=== PATIENT | male | born 2000 | race Caucasian/White ===

== ENCOUNTER 2020-11-04 10:00 | Emergency (ER) | payer OTHER ==
[2020-11-04 10:35] LABS: Urine Blood Negative (Negative); Urine Glucose Negative (Negative); Urine Protein 1+ (Negative); Urine Specific Gravity >=1.030 (1.005-1.030)
[2020-11-04 10:41] LABS: Absolute Lymphocytes (CBC) 0.4 K/uL (0.7-4.9); Basophils % 0.3 % (0-1.3); Lymphocytes % 3.8 % (15.3-44.8); MPV 8.2 fL (7.6-11.3); RBC Red Blood Cell Count 4.84 M/uL (4.33-5.43)
[2020-11-04] MEDS ORDERED: LORazepam 2 MG/ML VIAL ONE ×3 (10:51→20:16)
[2020-11-04 10:52] LABS: Protime INR 1.21
[2020-11-04 10:57] LABS: Barbiturates NEGATIVE (NEGATIVE); Benzodiazepines NEGATIVE (NEGATIVE); Cocaine NEGATIVE (NEGATIVE); METHAMPHETAM NEGATIVE (NEGATIVE); Methadone NEGATIVE (NEGATIVE); Opiates NEGATIVE (NEGATIVE); Phencyclidine NEGATIVE (NEGATIVE); THC Cannibis NEGATIVE (NEGATIVE)
[2020-11-04 11:03] LABS: ALT/SGPT 18 U/L (12-78); AST/SGOT 21 U/L (15-37); Alkaline Phosphatase 122 U/L (45-117); BUN Blood Urea Nitrogen 10 mg/dL (7-18); Bicarbonate 25 mmol/L (21-32); Bilirubin Direct 0.1 mg/dL (0-0.2); Bilirubin Total 0.4 mg/dL (0.2-1.0); Glucose Level 157 mg/dL (74-106); Potassium 3.6 mmol/L (3.5-5.1); Protein, Total 7.3 g/dL (6.4-8.2); Sodium Level 139 mmol/L (136-145)
[2020-11-04 11:09] LABS: Urine Amorphous Sediment 1+ /HPF (NONE SEEN); Urine Bacteria NONE SEEN /HPF (NONE SEEN); Urine Mucus HEAVY /HPF (NONE SEEN); Urine RBC NONE SEEN /HPF (NONE SEEN)
[2020-11-04 12:27] LABS: White Blood Cell Scan OK (OK)
[2020-11-04 12:28] LABS: Blood Morphology Comment NOT SEEN (NOT SEEN); Platelet Estimate ADEQ
[2020-11-04] MEDS ORDERED: WATER FOR INJ,STERILE 10 ML ONE ×2 (15:17→23:04)
[2020-11-04] MEDS ORDERED: ZIPRASIDONE MESYLA 20 MG/VIAL IM ONE ×2 (15:17→23:03)
--- NOTE | 2020-11-04 20:57 | ER ---
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 Pt is autistic and non verbal. Coronavirus screen: Client denies travel out of the [place] in the last 14 days. Ebola Screen: Patient negative for fever greater than or equal to 101.5 degrees Fahrenheit, and additional compatible Ebola Virus Disease symptoms. Initial Sepsis Screen: Does the patient meet any 2 criteria? No. Patient's initial sepsis screen is negative. Does the patient have a suspected source of infection? No. Patient's initial sepsis screen is negative. Risk Assessment: Do you want to hurt yourself or someone else? Patient reports desire/thoughts of hurting themselves or someone else. Provider notified. Onset of symptoms was November 04, 2020. 10:06 Method Of Arrival: EMS: [place] [facility] vg1 10:06 Acuity: JESSICA 3 vg1 Historical: - Allergies: 10:55 No Known Allergies; vg1 - Home Meds: 10:55 acetaminophen 325 mg Oral tab [Active]; clindamycin HCl 300 mg Oral cap [Active]; vg1 Colace oral oral [Active]; divalproex oral oral [Active]; Keppra 1,000 mg Oral tab [Active]; Klonopin Oral [Active]; lorazepam 1 mg Oral tab [Active]; Ondansetron Oral [Active]; Silvadene Topical [Active]; Trazodone Oral [Active]; ziprasidone oral oral [Active]; - PMHx: 23:00 Seizures; Autism; sf - PSHx: 23:00 Unable to obtain; sf - Immunization history:: Adult Immunizations up to date. - Social history:: Smoking status: Patient denies any tobacco usage or history of. - History obtained from: EMS. Screenin:49 Abuse screen: Pt non verbal no s/s of abuse. Nutritional screening: No deficits noted. vg1 Tuberculosis screening: No symptoms or risk factors identified. Fall Risk No fall in past 12 months (0 pts). No secondary diagnosis (0 pts). IV access (20 points). Ambulatory Aid- None/Bed Rest/Nurse Assist (0 pts). Gait- Normal/Bed Rest/Wheelchair (0 pts) Mental Status- Oriented to own ability (0 pts). Total Lo Fall Scale indicates No Risk (0-24 pts). 11/09 08:24 Abuse screen: Denies threats or abuse. Nutritional screening: No deficits noted. ll1 Tuberculosis screening: No symptoms or risk factors identified. Fall Risk Fall in past 12 months (25 points). Secondary diagnosis (15 points) impaired mobility, IV access (20 points). Ambulatory Aid- Crutches/Cane/Walker (15 pts). Gait- Impaired (20 pts.). Mental Status- Overestimates/Forgets Limitations (15 pts.). Total Lo Fall Scale indicates High Risk Score (45 or more points). Fall prevention measures have been instituted. Side Rails Up X 2 1:1 Attendant Assigned Frequent Obs/Assessments Occuring As available patient and family educated on Fall Prevention Program and Strategies. Assessment: 11/04 10:46 General: Appears in no apparent distress. Behavior is calm, cooperative. Pain: Unable vg1 to use pain scale. Patient appears quiet, non verbal. Neuro: Level of Consciousness is awake, alert, obeys commands, Oriented to Pt is non verbal. Cardiovascular: Patient's skin is warm and dry. Respiratory: Airway is patent Respiratory effort is even, unlabored. GI: No signs and/or symptoms were reported involving the gastrointestinal system. Abdomen is flat, Abd is soft and non tender X 4 quads. : Urine is brenda in color. EENT: No deficits noted. Derm: Skin is intact, is healthy with good turgor, Bruising that is on CLINT legs. Musculoskeletal: Capillary refill < 3 seconds, in bilateral fingers. toes. Swelling right hand. 11:59 Reassessment: Pt climbed out of bed unable to redirect, pt became combative, code vg1 greyed called. 16:22 Reassessment: At 1600 Dolly Carter was contacted at [phone]. Ms Carter is vg1 working on pts case and was wanting an update of pt. Stated wants to get pt into a [facility] home but needs a waiver from [facility]. 19:55 Reassessment: Received VO from Dr Acharya to administer Ativan 2 mg IM x1 and to vg1 reorder four point restraints. 23:20 Reassessment: Patient resting quietly. 11/05 00:00 Reassessment: Patient appears in no apparent distress at this time. No changes from sf previously documented assessment. 01:00 Reassessment: Patient appears in no apparent distress at this time. No changes from sf previously documented assessment. 02:00 Reassessment: Patient appears in no apparent distress at this time. No changes from sf previously documented assessment. Fed crackers. 02:30 Reassessment: Patient has removed safety aftab from right hand and taken diaper off, sf urinated on self, stretcher and floor, patient cleaned, floor wiped up, linen and diaper changed. 03:30 Reassessment: Patient appears in no apparent distress at this time. No changes from sf previously documented assessment. Patient removed safety aftab and tore holes in diaper, diaper and safety aftab replaced, attempt to reorient patient. 04:38 Reassessment: Patient appears in no apparent distress at this time. No changes from sf previously documented assessment. patient given food and drink by MARIELENA Radford. 05:32 Reassessment: While changing patients diaper after BM and urine incontinence, patient sf began having seizure activity, tonic clonic movements noted to affect whole body, Dr. Acharya notified, VORB for 1 mg Ativan IVP x1, Dr. Acharya immediately to bedside for eval, total seizure time less than one munute. 06:03 Reassessment: Patient appears in no apparent distress at this time. Patient appears sf drowsy, postictal. 07:30 General: Appears in no apparent distress. Behavior is inappropriate for age, restless. jd3 Pain: Unable to use pain scale. FLACC scale score is 0 out of 10. Neuro: Level of Consciousness is awake, alert, Oriented to pt in non verbal/autistic. Cardiovascular: Patient's skin is warm and dry. Respiratory: Airway is patent Respiratory effort is even, unlabored, Respiratory pattern is regular, symmetrical. GI: No signs and/or symptoms were reported involving the gastrointestinal system. : No signs and/or symptoms were reported regarding the genitourinary system. EENT: No signs and/or symptoms were reported regarding the EENT system. Derm: Skin is intact, Skin is dry, Skin is normal, Skin temperature is warm. Musculoskeletal: Circulation, motion, and sensation intact. Range of motion: intact in all extremities. 08:30 Reassessment: Patient appears in no apparent distress at this time. No changes from jd3 previously documented assessment. Patient and/or family updated on plan of care and expected duration. Pain level reassessed. 09:30 Reassessment: Patient appears in no apparent distress at this time. No changes from jd3 previously documented assessment. Patient and/or family updated on plan of care and expected duration. Pain level reassessed. pt biting at IV lines. sitter at bedside assisting pt and protecting lines. 10:30 Reassessment: Patient appears in no apparent distress at this time. Patient and/or jd3 family updated on plan of care and expected duration. Pain level reassessed. pt resting in bed. no distress or restlessness noted at this time, even and unlabored respirations. 11:30 Reassessment: Patient appears in no apparent distress at this time. No changes from jd3 previously documented assessment. Patient and/or family updated on plan of care and expected duration. Pain level reassessed. discussed plan of care with charge nurse and ER MD. 12:30 Reassessment: Patient appears in no apparent distress at this time. No changes from jd3 previously documented assessment. Patient and/or family updated on plan of care and expected duration. Pain level reassessed. 13:30 Reassessment: Patient appears in no apparent distress at this time. No changes from jd3 previously documented assessment. Patient and/or family updated on plan of care and expected duration. Pain level reassessed. 14:30 Reassessment: Patient appears in no apparent distress at this time. No changes from jd3 previously documented assessment. Patient and/or family updated on plan of care and expected duration. Pain level reassessed. 14:57 Reassessment: spoke with the [facility] returned case inspector to discuss contact number of next jd3 of kin. info from [facility] given to returned case inspector. 15:30 Reassessment: Patient appears in no apparent distress at this time. No changes from jd3 previously documented assessment. Patient and/or family updated on plan of care and expected duration. Pain level reassessed. pt resting in bed with sitter at bedside. 16:09 Reassessment: pt with tonic clonic seizure lasting about 30 seconds. Ativan 2 mg given jd3 per verbal order from Dr. Ernst. 16:10 General: Appears comfortable, Behavior is at baseline after seizure and Ativan.. Pain: jd3 Unable to use pain scale. FLACC scale score is 0 out of 10. Neuro: Level of Consciousness is awake, alert, Oriented to pt non verbal autistic. at baseline. Cardiovascular: Heart tones S1 S2 present Patient's skin is warm and dry. Respiratory: Airway is patent Respiratory effort is even, unlabored, Respiratory pattern is regular, symmetrical. GI: No signs and/or symptoms were reported involving the gastrointestinal system. no vomiting or signs of nausea noted. : No signs and/or symptoms were reported regarding the genitourinary system. EENT: No signs and/or symptoms were reported regarding the EENT system. Derm: Skin is intact, Skin is dry, Skin is normal, Skin temperature is warm. Musculoskeletal: No signs and/or symptoms reported regarding the musculoskeletal system. 17:00 Reassessment: Patient appears in no apparent distress at this time. Patient and/or jd3 family updated on plan of care and expected duration. Pain level reassessed. pt resting in bed with eyes open, even and unlabored respirations. sitter at bedside. no signs of pain or distress at this time. 18:00 Reassessment: Patient appears in no apparent distress at this time. No changes from jd3 previously documented assessment. Patient and/or family updated on plan of care and expected duration. Pain level reassessed. 19:00 Reassessment: Patient appears in no apparent distress at this time. No changes from jd3 previously documented assessment. Patient and/or family updated on plan of care and expected duration. Pain level reassessed. report given to Key ROUSSEAU. 19:00 General: Appears in no apparent distress. Behavior is inappropriate for age, restless, ea Pt attempting to pull on lines and attempting to bite at staff. Neuro: Level of Consciousness is awake, alert, Oriented to none. Respiratory: Airway is patent Respiratory effort is even, unlabored, Respiratory pattern is regular, symmetrical. Derm: Skin is pink, warm \\T\\ dry. Bruising that is on abdomen, left hand and left arm. 21:23 Reassessment: Patient and/or family updated on plan of care and expected duration. Pain ea level reassessed. Patient is alert, oriented x 3, equal unlabored respirations, skin warm/dry/pink. Pt resting with eyes closed, respirations even and unlabored, chest expansions even and symmetrical. 23:15 Reassessment: Patient and/or family updated on plan of care and expected duration. Pain ea level reassessed. Pt resting with eyes closed, respirations even and unlabored. Pt wakes up intermittently and tries to pull lines. Sitter at bedside. Pt does not follow commands. 11/06 02:05 Reassessment: Patient and/or family updated on plan of care and expected duration. Pain ea level reassessed. Attempting to pull lines, biting at staff. 03:41 Reassessment: Patient and/or family updated on plan of care and expected duration. Pain ea level reassessed. pt resting in bed, attempting to pull lines. Sitter at bedside. Pt unable to communicate, does not follow commands. 04:44 Reassessment: Patient and/or family updated on plan of care and expected duration. Pain ea level reassessed. Pt laying in bed with eyes open, attempting to remove lines. Sitter at bedside. 05:16 Reassessment: Patient and/or family updated on plan of care and expected duration. Pain ea level reassessed. Pt resting with eyes closed, respirations even and unlabored, chest expansions even and symmetrical. No s/s of pain or discomfort noted at this time. 06:31 Reassessment: Patient and/or family updated on plan of care and expected duration. Pain ea level reassessed. Pt resting with eyes closed respirations even and unlabored, chest expansions even and unlabored. 07:10 Reassessment: pt resting comfortably in bed. room cleaned. linens clean. pt clean. tr6 fluids double checked at correct rate. VSS. will continue to monitor. 13:39 Reassessment: This RN received a call from Maisha from Adult protective services. tr6 Maisha was attempting to gather more information on pts case so that they can figure out a plan. Per Maisha, Dolly Barrera, is to be the pts case supervisor and she will make contact with the ED regarding when she will come visit the pt and assess the case. MD Ernst informed. 15:00 Reassessment: Patient appears in no apparent distress at this time. Patient is alert, tr6 oriented x 3, equal unlabored respirations, skin warm/dry/pink. 17:32 Reassessment: Patient appears in no apparent distress at this time. Patient is alert, tr6 oriented x 3, equal unlabored respirations, skin warm/dry/pink. pt being fed dinner with assistance by PCT. 19:13 Reassessment: Patient appears in no apparent distress at this time. No changes from tr6 previously documented assessment. Patient and/or family updated on plan of care and expected duration. Pain level reassessed. Patient is alert, oriented x 3, equal unlabored respirations, skin warm/dry/pink. pt resting comfortably in bed. incontinence care completed. and restraints remain in place. report given to belle ROUSSEAU. 21:15 Reassessment: Patient and/or family updated on plan of care and expected duration. Pain ea level reassessed. Pt alert, unable to verbalized needs. Pt continues to attempt to remove lines, grabs and bites at staff. 22:03 Reassessment: Pt resting with eyes closed respiration. Sitter remains at bedside. ea 11/07 00:46 Reassessment: Patient and/or family updated on plan of care and expected duration. Pain ea level reassessed. Pt attempting to pull IV lines. Nancy care performed, tolerated well. 02:09 Reassessment: Patient and/or family updated on plan of care and expected duration. Pain ea level reassessed. Pt resting with eyes closed, respirations even and unlabored, chest expansions even and symmetrical. 03:43 Reassessment: Patient and/or family updated on plan of care and expected duration. Pain ea level reassessed. Pt resting with eyes closed respirations even and unlabored. Chest expansions even and symmetrical. 03:59 Reassessment: Attempted to ambulate pt, pt does not follow commands, attempting to bite ea and grab at staff. Pt placed back into bed, linens rearranged, brief changed. Pt placed in restraints. 05:51 Reassessment: Patient and/or family updated on plan of care and expected duration. Pain ea level reassessed. Pt resting with eyes closed, respirations even and unlabored, brief changed, pt tolerated well. 07:05 Reassessment: Pt restless in bed, watching staff in hallway, NAD. remains restrained. hb Sitter at bedside. 07:34 Reassessment: Pt pulled off diaper and began eating it while writhing in bed and hb smearing feces with other hand. Pt pinched nurse x 2 while attempting to clean him and change linens, unable to redirect or safely clean. Dr. Acharya notified, Ativan administered as ordered. Pt cleaned and linens changed, remains restrained for patient and staff safety. 10:19 Reassessment: Patient appears in no apparent distress at this time. EDtech fed patient vg1 a donut, patient tolerated well. Currently watching tv, laying in bed quietly. 12:00 Reassessment: Patient appears in no apparent distress at this time. Pt lying in bed vg1 quietly, appears to be watching tv. 12:36 Reassessment: APS- Dolly Carter [phone]. vg1 12:51 Reassessment: Attempted to initiate transfer at [facility] who states they will not currently accept patients from this area. Spoke with rep at [facility] who states the wait time to get into their hospital is about a month. Called Tino Mackenzie with IDD services, Ryan who states he is unable to help with this patient's situation. Called Patient's APS case supervisor, Dolly Boyce ([phone]) who states that she found a place in [place] that would accept patient but needs an HCS waiver before they can arrange that. Spoke with John prefabricated houses trimmer who contacted our in house Protein Specialist, Patricia who states that patient may not qualify for a waiver as he has insurance. ONELIA Fieldscorrectional case records supervisor has been given APS case supervisorDolly's number to see what else may be done. 13:29 Reassessment: Spoke with Keren with case management who states [facility] should be on ss there way to evaluate the patient to have waiver signed. 15:34 Reassessment: Spoke with ONELIA Veliz again with case management who asks if [facility] has been by yet. Still Awaiting for them to arrive for evaluation and have waiver signed. Called RU Alberto returned case inspector who did not answer. Left VM awaiting for return call. [facility]. Left . 16:13 Reassessment: Ryan with [facility] called stating that they do not have the ss patient on their list to come evaluate and states that they would need a guardian present at bedside to perform proper evaluation as patient is non verbal and unable to follow commands. Attempted to call Dolly with APS who has not returned call as of yet. Gave Ryan with [facility] Dolly's number in attempt to gain family member(s) phone numbers. Attempted to call Keren with Case management, no answer. Left . John, quarry supervisor open pit notified and states she will attempt to get ahold of case management. 16:46 Reassessment: Spoke with APS returned case inspector, Dolly who states that patient's Mother ss gave her Mita's number from [facility] that is supposed to assess him. No answer. Left . 18:01 Reassessment: Pt ate 100% of dinner, and drank fluids; fed by loader technician, patient vg1 tolerated meal and fluids well. 19:05 Reassessment: Pt seized, lasted about 30 seconds. Pt is currently trying to get out of vg1 bed. ONELIA Simmons received VO from Dr Acharya to administer Ativan 1 mg IVP x1. 20:44 Reassessment: Pt ate pudding, tolerated well. Pt drank 8 oz of fluid, tolerated well. vg1 21:00 Reassessment: Received VO from DR Mcadams to administer Ativan 1mg IVP x1. vg1 22:00 General: Appears in no apparent distress. comfortable, Behavior is calm, cooperative. sf Pain: Unable to use pain scale. Patient appears quiet. Neuro: Level of Consciousness is awake, alert, Oriented to none. Cardiovascular: No deficits noted. Respiratory: No deficits noted. GI: incontinent of stool. : incontinent of urine. Derm: No deficits noted. Musculoskeletal: No deficits noted. 23:00 Reassessment: Patient appears in no apparent distress at this time. No changes from sf previously documented assessment. 23:55 Reassessment: Patient appears in no apparent distress at this time. Patient and/or sf family updated on plan of care and expected duration. Pain level reassessed. 11/08 01:00 Reassessment: Patient appears in no apparent distress at this time. No changes from sf previously documented assessment. 02:00 Reassessment: Patient appears in no apparent distress at this time. No changes from sf previously documented assessment. 03:00 Reassessment: Patient appears in no apparent distress at this time. No changes from sf previously documented assessment. 04:03 Reassessment: Patient appears in no apparent distress at this time. No changes from sf previously documented assessment. Patient and/or family updated on plan of care and expected duration. Pain level reassessed. Sleeping. 05:37 Reassessment: Patient appears in no apparent distress at this time. No changes from sf previously documented assessment. Sleeping. 06:07 Reassessment: Patient appears in no apparent distress at this time. No changes from sf previously documented assessment. Sleeping. 07:30 General: Appears in no apparent distress. comfortable, Behavior is calm, cooperative, kg inappropriate for age. Pain: Unable to use pain scale. Patient appears quiet, FLACC scale score is 0 out of 10. Neuro: Level of Consciousness is awake, alert, Oriented to none Pt is non verbal . Cardiovascular: No deficits noted. Heart tones S1 S2 present Patient's skin is warm and dry. Respiratory: No deficits noted. Airway is patent Respiratory effort is even, unlabored, Respiratory pattern is regular, symmetrical. GI: Abdomen is flat, Bowel sounds present X 4 quads. Abd is soft and non tender X 4 quads. GI: Pt is incontinent. : Urine is pt is incontinent. EENT: No deficits noted. Derm: Skin is intact, is healthy with good turgor, is fragile, Skin is dry, Skin is pink, warm \\T\\ dry. normal, Wound noted gluteal cleft and right gluteus sid Wound is Beefy blanchable redness to right hip. Dark red and purple to coccyx. Musculoskeletal: No deficits noted. 19:15 General: Appears in no apparent distress. comfortable, Behavior is calm, inappropriate sf for age. Pain: Unable to use pain scale. Does not appear to understand pain scale. Neuro: Level of Consciousness is awake, alert, Oriented to none. Cardiovascular: No deficits noted. Patient's skin is warm and dry. Respiratory: No deficits noted. Airway is patent Respiratory effort is even, unlabored, Respiratory pattern is regular, symmetrical. GI: No signs and/or symptoms were reported involving the gastrointestinal system. Abdomen is flat, non-distended, incontinent of stool. : No signs and/or symptoms were reported regarding the genitourinary system. incontinent of urine. EENT: No deficits noted. No signs and/or symptoms were reported regarding the EENT system. Derm: Wound noted right hip Wound is 5x5 cm abrasion/sheer injury, applied skin protectant and rolled to left side. Musculoskeletal: Circulation, motion, and sensation intact. Capillary refill < 3 seconds, Range of motion: intact in all extremities. 20:10 Reassessment: Patient appears in no apparent distress at this time. No changes from sf previously documented assessment. Patient and/or family updated on plan of care and expected duration. Pain level reassessed. 21:15 Reassessment: Patient appears in no apparent distress at this time. No changes from sf previously documented assessment. Patient and/or family updated on plan of care and expected duration. Pain level reassessed. 22:00 Reassessment: Patient appears in no apparent distress at this time. No changes from sf previously documented assessment. Patient and/or family updated on plan of care and expected duration. Pain level reassessed. 23:00 Reassessment: Patient appears in no apparent distress at this time. No changes from sf previously documented assessment. Patient and/or family updated on plan of care and expected duration. Pain level reassessed. 11/09 00:00 Reassessment: Patient appears anxious, restless, shaking in bed but is alert. Covered sf with warm blankets. Unknown what the patient is trying to communicate. VORB for 1 mg ativan IVP once by Dr. Mcadams for anxiety. 01:00 Reassessment: Patient appears in no apparent distress at this time. Patient relaxed in sf bed Patient states symptoms have improved. 02:00 Reassessment: Patient appears in no apparent distress at this time. No changes from sf previously documented assessment. 02:58 Reassessment: Patient appears in no apparent distress at this time. No changes from sf previously documented assessment. 03:57 Reassessment: Patient appears in no apparent distress at this time. No changes from sf previously documented assessment. Sleeping. 05:00 Reassessment: Patient appears in no apparent distress at this time. No changes from sf previously documented assessment. Sleeping. 06:00 Reassessment: Patient appears in no apparent distress at this time. No changes from sf previously documented assessment. Sleeping. 07:00 Reassessment: Patient appears in no apparent distress at this time. No changes from sf previously documented assessment. Sleeping. 08:00 Reassessment: No changes from previously documented assessment. Patient and/or family ll1 updated on plan of care and expected duration. Pain level reassessed. 10:00 Reassessment: No changes from previously documented assessment. Patient and/or family ll1 updated on plan of care and expected duration. Pain level reassessed. 12:00 Reassessment: No changes from previously documented assessment. Patient and/or family kg updated on plan of care and expected duration. Pain level reassessed. 14:29 Reassessment: Patient had a small tonic clonic seizure that lasted approximately [address] Natarajan notified and orders received. See EMAR. . 19:30 General: Appears in no apparent distress. comfortable, Behavior is inappropriate for sf age, restless. Pain: Unable to use pain scale. Does not appear to understand pain scale. Neuro: Level of Consciousness is awake, alert, Oriented to none. Cardiovascular: No deficits noted. Patient's skin is warm and dry. Respiratory: No deficits noted. Airway is patent Respiratory effort is even, unlabored, Respiratory pattern is regular, symmetrical. GI: Abdomen is non-distended, Last BM was November 09, 2020. incontinent of stool. : incontinent of urine. EENT: No deficits noted. No signs and/or symptoms were reported regarding the EENT system. Derm: Wound noted right hip Wound is 10 x 10 cm area of redness, excoriated, non blanchable. Musculoskeletal: No signs and/or symptoms reported regarding the musculoskeletal system. Circulation, motion, and sensation intact. Capillary refill < 3 seconds, in bilateral fingers. toes. Range of motion: intact in all extremities. 20:00 Reassessment: Patient appears in no apparent distress at this time. No changes from sf previously documented assessment. 21:00 Reassessment: Patient appears in no apparent distress at this time. No changes from sf previously documented assessment. 22:15 Reassessment: Patient appears in no apparent distress at this time. No changes from sf previously documented assessment. Attempt to give patient keppra and depakote PO, patient spitting pills out, crushed pills and mixed in apple juice, refusing to drink juice with medication in it. 23:00 Reassessment: Patient appears in no apparent distress at this time. No changes from sf previously documented assessment. Resting quietly. 23:51 Reassessment: Patient appears in no apparent distress at this time. No changes from sf previously documented assessment. 11/10 01:00 Reassessment: Patient appears in no apparent distress at this time. No changes from sf previously documented assessment. Patient pulled right and left wrist restraints off of wrists and had reached over to the counter, pulled nancy-care cleaning wipes and chucks pads over to him and was attempting to chew them. Patient placed back in bed properly and bilateral wrist restraints replaced. 01:40 Reassessment: Patient is agitated, refusing water, refusing food, elimination needs sf met, unable to communicate needs, repositioned for comfort, no relief of agitation, Dr. Mcadams notified, see orders. 03:00 Reassessment: Patient appears in no apparent distress at this time. No changes from sf previously documented assessment. relaxed. 04:00 Reassessment: Patient appears in no apparent distress at this time. No changes from sf previously documented assessment. Resting quietly. 05:00 Reassessment: Patient appears in no apparent distress at this time. No changes from sf previously documented assessment. Patient appears to be fidgety, calmed with verbal reassurance. 06:00 Reassessment: Patient appears in no apparent distress at this time. No changes from sf previously documented assessment. Sleeping. 06:58 Reassessment: Patient appears in no apparent distress at this time. No changes from sf previously documented assessment. Sleeping. 07:00 Reassessment: RECD REPORT FROM [facility]. 20YO WM P/W AMS AND COMBATIVE. PT bp AUTISTIC/MR AND HAS NO CAREGIVER. PT NON-VERBAL, NOT REDIRECTABLE AND A DANGER TO STAFF AND SELF. RESTRAINTS REMAIN IN PLACE. 09:15 Reassessment: PT INCONTINENT TO URINE AFTER REMOVING DIAPER. PT CLEANED, BATHED AND bp CHANGED. NEW PIV PLACED. PT REMAINS NOT-REDIRECTABLE AND NON-VERBAL. PT AGITATED AND UNCOOPERATIVE. RESTRAINTS REMAIN IN PLACE. 10:00 Reassessment: PT REMAINS UNCOOPERATIVE AND NON-REDIRECTABLE. PT NON-VERBAL, NOT bp FOLLOWING COMMANDS. PT UNABLE TO ARTICULATE RESTRAINT RELEASE CRITERIA. 12:00 Reassessment: Patient appears in no apparent distress at this time. No changes from bp previously documented assessment. PT REMAINS IN RESTRAINTS, UNABLE TO ARTICULATE OR COMPREHEND RESTRAINT RELEASE CRITERIA. PT FED LUNCH. 14:00 Reassessment: Patient appears in no apparent distress at this time. No changes from bp previously documented assessment. PT AGIGTATED, MEDICATED ORDERED. RESTRAINTS REMAIN IN PLACE. 16:00 Reassessment: No changes from previously documented assessment. PT CLEANED OF STOOL, bp ATTEMPTING TO EAT FECES. PT AGITATED AFTER BEING PREVENTED FROM EATING FECES. RESTRAINTS IN PLACE, PT REMAINS NONVERBAL AND UNCOOPERATIVE Patient states symptoms have not improved. 18:00 Reassessment: No changes from previously documented assessment. PT FED DINNER TRAY bp Patient states symptoms have not improved. 19:10 General: Appears in no apparent distress. comfortable, Behavior is inappropriate for rr5 age, restless. 19:10 Neuro: Level of Consciousness is awake, alert, Oriented to none. Cardiovascular: rr5 Capillary refill < 3 seconds Patient's skin is warm and dry. Respiratory: Airway is patent Respiratory effort is even, unlabored, Respiratory pattern is regular, symmetrical. Derm: Skin temperature is warm. 20:40 Reassessment: Patient appears in no apparent distress at this time. diaper changed rr5 positive urine. 22:20 Reassessment: Patient appears in no apparent distress at this time. uncooperative rr5 biting his gown, removing his diaper. 23:10 Reassessment: restless, getting out on bed, ED provider aware with order made and rr5 carried out. 11/11 00:50 Reassessment: Patient appears in no apparent distress at this time. getting out on bed rr5 pulling out IV line,side rails secured, ED provider aware with order made and carried out. 03:20 Reassessment: Patient appears in no apparent distress at this time. went to sleep after rr5 the morning care. 06:00 Reassessment: Patient appears in no apparent distress at this time. on semi [place] rr5 position vital sign taken and recorded. 07:14 Reassessment: Pt laying in bed with eyes closed, respirations even and unlabored, no jl7 signs of distress noted at this time. 08:01 Reassessment: Dr. Veliz at bedside assessing pt, reports he's going to call the jl7 pt's brother and attempt to locate leisa. 10:20 Reassessment: Pt awake, non-verbal, brief changed, able to feed himself his breakfast jl7 of chinese toast, eggs and dobbins. 10:40 Reassessment: All items removed from pt room, mattress placed on floor and pt provided jl7 with sensory items. Pt continually tried to run out of room. Able to redirect pt to play with sensory items, which worked for just 5 minutes and pt began trying to break out of room, dropped to the floor and attempted to shove head through nurse's legs, appears agitated and refusing to stop. Bed returned to room and mattress placed back on bed, VO for 1 mg Ativan IVP, administered as ordered. 13:45 Reassessment: Pt laying in bed, appears to be very agitated, rocking and kicking his jl7 legs, ERD notified, VO for 1 mg Ativan IVP, administered as ordered. 14:00 Reassessment: Pt appears to be relaxed, laying in bed, no signs of distress noted at jl7 this time. 15:30 Reassessment: Pt tossing in bed, appears restless. LINDA Hankins and ONELIA Varghese jl7 assisted pt into wheelchair and wheeled him outside. Pt calm and smiling, music playing and pt swaying, appears happy. 17:10 Reassessment: LINDA Hankins wheeled pt around hospital for approximately 1 hour, jl7 attempted to get pt back into his room but pt became visibly upset, shaking his head "No", trying to get out of wheelchair and away from staff. ERD notified of increased agitation, VO for 2 mg Ativan IVP, medicated as ordered. Able get pt back into the room and attempted to assist him onto bed, pt began scratching at staff and screeching while shaking his head no. Staff able to safely get pt back into bed and restraints reapplied. 19:30 General: Appears in no apparent distress. comfortable, Behavior is calm, cooperative. rr5 19:30 Neuro: Level of Consciousness is awake, alert. Cardiovascular: Capillary refill < 3 rr5 seconds Patient's skin is warm and dry. Respiratory: Airway is patent Respiratory effort is even, unlabored, Respiratory pattern is regular, symmetrical. 20:20 Reassessment: Patient appears in no apparent distress at this time. roaming around the rr5 hallway via wheelchair assisted by sitter. 22:00 Reassessment: pulled out his IV line, started to become agitated, ED provider aware rr5 with order made and carried out. 23:00 Reassessment: Patient appears in no apparent distress at this time. asleep on bed due rr5 medication given. VS taken and recorded. 11/12 02:31 Reassessment: Patient appears in no apparent distress at this time. vital signs taken rr5 and recorded on side lying position, sitter at bedside. 05:00 Reassessment: Patient appears in no apparent distress at this time. woke up snack s rr5 given with good appetite. 05:55 Reassessment: diaper wet with stool noted and changed. transferred to wheelchair, roam rr5 around the hallway. patient is calm and cooperative. 06:05 Reassessment: transferred back to bed, awake alert, cooperative. rr5 07:07 Reassessment: Patient and/or family updated on plan of care and expected duration. Pain tr6 level reassessed. Patient is alert, oriented x 3, equal unlabored respirations, skin warm/dry/pink. received report of pt resting comfortably in bed, awake, watching tv. respirations even and unlabored, seems to be in no distress. Will continue to monitor. 07:45 Reassessment: pt assisted to bathroom by RN, pt cleaned, linens changed, room cleaned, tr6 pt gown changed, pt given water and returned to chair with activity books. 07:59 Reassessment: pt given snacks. pt eating independently at table. tr6 08:18 Reassessment: pt eating breakfast at bedside. tr6 09:52 Reassessment: Dolly from Adult protective services here to inform chargemaster analyst and tr6 primary RN that paperwork is still pending from pts mother. case management to f/u with APS. 10:06 Reassessment: per sitter pt seized for about 15 seconds. no injury noted to pt. VSS. tr6 informed. no meds given due to completion of seizure. will continue to monitor. 10:06 Neuro: Seizure activity per PCT pt seized for about 15 seconds. RN did not witness tr6 seizure. no meds given. MD aware. 11:10 Neuro: Seizure activity noted at this time. Seizure lasted approximately 1 minutes. tr6 safety precautions in place. no injury during seizure activity. no meds given. aware. 12:00 Reassessment: Patient appears in no apparent distress at this time. No changes from tr6 previously documented assessment. Patient and/or family updated on plan of care and expected duration. Pain level reassessed. 13:15 Reassessment: pt had a seizure witnessed by sitter while pt was eating. pt given IVP tr6 1mg ativan by ONELIA Flores who attended to pt. seizure lasted about 45 seconds. per sitter pt gradually, slowly guided to floor. per sitter pt did bumped his head on the floor. no noted trauma to pts face. MD Campos aware. 14:36 Reassessment: pt resting comfortably in bed watching television. pt seems not to be in tr6 any distress. sitter at bedside. will continue to monitor. 19:30 General: Appears in no apparent distress. comfortable, Behavior is calm, cooperative. sf Pain: Unable to use pain scale. Does not appear to understand pain scale. Patient appears quiet. Neuro: Level of Consciousness is awake, alert, Oriented to none. Cardiovascular: No deficits noted. Patient's skin is warm and dry. Respiratory: No deficits noted. Airway is patent Respiratory effort is even, unlabored, Respiratory pattern is regular, symmetrical. GI: No signs and/or symptoms were reported involving the gastrointestinal system. Abdomen is flat, non-distended, Last BM was November 12, 2020. incontinent of stool. : No signs and/or symptoms were reported regarding the genitourinary system. incontinent of urine. EENT: No deficits noted. No signs and/or symptoms were reported regarding the EENT system. Derm: Wound noted right hip. Musculoskeletal: No deficits noted. No signs and/or symptoms reported regarding the musculoskeletal system. Circulation, motion, and sensation intact. Capillary refill < 3 seconds, Range of motion: intact in all extremities. 20:30 Reassessment: Patient having seizure activity in wheelchair upon arriving back to room sf 19. Patient's whole body became tense followed by rhythmic jerking of arms and upper body, no injury noted, s/s lasted about 45 seconds, was assisted back into bed x2, Dr Natarajan notified, see orders. 22:30 Reassessment: Patient appears in no apparent distress at this time. Patient states sf symptoms have improved. 23:30 Reassessment: Patient appears in no apparent distress at this time. No changes from sf previously documented assessment. Resting quietly. 11/13 00:26 Reassessment: Patient appears in no apparent distress at this time. No changes from sf previously documented assessment. 01:00 Reassessment: Patient appears in no apparent distress at this time. No changes from sf previously documented assessment. 02:00 Reassessment: Patient appears in no apparent distress at this time. No changes from sf previously documented assessment. Sleeping. 03:00 Reassessment: Patient appears in no apparent distress at this time. No changes from sf previously documented assessment. Resting comfortably in bed. Looking at a magazine. 04:00 Reassessment: Patient appears in no apparent distress at this time. No changes from sf previously documented assessment. Taken for a ride around department in wheelchair by MARIELENA Mi. 05:00 Reassessment: Patient appears in no apparent distress at this time. No changes from sf previously documented assessment. 06:00 Reassessment: Patient appears in no apparent distress at this time. No changes from sf previously documented assessment. Sleeping. 07:00 Reassessment: Patient appears in no apparent distress at this time. No changes from sf previously documented assessment. Sleeping. 09:00 Reassessment: Patient appears in no apparent distress at this time. pt currently em resting comfortable with eyes closed. 11:00 Reassessment: Reassessment: pt currently resting comfortable with eyes closed, em respirations even and unlabored. 12:12 Reassessment: pt soiled brief and chucks, cleaned pt and applied new brief, changed em linen and got VS, VSS at this time. 15:50 Reassessment: pt wheeled around in wheelchair, no apparent distress noted, pt calm and em cooperative. 16:40 Reassessment: pt became combative and spit in staffs face, pt was given 2 mg Ativan IVP em x 1 with no relief, Dr. Park notified, received verbal order for 4 point restraints and Geodon 10 mg IM BID PRN, applied restraints with slip knots, CMS intact, pt starting to calm down. 16:55 Reassessment: 10 mg Geodon IM given in right vastus lateralis. em 17:25 Reassessment: restraints D/C'd, sitter at bedside, pt resting quietly and calmly in bed em with eyes closed, respirations even and unlabored, skin pink warm and dry, CMS intact. 18:00 Reassessment: No changes from previously documented assessment. em 18:30 Reassessment: Patient appears in no apparent distress at this time. No changes from em previously documented assessment. 19:00 Reassessment: Patient appears in no apparent distress at this time. No changes from em previously documented assessment. 19:00 General: Appears in no apparent distress. comfortable, Behavior is Sleeping. Neuro: sf Level of Consciousness is Sleeping. Cardiovascular: No deficits noted. Respiratory: No deficits noted. GI: Incontinent of stool. : Incontinent of urine. EENT: No deficits noted. Derm: Wound noted right hip Wound is 6x6 area of redness, blanchable. Musculoskeletal: No deficits noted. 20:00 Reassessment: Patient appears in no apparent distress at this time. No changes from sf previously documented assessment. Sleeping. 20:30 Reassessment: Patient appears in no apparent distress at this time. Patient awake and sf calm. 20:50 Reassessment: Patient climbing out of bed, eating non-edible things in room, placed sf back in bed and items removed from room. 22:00 Reassessment: Patient appears in no apparent distress at this time. resting quietly at sf this time. 23:00 Reassessment: Patient appears in no apparent distress at this time. No changes from sf previously documented assessment. 11/14 00:00 Reassessment: Patient appears in no apparent distress at this time. No changes from sf previously documented assessment. 01:00 Reassessment: Patient appears in no apparent distress at this time. No changes from sf previously documented assessment. 02:00 Reassessment: Patient appears in no apparent distress at this time. No changes from sf previously documented assessment. 03:00 Reassessment: Patient appears in no apparent distress at this time. No changes from sf previously documented assessment. Patient took medications by hiding them in food. 04:00 Reassessment: Patient appears in no apparent distress at this time. Sleeping. sf 05:00 Reassessment: Patient appears in no apparent distress at this time. Patient awake and sf playing with toys in room. 06:00 Reassessment: Patient appears in no apparent distress at this time. No changes from sf previously documented assessment. 07:00 Reassessment: Patient appears in no apparent distress at this time. No changes from sf previously documented assessment. Playing with toys and interacting well with staff. 07:05 General: Appears in no apparent distress. comfortable, Behavior is cooperative, quiet. ll1 Pain: Denies pain. Neuro: No deficits noted. Cardiovascular: No deficits noted. Respiratory: No deficits noted. GI: incontinent; Brief on. : incontinent, brief on. Derm: healing abrasions R hip. 09:00 Reassessment: No changes from previously documented assessment. Patient and/or family ll1 updated on plan of care and expected duration. Pain level reassessed. 11:00 Reassessment: No changes from previously documented assessment. Patient and/or family ll1 updated on plan of care and expected duration. Pain level reassessed. 13:00 Reassessment: No changes from previously documented assessment. Patient and/or family ll1 updated on plan of care and expected duration. Pain level reassessed. 15:15 Reassessment: witnessed seizure, lasted approximately [address] Acharya ll1 informed. Ativan IM ordered and given. 17:00 Reassessment: No changes from previously documented assessment. Patient and/or family ll1 updated on plan of care and expected duration. Pain level reassessed. Patient states symptoms have improved. 19:00 Reassessment: Patient appears in no apparent distress at this time. No changes from 8 previously documented assessment. Patient and/or family updated on plan of care and expected duration. Pain level reassessed. Patient is alert, oriented x 3, equal unlabored respirations, skin warm/dry/pink. Patient sleeping comfortably. 21:00 Reassessment: Patient appears in no apparent distress at this time. No changes from 8 previously documented assessment. Patient and/or family updated on plan of care and expected duration. Pain level reassessed. Patient is alert, oriented x 3, equal unlabored respirations, skin warm/dry/pink. Patient sleeping comfortably. 23:00 Reassessment: Patient appears in no apparent distress at this time. No changes from 8 previously documented assessment. Patient and/or family updated on plan of care and expected duration. Pain level reassessed. Patient is alert, oriented x 3, equal unlabored respirations, skin warm/dry/pink. Patient is sleeping comfortably. 11/15 01:24 Reassessment: Patient appears in no apparent distress at this time. No changes from 8 previously documented assessment. Patient and/or family updated on plan of care and expected duration. Pain level reassessed. Patient is alert, oriented x 3, equal unlabored respirations, skin warm/dry/pink. Patient awake at this time. Night time medications administered. Patient fed and toileted. 03:00 Reassessment: Patient appears in no apparent distress at this time. No changes from jm8 previously documented assessment. Patient and/or family updated on plan of care and expected duration. Pain level reassessed. Patient is alert, oriented x 3, equal unlabored respirations, skin warm/dry/pink. 05:00 Reassessment: Patient appears in no apparent distress at this time. No changes from jm8 previously documented assessment. Patient and/or family updated on plan of care and expected duration. Pain level reassessed. Patient is alert, oriented x 3, equal unlabored respirations, skin warm/dry/pink. 06:55 Reassessment: Patient appears in no apparent distress at this time. No changes from jm8 previously documented assessment. Patient and/or family updated on plan of care and expected duration. Pain level reassessed. Patient is alert, oriented x 3, equal unlabored respirations, skin warm/dry/pink. 07:09 General: Appears in no apparent distress. comfortable, Behavior is calm, inappropriate rb3 for age. Pain: Denies pain. Neuro: Level of Consciousness is awake, obeys commands, confused, Oriented to none. Cardiovascular: Patient's skin is warm and dry. Respiratory: Airway is patent Respiratory effort is even, unlabored, Respiratory pattern is regular, symmetrical. 08:00 Reassessment: Patient appears in no apparent distress at this time. Patient and/or rb3 family updated on plan of care and expected duration. Pain level reassessed. 09:00 Reassessment: Patient appears in no apparent distress at this time. Pt. is watching TV. rb3 10:00 Reassessment: Patient appears in no apparent distress at this time. Patient and/or rb3 family updated on plan of care and expected duration. Pain level reassessed. General: Pt. is calm and watching cartoons. 11:00 Reassessment: Patient appears in no apparent distress at this time. No changes from rb3 previously documented assessment. 12:00 Reassessment: Pt. is up walking around his room, he keeps trying to get out of the room.rb3 12:15 Reassessment: Pt. is getting more agitated and is trying to push his way out of his rb3 room and is scratching, kicking at the staff. 13:00 Reassessment: Patient appears in no apparent distress at this time. Pt. has calmed down rb3 and doesn't seem agitated. 14:00 Reassessment: Patient appears in no apparent distress at this time. Pt. is watching rb3 cartoons. 15:00 Reassessment: Patient appears in no apparent distress at this time. Pt. is watching rb3 cartoons. LINDA Mejia at the pt bedside. 16:00 Reassessment: Patient appears in no apparent distress at this time. Pt. is laughing and rb3 interacting with staff. 16:52 Reassessment: Patient appears in no apparent distress at this time. Pt. is calmly rb3 waking around his room. 17:50 Reassessment: Pt. is walking around his room and keeps taking his gown off. rb3 18:28 Reassessment: Patient appears in no apparent distress at this time. Patient and/or rb3 family updated on plan of care and expected duration. Pain level reassessed. 19:53 Reassessment: during shift change, patient started to be aggressive and restless, rv throwing things at staff, trying to get away from the room. 11/16 07:08 General: Appears in no apparent distress. Cardiovascular: Patient's skin is warm and rb3 dry. Respiratory: Airway is patent Respiratory effort is even, unlabored, Respiratory pattern is regular, symmetrical. 08:00 Reassessment: Patient appears in no apparent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 Pulse Ox 100% ; sf 05:45 BP 126 / 95; Pulse 109; Resp 16; Pulse Ox 100% ; sf 06:00 BP 128 / 93; Pulse 100; Pulse Ox 100% ; sf 06:30 BP 125 / 80; Pulse 84; Resp 16; Pulse Ox 100% ; sf 07:48 BP 126 / 89; Pulse 82; Resp 16; Temp 97.6(A); Pulse Ox 100% on R/A; mh5 12:24 BP 123 / 85; Pulse 99; Resp 18; Temp 98.0(A); Pulse Ox 100% on R/A; mh5 16:10 BP 128 / 84; Pulse 118; Resp 18 S; Pulse Ox 100% on R/A; jd3 17:35 BP 138 / 97; Pulse 119; Resp 16 S; Pulse Ox 99% on R/A; jd3 20:15 BP 124 / 83; Pulse 105; Resp 18; Pulse Ox 99% ; ea 23:00 BP 128 / 78; Pulse 104; Resp 16; Pulse Ox 98% ; ea 11/06 02:04 BP 125 / 82; Pulse 100; Resp 18; Pulse Ox 99% ; ea 03:30 BP 117 / 71; Pulse 105; Resp 19; Pulse Ox 99% on R/A; ea 05:16 BP 132 / 80; Pulse 103; Resp 16; Pulse Ox 98% on R/A; ea 05:16 Temp 98.1; ea 06:32 BP 119 / 74; Pulse 72; Resp 18; Pulse Ox 97% on R/A; ea 08:34 BP 110 / 70; Pulse 68; Resp 16; Temp 97.5(A); Pulse Ox 98% on R/A; mh5 12:06 BP 125 / 75; Pulse 110; Resp 16; Temp 97.8(A); Pulse Ox 96% on R/A; mh5 15:24 BP 133 / 81; Pulse 111; Resp 16; Pulse Ox 98% 2 lpm ; tr6 17:33 BP 149 / 82; Pulse 111; Resp 18; Temp 98.4(A); Pulse Ox 100% 2 lpm ; mh5 19:44 BP 149 / 82; Pulse 108; Resp 18; Pulse Ox 100% ; ea 22:13 BP 126 / 93; Pulse 103; Resp 16; Pulse Ox 99% on R/A; ea 11/07 01:00 BP 136 / 94; Pulse 100; Resp 16; Pulse Ox 99% ; ea 05:51 BP 123 / 80; Pulse 99; Resp 16; Temp 98.4; Pulse Ox 99% on R/A; ea 07:41 BP 130 / 80; Pulse 99; Resp 16; Temp 97.4(A); Pulse Ox 98% on R/A; mh5 11:52 BP 135 / 86; Pulse 110; Resp 16; Temp 97.7(A); Pulse Ox 95% on R/A; mh5 16:49 BP 124 / 82; Pulse 89; Resp 16; Temp 98.0(A); Pulse Ox 100% on R/A; mh5 18:05 BP 127 / 81; Pulse 97; Resp 16; Temp 97.4(A); Pulse Ox 98% on R/A; mh5 21:00 BP 124 / 84; Pulse 105; Resp 18; Pulse Ox 96% on R/A; 1 11/08 01:00 BP 123 / 87; Pulse 90; Resp 16; Pulse Ox 97% ; sf 04:00 BP 117 / 80; Pulse 52; Resp 14; Pulse Ox 97% ; sf 06:00 BP 110 / 66; Pulse 60; Resp 16; Pulse Ox 98% ; sf 08:07 BP 125 / 93; Pulse 63; Resp 15; Pulse Ox 97% ; kg 10:00 BP 118 / 91; Pulse 101; Resp 16; Temp 96.7(O); Pulse Ox 100% ; kg 12:00 BP 129 / 94; Pulse 98; Resp 18; Pulse Ox 99% on R/A; kg 14:00 BP 127 / 99; Pulse 92; Resp 15; Pulse Ox 98% on R/A; kg 16:00 BP 135 / 90; Pulse 91; Resp 17; Pulse Ox 98% on R/A; kg 18:00 BP 116 / 87; Pulse 96; Resp 16; Pulse Ox 96% on R/A; kg 20:00 BP 115 / 81; Pulse 62; Resp 16; Pulse Ox 98% ; sf 04 00:16 BP 122 / 83; Pulse 88; Resp 16; Pulse Ox 95% ; sf 02:00 BP 123 / 84; Pulse 86; Resp 16; Pulse Ox 93% ; sf 04:00 BP 107 / 69; Pulse 76; Resp 16; Pulse Ox 96% ; sf 06:00 BP 104 / 76; Pulse 58; Resp 14; Pulse Ox 97% ; sf 08:00 BP 109 / 70; Pulse 80; Resp 15; Temp 97.3; Pulse Ox 95% on R/A; Pain 0/10; ll1 10:00 BP 115 / 83; Pulse 88; Resp 15; Temp 97.4(TE); Pulse Ox 95% on R/A; Pain 0/10; ll1 12:00 BP 116 / 76; Pulse 81; Resp 17; Pulse Ox 97% ; kg 14:35 BP 122 / 72; Pulse 102; Resp 17; Pulse Ox 95% on R/A; kg 16:15 BP 129 / 77; Pulse 79; Resp 14; Pulse Ox 99% on R/A; kg 18:43 BP 111 / 69; Pulse 64; Resp 15; Temp 97.6(TE); Pulse Ox 100% on R/A; kg 20:00 BP 123 / 79; Pulse 105; Resp 16; Pulse Ox 97% ; sf 22:00 BP 123 / 64; Pulse 80; Resp 16; Pulse Ox 97% ; sf 11/10 00:00 BP 128 / 77; Pulse 97; Resp 16; Pulse Ox 97% ; sf 04:00 BP 121 / 70; Pulse 84; Resp 16; Pulse Ox 96% ; sf 06:00 BP 103 / 71; Pulse 76; Resp 16; Pulse Ox 97% ; sf 08:00 BP 91 / 66; Pulse 59; Resp 17; Pulse Ox 95% ; bp 10:00 BP 116 / 72; Pulse 101; Resp 17; Pulse Ox 100% ; bp 12:00 BP 120 / 70; Pulse 93; Resp 16; Pulse Ox 99% ; bp 14:00 BP 126 / 74; Pulse 88; Resp 16; Pulse Ox 99% ; bp 16:00 BP 115 / 72; Pulse 97; Resp 17; Pulse Ox 100% ; bp 18:00 BP 120 / 93; Pulse 110; Resp 16; Pulse Ox 97% ; bp 19:30 BP 125 / 78; Pulse 105; Resp 17; Temp 98; Pulse Ox 100% ; rr5 22:00 BP 116 / 89; Pulse 85; Resp 17; Pulse Ox 98% ; rr5 11/11 00:00 BP 133 / 70; Pulse 95; Resp 19; Temp 97.8; Pulse Ox 99% ; rr5 01:00 BP 116 / 84; Pulse 75; Resp 15; Pulse Ox 96% ; rr5 03:00 BP 126 / 89; Pulse 89; Resp 19; Pulse Ox 98% ; rr5 05:00 BP 113 / 78; Pulse 80; Resp 17; Temp 97.7; Pulse Ox 100% ; rr5 09:26 BP 110 / 84; Pulse 66; Resp 14; Pulse Ox 97% on R/A; mt 23:28 BP 123 / 85; Pulse 95; Resp 17; Temp 98.5; Pulse Ox 99% ; rr5 11/12 02:30 BP 106 / 70; Pulse 87; Resp 16; Pulse Ox 98% ; rr5 11/13 12:14 BP 122 / 77; Pulse 91; Resp 16; Pulse Ox 100% on R/A; em 11/14 03:03 BP 128 / 86; Pulse 84; Resp 14; Temp 98.2; Pulse Ox 100% ; ds4 10:48 BP 142 / 79; Pulse 98; Resp 15; Temp 97.8; Pulse Ox 100% on R/A; Pain 0/10; ll1 15:16 BP 120 / 91; Pulse 111; Resp 16; Pulse Ox 98% on R/A; ll1 16:17 BP 114 / 78; Pulse 105; Resp 15; Pulse Ox 100% on R/A; ll1 21:12 BP 122 / 82; Pulse 78; Resp 16; Pulse Ox 99% on R/A; jm8 11/15 01:23 BP 118 / 74; Pulse 84; Resp 16; Pulse Ox 99% on R/A; jm8 08:33 BP 108 / 74; Pulse 78; Resp 16; Temp 97.8(TE); Pulse Ox 100% ; 5 19:55 BP 117 / 73; Pulse 106; Resp 15; Pulse Ox 96% on R/A; rv 11/16 13:43 BP 110 / 73; Pulse 88; Resp 16; Temp 99.1(TE); Pulse Ox 100% ; rb3 11/17 06:41 BP 105 / 63; Pulse 97; Resp 20; Temp 99.4(TE); Pulse Ox 100% on R/A; oe 10:21 BP 109 / 74; Pulse 70; Resp 16; Pulse Ox 100% on R/A; vg1 14:52 BP 99 / 70; Pulse 105; Resp 14; Pulse Ox 98% on R/A; vg1 11/18 00:35 BP 126 / 72; Pulse 88; Resp 18; Temp 98.3; Pulse Ox 100% ; ds4 10:37 BP 106 / 65; Pulse 107; Resp 19 S; Temp 99.1(A); Pulse Ox 97% on R/A; Weight 56.7 kg jl7 (M); 11/19 02:37 BP 103 / 71; Pulse 91; Resp 18; Temp 98.7; Pulse Ox 100% ; ds4 11:01 BP 111 / 74; Pulse 89; Resp 18; Temp 98.9(A); Pulse Ox 98% on R/A; mh5 14:22 Temp 98.7(R); tr6 11/20 02:23 BP 112 / 78; Pulse 84; Resp 16; Pulse Ox 99% on R/A; jm8 11:45 BP 121 / 72; Pulse 80; Resp 16; Temp 97.9(A); Pulse Ox 98% on R/A; 5 11/21 11:37 BP 100 / 55; Pulse 80; Resp 15; Temp 97.6(TE); Pulse Ox 95% on R/A; ll1 15:47 BP 141 / 86; Pulse 103; Resp 16; Pulse Ox 95% on R/A; ll1 11/22 06:19 BP 117 / 74; Pulse 88; Resp 18; Temp 98.5; Pulse Ox 100% ; ds4 11/23 02:00 Pulse 86; Resp 16; Pulse Ox 100% on R/A; jb4 04:28 BP 109 / 64; Pulse 83; Resp 16; Temp 98.1; Pulse Ox 100% ; ds4 15:21 BP 98 / 53; Pulse 70; Resp 16; Temp 98.5(TE); Pulse Ox 95% on R/A; 5 11/24 06:30 Pulse 63; Resp 18 S; Pulse Ox 100% ; [facility] 11/25 05:13 BP 102 / 64; Pulse 60; Resp 16; Pulse Ox 100% on R/A; jm8 13:53 BP 119 / 82; Pulse 66; Resp 14; Pulse Ox 100% on R/A; in 11/26 01:12 BP 114 / 78; Pulse 72; Resp 16; Pulse Ox 100% on R/A; 8 11/27 01:41 BP 112 / 78; Pulse 80; Resp 16; Pulse Ox 99% on R/A; 8 11/05 17:35 provider notified of the heart rate. jd3 ED Course: 11/04 10:02 Patient arrived in ED. rn 10:02 William Ernst MD is Attending Physician. rn 10:05 Angella Pace, RN is Primary Nurse. vg1 10:08 Triage completed. vg1 10:34 Initial lab(s) drawn, by me, sent to lab. Inserted saline lock: 20 gauge in right vg1 antecubital area, using aseptic technique. Blood collected. 10:34 Urine collected: straight cath specimen, brenda colored. Straight cath inserted, using vg1 sterile technique, 16 Fr. Specimen obtained. 10:51 Patient has correct armband on for positive identification. Placed in gown. Bed in low vg1 position. Call light in reach. Side rails up X2. Seizure precautions initiated. Warm blanket given. 10:52 EKG done, by ED staff, reviewed by William Ernst MD. em1 12:37 faxed chart to [facility]. spoke with Brenda at [phone], bd stated that she would try but couldn't say for sure that they can accept the pt. 14:35 faxed updated face sheet to [facility]. bd 16:36 spoke with [employer], "insurance is still being verified,unsure when or if pt will be bd accepted". 17:27 pt denied at [facility], per [employer]. bd 18:05 attempted to contact [facility] screener TJ at [phone]. no answer. bd 18:06 contacted [facility] dispatch, requested that deputy Martin to call the ER. bd 19:10 Attending Physician role handed off by William Ernst MD [facility] 19:10 Garret Acharya MD is Attending Physician. [facility] 19:26 Primary Nurse role handed off by Angella Pace, RN 2 19:52 Angella Pace, RN is Primary Nurse. vg1 11/05 00:05 Inserted saline lock: 20 gauge in left upper arm, using aseptic technique. sf 00:20 Repositioned patient. Cleaned of incontinence. Linen changed. sf 02:06 Diet: Patient given snack. Patient given juice. Tolerated well Required assistance. jb5 02:09 Warm blanket given. Pillow given. Verbal reassurance given. jb5 02:30 Repositioned patient. Cleaned of incontinence. Linen changed. sf 05:53 Depakote Sent. sf 07:00 Arm band placed on. jd3 07:00 Report received from Troy ROUSSEAU. jd3 07:20 Report given to ONELIA Girard. sf 08:14 Head of bed elevated. Elevated Turned checked hid diaper and bed .started to agitated. mh5 09:10 Diet: Patient given a regular meal tray. mh5 09:17 Elevated ELEVATED HEAD. Sitter at bedside. Assisted with feeding. mh5 13:38 XRAY Hand RIGHT 3 View In Process Unspecified. EDMS 13:38 XRAY Hand LEFT 2 View In Process Unspecified. EDMS 16:31 initiated transfer to [facility]. bd 17:46 Pt denied by AOC at [facility], per . bd 17:51 Indu Putnam MD is Hospitalizing Provider. rn 19:00 No provider procedures requiring assistance completed. Patient admitted, IV remains in [facility]. 19:00 Report given to Key ROUSSEAU. [facility] 11/06 07:14 No apparent distress. Resting quietly. Appears to be sleeping. received report from RN tr6 Belle. pt resting comfortably in bed. respirations even and unlabored. VSS. sitter at bedside. pending dispo/ bed assignment. will continue to monitor. 07:49 Primary Nurse role handed off by Angella Pace, ONELIA tw2 07:49 Jose Mayes, ONELIA is Primary Nurse. tw2 08:30 Diet: Patient given a regular meal tray. 5 08:32 Dipesh tape dorsal aspect of middle phalanx of left middle finger, dorsal aspect of mh5 proximal phalanx of left middle finger, dorsal aspect of middle phalanx of left ring finger, dorsal aspect of proximal phalanx of left ring finger, palmar aspect of middle phalanx of left ring finger, palmar aspect of proximal phalanx of left ring finger, palmar aspect of middle phalanx of left middle finger and palmar aspect of proximal phalanx of left middle finger. 12:10 CHANGED BEDDING AND PATIENT INCONTINENCE Head of bed elevated. Cleaned of incontinence. 5 15:40 Notified ED physician of other pt O2 on RA in low 90s. MD Ernst informed and VO to tr6 place pt on NC 2L. o2 sat increased to 98%. 17:55 Diet tray given. PO fluids given. Verbal reassurance given. Diet: Patient given a mh5 regular meal tray. Linen changed. 11/07 07:37 intact, bleeding controlled, No redness/swelling at site. Pressure dressing applied, IV ss dc'd from L AC. Is not flushing or pulling blood. Patient maintains SpO2 saturation greater than 95% on room air. 07:43 Head of bed elevated. Cleaned of incontinence. Linen changed. 5 10:23 Primary Nurse role handed off by Jose Mayes RN vg1 10:23 Angella Pace, RN is Primary Nurse. vg1 11:07 Lights dimmed. Head of bed lowered. Cleaned of incontinence. Linen changed. mh5 11:37 Urine Microscopic Only Sent. mh5 11:38 Basic Metabolic Panel Sent. mh5 11:38 CBC with Diff Sent. mh5 12:05 called the [facility] at [phone] spoke to their intake department/ I eb was redirected to call [facility] who handles our [facility] patients. 12:15 called the [facility] at [phone] and spoke with Shantanu/ per [facility] they eb are at capacity and are not accepting any patients at this time/ they have a wait list a month long/ we are more then welcomed to fax over the clincals and he can be added to the list. 12:50 Diet tray given. PO fluids given. Verbal reassurance given. jp3 13:48 Lights dimmed. PO fluids given. Head of bed Elevated. Repositioned patient. Cleaned of mh5 incontinence. Linen changed. 18:02 Diet tray given. PO fluids given. Verbal reassurance given. Head of bed lowered. Lights mh5 dimmed. Cleaned of incontinence. Linen changed. 18:49 Head of bed lowered. mh5 19:35 Cleaned of incontinence. jp3 21:15 Diet: Patient given snack. Patient given juice. Patient given water. Tolerated well jp3 Required assistance. 22:10 Report given to ONELIA Simmons. vg1 23:55 Noise minimized. Lights dimmed. Warm blanket given. Verbal reassurance given. sf Repositioned patient. Cleaned of incontinence. 11/08 00:40 Primary Nurse role handed off by Angella Pace, RN tt3 06:46 Noise minimized. Lights dimmed. Warm blanket given. Verbal reassurance given. Head of bed elevated. Turned to left side. Diet: refused. Cleaned of incontinence. Linen changed. waffle mattress applied to bed. 07:31 Kyra Oconnor is Primary Nurse. kg 08:00 Diet: Patient given a regular meal tray. jp3 10:00 Oral care given. Cleaned of incontinence. Linen changed. jp3 11:10 intact, bleeding controlled, No redness/swelling at site. Pressure dressing applied, Pt kg IV infiltrated. 11:25 Inserted saline lock: 20 gauge in right forearm, using aseptic technique. kg 13:11 Valproic Acid (depakote) Sent. kg 13:11 CBC with Diff Sent. kg 14:00 Diet: Patient given a regular meal tray. jp3 15:00 Cleaned of incontinence. Linen changed. jp3 19:15 Noise minimized. Lights dimmed. Warm blanket given. Pillow given. Verbal reassurance sf given. Head of bed elevated. Turned to left side. Repositioned patient. Cleaned of incontinence. Linen changed. 19:25 Report given to Troy ROUSSEAU. kg 20:15 Primary Nurse role handed off by Kyra Oconnor tt3 23:54 Diet: Patient given snack. Tolerated well. jp3 04 02:57 Noise minimized. Lights dimmed. Warm blanket given. Pillow given. Verbal reassurance sf given. Turned to back. Repositioned patient. Cleaned of incontinence. Linen changed. incontinent of urine and stool, patient attempting to eat BM. 07:19 Report given to ONELIA Singer. sf 07:37 Enmanuel Hernández RN is Primary Nurse. ll1 08:00 Warm blanket given. Turned to right side. Repositioned patient. Cleaned of mt incontinence. Linen changed. 08:28 One-on-one care X 15 minutes. ll1 11:00 Noise minimized. Lights dimmed. Warm blanket given. PO fluids given. Verbal reassurance mt given. Turned to left side. Oral care given. Bath given. Cleaned of incontinence. Linen changed. 12:40 Primary Nurse role handed off by Enmanuel Hernández RN kg 12:40 Kyra Oconnor is Primary Nurse. kg 12:48 Attending Physician role handed off by Garret Acharya MD pkl 12:48 Ezequiel Natarajan MD is Attending Physician. pkl 19:57 Report given to Report given to Red ROUSSEAU. kg 19:58 Troy Felton RN is Primary Nurse. Primary Nurse role handed off by nathan Oconnor 22:15 Assisted with feeding. Repositioned patient. Cleaned of incontinence. Linen changed. 23:50 Diet: Patient given juice. Patient given water. Required assistance. Repositioned patient. Cleaned of incontinence. 11/10 01:30 Diet: Patient given water. Tolerated well Required assistance. given sandwich x2. sf 07:11 Report given to ONELIA Kelley. sf 07:19 Savita Asher RN is Primary Nurse. bp 13:00 GIVEN TOYS TO PLAY WITH. Diet tray ordered. Repositioned patient. Bath given. Cleaned mh5 of incontinence. Linen changed. 16:32 Diet: Patient given a regular meal tray. 5 19:19 Primary Nurse role handed off by Savita Asher RN mw2 20:40 Esteban Shepard RN is Primary Nurse. rr5 11/11 02:53 Repositioned patient. Oral care given. Bath given. Cleaned of incontinence. Linen rr5 changed. calazime lotion applied to sacral and right hip area. 07:14 Primary Nurse role handed off by Esteban Shepard RN jl7 07:14 Abimael Velazquez RN is Primary Nurse. [facility] 10:56 Cleaned of incontinence. in 11:56 Cleaned of incontinence. Linen changed. in 17:10 transfer approval from receiving facility. [facility] 17:20 placed patient in wheelchair using gait belt. Patient was then pushed around outside of in the facility. Patient was very cooperative and happy to be outside. Patient smiled frequently and high fived multiple times. Returned to room and patient became agitated and resisted getting in bed. With ONELIA Varghese help, we were able to get patient back in bed. Patient was provided snack and was cooperative after eating. 18:03 Assisted with feeding. patient appears to be happy. in 19:14 Primary Nurse role handed off by Abimael Velazquez RN mw2 20:57 Esteban Shepard RN is Primary Nurse. rr5 22:00 IV discontinued, intact, bleeding controlled, No redness/swelling at site. Pressure rr5 dressing applied, pulled by patient. 22:55 Inserted saline lock: 20 gauge in left forearm, using aseptic technique. rr5 11/12 07:01 Primary Nurse role handed off by Esteban Shepard RN 07:31 Attending Physician role handed off by Ezequiel Natarajan MD [facility] 07:31 Iggy Campos MD is Attending Physician. kdr 12:45 Diet tray given. Verbal reassurance given. jp3 13:05 Placed in gown. Seizure precautions initiated. Cleaned of incontinence. Linen changed. jp3 Notified primary nurse of Notified Charge Nurse of pt having a seizure. 13:05 Noise minimized. room cleaned of food crumbs. Sitter at bedside. jp3 17:30 Diet tray given. jp3 17:45 Cleaned of incontinence. Linen changed. Notified ED physician of Notified primary nurse jp3 of Notified Charge Nurse of pt having another seizure lasting about 45 sec. 19:00 Diet: Patient given a regular meal tray. Patient given juice. Tolerated well. jp3 20:00 Pt placed in wheel chair and rolled around the facility. Pt appeared happy and was jp3 smiling. 20:30 Notified ED physician of Notified primary nurse of Pt having another seizure shortly jp3 after returning from wheel chair ride around facility. Seizure only lasted about 45 sec. 20:37 Troy Felton, ONELIA is Primary Nurse. sf 20:45 Cleaned of incontinence. jp3 20:55 Repeat lab(s) drawn. by nh, sent to lab. jp3 20:55 Valproic Acid (depakote) Sent, KEPPRA (LEVETIRACETAM) Sent. jp3 04 04:00 Warm blanket given. Verbal reassurance given. Cleaned of incontinence. Linen changed. sf 05:00 Diet: Patient given snack. Patient given water. Required assistance. Bee sandwich. sf 07:13 Report given to ONELIA Pickett. sf 09:14 Piyush Lorenzo, ONELIA is Primary Nurse. em 10:00 Diet: Patient given a regular meal tray. mh5 12:30 Diet: Patient given a regular meal tray. mh5 20:30 Primary Nurse role handed off by Piyush Lorenzo RN [facility] 20:45 Troy Felton, ONELIA is Primary Nurse. sf 20:45 Diet: Patient given a regular meal tray. sf 11/14 06:30 Cleaned of incontinence. sf 07:00 Inserted IV discontinued, intact, bleeding controlled, No redness/swelling at site. ll1 Pressure dressing applied. 07:21 Report given to ONELIA Singer. 11/15 07:14 Arabella Rodriguez, RN is Primary Nurse. rb3 08:41 Diet: Patient given a regular meal tray. Tolerated well. mh5 12:30 Diet: Patient given a regular meal tray. Tolerated well. mh5 13:39 Diet: Patient given snack. Tolerated well. 5 11/16 08:30 Carlene from [facility] called to let us know that they still do not have any [facility] and he is still on their wait list. 19:16 Primary Nurse role handed off by Arabella Rodriguez RN mw2 21:16 Alka Bolden, ONELIA is Primary Nurse. lp1 11/17 07:09 Primary Nurse role handed off by Alka Bolden RN 08:40 Piyush Lorenzo, ONELIA is Primary Nurse. em 10:12 Inserted saline lock: 22 gauge in right forearm, using aseptic technique. ,using vg1 aseptic technique. Completed by ONELIA Flores. 14:21 Primary Nurse role handed off by Piyush Lorenzo RN vg1 14:21 Angella Pace RN is Primary Nurse. vg1 14:49 IV discontinued, intact, bleeding controlled, No redness/swelling at site. Pressure vg1 dressing applied. 11/18 03:42 Primary Nurse role handed off by Angella Pace RN mw2 10:14 Abimael Velazquez RN is Primary Nurse. jl7 11:27 was contacted by Stephanie Ward,was told that report had been completed and given to [facility], they will be looking for placement. 11/19 11:34 Diet: NOT HUNGRY ! REFUSED TO EAT. mh5 13:30 Diet tray given. Head of bed. Cleaned of incontinence. Linen changed. mh5 13:32 Warm blanket given. pt changed/ incontinence care. sheets changed. tr6 16:45 Stool Culture Sent. tr6 18:34 Stool Culture Sent. 5 11/20 07:59 Stool Culture Sent. tr6 11:04 IV discontinued, pt removed IV. tr6 11:05 Inserted saline lock: 20 gauge in right forearm, using aseptic technique. tr6 17:33 Garret Acharya MD is Attending Physician. [facility] 11/21 07:21 Enmanuel Hernández, RN is Primary Nurse. ll1 17:45 Diet tray given. PO fluids given. jp3 19:15 Primary Nurse role handed off by Enmanuel Hernández RN eb 21:30 Placed in gown. Warm blanket given. Diet: Patient given a regular meal tray. Patient jp3 given juice. Tolerated well. Cleaned of incontinence. 11/22 07:19 Savita Asher, RN is Primary Nurse. bp 14:40 Cleaned of incontinence. Linen changed. jp3 14:50 Warm blanket given. PO fluids given. Diet: Patient given snack. Patient given water. jp3 Tolerated well. 15:00 placed patient into wheel chair and went on a stroll around the ER and Facility. Pt jp3 appeared to enjoy the trip, especially seeing the [employer] work.. 15:30 PO fluids given. jp3 16:00 Cleaned of incontinence. jp3 19:44 Primary Nurse role handed off by Savita Asher RN mw2 11/23 07:18 Piyush Lorenzo RN is Primary Nurse. em 19:26 Primary Nurse role handed off by Piyush Lorenzo RN mw2 20:59 Joselito Hall is Primary Nurse. ad5 11/24 06:19 by nh, sent to lab. ad5 07:19 Primary Nurse role handed off by Joselito Hall bd 15:07 Attending Physician role handed off by Garret Acharya MD rn 15:07 William Ernst MD is Attending Physician. rn 11/25 16:21 Kyra Oconnor is Primary Nurse. kg 11/26 07:07 Primary Nurse role handed off by Kyra Oconnor bd 07:19 Jose Mayes, ONELIA is Primary Nurse. tr6 11/27 09:56 Kike Engel PA is PHCP. jr8 Restraints: 11/04 12:00 Violent/Self Destructive Restraint: Order: obtained. Initiated November 04, 2020 at 12:00 vg1 Staff present during the Initiation of Restraint: ONELIA Butts RN Shelby, RN Dr Neito Erik ER tech, myself. Observed actions/behavior: destructive, violent, severely aggressive, harming self/others, confusion/disorientation, difficulty remembering or follow instructions, impaired decision making, repeated attempts to get up from bed/chair without assistance. unable to follow instructions, Less restrictive alternatives attempted: decreased environmental stimuli, 1:1 patient care, placed near Nurse station, reoriented to location, medicated for pain/anxiety, performed diversional activities, covered lines/tubes, eliminated unnecessary lines/tubes, verbal de-escalation performed, Alternative interventions: Ineffective. Clinical justification for use: Violent/self destructing behavior impacts therapeutic environment. Poses a serious danger to physical safety of self \\T\\ others. Face to Face Evaluatn: Immediate Situation: Pt climbed out of bed, redirect unsuccessful, unable to follow instructions. Dr Ernst called to bedside, order obtained to place restraints Response of Patient to Restraint: Pt continuing to get out of bed, trying to bite one of the staff members, grabbing at staff. Medical \\T\\ Behavioral condition: Pt is autistic and non verbal Continue Restraint. MD Notified of Evaluation result: William Ernst MD. 12:15 Violent/Self Destructive Restraint: Observed actions/behavior: Pt lying in bed quietly vg1 but intermittently trying to get up, forensic audit expert at bedside. Less restrictive alternatives attempted: decreased environmental stimuli, 1:1 patient care, placed near Nurse station, reoriented to location, performed diversional activities, trained sitter in room, covered lines/tubes, eliminated unnecessary lines/tubes, Alternative interventions: Ineffective. Clinical justification for use: Violent/self destructing behavior impacts therapeutic environment. Poses a serious danger to physical safety of self \\T\\ others. Monitoring: Mental status: confused. Cognition: poor safety awareness, poor attention/concentration, Circulation: Within defined parameters (based on Cardiovascular assessment). Skin integrity: Within defined parameters (based on Integumentary assessment) Range of Motion: Performed. Elimination/Hygiene: diapers changed. Restraint status: Side rails up x 4 Continued. Soft wrist restraint (Right) Continued. Soft wrist restraint (Left) Continued. Soft ankle restraint (Right) Continued. Soft ankle restraint (Left) Continued. Readiness for Discontinue: Criteria not met. Patient still violent/self destructive and Alternative interventions still ineffective. Restraint continued. 12:30 Violent/Self Destructive Restraint: Observed actions/behavior: Pt lying in bed quietly vg1 but intermittently trying to get up from bed, loader technician at bedside. Less restrictive alternatives attempted: decreased environmental stimuli, 1:1 patient care, placed near Nurse station, performed diversional activities, trained sitter in room, covered lines/tubes, eliminated unnecessary lines/tubes, verbal de-escalation performed, Alternative interventions: Ineffective. Clinical justification for use: Violent/self destructing behavior impacts therapeutic environment. Poses a serious danger to physical safety of self \\T\\ others. Monitoring: Mental status: confused. Cognition: poor safety awareness, poor attention/concentration, Circulation: Within defined parameters (based on Cardiovascular assessment). Skin integrity: Within defined parameters (based on Integumentary assessment) Restraint status: Side rails up x 4 Soft wrist restraint (Right) Continued. Soft wrist restraint (Left) Continued. Soft ankle restraint (Right) Continued. Soft ankle restraint (Left) Continued. Readiness for Discontinue: Criteria not met. Patient still violent/self destructive and Alternative interventions still ineffective. Restraint continued. 12:45 Violent/Self Destructive Restraint: Observed actions/behavior: Pt lying in bed quietly, vg1 Resting with eyes closed; loader technician at bedside. Less restrictive alternatives attempted: decreased environmental stimuli, 1:1 patient care, placed near Nurse station, reoriented to location, trained sitter in room, covered lines/tubes, eliminated unnecessary lines/tubes, Alternative interventions: Ineffective. Clinical justification for use: Violent/self destructing behavior impacts therapeutic environment. Poses a serious danger to physical safety of self \\T\\ others. Monitoring: Mental status: patient asleep, Cognition: Unable to assess. Circulation: Within defined parameters (based on Cardiovascular assessment). Skin integrity: Within defined parameters (based on Integumentary assessment) Restraint status: Side rails up x 4 Continued. Soft wrist restraint (Right) Continued. Soft wrist restraint (Left) Continued. Soft ankle restraint (Right) Continued. Soft ankle restraint (Left) Continued. Readiness for Discontinue: Criteria not met. Patient still violent/self destructive and Alternative interventions still ineffective. Restraint continued. 13:00 Violent/Self Destructive Restraint: Observed actions/behavior: Pt lying in bed quietly, vg1 resting with eyes closed. loader technician at bedside.. Less restrictive alternatives attempted: decreased environmental stimuli, 1:1 patient care, placed near Nurse station, reoriented to location, trained sitter in room, covered lines/tubes, eliminated unnecessary lines/tubes, Alternative interventions: Ineffective. Clinical justification for use: Violent/self destructing behavior impacts therapeutic environment. Poses a serious danger to physical safety of self \\T\\ others. Monitoring: Mental status: patient asleep, Cognition: Unable to assess. Circulation: Within defined parameters (based on Cardiovascular assessment). Skin integrity: Within defined parameters (based on Integumentary assessment) Range of Motion: patient asleep. Restraint status: Side rails up x 4 Continued. Soft wrist restraint (Right) Continued. Soft wrist restraint (Left) Continued. Soft ankle restraint (Right) Continued. Soft ankle restraint (Left) Continued. Readiness for Discontinue: Criteria not met. Patient still violent/self destructive and Alternative interventions still ineffective. Restraint continued. Face to Face Evaluatn: Immediate Situation: pt is currently resting with eyes closed. Response of Patient to Restraint: no response to restraint, pt is currently resting with eyes closed Medical \\T\\ Behavioral condition: Pt is autistic and non verbal Continue Restraint. MD Notified of Evaluation result: William Ernst MD. 13:15 Violent/Self Destructive Restraint: Observed actions/behavior: harming self/others, hb confusion/disorientation, difficulty remembering or follow instructions, impaired decision making, repeated attempts to get up from bed/chair without assistance. unable to follow instructions, Less restrictive alternatives attempted: performed diversional activities, trained sitter in room, Alternative interventions: Ineffective. Clinical justification for use: Violent/self destructing behavior impacts therapeutic environment. Poses a serious danger to physical safety of self \\T\\ others. Monitoring: Mental status: agitated/restless, confused. Cognition: poor safety awareness, poor attention/concentration, unable to follow commands, Circulation: Within defined parameters (based on Cardiovascular assessment). Skin integrity: Within defined parameters (based on Integumentary assessment) Restraint status: Side rails up x 4 Soft wrist restraint (Right) Soft wrist restraint (Left) Soft ankle restraint (Right) Soft ankle restraint (Left) Continued. Readiness for Discontinue: Criteria not met. Patient still violent/self destructive and Alternative interventions still ineffective. Restraint continued. 13:30 Violent/Self Destructive Restraint: Observed actions/behavior: hb confusion/disorientation, difficulty remembering or follow instructions, impaired decision making, repeated attempts to get up from bed/chair without assistance. Less restrictive alternatives attempted: performed diversional activities, trained sitter in room, Alternative interventions: Ineffective. Clinical justification for use: Violent/self destructing behavior impacts therapeutic environment. Poses a serious danger to physical safety of self \\T\\ others. Monitoring: Cognition: poor safety awareness, poor attention/concentration, unable to follow commands, Circulation: Within defined parameters (based on Cardiovascular assessment). Skin integrity: Within defined parameters (based on Integumentary assessment) Restraint status: Side rails up x 4 Soft wrist restraint (Right) Soft wrist restraint (Left) Soft ankle restraint (Right) Soft ankle restraint (Left) Continued. Readiness for Discontinue: Criteria not met. Patient still violent/self destructive and Alternative interventions still ineffective. Restraint continued. 13:45 Violent/Self Destructive Restraint: Observed actions/behavior: hb confusion/disorientation, difficulty remembering or follow instructions, impaired decision making, decreased Level of Consciousness (LOC), unable to follow instructions, Less restrictive alternatives attempted: placed near Nurse station, reoriented to location, performed diversional activities, trained sitter in room, Alternative interventions: Ineffective. Clinical justification for use: Violent/self destructing behavior impacts therapeutic environment. Poses a serious danger to physical safety of self \\T\\ others. Monitoring: Mental status: agitated/restless, confused. Cognition: poor safety awareness, poor attention/concentration, unable to follow commands, Circulation: Within defined parameters (based on Cardiovascular assessment). Skin integrity: Within defined parameters (based on Integumentary assessment) Restraint status: Side rails up x 4 Soft wrist restraint (Right) Soft wrist restraint (Left) Soft ankle restraint (Right) Soft ankle restraint (Left) Continued. Readiness for Discontinue: Criteria not met. Patient still violent/self destructive and Alternative interventions still ineffective. Restraint continued. 14:00 Violent/Self Destructive Restraint: Observed actions/behavior: destructive, severely vg1 aggressive, harming self/others, confusion/disorientation, difficulty remembering or follow instructions, impaired decision making, repeated attempts to get up from bed/chair without assistance. unable to follow instructions, Less restrictive alternatives attempted: decreased environmental stimuli, 1:1 patient care, placed near Nurse station, reoriented to location, performed diversional activities, trained sitter in room, covered lines/tubes, eliminated unnecessary lines/tubes, verbal de-escalation performed, Alternative interventions: Ineffective. Clinical justification for use: Violent/self destructing behavior impacts therapeutic environment. Poses a serious danger to physical safety of self \\T\\ others. Monitoring: Mental status: agitated/restless, confused. Cognition: poor safety awareness, poor attention/concentration, Circulation: Within defined parameters (based on Cardiovascular assessment). Skin integrity: Within defined parameters (based on Integumentary assessment) Range of Motion: Performed. Elimination/Hygiene: diapers changed. Restraint status: Side rails up x 4 Continued. Soft wrist restraint (Right) Continued. Soft wrist restraint (Left) Continued. Soft ankle restraint (Right) Continued. Soft ankle restraint (Left) Continued. Readiness for Discontinue: Criteria not met. Patient still violent/self destructive and Alternative interventions still ineffective. Restraint continued. Face to Face Evaluatn: Immediate Situation: Pt trying to get out of bed, loader technician and nurse at bedside Response of Patient to Restraint: Pt is trying to remove restraint Medical \\T\\ Behavioral condition: Autistic and non verbal Continue Restraint. MD Notified of Evaluation result: William Ernst MD. 14:15 Violent/Self Destructive Restraint: Observed actions/behavior: harming self/others, hb confusion/disorientation, difficulty remembering or follow instructions, impaired decision making, repeated attempts to get up from bed/chair without assistance. decreased Level of Consciousness (LOC), unable to follow instructions, Less restrictive alternatives attempted: reoriented to location, repositioned, trained sitter in room, Alternative interventions: Ineffective. Clinical justification for use: Violent/self destructing behavior impacts therapeutic environment. Poses a serious danger to physical safety of self \\T\\ others. Monitoring: Cognition: poor attention/concentration, unable to follow commands, Circulation: Within defined parameters (based on Cardiovascular assessment). Skin integrity: Within defined parameters (based on Integumentary assessment) Restraint status: Side rails up x 4 Soft wrist restraint (Right) Soft wrist restraint (Left) Soft ankle restraint (Right) Soft ankle restraint (Left) Continued. Readiness for Discontinue: Criteria not met. Patient still violent/self destructive and Alternative interventions still ineffective. Restraint continued. 14:30 Violent/Self Destructive Restraint: Observed actions/behavior: hb confusion/disorientation, difficulty remembering or follow instructions, impaired decision making, repeated attempts to get up from bed/chair without assistance. decreased Level of Consciousness (LOC), unable to follow instructions, Less restrictive alternatives attempted: decreased environmental stimuli, reoriented to location, repositioned, performed diversional activities, trained sitter in room, Alternative interventions: Ineffective. Clinical justification for use: Violent/self destructing behavior impacts therapeutic environment. Poses a serious danger to physical safety of self \\T\\ others. Monitoring: Mental status: agitated/restless, confused. Cognition: poor safety awareness, poor attention/concentration, unable to follow commands, Circulation: Within defined parameters (based on Cardiovascular assessment). Skin integrity: Within defined parameters (based on Integumentary assessment) Restraint status: Side rails up x 4 Soft wrist restraint (Right) Soft wrist restraint (Left) Soft ankle restraint (Right) Soft ankle restraint (Left) Continued. Readiness for Discontinue: Criteria not met. Patient still violent/self destructive and Alternative interventions still ineffective. Restraint continued. 14:45 Violent/Self Destructive Restraint: Observed actions/behavior: destructive, violent, vg1 severely aggressive, harming self/others, confusion/disorientation, difficulty remembering or follow instructions, impaired decision making, repeated attempts to get up from bed/chair without assistance. unable to follow instructions, Pt is attempting to bit loader technician at bedside, pt is trying to remove restraints and get out of bed.. Less restrictive alternatives attempted: decreased environmental stimuli, 1:1 patient care, placed near Nurse station, reoriented to location, performed diversional activities, trained sitter in room, covered lines/tubes, eliminated unnecessary lines/tubes, verbal de-escalation performed, Alternative interventions: Ineffective. Clinical justification for use: Violent/self destructing behavior impacts therapeutic environment. Poses a serious danger to physical safety of self \\T\\ others. Monitoring: Mental status: agitated/restless, confused. Cognition: poor safety awareness, poor attention/concentration, unable to follow commands, Circulation: Within defined parameters (based on Cardiovascular assessment). Skin integrity: Within defined parameters (based on Integumentary assessment) Restraint status: Side rails up x 4 Continued. Soft wrist restraint (Right) Continued. Soft wrist restraint (Left) Continued. Soft ankle restraint (Right) Continued. Soft ankle restraint (Left) Continued. Readiness for Discontinue: Criteria not met. Patient still violent/self destructive and Alternative interventions still ineffective. Restraint continued. 15:00 Violent/Self Destructive Restraint: Observed actions/behavior: destructive, violent, vg1 severely aggressive, harming self/others, confusion/disorientation, difficulty remembering or follow instructions, impaired decision making, repeated attempts to get up from bed/chair without assistance. unable to follow instructions, Pt is attempting to bite loader technician and get out of bed. Less restrictive alternatives attempted: decreased environmental stimuli, 1:1 patient care, placed near Nurse station, reoriented to location, medicated for pain/anxiety, trained sitter in room, covered lines/tubes, eliminated unnecessary lines/tubes, Alternative interventions: Ineffective. Clinical justification for use: Violent/self destructing behavior impacts therapeutic environment. Poses a serious danger to physical safety of self \\T\\ others. Monitoring: Mental status: agitated/restless, Cognition: poor safety awareness, poor attention/concentration, unable to follow commands, Circulation: Within defined parameters (based on Cardiovascular assessment). Skin integrity: Within defined parameters (based on Integumentary assessment) Range of Motion: Performed. Restraint status: Side rails up x 4 Continued. Soft wrist restraint (Right) Continued. Soft wrist restraint (Left) Continued. Soft ankle restraint (Right) Continued. Soft ankle restraint (Left) Continued. Readiness for Discontinue: Criteria not met. Patient still violent/self destructive and Alternative interventions still ineffective. Restraint continued. 15:15 Violent/Self Destructive Restraint: Observed actions/behavior: harming self/others, hb confusion/disorientation, difficulty remembering or follow instructions, impaired decision making, repeated attempts to get up from bed/chair without assistance. decreased Level of Consciousness (LOC), unable to follow instructions, Less restrictive alternatives attempted: 1:1 patient care, repositioned, performed diversional activities, trained sitter in room, Alternative interventions: Ineffective. Clinical justification for use: Violent/self destructing behavior impacts therapeutic environment. Poses a serious danger to physical safety of self \\T\\ others. Monitoring: Cognition: poor safety awareness, poor attention/concentration, unable to follow commands, Circulation: Within defined parameters (based on Cardiovascular assessment). Skin integrity: Within defined parameters (based on Integumentary assessment) Restraint status: Side rails up x 4 Soft wrist restraint (Right) Soft wrist restraint (Left) Soft ankle restraint (Right) Soft ankle restraint (Left) Continued. Readiness for Discontinue: Criteria not met. Patient still violent/self destructive and Alternative interventions still ineffective. Restraint continued. 15:30 Violent/Self Destructive Restraint: Observed actions/behavior: hb confusion/disorientation, difficulty remembering or follow instructions, impaired decision making, repeated attempts to get up from bed/chair without assistance. Less restrictive alternatives attempted: 1:1 patient care, repositioned, Alternative interventions: Ineffective. Clinical justification for use: Violent/self destructing behavior impacts therapeutic environment. Poses a serious danger to physical safety of self \\T\\ others. Monitoring: Mental status: agitated/restless, confused. patient asleep, Cognition: poor safety awareness, poor attention/concentration, unable to follow commands, Circulation: Within defined parameters (based on Cardiovascular assessment). Skin integrity: Within defined parameters (based on Integumentary assessment) Range of Motion: Performed. Hydration/Food: PO fluids provided:tolerated. Elimination/Hygiene: diapers changed. Restraint status: Side rails up x 4 Soft wrist restraint (Right) Soft wrist restraint (Left) Soft ankle restraint (Right) Soft ankle restraint (Left) Continued. Readiness for Discontinue: Criteria not met. Patient still violent/self destructive and Alternative interventions still ineffective. Restraint continued. 15:45 Violent/Self Destructive Restraint: Observed actions/behavior: hb confusion/disorientation, difficulty remembering or follow instructions, impaired decision making, repeated attempts to get up from bed/chair without assistance. decreased Level of Consciousness (LOC), Less restrictive alternatives attempted: 1:1 patient care, repositioned, performed diversional activities, trained sitter in room, Alternative interventions: Ineffective. Clinical justification for use: Violent/self destructing behavior impacts therapeutic environment. Poses a serious danger to physical safety of self \\T\\ others. Monitoring: Mental status: confused. patient asleep, Cognition: poor attention/concentration, unable to follow commands, Circulation: Within defined parameters (based on Cardiovascular assessment). Skin integrity: Within defined parameters (based on Integumentary assessment) Restraint status: Side rails up x 4 Soft wrist restraint (Right) Soft wrist restraint (Left) Soft ankle restraint (Right) Soft ankle restraint (Left) Continued. Readiness for Discontinue: Criteria not met. Patient still violent/self destructive and Alternative interventions still ineffective. Restraint continued. 16:00 Violent/Self Destructive Restraint: Observed actions/behavior: vg1 confusion/disorientation, difficulty remembering or follow instructions, impaired decision making, repeated attempts to get up from bed/chair without assistance. Less restrictive alternatives attempted: decreased environmental stimuli, 1:1 patient care, placed near Nurse station, reoriented to location, performed diversional activities, trained sitter in room, covered lines/tubes, Alternative interventions: Ineffective. Clinical justification for use: Violent/self destructing behavior impacts therapeutic environment. Poses a serious danger to physical safety of self \\T\\ others. Monitoring: Mental status: agitated/restless, confused. Cognition: poor safety awareness, poor attention/concentration, unable to follow commands, Circulation: Within defined parameters (based on Cardiovascular assessment). Skin integrity: Within defined parameters (based on Integumentary assessment) Range of Motion: Performed. Hydration/Food: PO fluids provided:tolerated. Elimination/Hygiene: diapers changed. Restraint status: Side rails up x 4 Continued. Soft wrist restraint (Right) Continued. Soft wrist restraint (Left) Continued. Soft ankle restraint (Right) Continued. Soft ankle restraint (Left) Continued. Readiness for Discontinue: Criteria not met. Patient still violent/self destructive and Alternative interventions still ineffective. Restraint continued. Face to Face Evaluatn: Immediate Situation: Pt attempting to get out of bed, removed breif, pt is naked and threw blanket Response of Patient to Restraint: Attempting to remove restraints Medical \\T\\ Behavioral condition: Autistic, non verbal , and combative Continue Restraint. MD Notified of Evaluation result: William Ernst MD. 16:15 Violent/Self Destructive Restraint: Observed actions/behavior: lying in bed still, vg1 watching television. Less restrictive alternatives attempted: 1:1 patient care, placed near Nurse station, reoriented to location, performed diversional activities, trained sitter in room, Alternative interventions: Ineffective. Clinical justification for use: Violent/self destructing behavior impacts therapeutic environment. Poses a serious danger to physical safety of self \\T\\ others. Monitoring: Mental status: subdued, Cognition: poor attention/concentration, unable to follow commands, Circulation: Within defined parameters (based on Cardiovascular assessment). Skin integrity: Within defined parameters (based on Integumentary assessment) Restraint status: Side rails up x 4 Continued. Soft wrist restraint (Right) Continued. Soft wrist restraint (Left) Continued. Soft ankle restraint (Right) Continued. Soft ankle restraint (Left) Continued. Readiness for Discontinue: Criteria not met. Patient still violent/self destructive and Alternative interventions still ineffective. Restraint continued. 16:30 Violent/Self Destructive Restraint: Observed actions/behavior: pt resting in bed vg1 watching tv. Less restrictive alternatives attempted: 1:1 patient care, placed near Nurse station, reoriented to location, trained sitter in room, covered lines/tubes, Alternative interventions: Ineffective. Clinical justification for use: Violent/self destructing behavior impacts therapeutic environment. Poses a serious danger to physical safety of self \\T\\ others. Monitoring: Mental status: subdued, Cognition: poor safety awareness, poor attention/concentration, unable to follow commands, Circulation: Within defined parameters (based on Cardiovascular assessment). Skin integrity: Within defined parameters (based on Integumentary assessment) Restraint status: Side rails up x 4 Continued. Soft wrist restraint (Right) Continued. Soft wrist restraint (Left) Continued. Soft ankle restraint (Right) Continued. Soft ankle restraint (Left) Continued. Readiness for Discontinue: Criteria not met. Patient still violent/self destructive and Alternative interventions still ineffective. Restraint continued. 16:45 Violent/Self Destructive Restraint: Observed actions/behavior: harming self/others, hb confusion/disorientation, difficulty remembering or follow instructions, impaired decision making, repeated attempts to get up from bed/chair without assistance. unable to follow instructions, Less restrictive alternatives attempted: reoriented to location, performed diversional activities, trained sitter in room, Alternative interventions: Ineffective. Clinical justification for use: Violent/self destructing behavior impacts therapeutic environment. Poses a serious danger to physical safety of self \\T\\ others. Monitoring: Mental status: agitated/restless, confused. Circulation: Within defined parameters (based on Cardiovascular assessment). Skin integrity: Within defined parameters (based on Integumentary assessment) Restraint status: Side rails up x 4 Continued. Soft wrist restraint (Right) Continued. Soft wrist restraint (Left) Continued. Soft ankle restraint (Right) Continued. Soft ankle restraint (Left) Continued. Readiness for Discontinue: Criteria not met. Patient still violent/self destructive and Alternative interventions still ineffective. Restraint continued. 17:00 Violent/Self Destructive Restraint: Observed actions/behavior: hb confusion/disorientation, difficulty remembering or follow instructions, impaired decision making, repeated attempts to get up from bed/chair without assistance. unable to follow instructions, Less restrictive alternatives attempted: performed diversional activities, trained sitter in room, Alternative interventions: Ineffective. Clinical justification for use: Violent/self destructing behavior impacts therapeutic environment. Poses a serious danger to physical safety of self \\T\\ others. Monitoring: Cognition: poor safety awareness, poor attention/concentration, unable to follow commands, Circulation: Within defined parameters (based on Cardiovascular assessment). Skin integrity: Within defined parameters (based on Integumentary assessment) Range of Motion: Performed. Hydration/Food: PO fluids provided:tolerated. Elimination/Hygiene: diapers changed. 17:15 Violent/Self Destructive Restraint: Observed actions/behavior: hb confusion/disorientation, difficulty remembering or follow instructions, impaired decision making, repeated attempts to get up from bed/chair without assistance. Monitoring: Cognition: poor safety awareness, poor attention/concentration, unable to follow commands, Circulation: Within defined parameters (based on Cardiovascular assessment). Skin integrity: Within defined parameters (based on Integumentary assessment) Restraint status: Side rails up x 4 Soft wrist restraint (Right) Soft wrist restraint (Left) Soft ankle restraint (Right) Soft ankle restraint (Left) Continued. Readiness for Discontinue: Criteria not met. Patient still violent/self destructive and Alternative interventions still ineffective. Restraint continued. 17:30 Violent/Self Destructive Restraint: Observed actions/behavior: harming self/others, hb confusion/disorientation, difficulty remembering or follow instructions, impaired decision making, repeated attempts to get up from bed/chair without assistance. decreased Level of Consciousness (LOC), unable to follow instructions, Less restrictive alternatives attempted: 1:1 patient care, reoriented to location, repositioned, performed diversional activities, trained sitter in room, Alternative interventions: Ineffective. Clinical justification for use: Violent/self destructing behavior impacts therapeutic environment. Poses a serious danger to physical safety of self \\T\\ others. Monitoring: Restraint status: Side rails up x 4 Soft wrist restraint (Right) Soft wrist restraint (Left) Soft ankle restraint (Right) Soft ankle restraint (Left) Continued. Readiness for Discontinue: Criteria not met. Patient still violent/self destructive and Alternative interventions still ineffective. Restraint continued. 17:45 Violent/Self Destructive Restraint: Observed actions/behavior: severely aggressive, hb harming self/others, confusion/disorientation, difficulty remembering or follow instructions, impaired decision making, repeated attempts to get up from bed/chair without assistance. decreased Level of Consciousness (LOC), unable to follow instructions, Less restrictive alternatives attempted: decreased environmental stimuli, 1:1 patient care, medicated for pain/anxiety, repositioned, performed diversional activities, trained sitter in room, Alternative interventions: Ineffective. Clinical justification for use: Violent/self destructing behavior impacts therapeutic environment. Poses a serious danger to physical safety of self \\T\\ others. Monitoring: Mental status: confused. Cognition: poor safety awareness, poor attention/concentration, unable to follow commands, Circulation: Within defined parameters (based on Cardiovascular assessment). Skin integrity: Within defined parameters (based on Integumentary assessment) Restraint status: Side rails up x 4 Soft wrist restraint (Right) Soft wrist restraint (Left) Soft ankle restraint (Right) Soft ankle restraint (Left) Continued. Readiness for Discontinue: Criteria not met. Patient still violent/self destructive and Alternative interventions still ineffective. Restraint continued. 18:00 Violent/Self Destructive Restraint: Observed actions/behavior: harming self/others, hb confusion/disorientation, difficulty remembering or follow instructions, impaired decision making, repeated attempts to get up from bed/chair without assistance. decreased Level of Consciousness (LOC), unable to follow instructions, Less restrictive alternatives attempted: decreased environmental stimuli, 1:1 patient care, repositioned, performed diversional activities, trained sitter in room, Alternative interventions: Ineffective. Clinical justification for use: Violent/self destructing behavior impacts therapeutic environment. Poses a serious danger to physical safety of self \\T\\ others. Monitoring: Mental status: agitated/restless, confused. subdued, Cognition: poor safety awareness, poor attention/concentration, unable to follow commands, Circulation: Within defined parameters (based on Cardiovascular assessment). Skin integrity: Within defined parameters (based on Integumentary assessment) Range of Motion: Performed. Hydration/Food: Meal/Snack provided:tolerated. PO fluids provided:tolerated. Elimination/Hygiene: diapers changed. Restraint status: Side rails up x 4 Soft wrist restraint (Right) Soft wrist restraint (Left) Soft ankle restraint (Right) Soft ankle restraint (Left) Continued. Mitt secured (Right) Mitt secured (Left) Started Readiness for Discontinue: Criteria not met. Patient still violent/self destructive and Alternative interventions still ineffective. Restraint continued. 18:15 Violent/Self Destructive Restraint: Observed actions/behavior: harming self/others, hb confusion/disorientation, difficulty remembering or follow instructions, impaired decision making, repeated attempts to get up from bed/chair without assistance. decreased Level of Consciousness (LOC), unable to follow instructions, Less restrictive alternatives attempted: 1:1 patient care, reoriented to location, repositioned, performed diversional activities, trained sitter in room, Alternative interventions: Ineffective. Clinical justification for use: Violent/self destructing behavior impacts therapeutic environment. Poses a serious danger to physical safety of self \\T\\ others. Monitoring: Mental status: agitated/restless, confused. Cognition: Unable to assess. poor safety awareness, poor attention/concentration, Circulation: Within defined parameters (based on Cardiovascular assessment). Skin integrity: Within defined parameters (based on Integumentary assessment) Restraint status: Side rails up x 4 Soft wrist restraint (Right) Soft wrist restraint (Left) Soft ankle restraint (Right) Soft ankle restraint (Left) Continued. Mitt secured (Right) Mitt secured (Left) Readiness for Discontinue: Criteria not met. Patient still violent/self destructive and Alternative interventions still ineffective. Restraint continued. 18:30 Violent/Self Destructive Restraint: Observed actions/behavior: harming self/others, hb confusion/disorientation, difficulty remembering or follow instructions, impaired decision making, repeated attempts to get up from bed/chair without assistance. decreased Level of Consciousness (LOC), Less restrictive alternatives attempted: 1:1 patient care, placed near Nurse station, medicated for pain/anxiety, repositioned, performed diversional activities, trained sitter in room, Alternative interventions: Ineffective. Clinical justification for use: Violent/self destructing behavior impacts therapeutic environment. Poses a serious danger to physical safety of self \\T\\ others. Range of Motion: Performed. Hydration/Food: Meal/Snack provided:tolerated. PO fluids provided:tolerated. Elimination/Hygiene: diapers changed. Restraint status: Side rails up x 4 Soft wrist restraint (Right) Soft wrist restraint (Left) Soft ankle restraint (Right) Soft ankle restraint (Left) Mitt secured (Right) Mitt secured (Left) Started Readiness for Discontinue: Criteria not met. Patient still violent/self destructive and Alternative interventions still ineffective. Restraint continued. 18:45 Violent/Self Destructive Restraint: Observed actions/behavior: severely aggressive, hb confusion/disorientation, difficulty remembering or follow instructions, impaired decision making, repeated attempts to get up from bed/chair without assistance. Less restrictive alternatives attempted: reoriented to location, medicated for pain/anxiety, repositioned, performed diversional activities, trained sitter in room, Alternative interventions: Ineffective. Clinical justification for use: Violent/self destructing behavior impacts therapeutic environment. Poses a serious danger to physical safety of self \\T\\ others. Monitoring: Mental status: confused. patient asleep, subdued, Cognition: poor safety awareness, poor attention/concentration, unable to follow commands, Circulation: Within defined parameters (based on Cardiovascular assessment). Skin integrity: Within defined parameters (based on Integumentary assessment) Restraint status: Side rails up x 4 Soft wrist restraint (Right) Soft wrist restraint (Left) Soft ankle restraint (Right) Continued. Soft ankle restraint (Left) Mitt secured (Right) Mitt secured (Left) Readiness for Discontinue: Criteria not met. Patient still violent/self destructive and Alternative interventions still ineffective. Restraint continued. 19:00 Violent/Self Destructive Restraint: Observed actions/behavior: destructive, severely vg1 aggressive, confusion/disorientation, difficulty remembering or follow instructions, impaired decision making, repeated attempts to get up from bed/chair without assistance. Monitoring: Mental status: agitated/restless, confused. Range of Motion: Performed. Restraint status: Side rails up x 4 Soft wrist restraint (Right) Soft wrist restraint (Left) Soft ankle restraint (Right) Soft ankle restraint (Left) Mitt secured (Right) Mitt secured (Left) Readiness for Discontinue: Criteria not met. Patient still violent/self destructive and Alternative interventions still ineffective. Restraint continued. 19:15 Violent/Self Destructive Restraint: Observed actions/behavior: destructive, severely vg1 aggressive, harming self/others, confusion/disorientation, difficulty remembering or follow instructions, impaired decision making, repeated attempts to get up from bed/chair without assistance. Less restrictive alternatives attempted: decreased environmental stimuli, 1:1 patient care, placed near Nurse station, reoriented to location, repositioned, trained sitter in room, Alternative interventions: Ineffective. Clinical justification for use: Violent/self destructing behavior impacts therapeutic environment. Poses a serious danger to physical safety of self \\T\\ others. Monitoring: Mental status: agitated/restless, Cognition: poor safety awareness, poor attention/concentration, unable to follow commands, Circulation: Within defined parameters (based on Cardiovascular assessment). Skin integrity: Within defined parameters (based on Integumentary assessment) Restraint status: Side rails up x 4 Soft wrist restraint (Right) Soft wrist restraint (Left) Soft ankle restraint (Right) Soft ankle restraint (Left) Mitt secured (Right) Mitt secured (Left). 19:30 Violent/Self Destructive Restraint: Observed actions/behavior: destructive, severely vg1 aggressive, harming self/others, confusion/disorientation, difficulty remembering or follow instructions, impaired decision making, repeated attempts to get up from bed/chair without assistance. unable to follow instructions, Less restrictive alternatives attempted: decreased environmental stimuli, 1:1 patient care, placed near Nurse station, reoriented to location, performed diversional activities, trained sitter in room, Alternative interventions: Ineffective. Clinical justification for use: Violent/self destructing behavior impacts therapeutic environment. Poses a serious danger to physical safety of self \\T\\ others. Monitoring: Mental status: agitated/restless, Cognition: poor safety awareness, poor attention/concentration, unable to follow commands, Circulation: Within defined parameters (based on Cardiovascular assessment). Skin integrity: Within defined parameters (based on Integumentary assessment) Restraint status: Side rails up x 4 Soft wrist restraint (Right) Soft wrist restraint (Left) Soft ankle restraint (Right) Soft ankle restraint (Left) Mitt secured (Right) Mitt secured (Left) Readiness for Discontinue: Criteria not met. Patient still violent/self destructive and Alternative interventions still ineffective. Restraint continued. 19:45 Violent/Self Destructive Restraint: Observed actions/behavior: destructive, vg1 confusion/disorientation, difficulty remembering or follow instructions, impaired decision making, repeated attempts to get up from bed/chair without assistance. unable to follow instructions, Less restrictive alternatives attempted: decreased environmental stimuli, 1:1 patient care, placed near Nurse station, trained sitter in room, Alternative interventions: Ineffective. Clinical justification for use: Violent/self destructing behavior impacts therapeutic environment. Poses a serious danger to physical safety of self \\T\\ others. Monitoring: Mental status: agitated/restless, Cognition: poor safety awareness, poor attention/concentration, unable to follow commands, Circulation: Within defined parameters (based on Cardiovascular assessment). Skin integrity: Within defined parameters (based on Integumentary assessment) Restraint status: Side rails up x 4 Soft wrist restraint (Right) Soft wrist restraint (Left) Soft ankle restraint (Right) Soft ankle restraint (Left) Mitt secured (Right) Mitt secured (Left) Readiness for Discontinue: Criteria not met. Patient still violent/self destructive and Alternative interventions still ineffective. Restraint continued. 20:00 Violent/Self Destructive Restraint: Order: obtained. Observed actions/behavior: vg1 severely aggressive, confusion/disorientation, difficulty remembering or follow instructions, impaired decision making, repeated attempts to get up from bed/chair without assistance. unable to follow instructions, Less restrictive alternatives attempted: decreased environmental stimuli, 1:1 patient care, placed near Nurse station, medicated for pain/anxiety, repositioned, performed diversional activities, trained sitter in room, Alternative interventions: Ineffective. Clinical justification for use: Violent/self destructing behavior impacts therapeutic environment. Poses a serious danger to physical safety of self \\T\\ others. Monitoring: Mental status: agitated/restless, Cognition: Unable to assess. poor attention/concentration, unable to follow commands, Circulation: Within defined parameters (based on Cardiovascular assessment). Skin integrity: Within defined parameters (based on Integumentary assessment) Range of Motion: Performed. Hydration/Food: Meal/Snack provided:tolerated. PO fluids provided:tolerated. Elimination/Hygiene: diapers changed. Restraint status: Side rails up x 4 Soft wrist restraint (Right) Soft wrist restraint (Left) Soft ankle restraint (Right) Soft ankle restraint (Left) Mitt secured (Right) Mitt secured (Left) Readiness for Discontinue: Criteria not met. Patient still violent/self destructive and Alternative interventions still ineffective. Restraint continued. Face to Face Evaluatn: Immediate Situation: Pt attempting to get out of bed, trying to remove restraints Response of Patient to Restraint: Pt trying to remove restraints Medical \\T\\ Behavioral condition: Pt is autistic, non verbal and combative Continue Restraint. MD Notified of Evaluation result: Garret Acharya MD. 20:15 Violent/Self Destructive Restraint: Observed actions/behavior: Pt sitting quietly in vg1 bed, loader technician at bedside. Less restrictive alternatives attempted: decreased environmental stimuli, 1:1 patient care, placed near Nurse station, reoriented to location, trained sitter in room, Alternative interventions: Ineffective. Clinical justification for use: Violent/self destructing behavior impacts therapeutic environment. Poses a serious danger to physical safety of self \\T\\ others. Monitoring: Mental status: subdued, Cognition: poor attention/concentration, unable to follow commands, Circulation: Within defined parameters (based on Cardiovascular assessment). Skin integrity: Within defined parameters (based on Integumentary assessment) Restraint status: Side rails up x 4 Soft wrist restraint (Right) Soft wrist restraint (Left) Soft ankle restraint (Right) Soft ankle restraint (Left) Mitt secured (Right) Mitt secured (Left) Readiness for Discontinue: Criteria not met. Patient still violent/self destructive and Alternative interventions still ineffective. Restraint continued. 20:30 Violent/Self Destructive Restraint: Observed actions/behavior: Pt sitting quietly in vg1 bed; loader technician at bedside. Less restrictive alternatives attempted: decreased environmental stimuli, 1:1 patient care, placed near Nurse station, trained sitter in room, Alternative interventions: Ineffective. Clinical justification for use: Violent/self destructing behavior impacts therapeutic environment. Poses a serious danger to physical safety of self \\T\\ others. Monitoring: Mental status: subdued, Cognition: poor safety awareness, poor attention/concentration, unable to follow commands, Circulation: Within defined parameters (based on Cardiovascular assessment). Skin integrity: Within defined parameters (based on Integumentary assessment) Restraint status: Side rails up x 4 Soft wrist restraint (Right) Soft wrist restraint (Left) Soft ankle restraint (Right) Soft ankle restraint (Left) Mitt secured (Right) Mitt secured (Left) Readiness for Discontinue: Criteria not met. Patient still violent/self destructive and Alternative interventions still ineffective. Restraint continued. 20:45 Violent/Self Destructive Restraint: Observed actions/behavior: Pt sitting quietly in vg1 bed; loader technician at bedside. Less restrictive alternatives attempted: decreased environmental stimuli, 1:1 patient care, placed near Nurse station, trained sitter in room, Alternative interventions: Ineffective. Clinical justification for use: Violent/self destructing behavior impacts therapeutic environment. Poses a serious danger to physical safety of self \\T\\ others. Monitoring: Mental status: subdued, Cognition: poor safety awareness, poor attention/concentration, unable to follow commands, Circulation: Within defined parameters (based on Cardiovascular assessment). Skin integrity: Within defined parameters (based on Integumentary assessment) Restraint status: Side rails up x 4 Soft wrist restraint (Right) Soft wrist restraint (Left) Soft ankle restraint (Right) Soft ankle restraint (Left) Mitt secured (Right) Mitt secured (Left) Readiness for Discontinue: Criteria not met. Patient still violent/self destructive and Alternative interventions still ineffective. Restraint continued. 21:00 Violent/Self Destructive Restraint: Observed actions/behavior: Pt in bed resting with vg1 eyes closed; loader technician at bedside. Less restrictive alternatives attempted: decreased environmental stimuli, 1:1 patient care, placed near Nurse station, trained sitter in room, Alternative interventions: Ineffective. Clinical justification for use: Violent/self destructing behavior impacts therapeutic environment. Poses a serious danger to physical safety of self \\T\\ others. Monitoring: Mental status: patient asleep, Cognition: Unable to assess. Circulation: Within defined parameters (based on Cardiovascular assessment). Skin integrity: Within defined parameters (based on Integumentary assessment) Range of Motion: patient asleep. Restraint status: Side rails up x 4 Soft wrist restraint (Right) Soft wrist restraint (Left) Soft ankle restraint (Right) Soft ankle restraint (Left) Mitt secured (Right) Mitt secured (Left) Readiness for Discontinue: Criteria not met. Patient still violent/self destructive and Alternative interventions still ineffective. Restraint continued. 21:15 Violent/Self Destructive Restraint: Observed actions/behavior: Pt in bed resting with vg1 eyes closed, loader technician at bedside. Less restrictive alternatives attempted: decreased environmental stimuli, 1:1 patient care, placed near Nurse station, trained sitter in room, Alternative interventions: Ineffective. Clinical justification for use: Violent/self destructing behavior impacts therapeutic environment. Poses a serious danger to physical safety of self \\T\\ others. Monitoring: Mental status: patient asleep, Cognition: Unable to assess. Circulation: Within defined parameters (based on Cardiovascular assessment). Skin integrity: Within defined parameters (based on Integumentary assessment) Restraint status: Side rails up x 4 Soft wrist restraint (Right) Soft wrist restraint (Left) Soft ankle restraint (Right) Soft ankle restraint (Left) Mitt secured (Right) Mitt secured (Left) Readiness for Discontinue: Criteria not met. Patient still violent/self destructive and Alternative interventions still ineffective. Restraint continued. 21:30 Violent/Self Destructive Restraint: Observed actions/behavior: pt resting in bed with vg1 eyes closed, loader technician at bedside. Less restrictive alternatives attempted: decreased environmental stimuli, 1:1 patient care, placed near Nurse station, trained sitter in room, Alternative interventions: Ineffective. Clinical justification for use: Violent/self destructing behavior impacts therapeutic environment. Poses a serious danger to physical safety of self \\T\\ others. Monitoring: Mental status: patient asleep, Cognition: Unable to assess. Circulation: Within defined parameters (based on Cardiovascular assessment). Skin integrity: Within defined parameters (based on Integumentary assessment) Restraint status: Side rails up x 4 Soft wrist restraint (Right) Soft wrist restraint (Left) Soft ankle restraint (Right) Soft ankle restraint (Left) Mitt secured (Right) Mitt secured (Left) Readiness for Discontinue: Criteria not met. Patient still violent/self destructive and Alternative interventions still ineffective. Restraint continued. 21:45 Violent/Self Destructive Restraint: Observed actions/behavior: Pt in bed resting with vg1 eyes closed, loader technician at bedside. Less restrictive alternatives attempted: decreased environmental stimuli, 1:1 patient care, placed near Nurse station, trained sitter in room, Alternative interventions: Ineffective. Clinical justification for use: Violent/self destructing behavior impacts therapeutic environment. Poses a serious danger to physical safety of self \\T\\ others. Monitoring: Mental status: patient asleep, Cognition: Unable to assess. Circulation: Within defined parameters (based on Cardiovascular assessment). Skin integrity: Within defined parameters (based on Integumentary assessment) Restraint status: Side rails up x 4 Soft wrist restraint (Right) Soft wrist restraint (Left) Soft ankle restraint (Right) Soft ankle restraint (Left) Mitt secured (Right) Mitt secured (Left) Readiness for Discontinue: Criteria not met. Patient still violent/self destructive and Alternative interventions still ineffective. Restraint continued. 22:00 Violent/Self Destructive Restraint: Observed actions/behavior: Pt sitting quietly in vg1 bed, loader technician at bedside feeding pt and giving oral fluids, pt tolerating well. Less restrictive alternatives attempted: decreased environmental stimuli, 1:1 patient care, placed near Nurse station, trained sitter in room, Alternative interventions: Ineffective. Clinical justification for use: Violent/self destructing behavior impacts therapeutic environment. Poses a serious danger to physical safety of self \\T\\ others. Monitoring: Mental status: subdued, Cognition: poor safety awareness, poor attention/concentration, Circulation: Within defined parameters (based on Cardiovascular assessment). Skin integrity: Within defined parameters (based on Integumentary assessment) Range of Motion: Performed. Hydration/Food: Meal/Snack provided:tolerated. PO fluids provided:tolerated. Restraint status: Side rails up x 4 Soft wrist restraint (Right) Soft wrist restraint (Left) Soft ankle restraint (Right) Soft ankle restraint (Left) Mitt secured (Right) Mitt secured (Left) Readiness for Discontinue: Criteria not met. Patient still violent/self destructive and Alternative interventions still ineffective. Restraint continued. 22:15 Violent/Self Destructive Restraint: Observed actions/behavior: destructive, violent, sf harming self/others, confusion/disorientation, difficulty remembering or follow instructions, impaired decision making, repeated attempts to get up from bed/chair without assistance. decreased Level of Consciousness (LOC), unable to follow instructions, Less restrictive alternatives attempted: decreased environmental stimuli, 1:1 patient care, placed near Nurse station, reoriented to location, performed diversional activities, Alternative interventions: Ineffective. Clinical justification for use: Violent/self destructing behavior impacts therapeutic environment. Poses a serious danger to physical safety of self \\T\\ others. Monitoring: Mental status: agitated/restless, confused. subdued, Cognition: Unable to assess. poor safety awareness, poor attention/concentration, unable to follow commands, Circulation: Within defined parameters (based on Cardiovascular assessment). Skin integrity: Within defined parameters (based on Integumentary assessment) Restraint status: Side rails up x 4 Continued. Soft wrist restraint (Right) Continued. Soft wrist restraint (Left) Continued. Soft ankle restraint (Right) Continued. Soft ankle restraint (Left) Continued. Mitt secured (Right) Continued. Mitt secured (Left) Continued Readiness for Discontinue: Criteria not met. Patient still violent/self destructive and Alternative interventions still ineffective. Restraint continued. 22:30 Violent/Self Destructive Restraint: Observed actions/behavior: destructive, harming sf self/others, confusion/disorientation, difficulty remembering or follow instructions, impaired decision making, repeated attempts to get up from bed/chair without assistance. decreased Level of Consciousness (LOC), unable to follow instructions, Less restrictive alternatives attempted: decreased environmental stimuli, 1:1 patient care, placed near Nurse station, reoriented to location, repositioned, performed diversional activities, trained sitter in room, Alternative interventions: Ineffective. Clinical justification for use: Violent/self destructing behavior impacts therapeutic environment. Poses a serious danger to physical safety of self \\T\\ others. Monitoring: Mental status: agitated/restless, confused. subdued, Cognition: Unable to assess. poor safety awareness, poor attention/concentration, unable to follow commands, Circulation: Within defined parameters (based on Cardiovascular assessment). Skin integrity: Within defined parameters (based on Integumentary assessment) Restraint status: Side rails up x 4 Soft wrist restraint (Right) Continued. Soft wrist restraint (Left) Continued. Soft ankle restraint (Right) Continued. Soft ankle restraint (Left) Continued. Mitt secured (Right) Continued. Mitt secured (Left) Continued Readiness for Discontinue: Criteria not met. Patient still violent/self destructive and Alternative interventions still ineffective. Restraint continued. 22:45 Violent/Self Destructive Restraint: Observed actions/behavior: destructive, harming sf self/others, confusion/disorientation, difficulty remembering or follow instructions, impaired decision making, repeated attempts to get up from bed/chair without assistance. decreased Level of Consciousness (LOC), unable to follow instructions, Less restrictive alternatives attempted: decreased environmental stimuli, 1:1 patient care, placed near Nurse station, reoriented to location, repositioned, performed diversional activities, trained sitter in room, Alternative interventions: Ineffective. Clinical justification for use: Violent/self destructing behavior impacts therapeutic environment. Poses a serious danger to physical safety of self \\T\\ others. Monitoring: Mental status: agitated/restless, confused. subdued, Cognition: Unable to assess. poor safety awareness, poor attention/concentration, unable to follow commands, Circulation: Within defined parameters (based on Cardiovascular assessment). Skin integrity: Within defined parameters (based on Integumentary assessment) Restraint status: Side rails up x 4 Continued. Soft wrist restraint (Right) Continued. Soft wrist restraint (Left) Continued. Soft ankle restraint (Right) Continued. Soft ankle restraint (Left) Continued. Mitt secured (Right) Continued. Mitt secured (Left) Continued Readiness for Discontinue: Criteria not met. Patient still violent/self destructive and Alternative interventions still ineffective. Restraint continued. 23:00 Violent/Self Destructive Restraint: Observed actions/behavior: destructive, violent, sf severely aggressive, harming self/others, confusion/disorientation, difficulty remembering or follow instructions, impaired decision making, repeated attempts to get up from bed/chair without assistance. decreased Level of Consciousness (LOC), unable to follow instructions, Less restrictive alternatives attempted: decreased environmental stimuli, 1:1 patient care, placed near Nurse station, reoriented to location, medicated for pain/anxiety, repositioned, performed diversional activities, trained sitter in room, Alternative interventions: Ineffective. Clinical justification for use: Violent/self destructing behavior impacts therapeutic environment. Poses a serious danger to physical safety of self \\T\\ others. Monitoring: Mental status: agitated/restless, confused. subdued, Cognition: Unable to assess. poor safety awareness, poor attention/concentration, unable to follow commands, Circulation: Within defined parameters (based on Cardiovascular assessment). Skin integrity: Within defined parameters (based on Integumentary assessment) Range of Motion: Performed. Hydration/Food: Meal/Snack provided:tolerated. PO fluids provided:tolerated. Elimination/Hygiene: diapers changed. Restraint status: Side rails up x 4 Continued. Soft wrist restraint (Right) Continued. Soft wrist restraint (Left) Continued. Soft ankle restraint (Right) Continued. Soft ankle restraint (Left) Continued. Mitt secured (Right) Continued. Mitt secured (Left) Continued Readiness for Discontinue: Criteria not met. Patient still violent/self destructive and Alternative interventions still ineffective. Restraint continued. 23:15 Violent/Self Destructive Restraint: Observed actions/behavior: destructive, violent, sf severely aggressive, harming self/others, confusion/disorientation, difficulty remembering or follow instructions, impaired decision making, repeated attempts to get up from bed/chair without assistance. decreased Level of Consciousness (LOC), unable to follow instructions, Less restrictive alternatives attempted: decreased environmental stimuli, 1:1 patient care, placed near Nurse station, reoriented to location, medicated for pain/anxiety, repositioned, performed diversional activities, trained sitter in room, Alternative interventions: Ineffective. Clinical justification for use: Violent/self destructing behavior impacts therapeutic environment. Poses a serious danger to physical safety of self \\T\\ others. Monitoring: Mental status: agitated/restless, confused. Cognition: Unable to assess. poor safety awareness, poor attention/concentration, unable to follow commands, Circulation: Within defined parameters (based on Cardiovascular assessment). Skin integrity: Within defined parameters (based on Integumentary assessment) Restraint status: Side rails up x 4 Continued. Soft wrist restraint (Right) Continued. Soft wrist restraint (Left) Continued. Soft ankle restraint (Right) Continued. Soft ankle restraint (Left) Continued. Mitt secured (Right) Continued. Mitt secured (Left) Continued Readiness for Discontinue: Criteria not met. Patient still violent/self destructive and Alternative interventions still ineffective. Restraint continued. 23:30 Violent/Self Destructive Restraint: Observed actions/behavior: destructive, violent, sf severely aggressive, harming self/others, confusion/disorientation, difficulty remembering or follow instructions, impaired decision making, repeated attempts to get up from bed/chair without assistance. decreased Level of Consciousness (LOC), unable to follow instructions, Less restrictive alternatives attempted: decreased environmental stimuli, 1:1 patient care, placed near Nurse station, reoriented to location, medicated for pain/anxiety, repositioned, performed diversional activities, trained sitter in room, Alternative interventions: Ineffective. Clinical justification for use: Violent/self destructing behavior impacts therapeutic environment. Poses a serious danger to physical safety of self \\T\\ others. Monitoring: Mental status: agitated/restless, confused. Cognition: Unable to assess. poor safety awareness, poor attention/concentration, unable to follow commands, Circulation: Within defined parameters (based on Cardiovascular assessment). Skin integrity: Within defined parameters (based on Integumentary assessment) Restraint status: Side rails up x 4 Continued. Soft wrist restraint (Right) Continued. Soft wrist restraint (Left) Continued. Soft ankle restraint (Right) Continued. Soft ankle restraint (Left) Continued. Mitt secured (Right) Continued. Mitt secured (Left) Continued Readiness for Discontinue: Criteria not met. Patient still violent/self destructive and Alternative interventions still ineffective. Restraint continued. 23:45 Violent/Self Destructive Restraint: Observed actions/behavior: destructive, violent, sf severely aggressive, harming self/others, confusion/disorientation, difficulty remembering or follow instructions, impaired decision making, repeated attempts to get up from bed/chair without assistance. decreased Level of Consciousness (LOC), unable to follow instructions, Less restrictive alternatives attempted: decreased environmental stimuli, 1:1 patient care, placed near Nurse station, reoriented to location, medicated for pain/anxiety, repositioned, performed diversional activities, trained sitter in room, Alternative interventions: Ineffective. Clinical justification for use: Violent/self destructing behavior impacts therapeutic environment. Poses a serious danger to physical safety of self \\T\\ others. Monitoring: Mental status: agitated/restless, confused. subdued, Cognition: Unable to assess. poor safety awareness, poor attention/concentration, unable to follow commands, Circulation: Within defined parameters (based on Cardiovascular assessment). Skin integrity: Within defined parameters (based on Integumentary assessment) Restraint status: Side rails up x 4 Continued. Soft wrist restraint (Right) Continued. Soft wrist restraint (Left) Continued. Soft ankle restraint (Right) Continued. Soft ankle restraint (Left) Continued. Mitt secured (Right) Continued. Mitt secured (Left) Continued Readiness for Discontinue: Criteria not met. Patient still violent/self destructive and Alternative interventions still ineffective. Restraint continued. 11/05 00:00 Violent/Self Destructive Restraint: Observed actions/behavior: destructive, violent, sf severely aggressive, harming self/others, confusion/disorientation, difficulty remembering or follow instructions, impaired decision making, repeated attempts to get up from bed/chair without assistance. decreased Level of Consciousness (LOC), unable to follow instructions, Less restrictive alternatives attempted: decreased environmental stimuli, 1:1 patient care, placed near Nurse station, reoriented to location, medicated for pain/anxiety, repositioned, performed diversional activities, trained sitter in room, Alternative interventions: Ineffective. Clinical justification for use: Violent/self destructing behavior impacts therapeutic environment. Poses a serious danger to physical safety of self \\T\\ others. Monitoring: Mental status: agitated/restless, confused. subdued, Cognition: Unable to assess. poor safety awareness, poor attention/concentration, unable to follow commands, Circulation: Within defined parameters (based on Cardiovascular assessment). Skin integrity: Within defined parameters (based on Integumentary assessment) Range of Motion: Performed. Hydration/Food: Meal/Snack provided:tolerated. PO fluids provided:tolerated. Elimination/Hygiene: diapers changed. Restraint status: Side rails up x 4 Continued. Soft wrist restraint (Right) Continued. Soft wrist restraint (Left) Continued. Soft ankle restraint (Right) Continued. Soft ankle restraint (Left) Continued. Mitt secured (Right) Continued. Mitt secured (Left) Continued Readiness for Discontinue: Criteria not met. Patient still violent/self destructive and Alternative interventions still ineffective. Restraint continued. 00:15 Violent/Self Destructive Restraint: Observed actions/behavior: destructive, violent, sf severely aggressive, harming self/others, confusion/disorientation, difficulty remembering or follow instructions, impaired decision making, repeated attempts to get up from bed/chair without assistance. decreased Level of Consciousness (LOC), unable to follow instructions, Less restrictive alternatives attempted: decreased environmental stimuli, 1:1 patient care, placed near Nurse station, reoriented to location, medicated for pain/anxiety, repositioned, performed diversional activities, trained sitter in room, Alternative interventions: Ineffective. Clinical justification for use: Violent/self destructing behavior impacts therapeutic environment. Poses a serious danger to physical safety of self \\T\\ others. Monitoring: Mental status: agitated/restless, confused. subdued, Cognition: Unable to assess. poor safety awareness, poor attention/concentration, unable to follow commands, Circulation: Within defined parameters (based on Cardiovascular assessment). Skin integrity: Within defined parameters (based on Integumentary assessment) Restraint status: Side rails up x 4 Continued. Soft wrist restraint (Right) Continued. Soft wrist restraint (Left) Continued. Soft ankle restraint (Right) Continued. Soft ankle restraint (Left) Continued. Mitt secured (Right) Continued. Mitt secured (Left) Continued Readiness for Discontinue: Criteria not met. Patient still violent/self destructive and Alternative interventions still ineffective. Restraint continued. 00:30 Violent/Self Destructive Restraint: Observed actions/behavior: destructive, violent, sf severely aggressive, harming self/others, confusion/disorientation, difficulty remembering or follow instructions, impaired decision making, repeated attempts to get up from bed/chair without assistance. decreased Level of Consciousness (LOC), unable to follow instructions, Less restrictive alternatives attempted: decreased environmental stimuli, 1:1 patient care, placed near Nurse station, reoriented to location, medicated for pain/anxiety, repositioned, performed diversional activities, trained sitter in room, Alternative interventions: Ineffective. Clinical justification for use: Violent/self destructing behavior impacts therapeutic environment. Poses a serious danger to physical safety of self \\T\\ others. Monitoring: Mental status: agitated/restless, confused. subdued, Cognition: Unable to assess. poor safety awareness, poor attention/concentration, unable to follow commands, Circulation: Within defined parameters (based on Cardiovascular assessment). Skin integrity: Within defined parameters (based on Integumentary assessment) Restraint status: Soft wrist restraint (Right) Continued. Soft wrist restraint (Left) Continued. Soft ankle restraint (Right) Continued. Soft ankle restraint (Left) Continued. Mitt secured (Right) Continued. Mitt secured (Left) Continued Readiness for Discontinue: Criteria not met. Patient still violent/self destructive and Alternative interventions still ineffective. Restraint continued. 00:45 Violent/Self Destructive Restraint: Observed actions/behavior: destructive, violent, sf severely aggressive, harming self/others, confusion/disorientation, difficulty remembering or follow instructions, impaired decision making, repeated attempts to get up from bed/chair without assistance. decreased Level of Consciousness (LOC), unable to follow instructions, Less restrictive alternatives attempted: decreased environmental stimuli, 1:1 patient care, placed near Nurse station, reoriented to location, medicated for pain/anxiety, repositioned, performed diversional activities, trained sitter in room, Alternative interventions: Ineffective. Clinical justification for use: Violent/self destructing behavior impacts therapeutic environment. Poses a serious danger to physical safety of self \\T\\ others. Monitoring: Mental status: agitated/restless, confused. subdued, Cognition: Unable to assess. poor safety awareness, poor attention/concentration, unable to follow commands, Circulation: Within defined parameters (based on Cardiovascular assessment). Skin integrity: Within defined parameters (based on Integumentary assessment) Restraint status: Soft wrist restraint (Right) Continued. Soft wrist restraint (Left) Continued. Soft ankle restraint (Right) Continued. Soft ankle restraint (Left) Continued. Mitt secured (Right) Continued. Mitt secured (Left) Continued Readiness for Discontinue: Criteria not met. Patient still violent/self destructive and Alternative interventions still ineffective. Restraint continued. 01:00 Violent/Self Destructive Restraint: Observed actions/behavior: destructive, violent, sf severely aggressive, harming self/others, confusion/disorientation, difficulty remembering or follow instructions, impaired decision making, repeated attempts to get up from bed/chair without assistance. decreased Level of Consciousness (LOC), unable to follow instructions, Less restrictive alternatives attempted: decreased environmental stimuli, 1:1 patient care, placed near Nurse station, reoriented to location, medicated for pain/anxiety, repositioned, performed diversional activities, trained sitter in room, Alternative interventions: Ineffective. Clinical justification for use: Violent/self destructing behavior impacts therapeutic environment. Poses a serious danger to physical safety of self \\T\\ others. Monitoring: Mental status: agitated/restless, confused. subdued, Cognition: poor safety awareness, poor attention/concentration, unable to follow commands, Circulation: Within defined parameters (based on Cardiovascular assessment). Skin integrity: Within defined parameters (based on Integumentary assessment) Range of Motion: Performed. Hydration/Food: Meal/Snack provided:tolerated. PO fluids provided:tolerated. Elimination/Hygiene: diapers changed. Restraint status: Soft wrist restraint (Right) Continued. Soft wrist restraint (Left) Continued. Soft ankle restraint (Right) Continued. Soft ankle restraint (Left) Continued. Mitt secured (Right) Continued. Mitt secured (Left) Continued Readiness for Discontinue: Criteria not met. Patient still violent/self destructive and Alternative interventions still ineffective. Restraint continued. 01:15 Violent/Self Destructive Restraint: Observed actions/behavior: destructive, violent, sf severely aggressive, harming self/others, confusion/disorientation, difficulty remembering or follow instructions, impaired decision making, repeated attempts to get up from bed/chair without assistance. decreased Level of Consciousness (LOC), unable to follow instructions, Less restrictive alternatives attempted: decreased environmental stimuli, 1:1 patient care, placed near Nurse station, reoriented to location, medicated for pain/anxiety, repositioned, performed diversional activities, trained sitter in room, Alternative interventions: Ineffective. Clinical justification for use: Violent/self destructing behavior impacts therapeutic environment. Poses a serious danger to physical safety of self \\T\\ others. Monitoring: Mental status: confused. patient asleep, Cognition: poor safety awareness, poor attention/concentration, unable to follow commands, Circulation: Within defined parameters (based on Cardiovascular assessment). Skin integrity: Within defined parameters (based on Integumentary assessment) Restraint status: Soft wrist restraint (Right) Continued. Soft wrist restraint (Left) Continued. Soft ankle restraint (Right) Continued. Soft ankle restraint (Left) Continued. Mitt secured (Right) Continued. Mitt secured (Left) Continued Readiness for Discontinue: Criteria not met. Patient still violent/self destructive and Alternative interventions still ineffective. Restraint continued. 01:30 Violent/Self Destructive Restraint: Observed actions/behavior: destructive, violent, sf severely aggressive, harming self/others, confusion/disorientation, difficulty remembering or follow instructions, impaired decision making, repeated attempts to get up from bed/chair without assistance. decreased Level of Consciousness (LOC), unable to follow instructions, Less restrictive alternatives attempted: decreased environmental stimuli, 1:1 patient care, placed near Nurse station, reoriented to location, medicated for pain/anxiety, repositioned, performed diversional activities, trained sitter in room, Alternative interventions: Ineffective. Clinical justification for use: Violent/self destructing behavior impacts therapeutic environment. Poses a serious danger to physical safety of self \\T\\ others. Monitoring: Mental status: agitated/restless, confused. subdued, Cognition: poor safety awareness, poor attention/concentration, unable to follow commands, Circulation: Within defined parameters (based on Cardiovascular assessment). Skin integrity: Within defined parameters (based on Integumentary assessment) Restraint status: Soft wrist restraint (Right) Continued. Soft wrist restraint (Left) Continued. Soft ankle restraint (Right) Continued. Soft ankle restraint (Left) Continued. Mitt secured (Right) Continued. Mitt secured (Left) Continued Readiness for Discontinue: Criteria not met. Patient still violent/self destructive and Alternative interventions still ineffective. Restraint continued. 01:45 Violent/Self Destructive Restraint: Observed actions/behavior: destructive, violent, sf severely aggressive, harming self/others, confusion/disorientation, difficulty remembering or follow instructions, impaired decision making, repeated attempts to get up from bed/chair without assistance. decreased Level of Consciousness (LOC), unable to follow instructions, Less restrictive alternatives attempted: decreased environmental stimuli, 1:1 patient care, placed near Nurse station, reoriented to location, medicated for pain/anxiety, repositioned, performed diversional activities, trained sitter in room, Alternative interventions: Ineffective. Clinical justification for use: Violent/self destructing behavior impacts therapeutic environment. Poses a serious danger to physical safety of self \\T\\ others. Monitoring: Mental status: agitated/restless, confused. subdued, Cognition: poor safety awareness, poor attention/concentration, unable to follow commands, Circulation: Within defined parameters (based on Cardiovascular assessment). Skin integrity: Within defined parameters (based on Integumentary assessment) Restraint status: Soft wrist restraint (Right) Continued. Soft wrist restraint (Left) Continued. Soft ankle restraint (Right) Continued. Soft ankle restraint (Left) Continued. Mitt secured (Right) Continued. Mitt secured (Left) Continued Readiness for Discontinue: Criteria not met. Patient still violent/self destructive and Alternative interventions still ineffective. Restraint continued. 02:00 Violent/Self Destructive Restraint: Observed actions/behavior: destructive, violent, sf severely aggressive, harming self/others, confusion/disorientation, difficulty remembering or follow instructions, impaired decision making, repeated attempts to get up from bed/chair without assistance. decreased Level of Consciousness (LOC), unable to follow instructions, Less restrictive alternatives attempted: decreased environmental stimuli, 1:1 patient care, placed near Nurse station, reoriented to location, medicated for pain/anxiety, repositioned, performed diversional activities, trained sitter in room, Alternative interventions: Ineffective. Clinical justification for use: Violent/self destructing behavior impacts therapeutic environment. Poses a serious danger to physical safety of self \\T\\ others. Monitoring: Mental status: agitated/restless, confused. subdued, Cognition: poor safety awareness, poor attention/concentration, unable to follow commands, Circulation: Within defined parameters (based on Cardiovascular assessment). Skin integrity: Within defined parameters (based on Integumentary assessment) Range of Motion: Performed. Hydration/Food: Meal/Snack provided:tolerated. PO fluids provided:tolerated. Elimination/Hygiene: diapers changed. Restraint status: Soft wrist restraint (Right) Continued. Soft wrist restraint (Left) Continued. Soft ankle restraint (Right) Continued. Soft ankle restraint (Left) Continued. Mitt secured (Right) Continued. Mitt secured (Left) Continued Readiness for Discontinue: Criteria not met. Patient still violent/self destructive and Alternative interventions still ineffective. Restraint continued. 02:15 Violent/Self Destructive Restraint: Observed actions/behavior: destructive, violent, sf severely aggressive, harming self/others, confusion/disorientation, difficulty remembering or follow instructions, impaired decision making, repeated attempts to get up from bed/chair without assistance. decreased Level of Consciousness (LOC), unable to follow instructions, Less restrictive alternatives attempted: decreased environmental stimuli, 1:1 patient care, placed near Nurse station, reoriented to location, medicated for pain/anxiety, repositioned, performed diversional activities, trained sitter in room, Alternative interventions: Ineffective. Clinical justification for use: Violent/self destructing behavior impacts therapeutic environment. Poses a serious danger to physical safety of self \\T\\ others. Monitoring: Mental status: agitated/restless, confused. subdued, Cognition: poor safety awareness, poor attention/concentration, unable to follow commands, Circulation: Within defined parameters (based on Cardiovascular assessment). Skin integrity: Within defined parameters (based on Integumentary assessment) Restraint status: Soft wrist restraint (Right) Continued. Soft wrist restraint (Left) Continued. Soft ankle restraint (Right) Continued. Soft ankle restraint (Left) Continued. Mitt secured (Right) Continued. Mitt secured (Left) Continued Readiness for Discontinue: Criteria not met. Patient still violent/self destructive and Alternative interventions still ineffective. Restraint continued. 02:30 Violent/Self Destructive Restraint: Observed actions/behavior: destructive, violent, sf severely aggressive, harming self/others, confusion/disorientation, difficulty remembering or follow instructions, impaired decision making, repeated attempts to get up from bed/chair without assistance. decreased Level of Consciousness (LOC), unable to follow instructions, Less restrictive alternatives attempted: decreased environmental stimuli, 1:1 patient care, placed near Nurse station, reoriented to location, medicated for pain/anxiety, repositioned, performed diversional activities, trained sitter in room, Alternative interventions: Ineffective. Clinical justification for use: Violent/self destructing behavior impacts therapeutic environment. Poses a serious danger to physical safety of self \\T\\ others. Monitoring: Mental status: agitated/restless, confused. Cognition: poor safety awareness, poor attention/concentration, unable to follow commands, Circulation: Within defined parameters (based on Cardiovascular assessment). Skin integrity: Within defined parameters (based on Integumentary assessment) Restraint status: Soft wrist restraint (Right) Soft wrist restraint (Left) Soft ankle restraint (Right) Soft ankle restraint (Left) Mitt secured (Right) Mitt secured (Left) Continued Readiness for Discontinue: Criteria not met. Patient still violent/self destructive and Alternative interventions still ineffective. Restraint continued. 02:45 Violent/Self Destructive Restraint: Observed actions/behavior: destructive, violent, sf severely aggressive, harming self/others, confusion/disorientation, difficulty remembering or follow instructions, impaired decision making, repeated attempts to get up from bed/chair without assistance. decreased Level of Consciousness (LOC), unable to follow instructions, Less restrictive alternatives attempted: decreased environmental stimuli, 1:1 patient care, placed near Nurse station, reoriented to location, medicated for pain/anxiety, repositioned, performed diversional activities, trained sitter in room, Alternative interventions: Ineffective. Clinical justification for use: Violent/self destructing behavior impacts therapeutic environment. Poses a serious danger to physical safety of self \\T\\ others. Monitoring: Mental status: agitated/restless, confused. Cognition: poor safety awareness, poor attention/concentration, unable to follow commands, Circulation: Within defined parameters (based on Cardiovascular assessment). Skin integrity: Within defined parameters (based on Integumentary assessment) Restraint status: Soft wrist restraint (Right) Soft wrist restraint (Left) Soft ankle restraint (Right) Soft ankle restraint (Left) Mitt secured (Right) Mitt secured (Left) Continued Readiness for Discontinue: Criteria not met. Patient still violent/self destructive and Alternative interventions still ineffective. Restraint continued. 03:00 Violent/Self Destructive Restraint: Observed actions/behavior: destructive, violent, sf severely aggressive, harming self/others, confusion/disorientation, difficulty remembering or follow instructions, impaired decision making, repeated attempts to get up from bed/chair without assistance. decreased Level of Consciousness (LOC), unable to follow instructions, Less restrictive alternatives attempted: decreased environmental stimuli, 1:1 patient care, placed near Nurse station, reoriented to location, medicated for pain/anxiety, repositioned, performed diversional activities, trained sitter in room, Alternative interventions: Ineffective. Clinical justification for use: Violent/self destructing behavior impacts therapeutic environment. Poses a serious danger to physical safety of self \\T\\ others. Monitoring: Mental status: agitated/restless, confused. subdued, Cognition: poor safety awareness, poor attention/concentration, unable to follow commands, Circulation: Within defined parameters (based on Cardiovascular assessment). Skin integrity: Within defined parameters (based on Integumentary assessment) Range of Motion: Hydration/Food: Meal/Snack provided:tolerated. PO fluids provided:tolerated. Elimination/Hygiene: diapers changed. Restraint status: Soft wrist restraint (Right) Soft wrist restraint (Left) Soft ankle restraint (Right) Soft ankle restraint (Left) Mitt secured (Right) Mitt secured (Left) Continued Readiness for Discontinue: Criteria not met. Patient still violent/self destructive and Alternative interventions still ineffective. Restraint continued. 03:15 Violent/Self Destructive Restraint: Observed actions/behavior: destructive, violent, sf severely aggressive, harming self/others, confusion/disorientation, difficulty remembering or follow instructions, impaired decision making, repeated attempts to get up from bed/chair without assistance. decreased Level of Consciousness (LOC), unable to follow instructions, Less restrictive alternatives attempted: decreased environmental stimuli, 1:1 patient care, placed near Nurse station, reoriented to location, medicated for pain/anxiety, repositioned, performed diversional activities, trained sitter in room, Alternative interventions: Ineffective. Clinical justification for use: Violent/self destructing behavior impacts therapeutic environment. Poses a serious danger to physical safety of self \\T\\ others. Monitoring: Mental status: agitated/restless, confused. Cognition: poor safety awareness, poor attention/concentration, unable to follow commands, Circulation: Within defined parameters (based on Cardiovascular assessment). Skin integrity: Within defined parameters (based on Integumentary assessment) Restraint status: Soft wrist restraint (Right) Soft wrist restraint (Left) Soft ankle restraint (Right) Soft ankle restraint (Left) Mitt secured (Right) Mitt secured (Left) Continued Readiness for Discontinue: Criteria not met. Patient still violent/self destructive and Alternative interventions still ineffective. Restraint continued. 03:30 Violent/Self Destructive Restraint: Observed actions/behavior: destructive, violent, sf severely aggressive, harming self/others, confusion/disorientation, difficulty remembering or follow instructions, impaired decision making, repeated attempts to get up from bed/chair without assistance. decreased Level of Consciousness (LOC), unable to follow instructions, Less restrictive alternatives attempted: decreased environmental stimuli, 1:1 patient care, placed near Nurse station, reoriented to location, medicated for pain/anxiety, repositioned, performed diversional activities, trained sitter in room, Alternative interventions: Ineffective. Clinical justification for use: Violent/self destructing behavior impacts therapeutic environment. Poses a serious danger to physical safety of self \\T\\ others. Monitoring: Mental status: agitated/restless, confused. subdued, Cognition: poor safety awareness, poor attention/concentration, unable to follow commands, Circulation: Within defined parameters (based on Cardiovascular assessment). Skin integrity: Within defined parameters (based on Integumentary assessment) Restraint status: Soft wrist restraint (Right) Soft wrist restraint (Left) Soft ankle restraint (Right) Soft ankle restraint (Left) Mitt secured (Right) Mitt secured (Left) Continued Readiness for Discontinue: Criteria not met. Patient still violent/self destructive and Alternative interventions still ineffective. Restraint continued. 03:45 Violent/Self Destructive Restraint: Observed actions/behavior: destructive, violent, sf severely aggressive, harming self/others, confusion/disorientation, difficulty remembering or follow instructions, impaired decision making, repeated attempts to get up from bed/chair without assistance. decreased Level of Consciousness (LOC), unable to follow instructions, Less restrictive alternatives attempted: decreased environmental stimuli, 1:1 patient care, placed near Nurse station, reoriented to location, medicated for pain/anxiety, repositioned, performed diversional activities, trained sitter in room, Alternative interventions: Ineffective. Clinical justification for use: Violent/self destructing behavior impacts therapeutic environment. Poses a serious danger to physical safety of self \\T\\ others. Monitoring: Mental status: agitated/restless, confused. subdued, Cognition: poor safety awareness, poor attention/concentration, unable to follow commands, Circulation: Within defined parameters (based on Cardiovascular assessment). Skin integrity: Within defined parameters (based on Integumentary assessment) Restraint status: Soft wrist restraint (Right) Soft wrist restraint (Left) Soft ankle restraint (Right) Soft ankle restraint (Left) Mitt secured (Right) Mitt secured (Left) Continued Readiness for Discontinue: Criteria not met. Patient still violent/self destructive and Alternative interventions still ineffective. Restraint continued. 04:00 Violent/Self Destructive Restraint: Observed actions/behavior: destructive, violent, sf severely aggressive, harming self/others, confusion/disorientation, difficulty remembering or follow instructions, impaired decision making, repeated attempts to get up from bed/chair without assistance. decreased Level of Consciousness (LOC), unable to follow instructions, Less restrictive alternatives attempted: decreased environmental stimuli, 1:1 patient care, placed near Nurse station, reoriented to location, medicated for pain/anxiety, repositioned, performed diversional activities, trained sitter in room, Alternative interventions: Ineffective. Clinical justification for use: Violent/self destructing behavior impacts therapeutic environment. Poses a serious danger to physical safety of self \\T\\ others. Monitoring: Mental status: agitated/restless, confused. subdued, Cognition: poor safety awareness, poor attention/concentration, unable to follow commands, Circulation: Within defined parameters (based on Cardiovascular assessment). Skin integrity: Within defined parameters (based on Integumentary assessment) Restraint status: Soft wrist restraint (Right) Soft wrist restraint (Left) Soft ankle restraint (Right) Soft ankle restraint (Left) Mitt secured (Right) Mitt secured (Left) Continued Readiness for Discontinue: Criteria not met. Patient still violent/self destructive and Alternative interventions still ineffective. Restraint continued. 04:15 Violent/Self Destructive Restraint: Observed actions/behavior: destructive, violent, sf severely aggressive, harming self/others, confusion/disorientation, difficulty remembering or follow instructions, impaired decision making, repeated attempts to get up from bed/chair without assistance. decreased Level of Consciousness (LOC), unable to follow instructions, Less restrictive alternatives attempted: decreased environmental stimuli, 1:1 patient care, placed near Nurse station, reoriented to location, medicated for pain/anxiety, repositioned, performed diversional activities, trained sitter in room, Alternative interventions: Ineffective. Clinical justification for use: Violent/self destructing behavior impacts therapeutic environment. Poses a serious danger to physical safety of self \\T\\ others. Monitoring: Mental status: agitated/restless, confused. subdued, Cognition: poor safety awareness, poor attention/concentration, unable to follow commands, Circulation: Within defined parameters (based on Cardiovascular assessment). Skin integrity: Within defined parameters (based on Integumentary assessment) Restraint status: Soft wrist restraint (Right) Soft wrist restraint (Left) Soft ankle restraint (Right) Soft ankle restraint (Left) Mitt secured (Right) Mitt secured (Left) Continued Readiness for Discontinue: Criteria not met. Patient still violent/self destructive and Alternative interventions still ineffective. Restraint continued. 04:30 Violent/Self Destructive Restraint: Observed actions/behavior: destructive, violent, sf severely aggressive, harming self/others, confusion/disorientation, difficulty remembering or follow instructions, impaired decision making, repeated attempts to get up from bed/chair without assistance. decreased Level of Consciousness (LOC), unable to follow instructions, Less restrictive alternatives attempted: decreased environmental stimuli, 1:1 patient care, placed near Nurse station, reoriented to location, medicated for pain/anxiety, repositioned, performed diversional activities, trained sitter in room, Alternative interventions: Ineffective. Clinical justification for use: Violent/self destructing behavior impacts therapeutic environment. Poses a serious danger to physical safety of self \\T\\ others. Monitoring: Mental status: agitated/restless, confused. subdued, Cognition: poor safety awareness, poor attention/concentration, unable to follow commands, Circulation: Within defined parameters (based on Cardiovascular assessment). Skin integrity: Within defined parameters (based on Integumentary assessment) Restraint status: Soft wrist restraint (Right) Soft wrist restraint (Left) Soft ankle restraint (Right) Soft ankle restraint (Left) Mitt secured (Right) Mitt secured (Left) Continued Readiness for Discontinue: Criteria not met. Patient still violent/self destructive and Alternative interventions still ineffective. Restraint continued. 04:45 Violent/Self Destructive Restraint: Observed actions/behavior: destructive, violent, sf severely aggressive, harming self/others, confusion/disorientation, difficulty remembering or follow instructions, impaired decision making, repeated attempts to get up from bed/chair without assistance. decreased Level of Consciousness (LOC), unable to follow instructions, Less restrictive alternatives attempted: decreased environmental stimuli, 1:1 patient care, placed near Nurse station, reoriented to location, medicated for pain/anxiety, repositioned, performed diversional activities, trained sitter in room, Alternative interventions: Ineffective. Clinical justification for use: Violent/self destructing behavior impacts therapeutic environment. Poses a serious danger to physical safety of self \\T\\ others. Monitoring: Mental status: confused. subdued, Cognition: poor safety awareness, poor attention/concentration, unable to follow commands, Circulation: Within defined parameters (based on Cardiovascular assessment). Skin integrity: Within defined parameters (based on Integumentary assessment) Restraint status: Soft wrist restraint (Right) Soft wrist restraint (Left) Soft ankle restraint (Right) Soft ankle restraint (Left) Mitt secured (Right) Mitt secured (Left) Continued Readiness for Discontinue: Criteria not met. Patient still violent/self destructive and Alternative interventions still ineffective. Restraint continued. 05:00 Violent/Self Destructive Restraint: Observed actions/behavior: destructive, violent, sf severely aggressive, harming self/others, confusion/disorientation, difficulty remembering or follow instructions, impaired decision making, repeated attempts to get up from bed/chair without assistance. decreased Level of Consciousness (LOC), unable to follow instructions, Less restrictive alternatives attempted: decreased environmental stimuli, 1:1 patient care, placed near Nurse station, reoriented to location, medicated for pain/anxiety, repositioned, performed diversional activities, trained sitter in room, Alternative interventions: Ineffective. Clinical justification for use: Violent/self destructing behavior impacts therapeutic environment. Poses a serious danger to physical safety of self \\T\\ others. Monitoring: Mental status: agitated/restless, confused. subdued, Cognition: poor safety awareness, poor attention/concentration, unable to follow commands, Circulation: Within defined parameters (based on Cardiovascular assessment). Skin integrity: Within defined parameters (based on Integumentary assessment) Range of Motion: Performed. Hydration/Food: Meal/Snack provided:tolerated. PO fluids provided:tolerated. Elimination/Hygiene: diapers changed. Restraint status: Soft wrist restraint (Right) Soft wrist restraint (Left) Soft ankle restraint (Right) Soft ankle restraint (Left) Mitt secured (Right) Mitt secured (Left) Continued Readiness for Discontinue: Criteria not met. Patient still violent/self destructive and Alternative interventions still ineffective. Restraint continued. 05:15 Violent/Self Destructive Restraint: Observed actions/behavior: destructive, violent, sf severely aggressive, harming self/others, confusion/disorientation, difficulty remembering or follow instructions, impaired decision making, repeated attempts to get up from bed/chair without assistance. decreased Level of Consciousness (LOC), unable to follow instructions, Less restrictive alternatives attempted: decreased environmental stimuli, 1:1 patient care, placed near Nurse station, reoriented to location, medicated for pain/anxiety, repositioned, performed diversional activities, trained sitter in room, Alternative interventions: Ineffective. Clinical justification for use: Violent/self destructing behavior impacts therapeutic environment. Poses a serious danger to physical safety of self \\T\\ others. Monitoring: Mental status: patient asleep, subdued, Cognition: poor safety awareness, poor attention/concentration, unable to follow commands, Circulation: Within defined parameters (based on Cardiovascular assessment). Skin integrity: Within defined parameters (based on Integumentary assessment) Restraint status: Soft wrist restraint (Right) Soft wrist restraint (Left) Soft ankle restraint (Right) Soft ankle restraint (Left) Mitt secured (Right) Mitt secured (Left) Continued Readiness for Discontinue: Criteria not met. Patient still violent/self destructive and Alternative interventions still ineffective. Restraint continued. 05:30 Violent/Self Destructive Restraint: Observed actions/behavior: destructive, violent, sf severely aggressive, harming self/others, confusion/disorientation, difficulty remembering or follow instructions, impaired decision making, repeated attempts to get up from bed/chair without assistance. decreased Level of Consciousness (LOC), unable to follow instructions, Less restrictive alternatives attempted: decreased environmental stimuli, 1:1 patient care, placed near Nurse station, reoriented to location, medicated for pain/anxiety, repositioned, performed diversional activities, trained sitter in room, Alternative interventions: Ineffective. Clinical justification for use: Violent/self destructing behavior impacts therapeutic environment. Poses a serious danger to physical safety of self \\T\\ others. Monitoring: Mental status: patient asleep, Cognition: Unable to assess. poor safety awareness, poor attention/concentration, unable to follow commands, Circulation: Within defined parameters (based on Cardiovascular assessment). Skin integrity: Within defined parameters (based on Integumentary assessment) Restraint status: Soft wrist restraint (Right) Soft wrist restraint (Left) Soft ankle restraint (Right) Soft ankle restraint (Left) Mitt secured (Right) Mitt secured (Left) Continued Readiness for Discontinue: Criteria not met. Patient still violent/self destructive and Alternative interventions still ineffective. Restraint continued. 05:45 Violent/Self Destructive Restraint: Observed actions/behavior: destructive, violent, sf severely aggressive, harming self/others, confusion/disorientation, difficulty remembering or follow instructions, impaired decision making, repeated attempts to get up from bed/chair without assistance. decreased Level of Consciousness (LOC), unable to follow instructions, Less restrictive alternatives attempted: decreased environmental stimuli, 1:1 patient care, placed near Nurse station, reoriented to location, medicated for pain/anxiety, repositioned, performed diversional activities, trained sitter in room, Alternative interventions: Ineffective. Clinical justification for use: Violent/self destructing behavior impacts therapeutic environment. Poses a serious danger to physical safety of self \\T\\ others. Monitoring: Mental status: patient asleep, Cognition: Unable to assess. poor safety awareness, poor attention/concentration, unable to follow commands, Circulation: Within defined parameters (based on Cardiovascular assessment). Skin integrity: Within defined parameters (based on Integumentary assessment) Restraint status: Soft wrist restraint (Right) Soft wrist restraint (Left) Soft ankle restraint (Right) Soft ankle restraint (Left) Mitt secured (Right) Mitt secured (Left) Continued Readiness for Discontinue: Criteria not met. Patient still violent/self destructive and Alternative interventions still ineffective. Restraint continued. 06:00 Violent/Self Destructive Restraint: Observed actions/behavior: destructive, violent, sf severely aggressive, harming self/others, confusion/disorientation, difficulty remembering or follow instructions, impaired decision making, repeated attempts to get up from bed/chair without assistance. decreased Level of Consciousness (LOC), unable to follow instructions, Less restrictive alternatives attempted: decreased environmental stimuli, 1:1 patient care, placed near Nurse station, reoriented to location, medicated for pain/anxiety, repositioned, performed diversional activities, trained sitter in room, Alternative interventions: Ineffective. Clinical justification for use: Violent/self destructing behavior impacts therapeutic environment. Poses a serious danger to physical safety of self \\T\\ others. Monitoring: Mental status: patient asleep, Cognition: Unable to assess. poor safety awareness, poor attention/concentration, unable to follow commands, Circulation: Within defined parameters (based on Cardiovascular assessment). Skin integrity: Within defined parameters (based on Integumentary assessment) Range of Motion: Performed. Hydration/Food: Meal/Snack provided:tolerated. PO fluids provided:tolerated. Elimination/Hygiene: diapers changed. Restraint status: Soft wrist restraint (Right) Soft wrist restraint (Left) Soft ankle restraint (Right) Soft ankle restraint (Left) Mitt secured (Right) Mitt secured (Left) Continued Readiness for Discontinue: Criteria not met. Patient still violent/self destructive and Alternative interventions still ineffective. Restraint continued. 06:15 Violent/Self Destructive Restraint: Observed actions/behavior: destructive, violent, sf severely aggressive, harming self/others, confusion/disorientation, difficulty remembering or follow instructions, impaired decision making, repeated attempts to get up from bed/chair without assistance. decreased Level of Consciousness (LOC), unable to follow instructions, Less restrictive alternatives attempted: decreased environmental stimuli, 1:1 patient care, placed near Nurse station, reoriented to location, medicated for pain/anxiety, repositioned, performed diversional activities, trained sitter in room, Alternative interventions: Ineffective. Clinical justification for use: Violent/self destructing behavior impacts therapeutic environment. Poses a serious danger to physical safety of self \\T\\ others. Monitoring: Mental status: agitated/restless, confused. subdued, Cognition: poor safety awareness, poor attention/concentration, unable to follow commands, Circulation: Within defined parameters (based on Cardiovascular assessment). Skin integrity: Within defined parameters (based on Integumentary assessment) Restraint status: Soft wrist restraint (Right) Soft wrist restraint (Left) Soft ankle restraint (Right) Soft ankle restraint (Left) Mitt secured (Right) Mitt secured (Left) Continued Readiness for Discontinue: Criteria not met. Patient still violent/self destructive and Alternative interventions still ineffective. Restraint continued. 06:30 Violent/Self Destructive Restraint: Observed actions/behavior: destructive, violent, sf severely aggressive, harming self/others, confusion/disorientation, difficulty remembering or follow instructions, impaired decision making, repeated attempts to get up from bed/chair without assistance. decreased Level of Consciousness (LOC), unable to follow instructions, Less restrictive alternatives attempted: decreased environmental stimuli, 1:1 patient care, placed near Nurse station, reoriented to location, medicated for pain/anxiety, repositioned, performed diversional activities, trained sitter in room, Alternative interventions: Ineffective. Clinical justification for use: Violent/self destructing behavior impacts therapeutic environment. Poses a serious danger to physical safety of self \\T\\ others. Monitoring: Mental status: agitated/restless, confused. Cognition: poor safety awareness, poor attention/concentration, unable to follow commands, Circulation: Within defined parameters (based on Cardiovascular assessment). Skin integrity: Within defined parameters (based on Integumentary assessment) Restraint status: Soft wrist restraint (Right) Soft wrist restraint (Left) Soft ankle restraint (Right) Soft ankle restraint (Left) Mitt secured (Right) Mitt secured (Left) Continued Readiness for Discontinue: Criteria not met. Patient still violent/self destructive and Alternative interventions still ineffective. Restraint continued. 06:45 Violent/Self Destructive Restraint: Observed actions/behavior: destructive, violent, sf severely aggressive, harming self/others, confusion/disorientation, difficulty remembering or follow instructions, impaired decision making, repeated attempts to get up from bed/chair without assistance. decreased Level of Consciousness (LOC), unable to follow instructions, Less restrictive alternatives attempted: decreased environmental stimuli, 1:1 patient care, placed near Nurse station, reoriented to location, medicated for pain/anxiety, repositioned, performed diversional activities, trained sitter in room, Alternative interventions: Ineffective. Clinical justification for use: Violent/self destructing behavior impacts therapeutic environment. Poses a serious danger to physical safety of self \\T\\ others. Monitoring: Mental status: agitated/restless, confused. Cognition: poor safety awareness, poor attention/concentration, unable to follow commands, Circulation: Within defined parameters (based on Cardiovascular assessment). Skin integrity: Within defined parameters (based on Integumentary assessment) Restraint status: Soft wrist restraint (Right) Soft wrist restraint (Left) Soft ankle restraint (Right) Soft ankle restraint (Left) Mitt secured (Right) Mitt secured (Left) Continued Readiness for Discontinue: Criteria not met. Patient still violent/self destructive and Alternative interventions still ineffective. Restraint continued. 07:00 Non-Violent Restraint: Order obtained. Initiated on November 05, 2020 at 07:00 Restraint jd3 Education provided to family/significant other/legally authorized used equipment sales representative. Actions/Behavior observed: has impaired decision making, unable to follow instructions, repeated attempts to remove/tamper lines/tubes/IV med devices \\T\\ wound dressing, Less restrictive alternatives attempted: decrease environmental stimuli, 1:1 patient care, placed near Nurse station, performed diversional activities, trained sitter in room, lines/tubes covered, eliminated unnecessary lines/tubes, verbal de-escalation performed, Alternative interventions: Ineffective. Clinical justification for use: line protection, patient safety, Mental status: confused, Cognition: poor safety awareness, unable to follow commands, Circulation: Within defined parameters (based on Cardiovascular assessment) Skin integrity: Within defined parameters (based on Integumentary assessment) Signs of injury related to restraint: No injuries noted. Range of Motion (ROM): performed. Hydration/Food: Meal/Snack provided:tolerated. PO fluids provided:tolerated, Elimination/Hygiene: perineal care performed, diapers changed. Restraint status: Soft wrist restraint (Right) Continued. Soft wrist restraint (Left) Continued. Soft ankle restraint (Right) Continued. Soft ankle restraint (Left) Continued. 09:00 Non-Violent Restraint: Actions/Behavior observed: has impaired decision making, unable jd3 to follow instructions, repeated attempts to remove/tamper lines/tubes/IV med devices \\T\\ wound dressing, Less restrictive alternatives attempted: decrease environmental stimuli, 1:1 patient care, placed near Nurse station, performed diversional activities, trained sitter in room, lines/tubes covered, eliminated unnecessary lines/tubes, verbal de-escalation performed, Alternative interventions: Ineffective. Clinical justification for use: line protection, patient safety, Mental status: confused, Cognition: poor safety awareness, unable to follow commands, Circulation: Within defined parameters (based on Cardiovascular assessment) Skin integrity: Within defined parameters (based on Integumentary assessment) Signs of injury related to restraint: No injuries noted. Range of Motion (ROM): performed. Hydration/Food: Meal/Snack provided:tolerated. PO fluids provided:tolerated, Elimination/Hygiene: perineal care performed, diapers changed. Restraint status: Soft wrist restraint (Right) Continued. Soft wrist restraint (Left) Continued. Soft ankle restraint (Right) Continued. Soft ankle restraint (Left) Continued. 11:00 Non-Violent Restraint: Actions/Behavior observed: has impaired decision making, unable jd3 to follow instructions, repeated attempts to remove/tamper lines/tubes/IV med devices \\T\\ wound dressing, Less restrictive alternatives attempted: decrease environmental stimuli, 1:1 patient care, placed near Nurse station, performed diversional activities, trained sitter in room, lines/tubes covered, eliminated unnecessary lines/tubes, verbal de-escalation performed, Alternative interventions: Ineffective. Clinical justification for use: line protection, patient safety, Mental status: confused, Cognition: poor safety awareness, unable to follow commands, Circulation: Within defined parameters (based on Cardiovascular assessment) Skin integrity: Within defined parameters (based on Integumentary assessment) Signs of injury related to restraint: No injuries noted. Range of Motion (ROM): performed. Hydration/Food: Meal/Snack provided:tolerated. PO fluids provided:tolerated, Elimination/Hygiene: perineal care performed, diapers changed. Restraint status: Soft wrist restraint (Right) Continued. Soft wrist restraint (Left) Continued. Soft ankle restraint (Right) Continued. Soft ankle restraint (Left) Continued. 13:00 Non-Violent Restraint: Actions/Behavior observed: has impaired decision making, unable jd3 to follow instructions, repeated attempts to remove/tamper lines/tubes/IV med devices \\T\\ wound dressing, Less restrictive alternatives attempted: decrease environmental stimuli, 1:1 patient care, placed near Nurse station, performed diversional activities, trained sitter in room, lines/tubes covered, eliminated unnecessary lines/tubes, verbal de-escalation performed, Alternative interventions: Ineffective. Clinical justification for use: line protection, patient safety, Mental status: confused, Cognition: poor safety awareness, unable to follow commands, Circulation: Within defined parameters (based on Cardiovascular assessment) Skin integrity: Within defined parameters (based on Integumentary assessment) Signs of injury related to restraint: No injuries noted. Range of Motion (ROM): performed. Hydration/Food: Meal/Snack provided:tolerated. PO fluids provided:tolerated, Elimination/Hygiene: perineal care performed, diapers changed. Restraint status: Soft wrist restraint (Right) Continued. Soft wrist restraint (Left) Continued. Soft ankle restraint (Right) Continued. Soft ankle restraint (Left) Continued. 15:00 Non-Violent Restraint: Actions/Behavior observed: has impaired decision making, unable jd3 to follow instructions, repeated attempts to remove/tamper lines/tubes/IV med devices \\T\\ wound dressing, Less restrictive alternatives attempted: decrease environmental stimuli, 1:1 patient care, placed near Nurse station, performed diversional activities, trained sitter in room, lines/tubes covered, eliminated unnecessary lines/tubes, verbal de-escalation performed, Alternative interventions: Ineffective. Clinical justification for use: line protection, patient safety, Mental status: confused, Cognition: poor safety awareness, unable to follow commands, Circulation: Within defined parameters (based on Cardiovascular assessment) Skin integrity: Within defined parameters (based on Integumentary assessment) Signs of injury related to restraint: No injuries noted. Range of Motion (ROM): performed. Hydration/Food: Meal/Snack provided:tolerated. PO fluids provided:tolerated, Elimination/Hygiene: perineal care performed, diapers changed. Restraint status: Soft wrist restraint (Right) Continued. Soft wrist restraint (Left) Continued. Soft ankle restraint (Right) Continued. Soft ankle restraint (Left) Continued. 17:00 Non-Violent Restraint: Actions/Behavior observed: has impaired decision making, unable jd3 to follow instructions, repeated attempts to remove/tamper lines/tubes/IV med devices \\T\\ wound dressing, Less restrictive alternatives attempted: decrease environmental stimuli, 1:1 patient care, placed near Nurse station, performed diversional activities, trained sitter in room, lines/tubes covered, eliminated unnecessary lines/tubes, verbal de-escalation performed, Alternative interventions: Ineffective. Clinical justification for use: line protection, patient safety, Mental status: confused, Cognition: poor safety awareness, unable to follow commands, Circulation: Within defined parameters (based on Cardiovascular assessment) Skin integrity: Within defined parameters (based on Integumentary assessment) Signs of injury related to restraint: No injuries noted. Range of Motion (ROM): performed. Hydration/Food: Meal/Snack provided:tolerated. PO fluids provided:tolerated, Elimination/Hygiene: perineal care performed, diapers changed. Restraint status: Soft wrist restraint (Right) Continued. Soft wrist restraint (Left) Continued. Soft ankle restraint (Right) Continued. Soft ankle restraint (Left) Continued. 19:00 Non-Violent Restraint: Restraint Education provided to family/significant other/legally ea authorized used equipment sales representative. Actions/Behavior observed: has impaired decision making, unable to follow instructions, repeated attempts to remove/tamper lines/tubes/IV med devices \\T\\ wound dressing, Less restrictive alternatives attempted: decrease environmental stimuli, 1:1 patient care, placed near Nurse station, trained sitter in room, Alternative interventions: Ineffective. Clinical justification for use: line protection, patient safety, Mental status: confused, Cognition: poor safety awareness, unable to follow commands, Circulation: Within defined parameters (based on Cardiovascular assessment) Skin integrity: Within defined parameters (based on Integumentary assessment) Signs of injury related to restraint: No injuries noted. Range of Motion (ROM): performed. Hydration/Food: Meal/Snack provided:tolerated. PO fluids provided:tolerated, Elimination/Hygiene: perineal care performed, diapers changed. Restraint status: Soft wrist restraint (Right) Continued. Soft wrist restraint (Left) Continued. Soft ankle restraint (Right) Continued. Soft ankle restraint (Left) Continued. 21:00 Non-Violent Restraint: Restraint Education provided to family/significant other/legally ea authorized used equipment sales representative. Actions/Behavior observed: has impaired decision making, unable to follow instructions, repeated attempts to remove/tamper lines/tubes/IV med devices \\T\\ wound dressing, Less restrictive alternatives attempted: decrease environmental stimuli, 1:1 patient care, placed near Nurse station, medicated for pain/anxiety, repositioned, performed diversional activities, trained sitter in room, Alternative interventions: Ineffective. Clinical justification for use: line protection, patient safety, Mental status: confused, Cognition: poor safety awareness, unable to follow commands, Circulation: Within defined parameters (based on Cardiovascular assessment) Skin integrity: Within defined parameters (based on Integumentary assessment) Signs of injury related to restraint: No injuries noted. Range of Motion (ROM): performed. Hydration/Food: Meal/Snack provided:tolerated. PO fluids provided:tolerated, Elimination/Hygiene: perineal care performed, diapers changed. Restraint status: Soft wrist restraint (Right) Continued. Soft wrist restraint (Left) Continued. Soft ankle restraint (Right) Continued. Soft ankle restraint (Left) Continued. 23:00 Non-Violent Restraint: Restraint Education provided to family/significant other/legally ea authorized used equipment sales representative. Actions/Behavior observed: has impaired decision making, unable to follow instructions, repeated attempts to remove/tamper lines/tubes/IV med devices \\T\\ wound dressing, Less restrictive alternatives attempted: decrease environmental stimuli, 1:1 patient care, placed near Nurse station, medicated for pain/anxiety, repositioned, performed diversional activities, trained sitter in room, Alternative interventions: Ineffective. Clinical justification for use: line protection, patient safety, Mental status: confused, Cognition: poor safety awareness, unable to follow commands, Circulation: Within defined parameters (based on Cardiovascular assessment) Skin integrity: Within defined parameters (based on Integumentary assessment) Signs of injury related to restraint: No injuries noted. Range of Motion (ROM): performed. Hydration/Food: Meal/Snack provided:tolerated. PO fluids provided:tolerated, Elimination/Hygiene: perineal care performed, diapers changed. Restraint status: Soft wrist restraint (Right) Continued. Soft wrist restraint (Left) Continued. Soft ankle restraint (Right) Continued. Soft ankle restraint (Left) Continued. 11/06 01:00 Non-Violent Restraint: Restraint Education provided to family/significant other/legally ea authorized used equipment sales representative. Actions/Behavior observed: has impaired decision making, unable to follow instructions, repeated attempts to remove/tamper lines/tubes/IV med devices \\T\\ wound dressing, Less restrictive alternatives attempted: decrease environmental stimuli, 1:1 patient care, placed near Nurse station, repositioned, performed diversional activities, trained sitter in room, Alternative interventions: Ineffective. Clinical justification for use: line protection, patient safety, Mental status: confused, Cognition: poor safety awareness, unable to follow commands, Circulation: Within defined parameters (based on Cardiovascular assessment) Skin integrity: Within defined parameters (based on Integumentary assessment) Signs of injury related to restraint: No injuries noted. Range of Motion (ROM): performed. Hydration/Food: Meal/Snack provided:tolerated. PO fluids provided:tolerated, Elimination/Hygiene: perineal care performed, diapers changed. Restraint status: Soft wrist restraint (Right) Continued. Soft wrist restraint (Left) Continued. Soft ankle restraint (Right) Continued. Soft ankle restraint (Left) Continued. 03:00 Non-Violent Restraint: Restraint Education provided to family/significant other/legally ea authorized used equipment sales representative. Actions/Behavior observed: has impaired decision making, unable to follow instructions, repeated attempts to remove/tamper lines/tubes/IV med devices \\T\\ wound dressing, Less restrictive alternatives attempted: decrease environmental stimuli, 1:1 patient care, placed near Nurse station, medicated for pain/anxiety, repositioned, performed diversional activities, trained sitter in room, Alternative interventions: Ineffective. Clinical justification for use: line protection, patient safety, Mental status: confused, Cognition: poor safety awareness, unable to follow commands, Circulation: Within defined parameters (based on Cardiovascular assessment) Skin integrity: Within defined parameters (based on Integumentary assessment) Signs of injury related to restraint: No injuries noted. Range of Motion (ROM): performed. Hydration/Food: Meal/Snack provided:tolerated. PO fluids provided:tolerated, Elimination/Hygiene: perineal care performed, diapers changed. 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 Actions/Behavior observed: has impaired decision making, unable to follow instructions, repeated attempts to remove/tamper lines/tubes/IV med devices \\T\\ wound dressing, Less restrictive alternatives attempted: decrease environmental stimuli, 1:1 patient care, placed near Nurse station, medicated for pain/anxiety, repositioned, performed diversional activities, trained sitter in room, Alternative interventions: Ineffective. Clinical justification for use: line protection, patient safety, Mental status: confused, Cognition: poor safety awareness, unable to follow commands, Circulation: Within defined parameters (based on Cardiovascular assessment) Skin integrity: Within defined parameters (based on Integumentary assessment) Signs of injury related to restraint: No injuries noted. Range of Motion (ROM): performed. Hydration/Food: Meal/Snack provided:tolerated. PO fluids provided:tolerated, Elimination/Hygiene: perineal care performed, diapers changed. Restraint status: Soft wrist restraint (Right) Continued. Soft wrist restraint (Left) Continued. Soft ankle restraint (Right) Continued. Soft ankle restraint (Left) Continued. 07:00 Non-Violent Restraint: Mental status: agitated/restless, Cognition: poor judgement, tr6 poor safety awareness, impulsive, poor attention/concentration, Circulation: Within defined parameters (based on Cardiovascular assessment) Skin integrity: Within defined parameters (based on Integumentary assessment) Signs of injury related to restraint: No injuries noted. Range of Motion (ROM): performed. Hydration/Food: Meal/Snack provided:tolerated. PO fluids provided:tolerated, Elimination/Hygiene: perineal care performed, diapers changed. 09:00 Non-Violent Restraint: Mental status: agitated/restless, Cognition: poor judgement, tr6 poor safety awareness, impulsive, poor attention/concentration, unable to follow commands, Circulation: Within defined parameters (based on Cardiovascular assessment) Skin integrity: Within defined parameters (based on Integumentary assessment) Signs of injury related to restraint: No injuries noted. Range of Motion (ROM): performed. Hydration/Food: Meal/Snack provided:tolerated. PO fluids provided:tolerated, Elimination/Hygiene: perineal care performed, diapers changed. Restraint status: Soft wrist restraint (Right) Soft wrist restraint (Left) Soft ankle restraint (Right) Soft ankle restraint (Left) Continued. Criteria to discontinue Restraint not met. Restraint continued. 11:00 Non-Violent Restraint: Actions/Behavior observed: has impaired decision making, unable tr6 to follow instructions, repeated attempts to remove/tamper lines/tubes/IV med devices \\T\\ wound dressing, Less restrictive alternatives attempted: decrease environmental stimuli, 1:1 patient care, placed near Nurse station, medicated for pain/anxiety, Restraint status: Soft wrist restraint (Right) Soft wrist restraint (Left) Soft ankle restraint (Right) Criteria to discontinue Restraint not met. Restraint continued. 13:00 Non-Violent Restraint: Mental status: agitated/restless, confused, Cognition: poor tr6 judgement, poor safety awareness, impulsive, poor attention/concentration, unable to follow commands, Circulation: Within defined parameters (based on Cardiovascular assessment) Skin integrity: Within defined parameters (based on Integumentary assessment) Signs of injury related to restraint: No injuries noted. Range of Motion (ROM): performed. Hydration/Food: Meal/Snack provided:tolerated. PO fluids provided:tolerated, Elimination/Hygiene: perineal care performed. 15:00 Non-Violent Restraint: Mental status: confused, Cognition: poor judgement, poor safety tr6 awareness, impulsive, poor attention/concentration, Circulation: Within defined parameters (based on Cardiovascular assessment) Skin integrity: Within defined parameters (based on Integumentary assessment) Signs of injury related to restraint: No injuries noted. Range of Motion (ROM): performed. Hydration/Food: Meal/Snack provided:tolerated. PO fluids provided:tolerated, Elimination/Hygiene: Patient declined. Restraint status: Soft wrist restraint (Right) Soft wrist restraint (Left) Soft ankle restraint (Right) Soft ankle restraint (Left) Continued. Criteria to discontinue Restraint not met. Restraint continued. 17:00 Non-Violent Restraint: Mental status: agitated/restless, Cognition: poor judgement, tr6 poor safety awareness, impulsive, poor attention/concentration, unable to follow commands, Circulation: Within defined parameters (based on Cardiovascular assessment) Skin integrity: Within defined parameters (based on Integumentary assessment) Signs of injury related to restraint: No injuries noted. Range of Motion (ROM): performed. Hydration/Food: Meal/Snack provided:tolerated. PO fluids provided:tolerated, Elimination/Hygiene: diapers changed. Restraint status: Soft wrist restraint (Right) Soft wrist restraint (Left) Soft ankle restraint (Right) Soft ankle restraint (Left) Continued. Criteria to discontinue Restraint not met. Restraint continued. 19:00 Non-Violent Restraint: Actions/Behavior observed: has impaired decision making, unable tr6 to follow instructions, repeated attempts to remove/tamper lines/tubes/IV med devices \\T\\ wound dressing, Less restrictive alternatives attempted: decrease environmental stimuli, 1:1 patient care, placed near Nurse station, medicated for pain/anxiety, repositioned, performed diversional activities, trained sitter in room, Alternative interventions: Ineffective. Clinical justification for use: line protection, patient safety, Mental status: confused, Cognition: poor judgement, poor safety awareness, impulsive, poor attention/concentration, unable to follow commands, Circulation: Within defined parameters (based on Cardiovascular assessment) Skin integrity: Within defined parameters (based on Integumentary assessment) Signs of injury related to restraint: No injuries noted. Range of Motion (ROM): performed. Hydration/Food: Meal/Snack provided:tolerated. PO fluids provided:tolerated, Elimination/Hygiene: Patient declined. perineal care performed, diapers changed. Restraint status: Soft wrist restraint (Right) Continued. Soft wrist restraint (Left) Soft ankle restraint (Right) Soft ankle restraint (Left) Criteria to discontinue Restraint not met. Restraint continued. 21:00 Non-Violent Restraint: Actions/Behavior observed: has impaired decision making, unable ea to follow instructions, repeated attempts to remove/tamper lines/tubes/IV med devices \\T\\ wound dressing, Less restrictive alternatives attempted: decrease environmental stimuli, 1:1 patient care, placed near Nurse station, medicated for pain/anxiety, repositioned, performed diversional activities, trained sitter in room, Alternative interventions: Ineffective. Clinical justification for use: line protection, patient safety, Mental status: agitated/restless, confused, Cognition: poor judgement, poor safety awareness, impulsive, poor attention/concentration, unable to follow commands, Circulation: Within defined parameters (based on Cardiovascular assessment) Skin integrity: Within defined parameters (based on Integumentary assessment) Signs of injury related to restraint: No injuries noted. Range of Motion (ROM): performed. Hydration/Food: Meal/Snack provided:tolerated. PO fluids provided:tolerated, Elimination/Hygiene: Patient declined. perineal care performed, diapers changed. Restraint status: Soft wrist restraint (Right) Continued. Soft wrist restraint (Left) Continued. Soft ankle restraint (Right) Continued. Soft ankle restraint (Left) Continued. Criteria to discontinue Restraint not met. Restraint continued. 23:00 Non-Violent Restraint: Actions/Behavior observed: has impaired decision making, unable ea to follow instructions, repeated attempts to remove/tamper lines/tubes/IV med devices \\T\\ wound dressing, Less restrictive alternatives attempted: decrease environmental stimuli, 1:1 patient care, placed near Nurse station, medicated for pain/anxiety, repositioned, performed diversional activities, trained sitter in room, Alternative interventions: Ineffective. Clinical justification for use: line protection, patient safety, Mental status: agitated/restless, confused, Cognition: poor judgement, poor safety awareness, impulsive, poor attention/concentration, unable to follow commands, Circulation: Within defined parameters (based on Cardiovascular assessment) Skin integrity: Within defined parameters (based on Integumentary assessment) Signs of injury related to restraint: No injuries noted. Range of Motion (ROM): performed. Hydration/Food: Meal/Snack provided:tolerated. PO fluids provided:tolerated, Elimination/Hygiene: Patient declined. perineal care performed, diapers changed. Restraint status: Soft wrist restraint (Right) Continued. Soft wrist restraint (Left) Continued. Soft ankle restraint (Right) Continued. Soft ankle restraint (Left) Continued. Criteria to discontinue Restraint not met. Restraint continued. 11/07 01:00 Non-Violent Restraint: Actions/Behavior observed: has impaired decision making, unable ea to follow instructions, repeated attempts to remove/tamper lines/tubes/IV med devices \\T\\ wound dressing, Less restrictive alternatives attempted: decrease environmental stimuli, 1:1 patient care, placed near Nurse station, medicated for pain/anxiety, repositioned, performed diversional activities, trained sitter in room, Alternative interventions: Ineffective. Clinical justification for use: line protection, patient safety, Mental status: agitated/restless, confused, Cognition: poor judgement, poor safety awareness, impulsive, poor attention/concentration, unable to follow commands, Circulation: Within defined parameters (based on Cardiovascular assessment) Skin integrity: Within defined parameters (based on Integumentary assessment) Signs of injury related to restraint: No injuries noted. Range of Motion (ROM): performed. Hydration/Food: Meal/Snack provided:tolerated. PO fluids provided:tolerated, Elimination/Hygiene: Patient declined. perineal care performed, diapers changed. Restraint status: Soft wrist restraint (Right) Continued. Soft wrist restraint (Left) Continued. Soft ankle restraint (Right) Continued. Soft ankle restraint (Left) Continued. Criteria to discontinue Restraint not met. Restraint continued. 03:00 Non-Violent Restraint: Actions/Behavior observed: has impaired decision making, unable ea to follow instructions, repeated attempts to remove/tamper lines/tubes/IV med devices \\T\\ wound dressing, Less restrictive alternatives attempted: decrease environmental stimuli, 1:1 patient care, placed near Nurse station, medicated for pain/anxiety, repositioned, performed diversional activities, trained sitter in room, Alternative interventions: Ineffective. Clinical justification for use: line protection, patient safety, Mental status: agitated/restless, confused, Cognition: poor judgement, poor safety awareness, impulsive, poor attention/concentration, unable to follow commands, Circulation: Within defined parameters (based on Cardiovascular assessment) Skin integrity: Within defined parameters (based on Integumentary assessment) Signs of injury related to restraint: No injuries noted. Range of Motion (ROM): performed. Hydration/Food: Meal/Snack provided:tolerated. PO fluids provided:tolerated, Elimination/Hygiene: Patient declined. perineal care performed, diapers changed. Restraint status: Soft wrist restraint (Right) Continued. Soft wrist restraint (Left) Continued. Soft ankle restraint (Right) Continued. Soft ankle restraint (Left) Continued. Criteria to discontinue Restraint not met. Restraint continued. 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 Actions/Behavior observed: has impaired decision making, unable to follow instructions, repeated attempts to remove/tamper lines/tubes/IV med devices \\T\\ wound dressing, Less restrictive alternatives attempted: decrease environmental stimuli, 1:1 patient care, placed near Nurse station, medicated for pain/anxiety, repositioned, performed diversional activities, trained sitter in room, Alternative interventions: Ineffective. Clinical justification for use: line protection, patient safety, Mental status: agitated/restless, confused, Cognition: poor judgement, poor safety awareness, impulsive, poor attention/concentration, unable to follow commands, Circulation: Within defined parameters (based on Cardiovascular assessment) Skin integrity: Within defined parameters (based on Integumentary assessment) Signs of injury related to restraint: No injuries noted. Range of Motion (ROM): performed. Hydration/Food: Meal/Snack provided:tolerated. PO fluids provided:tolerated, Elimination/Hygiene: Patient declined. perineal care performed, diapers changed. Restraint status: Soft wrist restraint (Right) Continued. Soft wrist restraint (Left) Continued. Soft ankle restraint (Right) Continued. Soft ankle restraint (Left) Continued. Criteria to discontinue Restraint not met. Restraint continued. 07:00 Non-Violent Restraint: Actions/Behavior observed: has difficulty remembering/follow hb instructions, has impaired decision making, repeated attempts to get up from bed/chair w/o assistance, unable to follow instructions, repeated attempts to remove/tamper lines/tubes/IV med devices \\T\\ wound dressing, Less restrictive alternatives attempted: 1:1 patient care, placed near Nurse station, medicated for pain/anxiety, repositioned, performed diversional activities, trained sitter in room, Alternative interventions: Ineffective. Clinical justification for use: line protection, patient safety, Mental status: agitated/restless, confused, Cognition: poor judgement, poor safety awareness, impulsive, poor attention/concentration, unable to follow commands, Circulation: Within defined parameters (based on Cardiovascular assessment) Skin integrity: Within defined parameters (based on Integumentary assessment) Signs of injury related to restraint: No injuries noted. Range of Motion (ROM): performed. Hydration/Food: Meal/Snack provided:tolerated. PO fluids provided:tolerated, Elimination/Hygiene: perineal care performed, diapers changed. 09:00 Non-Violent Restraint: Actions/Behavior observed: has difficulty remembering/follow hb instructions, has impaired decision making, repeated attempts to get up from bed/chair w/o assistance, unable to follow instructions, repeated attempts to remove/tamper lines/tubes/IV med devices \\T\\ wound dressing, Less restrictive alternatives attempted: decrease environmental stimuli, 1:1 patient care, placed near Nurse station, medicated for pain/anxiety, repositioned, performed diversional activities, trained sitter in room, Alternative interventions: Ineffective. Clinical justification for use: line protection, patient safety, Mental status: agitated/restless, confused, Cognition: poor judgement, poor safety awareness, impulsive, poor attention/concentration, unable to follow commands, Circulation: Within defined parameters (based on Cardiovascular assessment) Skin integrity: Within defined parameters (based on Integumentary assessment) Signs of injury related to restraint: No injuries noted. Range of Motion (ROM): performed. Hydration/Food: Meal/Snack provided:tolerated. PO fluids provided:tolerated, Elimination/Hygiene: diapers changed. 11:05 Non-Violent Restraint: Actions/Behavior observed: has difficulty remembering/follow vg1 instructions, has impaired decision making, repeated attempts to get up from bed/chair w/o assistance, unable to follow instructions, repeated attempts to remove/tamper lines/tubes/IV med devices \\T\\ wound dressing, Less restrictive alternatives attempted: decrease environmental stimuli, 1:1 patient care, placed near Nurse station, repositioned, trained sitter in room, lines/tubes covered, eliminated unnecessary lines/tubes, Alternative interventions: Ineffective. Clinical justification for use: line protection, patient safety, Mental status: agitated/restless, confused, Cognition: poor judgement, poor safety awareness, impulsive, poor attention/concentration, unable to follow commands, Circulation: Within defined parameters (based on Cardiovascular assessment) Skin integrity: Within defined parameters (based on Integumentary assessment) Signs of injury related to restraint: No injuries noted. Range of Motion (ROM): performed. Hydration/Food: Meal/Snack provided:tolerated. PO fluids provided:tolerated, Elimination/Hygiene: perineal care performed, diapers changed. Restraint status: Side rails up x 4 Soft wrist restraint (Right) Soft wrist restraint (Left) Soft ankle restraint (Right) Soft ankle restraint (Left) Criteria to discontinue Restraint not met. Restraint continued. 13:00 Non-Violent Restraint: Actions/Behavior observed: has difficulty remembering/follow vg1 instructions, has impaired decision making, unable to follow instructions, repeated attempts to remove/tamper lines/tubes/IV med devices \\T\\ wound dressing, Less restrictive alternatives attempted: decrease environmental stimuli, 1:1 patient care, placed near Nurse station, repositioned, performed diversional activities, trained sitter in room, Alternative interventions: Ineffective. Clinical justification for use: line protection, patient safety, Mental status: agitated/restless, confused, Cognition: poor judgement, poor safety awareness, impulsive, poor attention/concentration, unable to follow commands, Circulation: Within defined parameters (based on Cardiovascular assessment) Skin integrity: Within defined parameters (based on Integumentary assessment) Signs of injury related to restraint: No injuries noted. Range of Motion (ROM): performed. Hydration/Food: Meal/Snack provided:tolerated. PO fluids provided:tolerated, Elimination/Hygiene: perineal care performed, diapers changed. Restraint status: Side rails up x 4 Continued. Soft wrist restraint (Right) Soft wrist restraint (Left) Soft ankle restraint (Right) Soft ankle restraint (Left) Criteria to discontinue Restraint not met. Restraint continued. 15:00 Non-Violent Restraint: Actions/Behavior observed: Confused/disoriented, has difficulty vg1 remembering/follow instructions, has impaired decision making, repeated attempts to get up from bed/chair w/o assistance, unable to follow instructions, repeated attempts to remove/tamper lines/tubes/IV med devices \\T\\ wound dressing, Less restrictive alternatives attempted: decrease environmental stimuli, 1:1 patient care, placed near Nurse station, repositioned, trained sitter in room, Alternative interventions: Ineffective. Clinical justification for use: line protection, patient safety, Mental status: agitated/restless, confused, Cognition: poor judgement, poor safety awareness, impulsive, poor attention/concentration, unable to follow commands, Circulation: Within defined parameters (based on Cardiovascular assessment) Skin integrity: Within defined parameters (based on Integumentary assessment) Signs of injury related to restraint: No injuries noted. Range of Motion (ROM): performed. Elimination/Hygiene: perineal care performed, diapers changed. Restraint status: Side rails up x 4 Soft wrist restraint (Right) Soft wrist restraint (Left) Soft ankle restraint (Right) Soft ankle restraint (Left) Criteria to discontinue Restraint not met. Restraint continued. 17:02 Non-Violent Restraint: Actions/Behavior observed: Confused/disoriented, has difficulty vg1 remembering/follow instructions, has impaired decision making, unable to follow instructions, repeated attempts to remove/tamper lines/tubes/IV med devices \\T\\ wound dressing, Pt in bed laughing and smiling with staff.. Less restrictive alternatives attempted: decrease environmental stimuli, 1:1 patient care, placed near Nurse station, medicated for pain/anxiety, trained sitter in room, lines/tubes covered, Alternative interventions: Ineffective. Clinical justification for use: line protection, patient safety, Mental status: subdued, Cognition: poor judgement, poor safety awareness, impulsive, poor attention/concentration, unable to follow commands, Circulation: Within defined parameters (based on Cardiovascular assessment) Skin integrity: Within defined parameters (based on Integumentary assessment) Signs of injury related to restraint: No injuries noted. Range of Motion (ROM): performed. Elimination/Hygiene: perineal care performed, diapers changed. Restraint status: Side rails up x 4 Soft wrist restraint (Right) Soft wrist restraint (Left) Soft ankle restraint (Right) Soft ankle restraint (Left) Criteria to discontinue Restraint not met. Restraint continued. 19:07 Non-Violent Restraint: Actions/Behavior observed: Confused/disoriented, has difficulty vg1 remembering/follow instructions, has impaired decision making, repeated attempts to get up from bed/chair w/o assistance, unable to follow instructions, repeated attempts to remove/tamper lines/tubes/IV med devices \\T\\ wound dressing, Less restrictive alternatives attempted: decrease environmental stimuli, 1:1 patient care, placed near Nurse station, medicated for pain/anxiety, repositioned, trained sitter in room, lines/tubes covered, eliminated unnecessary lines/tubes, Alternative interventions: Ineffective. Clinical justification for use: line protection, patient safety, Mental status: agitated/restless, confused, Cognition: poor judgement, poor safety awareness, impulsive, poor attention/concentration, unable to follow commands, Circulation: Within defined parameters (based on Cardiovascular assessment) Skin integrity: Within defined parameters (based on Integumentary assessment) Signs of injury related to restraint: No injuries noted. Range of Motion (ROM): performed. Hydration/Food: patient declined. Elimination/Hygiene: Restraint status: Side rails up x 4 Soft wrist restraint (Right) Soft wrist restraint (Left) Soft ankle restraint (Right) Soft ankle restraint (Left) Criteria to discontinue Restraint not met. Restraint continued. 21:09 Non-Violent Restraint: Actions/Behavior observed: Confused/disoriented, has difficulty vg1 remembering/follow instructions, has impaired decision making, repeated attempts to get up from bed/chair w/o assistance, unable to follow instructions, repeated attempts to remove/tamper lines/tubes/IV med devices \\T\\ wound dressing, Less restrictive alternatives attempted: decrease environmental stimuli, 1:1 patient care, placed near Nurse station, medicated for pain/anxiety, repositioned, trained sitter in room, lines/tubes covered, Alternative interventions: Ineffective. Clinical justification for use: line protection, patient safety, Mental status: agitated/restless, confused, Cognition: poor judgement, poor safety awareness, impulsive, poor attention/concentration, unable to follow commands, Circulation: Within defined parameters (based on Cardiovascular assessment) Skin integrity: Within defined parameters (based on Integumentary assessment) Signs of injury related to restraint: No injuries noted. Range of Motion (ROM): performed. Hydration/Food: Meal/Snack provided:tolerated. PO fluids provided:tolerated, Elimination/Hygiene: perineal care performed, diapers changed. Restraint status: Side rails up x 4 Soft wrist restraint (Right) Soft wrist restraint (Left) Soft ankle restraint (Right) Soft ankle restraint (Left) Criteria to discontinue Restraint not met. Restraint continued. 23:00 Non-Violent Restraint: Actions/Behavior observed: Confused/disoriented, has difficulty sf remembering/follow instructions, has impaired decision making, repeated attempts to get up from bed/chair w/o assistance, unable to follow instructions, repeated attempts to remove/tamper lines/tubes/IV med devices \\T\\ wound dressing, Less restrictive alternatives attempted: decrease environmental stimuli, 1:1 patient care, placed near Nurse station, medicated for pain/anxiety, repositioned, performed diversional activities, trained sitter in room, Alternative interventions: Ineffective. Clinical justification for use: line protection, patient safety, Mental status: agitated/restless, confused, Cognition: poor judgement, poor safety awareness, impulsive, poor attention/concentration, unable to follow commands, Circulation: Within defined parameters (based on Cardiovascular assessment) Skin integrity: Within defined parameters (based on Integumentary assessment) Signs of injury related to restraint: No injuries noted. Range of Motion (ROM): performed. Hydration/Food: Meal/Snack provided:tolerated. PO fluids provided:tolerated, Elimination/Hygiene: Patient declined. Restraint status: Side rails up x 4 Soft wrist restraint (Right) Continued. Soft wrist restraint (Left) Continued. Soft ankle restraint (Right) Continued. Soft ankle restraint (Left) Continued. Criteria to discontinue Restraint not met. Restraint continued. 11/08 00:00 Violent/Self Destructive Restraint: Observed actions/behavior: destructive, violent, kg severely aggressive, harming self/others, confusion/disorientation, difficulty remembering or follow instructions, impaired decision making, repeated attempts to get up from bed/chair without assistance. unable to follow instructions, Less restrictive alternatives attempted: Alternative interventions: Ineffective. Clinical justification for use: Violent/self destructing behavior impacts therapeutic environment. Poses a serious danger to physical safety of self \\T\\ others. Monitoring: Range of Motion: Performed. Hydration/Food: Meal/Snack provided:tolerated. PO fluids provided:tolerated. Elimination/Hygiene: Perineal care performed, diapers changed. Restraint status: Side rails up x 4 Continued. Soft wrist restraint (Right) Continued. Soft wrist restraint (Left) Continued. Soft ankle restraint (Right) Continued. Soft ankle restraint (Left) Continued. Readiness for Discontinue: Criteria not met. Patient still violent/self destructive and Alternative interventions still ineffective. Restraint continued. 01:00 Non-Violent Restraint: Actions/Behavior observed: Confused/disoriented, has difficulty sf remembering/follow instructions, has impaired decision making, repeated attempts to get up from bed/chair w/o assistance, unable to follow instructions, repeated attempts to remove/tamper lines/tubes/IV med devices \\T\\ wound dressing, Less restrictive alternatives attempted: decrease environmental stimuli, 1:1 patient care, placed near Nurse station, medicated for pain/anxiety, repositioned, performed diversional activities, trained sitter in room, Alternative interventions: Ineffective. Clinical justification for use: line protection, patient safety, Mental status: confused, subdued, Cognition: poor judgement, poor safety awareness, impulsive, poor attention/concentration, unable to follow commands, Circulation: Within defined parameters (based on Cardiovascular assessment) Skin integrity: Within defined parameters (based on Integumentary assessment) Signs of injury related to restraint: No injuries noted. Range of Motion (ROM): performed. Hydration/Food: patient declined. Elimination/Hygiene: Patient declined. Restraint status: Side rails up x 4 Soft wrist restraint (Right) Soft wrist restraint (Left) Soft ankle restraint (Right) Soft ankle restraint (Left) Continued. Criteria to discontinue Restraint not met. Restraint continued. 03:00 Non-Violent Restraint: Actions/Behavior observed: Confused/disoriented, has difficulty sf remembering/follow instructions, has impaired decision making, repeated attempts to get up from bed/chair w/o assistance, unable to follow instructions, repeated attempts to remove/tamper lines/tubes/IV med devices \\T\\ wound dressing, Less restrictive alternatives attempted: decrease environmental stimuli, 1:1 patient care, placed near Nurse station, medicated for pain/anxiety, repositioned, performed diversional activities, trained sitter in room, Alternative interventions: Ineffective. Clinical justification for use: line protection, patient safety, Mental status: patient asleep, Cognition: poor judgement, poor safety awareness, impulsive, poor attention/concentration, unable to follow commands, Circulation: Within defined parameters (based on Cardiovascular assessment) Skin integrity: Within defined parameters (based on Integumentary assessment) Signs of injury related to restraint: No injuries noted. Range of Motion (ROM): patient asleep. Hydration/Food: patient asleep. Elimination/Hygiene: Patient asleep. Restraint status: Side rails up x 4 Soft wrist restraint (Right) Soft wrist restraint (Left) Soft ankle restraint (Right) Soft ankle restraint (Left) Continued. Criteria to discontinue Restraint not met. Restraint continued. 05:00 Non-Violent Restraint: Actions/Behavior observed: Confused/disoriented, has difficulty sf remembering/follow instructions, has impaired decision making, repeated attempts to get up from bed/chair w/o assistance, unable to follow instructions, repeated attempts to remove/tamper lines/tubes/IV med devices \\T\\ wound dressing, Less restrictive alternatives attempted: decrease environmental stimuli, 1:1 patient care, placed near Nurse station, medicated for pain/anxiety, repositioned, performed diversional activities, trained sitter in room, Alternative interventions: Ineffective. Clinical justification for use: line protection, patient safety, Mental status: patient asleep, Cognition: Unable to assess. Circulation: Within defined parameters (based on Cardiovascular assessment) Skin integrity: Within defined parameters (based on Integumentary assessment) Signs of injury related to restraint: No injuries noted. Range of Motion (ROM): patient asleep. Hydration/Food: patient asleep. Elimination/Hygiene: Patient asleep. Restraint status: Side rails up x 4 Soft wrist restraint (Right) Soft wrist restraint (Left) Soft ankle restraint (Right) Soft ankle restraint (Left) Continued. Criteria to discontinue Restraint not met. Restraint continued. 06:00 Non-Violent Restraint: Actions/Behavior observed: Confused/disoriented, has difficulty sf remembering/follow instructions, has impaired decision making, repeated attempts to get up from bed/chair w/o assistance, unable to follow instructions, repeated attempts to remove/tamper lines/tubes/IV med devices \\T\\ wound dressing, Less restrictive alternatives attempted: decrease environmental stimuli, 1:1 patient care, placed near Nurse station, medicated for pain/anxiety, repositioned, performed diversional activities, trained sitter in room, Alternative interventions: Ineffective. Clinical justification for use: line protection, patient safety, Mental status: patient asleep, Cognition: Unable to assess. Circulation: Within defined parameters (based on Cardiovascular assessment) Skin integrity: Within defined parameters (based on Integumentary assessment) Signs of injury related to restraint: No injuries noted. Range of Motion (ROM): patient asleep. Hydration/Food: patient asleep. Elimination/Hygiene: Patient asleep. Restraint status: Side rails up x 4 Soft wrist restraint (Right) Soft wrist restraint (Left) Soft ankle restraint (Right) Soft ankle restraint (Left) Continued. Criteria to discontinue Restraint not met. Restraint continued. 08:00 Violent/Self Destructive Restraint: Observed actions/behavior: Less restrictive kg alternatives attempted: Alternative interventions: Ineffective. Clinical justification for use: Violent/self destructing behavior impacts therapeutic environment. Poses a serious danger to physical safety of self \\T\\ others. Monitoring: Mental status: agitated/restless, confused. Cognition: Unable to assess. poor judgement, poor safety awareness, Impulsive, poor attention/concentration, unable to follow commands, Circulation: Within defined parameters (based on Cardiovascular assessment). Range of Motion: Performed. Hydration/Food: Meal/Snack provided:tolerated. PO fluids provided:tolerated. Elimination/Hygiene: Perineal care performed, diapers changed. Restraint status: Side rails up x 4 Continued. Soft wrist restraint (Right) Continued. Soft wrist restraint (Left) Continued. Soft ankle restraint (Right) Continued. Soft ankle restraint (Left) Continued. Readiness for Discontinue: Criteria not met. Patient still violent/self destructive and Alternative interventions still ineffective. Restraint continued. 10:00 Violent/Self Destructive Restraint: Observed actions/behavior: destructive, violent, kg harming self/others, confusion/disorientation, difficulty remembering or follow instructions, impaired decision making, repeated attempts to get up from bed/chair without assistance. unable to follow instructions, Less restrictive alternatives attempted: decreased environmental stimuli, 1:1 patient care, placed near Nurse station, reoriented to location, medicated for pain/anxiety, repositioned, performed diversional activities, trained sitter in room, covered lines/tubes, eliminated unnecessary lines/tubes, placed items close to patient, verbal de-escalation performed, Alternative interventions: Ineffective. Clinical justification for use: Violent/self destructing behavior impacts therapeutic environment. Poses a serious danger to physical safety of self \\T\\ others. Monitoring: Mental status: Cognition: Circulation: Skin integrity: Within defined parameters (based on Integumentary assessment) No injuries due to Restraints noted. Range of Motion: Performed. Hydration/Food: Meal/Snack provided:tolerated. PO fluids provided:tolerated. Elimination/Hygiene: Perineal care performed, diapers changed. Restraint status: Side rails up x 4 Continued. Soft wrist restraint (Right) Continued. Soft wrist restraint (Left) Continued. Soft ankle restraint (Right) Continued. Soft ankle restraint (Left) Continued. Readiness for Discontinue: Criteria not met. Patient still violent/self destructive and Alternative interventions still ineffective. Restraint continued. 12:00 Violent/Self Destructive Restraint: Observed actions/behavior: destructive, violent, kg severely aggressive, harming self/others, confusion/disorientation, difficulty remembering or follow instructions, impaired decision making, repeated attempts to get up from bed/chair without assistance. decreased Level of Consciousness (LOC), unable to follow instructions, Monitoring: Mental status: agitated/restless, confused. Cognition: Unable to assess. poor judgement, poor safety awareness, Impulsive, poor attention/concentration, unable to follow commands, Circulation: Within defined parameters (based on Cardiovascular assessment). Skin integrity: Impaired (see Integumentary assessment) No injuries due to Restraints noted. Range of Motion: Performed. Hydration/Food: Meal/Snack provided:tolerated. PO fluids provided:tolerated. Elimination/Hygiene: Perineal care performed, diapers changed. Restraint status: Side rails up x 4 Continued. Soft wrist restraint (Right) Continued. Soft wrist restraint (Left) Continued. Soft ankle restraint (Right) Continued. Soft ankle restraint (Left) Continued. Readiness for Discontinue: Criteria not met. Patient still violent/self destructive and Alternative interventions still ineffective. Restraint continued. 14:00 Violent/Self Destructive Restraint: Observed actions/behavior: destructive, violent, kg severely aggressive, harming self/others, confusion/disorientation, difficulty remembering or follow instructions, impaired decision making, repeated attempts to get up from bed/chair without assistance. decreased Level of Consciousness (LOC), unable to follow instructions, Less restrictive alternatives attempted: decreased environmental stimuli, 1:1 patient care, placed near Nurse station, reoriented to location, medicated for pain/anxiety, repositioned, performed diversional activities, trained sitter in room, covered lines/tubes, eliminated unnecessary lines/tubes, placed items close to patient, verbal de-escalation performed, Alternative interventions: Ineffective. Clinical justification for use: Violent/self destructing behavior impacts therapeutic environment. Poses a serious danger to physical safety of self \\T\\ others. Monitoring: Mental status: agitated/restless, confused. Cognition: Unable to assess. poor judgement, poor safety awareness, Impulsive, poor attention/concentration, unable to follow commands, Circulation: Within defined parameters (based on Cardiovascular assessment). Skin integrity: Impaired (see Integumentary assessment) No injuries due to Restraints noted. Range of Motion: patient asleep. Hydration/Food: Meal/Snack provided:tolerated. Elimination/Hygiene: Perineal care performed, diapers changed. Restraint status: Side rails up x 4 Continued. Soft wrist restraint (Right) Continued. Soft wrist restraint (Left) Continued. Soft ankle restraint (Right) Continued. Soft ankle restraint (Left) Continued. Readiness for Discontinue: Criteria not met. Patient still violent/self destructive and Alternative interventions still ineffective. Restraint continued. 16:00 Violent/Self Destructive Restraint: Observed actions/behavior: destructive, violent, kg severely aggressive, harming self/others, confusion/disorientation, difficulty remembering or follow instructions, impaired decision making, repeated attempts to get up from bed/chair without assistance. decreased Level of Consciousness (LOC), unable to follow instructions, Less restrictive alternatives attempted: decreased environmental stimuli, 1:1 patient care, placed near Nurse station, reoriented to location, medicated for pain/anxiety, repositioned, performed diversional activities, trained sitter in room, covered lines/tubes, eliminated unnecessary lines/tubes, placed items close to patient, verbal de-escalation performed, Alternative interventions: Clinical justification for use: Violent/self destructing behavior impacts therapeutic environment. Poses a serious danger to physical safety of self \\T\\ others. Monitoring: Mental status: agitated/restless, confused. Cognition: Unable to assess. poor judgement, poor safety awareness, Impulsive, poor attention/concentration, unable to follow commands, Circulation: Within defined parameters (based on Cardiovascular assessment). Skin integrity: Impaired (see Integumentary assessment) No injuries due to Restraints noted. Range of Motion: patient asleep. Hydration/Food: Meal/Snack provided:tolerated. PO fluids provided:tolerated. Elimination/Hygiene: Perineal care performed, diapers changed. Restraint status: Side rails up x 4 Continued. Soft wrist restraint (Right) Continued. Soft wrist restraint (Left) Continued. Soft ankle restraint (Right) Continued. Soft ankle restraint (Left) Continued. Readiness for Discontinue: Criteria not met. Patient still violent/self destructive and Alternative interventions still ineffective. Restraint continued. 18:00 Violent/Self Destructive Restraint: Observed actions/behavior: destructive, violent, kg severely aggressive, harming self/others, confusion/disorientation, difficulty remembering or follow instructions, impaired decision making, repeated attempts to get up from bed/chair without assistance. decreased Level of Consciousness (LOC), unable to follow instructions, Less restrictive alternatives attempted: decreased environmental stimuli, 1:1 patient care, placed near Nurse station, reoriented to location, medicated for pain/anxiety, repositioned, performed diversional activities, trained sitter in room, covered lines/tubes, eliminated unnecessary lines/tubes, placed items close to patient, verbal de-escalation performed, Alternative interventions: Ineffective. Clinical justification for use: Violent/self destructing behavior impacts therapeutic environment. Poses a serious danger to physical safety of self \\T\\ others. Monitoring: Mental status: agitated/restless, confused. patient asleep, subdued, Cognition: Unable to assess. poor judgement, poor safety awareness, Impulsive, poor attention/concentration, unable to follow commands, Circulation: Within defined parameters (based on Cardiovascular assessment). Skin integrity: Impaired (see Integumentary assessment) No injuries due to Restraints noted. Range of Motion: Performed. Hydration/Food: Meal/Snack provided:tolerated. PO fluids provided:tolerated. Restraint status: Side rails up x 4 Continued. Soft wrist restraint (Right) Continued. Soft wrist restraint (Left) Continued. Soft ankle restraint (Right) Continued. Soft ankle restraint (Left) Continued. Readiness for Discontinue: Criteria not met. Patient still violent/self destructive and Alternative interventions still ineffective. Restraint continued. 20:00 Non-Violent Restraint: Actions/Behavior observed: Confused/disoriented, has difficulty sf remembering/follow instructions, has impaired decision making, repeated attempts to get up from bed/chair w/o assistance, unable to follow instructions, repeated attempts to remove/tamper lines/tubes/IV med devices \\T\\ wound dressing, Less restrictive alternatives attempted: decrease environmental stimuli, 1:1 patient care, placed near Nurse station, medicated for pain/anxiety, repositioned, performed diversional activities, trained sitter in room, Alternative interventions: Ineffective. Clinical justification for use: line protection, patient safety, Mental status: subdued, Cognition: poor judgement, poor safety awareness, impulsive, poor attention/concentration, unable to follow commands, Circulation: Within defined parameters (based on Cardiovascular assessment) Skin integrity: Impaired (see Integumentary assessment) Signs of injury related to restraint: No injuries noted. Range of Motion (ROM): performed. Hydration/Food: patient declined. Elimination/Hygiene: perineal care performed, diapers changed. Restraint status: Side rails up x 4 Soft wrist restraint (Right) Soft wrist restraint (Left) Soft ankle restraint (Right) Soft ankle restraint (Left) Continued. Criteria to discontinue Restraint not met. Restraint continued. 22:00 Non-Violent Restraint: Actions/Behavior observed: Confused/disoriented, has difficulty sf remembering/follow instructions, has impaired decision making, repeated attempts to get up from bed/chair w/o assistance, unable to follow instructions, repeated attempts to remove/tamper lines/tubes/IV med devices \\T\\ wound dressing, Less restrictive alternatives attempted: decrease environmental stimuli, 1:1 patient care, placed near Nurse station, medicated for pain/anxiety, repositioned, performed diversional activities, trained sitter in room, Alternative interventions: Ineffective. Clinical justification for use: line protection, patient safety, Mental status: agitated/restless, confused, Cognition: poor judgement, poor safety awareness, impulsive, poor attention/concentration, unable to follow commands, Circulation: Within defined parameters (based on Cardiovascular assessment) Skin integrity: Impaired (see Integumentary assessment) Signs of injury related to restraint: No injuries noted. Range of Motion (ROM): performed. Hydration/Food: Meal/Snack provided:tolerated. PO fluids provided:tolerated, Elimination/Hygiene: perineal care performed, diapers changed. Restraint status: Side rails up x 4 Soft wrist restraint (Right) Soft wrist restraint (Left) Soft ankle restraint (Right) Soft ankle restraint (Left) Continued. Criteria to discontinue Restraint not met. Restraint continued. 11/09 00:00 Non-Violent Restraint: Actions/Behavior observed: Confused/disoriented, has difficulty sf remembering/follow instructions, has impaired decision making, repeated attempts to get up from bed/chair w/o assistance, unable to follow instructions, repeated attempts to remove/tamper lines/tubes/IV med devices \\T\\ wound dressing, Less restrictive alternatives attempted: decrease environmental stimuli, 1:1 patient care, placed near Nurse station, medicated for pain/anxiety, repositioned, performed diversional activities, trained sitter in room, Alternative interventions: Ineffective. Clinical justification for use: line protection, patient safety, Mental status: agitated/restless, Cognition: poor judgement, poor safety awareness, impulsive, poor attention/concentration, unable to follow commands, Circulation: Within defined parameters (based on Cardiovascular assessment) Skin integrity: Impaired (see Integumentary assessment) Signs of injury related to restraint: No injuries noted. Range of Motion (ROM): performed. Hydration/Food: Meal/Snack provided:tolerated. PO fluids provided:tolerated, Elimination/Hygiene: Patient declined. Restraint status: Side rails up x 4 Soft wrist restraint (Right) Soft wrist restraint (Left) Soft ankle restraint (Right) Soft ankle restraint (Left) Continued. Criteria to discontinue Restraint not met. Restraint continued. 02:00 Non-Violent Restraint: Actions/Behavior observed: Confused/disoriented, has difficulty sf remembering/follow instructions, has impaired decision making, repeated attempts to get up from bed/chair w/o assistance, unable to follow instructions, repeated attempts to remove/tamper lines/tubes/IV med devices \\T\\ wound dressing, Less restrictive alternatives attempted: decrease environmental stimuli, 1:1 patient care, placed near Nurse station, medicated for pain/anxiety, repositioned, performed diversional activities, trained sitter in room, Alternative interventions: Ineffective. Clinical justification for use: line protection, patient safety, Mental status: subdued, Cognition: poor judgement, poor safety awareness, impulsive, poor attention/concentration, unable to follow commands, Circulation: Within defined parameters (based on Cardiovascular assessment) Skin integrity: Impaired (see Integumentary assessment) Signs of injury related to restraint: No injuries noted. Range of Motion (ROM): performed. Hydration/Food: patient declined. Elimination/Hygiene: Patient declined. Restraint status: Side rails up x 4 Soft wrist restraint (Right) Soft wrist restraint (Left) Soft ankle restraint (Right) Soft ankle restraint (Left) Continued. Criteria to discontinue Restraint not met. Restraint continued. 03:59 Non-Violent Restraint: Actions/Behavior observed: Confused/disoriented, has difficulty sf remembering/follow instructions, has impaired decision making, repeated attempts to get up from bed/chair w/o assistance, unable to follow instructions, repeated attempts to remove/tamper lines/tubes/IV med devices \\T\\ wound dressing, Less restrictive alternatives attempted: decrease environmental stimuli, 1:1 patient care, placed near Nurse station, medicated for pain/anxiety, repositioned, performed diversional activities, trained sitter in room, Alternative interventions: Ineffective. Clinical justification for use: line protection, patient safety, Mental status: patient asleep, Cognition: Unable to assess. Circulation: Within defined parameters (based on Cardiovascular assessment) Skin integrity: Impaired (see Integumentary assessment) Signs of injury related to restraint: No injuries noted. Range of Motion (ROM): patient asleep. Hydration/Food: patient asleep. Elimination/Hygiene: Patient asleep. Restraint status: Side rails up x 4 Soft wrist restraint (Right) Soft wrist restraint (Left) Soft ankle restraint (Right) Soft ankle restraint (Left) Continued. Criteria to discontinue Restraint not met. Restraint continued. 06:00 Non-Violent Restraint: Actions/Behavior observed: Confused/disoriented, has difficulty sf remembering/follow instructions, has impaired decision making, repeated attempts to get up from bed/chair w/o assistance, unable to follow instructions, repeated attempts to remove/tamper lines/tubes/IV med devices \\T\\ wound dressing, Less restrictive alternatives attempted: decrease environmental stimuli, 1:1 patient care, placed near Nurse station, medicated for pain/anxiety, repositioned, performed diversional activities, trained sitter in room, Alternative interventions: Ineffective. Clinical justification for use: line protection, patient safety, Mental status: patient asleep, Cognition: poor judgement, poor safety awareness, impulsive, poor attention/concentration, unable to follow commands, Circulation: Within defined parameters (based on Cardiovascular assessment) Skin integrity: Impaired (see Integumentary assessment) Signs of injury related to restraint: No injuries noted. Range of Motion (ROM): patient asleep. Hydration/Food: patient asleep. Elimination/Hygiene: Patient asleep. Restraint status: Side rails up x 4 Soft wrist restraint (Right) Soft wrist restraint (Left) Soft ankle restraint (Right) Soft ankle restraint (Left) Continued. Criteria to discontinue Restraint not met. Restraint continued. 11:30 Violent/Self Destructive Restraint: Observed actions/behavior: kg confusion/disorientation, difficulty remembering or follow instructions, impaired decision making, repeated attempts to get up from bed/chair without assistance. unable to follow instructions, Less restrictive alternatives attempted: decreased environmental stimuli, 1:1 patient care, placed near Nurse station, reoriented to location, repositioned, performed diversional activities, trained sitter in room, covered lines/tubes, eliminated unnecessary lines/tubes, placed items close to patient, verbal de-escalation performed, Alternative interventions: Ineffective. Clinical justification for use: Violent/self destructing behavior impacts therapeutic environment. Poses a serious danger to physical safety of self \\T\\ others. Monitoring: Mental status: agitated/restless, confused. Cognition: Circulation: Within defined parameters (based on Cardiovascular assessment). Skin integrity: Impaired (see Integumentary assessment) No injuries due to Restraints noted. Restraint status: Side rails up x 4 Continued. Soft wrist restraint (Right) Continued. Soft wrist restraint (Left) Continued. Soft ankle restraint (Right) Continued. Mitt secured (Left) Readiness for Discontinue: Criteria not met. Patient still violent/self destructive and Alternative interventions still ineffective. Restraint continued. 11:45 Violent/Self Destructive Restraint: Observed actions/behavior: destructive, severely kg aggressive, harming self/others, confusion/disorientation, difficulty remembering or follow instructions, impaired decision making, repeated attempts to get up from bed/chair without assistance. unable to follow instructions, Less restrictive alternatives attempted: decreased environmental stimuli, 1:1 patient care, placed near Nurse station, reoriented to location, medicated for pain/anxiety, repositioned, performed diversional activities, trained sitter in room, covered lines/tubes, eliminated unnecessary lines/tubes, placed items close to patient, verbal de-escalation performed, Alternative interventions: Ineffective. Clinical justification for use: Violent/self destructing behavior impacts therapeutic environment. Poses a serious danger to physical safety of self \\T\\ others. Monitoring: Mental status: Cognition: Unable to assess. poor judgement, poor safety awareness, Impulsive, poor attention/concentration, unable to follow commands, Circulation: Within defined parameters (based on Cardiovascular assessment). Skin integrity: Impaired (see Integumentary assessment) No injuries due to Restraints noted. Range of Motion: Performed. Hydration/Food: Meal/Snack provided:tolerated. PO fluids provided:tolerated. Elimination/Hygiene: Perineal care performed, diapers changed. Restraint status: Side rails up x 4 Continued. Soft wrist restraint (Right) Continued. Soft wrist restraint (Left) Continued. Soft ankle restraint (Right) Continued. Soft ankle restraint (Left) Continued. Readiness for Discontinue: Criteria not met. Patient still violent/self destructive and Alternative interventions still ineffective. Restraint continued. 12:00 Violent/Self Destructive Restraint: Observed actions/behavior: destructive, severely kg aggressive, harming self/others, confusion/disorientation, difficulty remembering or follow instructions, impaired decision making, repeated attempts to get up from bed/chair without assistance. decreased Level of Consciousness (LOC), unable to follow instructions, Less restrictive alternatives attempted: Alternative interventions: Clinical justification for use: Monitoring: Mental status: Cognition: Circulation: Within defined parameters (based on Cardiovascular assessment). Skin integrity: Impaired (see Integumentary assessment) No injuries due to Restraints noted. Range of Motion: patient asleep. Hydration/Food: PO fluids provided:tolerated. Elimination/Hygiene: diapers changed. Restraint status: Side rails up x 4 Continued. Soft wrist restraint (Right) Continued. Soft wrist restraint (Left) Continued. Soft ankle restraint (Right) Continued. Soft ankle restraint (Left) Continued. Readiness for Discontinue: Criteria not met. Patient still violent/self destructive and Alternative interventions still ineffective. Restraint continued. 12:15 Violent/Self Destructive Restraint: Order: Observed actions/behavior: destructive, kg severely aggressive, harming self/others, confusion/disorientation, difficulty remembering or follow instructions, impaired decision making, unable to follow instructions, Less restrictive alternatives attempted: decreased environmental stimuli, 1:1 patient care, placed near Nurse station, reoriented to location, repositioned, covered lines/tubes, eliminated unnecessary lines/tubes, placed items close to patient, verbal de-escalation performed, Alternative interventions: Ineffective. Clinical justification for use: Violent/self destructing behavior impacts therapeutic environment. Poses a serious danger to physical safety of self \\T\\ others. Monitoring: Mental status: agitated/restless, Cognition: Unable to assess. poor judgement, poor safety awareness, Impulsive, poor attention/concentration, unable to follow commands, Circulation: Within defined parameters (based on Cardiovascular assessment). Skin integrity: Impaired (see Integumentary assessment) No injuries due to Restraints noted. Range of Motion: Performed. Restraint status: Side rails up x 4 Continued. Soft wrist restraint (Right) Continued. Soft wrist restraint (Left) Continued. Soft ankle restraint (Right) Continued. Soft ankle restraint (Left) Continued. Readiness for Discontinue: Criteria not met. Patient still violent/self destructive and Alternative interventions still ineffective. Restraint continued. 12:30 Violent/Self Destructive Restraint: Order: Observed actions/behavior: kg confusion/disorientation, difficulty remembering or follow instructions, impaired decision making, unable to follow instructions, Less restrictive alternatives attempted: decreased environmental stimuli, 1:1 patient care, placed near Nurse station, Alternative interventions: Effective. Clinical justification for use: Violent/self destructing behavior impacts therapeutic environment. Poses a serious danger to physical safety of self \\T\\ others. Monitoring: Mental status: confused. Cognition: poor judgement, poor safety awareness, Impulsive, poor attention/concentration, unable to follow commands, Circulation: Within defined parameters (based on Cardiovascular assessment). Skin integrity: Impaired (see Integumentary assessment) No injuries due to Restraints noted. Restraint status: Side rails up x 4 Continued. Soft wrist restraint (Right) Continued. Soft wrist restraint (Left) Continued. Soft ankle restraint (Right) Continued. Soft ankle restraint (Left) Continued. Readiness for Discontinue: Criteria not met. Patient still violent/self destructive and Alternative interventions still ineffective. Restraint continued. 12:45 Violent/Self Destructive Restraint: Order: Observed actions/behavior: harming kg self/others, confusion/disorientation, difficulty remembering or follow instructions, impaired decision making, unable to follow instructions, Less restrictive alternatives attempted: decreased environmental stimuli, 1:1 patient care, placed near Nurse station, reoriented to location, Alternative interventions: Ineffective. Clinical justification for use: Violent/self destructing behavior impacts therapeutic environment. Poses a serious danger to physical safety of self \\T\\ others. Monitoring: Mental status: confused. Cognition: poor judgement, poor safety awareness, Impulsive, poor attention/concentration, unable to follow commands, Circulation: Within defined parameters (based on Cardiovascular assessment). Skin integrity: Impaired (see Integumentary assessment) No injuries due to Restraints noted. Range of Motion: Performed. Elimination/Hygiene: diapers changed. Restraint status: Side rails up x 4 Continued. Soft wrist restraint (Right) Continued. Soft wrist restraint (Left) Continued. Soft ankle restraint (Right) Continued. Soft ankle restraint (Left) Continued. Readiness for Discontinue: Release criteria met. No longer exhibiting violent or self destructive behavior. Alt interventions effective. 13:00 Violent/Self Destructive Restraint: Order: Observed actions/behavior: severely kg aggressive, confusion/disorientation, difficulty remembering or follow instructions, impaired decision making, unable to follow instructions, Less restrictive alternatives attempted: decreased environmental stimuli, 1:1 patient care, placed near Nurse station, reoriented to location, Alternative interventions: Ineffective. Clinical justification for use: Violent/self destructing behavior impacts therapeutic environment. Poses a serious danger to physical safety of self \\T\\ others. Monitoring: Mental status: agitated/restless, confused. Cognition: poor judgement, poor safety awareness, Impulsive, poor attention/concentration, unable to follow commands, Circulation: Within defined parameters (based on Cardiovascular assessment). Skin integrity: Impaired (see Integumentary assessment) No injuries due to Restraints noted. Restraint status: Side rails up x 4 Continued. Soft wrist restraint (Right) Continued. Soft wrist restraint (Left) Continued. Soft ankle restraint (Right) Continued. Soft ankle restraint (Left) Continued. Readiness for Discontinue: Criteria not met. Patient still violent/self destructive and Alternative interventions still ineffective. Restraint continued. 13:15 Violent/Self Destructive Restraint: Order: Observed actions/behavior: kg confusion/disorientation, difficulty remembering or follow instructions, impaired decision making, unable to follow instructions, Less restrictive alternatives attempted: decreased environmental stimuli, 1:1 patient care, placed near Nurse station, reoriented to location, Alternative interventions: Ineffective. Clinical justification for use: Violent/self destructing behavior impacts therapeutic environment. Poses a serious danger to physical safety of self \\T\\ others. Monitoring: Mental status: patient asleep, Cognition: Unable to assess. Circulation: Within defined parameters (based on Cardiovascular assessment). Skin integrity: Impaired (see Integumentary assessment) No injuries due to Restraints noted. Restraint status: Side rails up x 4 Continued. Soft wrist restraint (Right) Continued. Soft wrist restraint (Left) Continued. Soft ankle restraint (Right) Continued. Soft ankle restraint (Left) Continued. 13:30 Violent/Self Destructive Restraint: Order: Observed actions/behavior: kg confusion/disorientation, difficulty remembering or follow instructions, impaired decision making, repeated attempts to get up from bed/chair without assistance. unable to follow instructions, Less restrictive alternatives attempted: decreased environmental stimuli, 1:1 patient care, placed near Nurse station, reoriented to location, Alternative interventions: Ineffective. Clinical justification for use: Violent/self destructing behavior impacts therapeutic environment. Poses a serious danger to physical safety of self \\T\\ others. Monitoring: Mental status: agitated/restless, Cognition: poor judgement, poor safety awareness, Impulsive, poor attention/concentration, unable to follow commands, Circulation: Within defined parameters (based on Cardiovascular assessment). Skin integrity: Impaired (see Integumentary assessment) No injuries due to Restraints noted. Range of Motion: Performed. Hydration/Food: PO fluids provided:tolerated. Elimination/Hygiene: Perineal care performed, diapers changed. Restraint status: Side rails up x 4 Continued. Soft wrist restraint (Right) Continued. Soft wrist restraint (Left) Continued. Soft ankle restraint (Right) Continued. Soft ankle restraint (Left) Continued. Readiness for Discontinue: Criteria not met. Patient still violent/self destructive and Alternative interventions still ineffective. Restraint continued. 13:45 Violent/Self Destructive Restraint: Order: Observed actions/behavior: severely kg aggressive, harming self/others, confusion/disorientation, difficulty remembering or follow instructions, impaired decision making, unable to follow instructions, Less restrictive alternatives attempted: decreased environmental stimuli, 1:1 patient care, placed near Nurse station, reoriented to location, Alternative interventions: Effective. Clinical justification for use: Violent/self destructing behavior impacts therapeutic environment. Poses a serious danger to physical safety of self \\T\\ others. Monitoring: Mental status: confused. Cognition: poor judgement, poor safety awareness, Impulsive, poor attention/concentration, unable to follow commands, Circulation: Within defined parameters (based on Cardiovascular assessment). Skin integrity: Impaired (see Integumentary assessment) No injuries due to Restraints noted. Restraint status: Side rails up x 4 Continued. Soft wrist restraint (Right) Continued. Soft wrist restraint (Left) Continued. Soft ankle restraint (Right) Continued. Soft ankle restraint (Left) Continued. Readiness for Discontinue: Criteria not met. Patient still violent/self destructive and Alternative interventions still ineffective. Restraint continued. 14:00 Violent/Self Destructive Restraint: Order: Observed actions/behavior: kg confusion/disorientation, difficulty remembering or follow instructions, impaired decision making, unable to follow instructions, Less restrictive alternatives attempted: decreased environmental stimuli, 1:1 patient care, placed near Nurse station, reoriented to location, Alternative interventions: Ineffective. Clinical justification for use: Violent/self destructing behavior impacts therapeutic environment. Poses a serious danger to physical safety of self \\T\\ others. Monitoring: Mental status: agitated/restless, Cognition: poor judgement, poor safety awareness, poor attention/concentration, unable to follow commands, Circulation: Within defined parameters (based on Cardiovascular assessment). Skin integrity: Impaired (see Integumentary assessment) No injuries due to Restraints noted. Range of Motion: Performed. Hydration/Food: PO fluids provided:tolerated. Restraint status: Side rails up x 4 Continued. Soft wrist restraint (Right) Continued. Soft wrist restraint (Left) Continued. Soft ankle restraint (Right) Continued. Soft ankle restraint (Left) Continued. Readiness for Discontinue: Criteria not met. Patient still violent/self destructive and Alternative interventions still ineffective. Restraint continued. 14:15 Violent/Self Destructive Restraint: Order: Observed actions/behavior: kg confusion/disorientation, difficulty remembering or follow instructions, impaired decision making, unable to follow instructions, Less restrictive alternatives attempted: decreased environmental stimuli, 1:1 patient care, placed near Nurse station, reoriented to location, Alternative interventions: Ineffective. Clinical justification for use: Violent/self destructing behavior impacts therapeutic environment. Poses a serious danger to physical safety of self \\T\\ others. Monitoring: Mental status: confused. Cognition: poor judgement, poor safety awareness, Impulsive, poor attention/concentration, unable to follow commands, Circulation: Within defined parameters (based on Cardiovascular assessment). Skin integrity: Impaired (see Integumentary assessment) No injuries due to Restraints noted. Restraint status: Side rails up x 4 Continued. Soft wrist restraint (Right) Continued. Soft wrist restraint (Left) Continued. Soft ankle restraint (Right) Continued. Soft ankle restraint (Left) Continued. Readiness for Discontinue: Criteria not met. Patient still violent/self destructive and Alternative interventions still ineffective. Restraint continued. 14:30 Violent/Self Destructive Restraint: Order: Observed actions/behavior: kg confusion/disorientation, difficulty remembering or follow instructions, impaired decision making, unable to follow instructions, Less restrictive alternatives attempted: decreased environmental stimuli, 1:1 patient care, placed near Nurse station, reoriented to location, Alternative interventions: Ineffective. Clinical justification for use: Violent/self destructing behavior impacts therapeutic environment. Poses a serious danger to physical safety of self \\T\\ others. Monitoring: Mental status: agitated/restless, Cognition: poor judgement, poor safety awareness, Impulsive, poor attention/concentration, unable to follow commands, Circulation: Within defined parameters (based on Cardiovascular assessment). Skin integrity: Impaired (see Integumentary assessment) No injuries due to Restraints noted. Range of Motion: Performed. Hydration/Food: PO fluids provided:tolerated. Restraint status: Side rails up x 4 Continued. Soft wrist restraint (Right) Continued. Soft wrist restraint (Left) Continued. Soft ankle restraint (Right) Continued. Soft ankle restraint (Left) Continued. Readiness for Discontinue: Criteria not met. Patient still violent/self destructive and Alternative interventions still ineffective. Restraint continued. 14:45 Violent/Self Destructive Restraint: Order: Observed actions/behavior: kg confusion/disorientation, difficulty remembering or follow instructions, impaired decision making, unable to follow instructions, Less restrictive alternatives attempted: decreased environmental stimuli, 1:1 patient care, placed near Nurse station, reoriented to location, Alternative interventions: Ineffective. Clinical justification for use: Violent/self destructing behavior impacts therapeutic environment. Poses a serious danger to physical safety of self \\T\\ others. Monitoring: Mental status: agitated/restless, Cognition: poor judgement, poor safety awareness, Impulsive, poor attention/concentration, unable to follow commands, Circulation: Within defined parameters (based on Cardiovascular assessment). Skin integrity: Impaired (see Integumentary assessment) No injuries due to Restraints noted. Restraint status: Side rails up x 4 Continued. Soft wrist restraint (Right) Continued. Soft wrist restraint (Left) Continued. Soft ankle restraint (Right) Continued. Soft ankle restraint (Left) Continued. Readiness for Discontinue: Criteria not met. Patient still violent/self destructive and Alternative interventions still ineffective. Restraint continued. 15:00 Violent/Self Destructive Restraint: Order: Observed actions/behavior: kg confusion/disorientation, impaired decision making, unable to follow instructions, Less restrictive alternatives attempted: decreased environmental stimuli, 1:1 patient care, placed near Nurse station, Alternative interventions: Ineffective. Clinical justification for use: Violent/self destructing behavior impacts therapeutic environment. Poses a serious danger to physical safety of self \\T\\ others. Monitoring: Mental status: confused. Cognition: poor judgement, poor safety awareness, Impulsive, poor attention/concentration, unable to follow commands, Circulation: Within defined parameters (based on Cardiovascular assessment). Skin integrity: Impaired (see Integumentary assessment) No injuries due to Restraints noted. Range of Motion: Performed. Hydration/Food: PO fluids provided:tolerated. Restraint status: Side rails up x 4 Continued. Soft wrist restraint (Right) Continued. Soft wrist restraint (Left) Continued. Soft ankle restraint (Right) Continued. Soft ankle restraint (Left) Continued. Readiness for Discontinue: Criteria not met. Patient still violent/self destructive and Alternative interventions still ineffective. Restraint continued. 15:15 Violent/Self Destructive Restraint: Order: Observed actions/behavior: kg confusion/disorientation, difficulty remembering or follow instructions, unable to follow instructions, Less restrictive alternatives attempted: 1:1 patient care, placed near Nurse station, Alternative interventions: Ineffective. Clinical justification for use: Violent/self destructing behavior impacts therapeutic environment. Poses a serious danger to physical safety of self \\T\\ others. Monitoring: Mental status: confused. Cognition: poor judgement, poor safety awareness, Impulsive, poor attention/concentration, unable to follow commands, Circulation: Within defined parameters (based on Cardiovascular assessment). Skin integrity: Impaired (see Integumentary assessment) No injuries due to Restraints noted. Restraint status: Side rails up x 4 Continued. Soft wrist restraint (Right) Continued. Soft wrist restraint (Left) Continued. Soft ankle restraint (Right) Continued. Soft ankle restraint (Left) Continued. Readiness for Discontinue: Criteria not met. Patient still violent/self destructive and Alternative interventions still ineffective. Restraint continued. 15:30 Violent/Self Destructive Restraint: Order: Observed actions/behavior: severely kg aggressive, harming self/others, confusion/disorientation, difficulty remembering or follow instructions, repeated attempts to get up from bed/chair without assistance. Less restrictive alternatives attempted: decreased environmental stimuli, 1:1 patient care, placed near Nurse station, reoriented to location, repositioned, Alternative interventions: Ineffective. Clinical justification for use: Violent/self destructing behavior impacts therapeutic environment. Poses a serious danger to physical safety of self \\T\\ others. Monitoring: Mental status: agitated/restless, Cognition: poor judgement, poor safety awareness, Impulsive, unable to follow commands, Circulation: Within defined parameters (based on Cardiovascular assessment). Skin integrity: Impaired (see Integumentary assessment) No injuries due to Restraints noted. Restraint status: Side rails up x 4 Continued. Soft wrist restraint (Right) Continued. Soft wrist restraint (Left) Continued. Soft ankle restraint (Right) Continued. Soft ankle restraint (Left) Continued. Readiness for Discontinue: Criteria not met. Patient still violent/self destructive and Alternative interventions still ineffective. Restraint continued. 15:45 Violent/Self Destructive Restraint: Order: Observed actions/behavior: kg confusion/disorientation, difficulty remembering or follow instructions, impaired decision making, Less restrictive alternatives attempted: decreased environmental stimuli, 1:1 patient care, placed near Nurse station, reoriented to location, Alternative interventions: Ineffective. Clinical justification for use: Violent/self destructing behavior impacts therapeutic environment. Poses a serious danger to physical safety of self \\T\\ others. Monitoring: Mental status: agitated/restless, Cognition: poor judgement, poor safety awareness, poor attention/concentration, unable to follow commands, Circulation: Within defined parameters (based on Cardiovascular assessment). Skin integrity: Impaired (see Integumentary assessment) No injuries due to Restraints noted. Restraint status: Side rails up x 4 Continued. Soft wrist restraint (Right) Continued. Soft wrist restraint (Left) Continued. Soft ankle restraint (Right) Continued. Soft ankle restraint (Left) Continued. Readiness for Discontinue: Criteria not met. Patient still violent/self destructive and Alternative interventions still ineffective. Restraint continued. 16:00 Violent/Self Destructive Restraint: Order: Observed actions/behavior: kg confusion/disorientation, difficulty remembering or follow instructions, impaired decision making, Less restrictive alternatives attempted: decreased environmental stimuli, 1:1 patient care, placed near Nurse station, reoriented to location, Alternative interventions: Ineffective. Clinical justification for use: Violent/self destructing behavior impacts therapeutic environment. Poses a serious danger to physical safety of self \\T\\ others. Monitoring: Mental status: confused. Cognition: poor judgement, poor safety awareness, Impulsive, poor attention/concentration, Circulation: Within defined parameters (based on Cardiovascular assessment). Skin integrity: Impaired (see Integumentary assessment) No injuries due to Restraints noted. Restraint status: Side rails up x 4 Continued. Soft wrist restraint (Right) Continued. Soft wrist restraint (Left) Continued. Soft ankle restraint (Right) Continued. Soft ankle restraint (Left) Continued. Readiness for Discontinue: Criteria not met. Patient still violent/self destructive and Alternative interventions still ineffective. Restraint continued. 16:15 Violent/Self Destructive Restraint: Order: Observed actions/behavior: kg confusion/disorientation, difficulty remembering or follow instructions, impaired decision making, repeated attempts to get up from bed/chair without assistance. Less restrictive alternatives attempted: decreased environmental stimuli, 1:1 patient care, placed near Nurse station, reoriented to location, Alternative interventions: Ineffective. Clinical justification for use: Violent/self destructing behavior impacts therapeutic environment. Poses a serious danger to physical safety of self \\T\\ others. Monitoring: Mental status: confused. Cognition: poor judgement, poor safety awareness, Impulsive, poor attention/concentration, Circulation: Within defined parameters (based on Cardiovascular assessment). Skin integrity: Impaired (see Integumentary assessment) No injuries due to Restraints noted. Restraint status: Side rails up x 4 Continued. Soft wrist restraint (Right) Continued. Soft wrist restraint (Left) Continued. Soft ankle restraint (Right) Continued. Soft ankle restraint (Left) Continued. Readiness for Discontinue: Criteria not met. Patient still violent/self destructive and Alternative interventions still ineffective. Restraint continued. 16:30 Violent/Self Destructive Restraint: Order: Observed actions/behavior: kg confusion/disorientation, difficulty remembering or follow instructions, impaired decision making, Less restrictive alternatives attempted: decreased environmental stimuli, 1:1 patient care, placed near Nurse station, reoriented to location, Alternative interventions: Ineffective. Clinical justification for use: Violent/self destructing behavior impacts therapeutic environment. Poses a serious danger to physical safety of self \\T\\ others. Monitoring: Mental status: agitated/restless, confused. Cognition: poor judgement, poor safety awareness, Impulsive, poor attention/concentration, unable to follow commands, Circulation: Within defined parameters (based on Cardiovascular assessment). Skin integrity: Impaired (see Integumentary assessment) No injuries due to Restraints noted. Restraint status: Side rails up x 4 Continued. Soft wrist restraint (Right) Continued. Soft wrist restraint (Left) Continued. Soft ankle restraint (Right) Continued. Soft ankle restraint (Left) Continued. Readiness for Discontinue: Criteria not met. Patient still violent/self destructive and Alternative interventions still ineffective. Restraint continued. 16:45 Violent/Self Destructive Restraint: Order: Observed actions/behavior: kg confusion/disorientation, difficulty remembering or follow instructions, impaired decision making, Less restrictive alternatives attempted: decreased environmental stimuli, 1:1 patient care, placed near Nurse station, reoriented to location, Alternative interventions: Ineffective. Clinical justification for use: Violent/self destructing behavior impacts therapeutic environment. Poses a serious danger to physical safety of self \\T\\ others. Monitoring: Mental status: agitated/restless, Cognition: poor judgement, poor safety awareness, Impulsive, poor attention/concentration, unable to follow commands, Circulation: Within defined parameters (based on Cardiovascular assessment). Skin integrity: Impaired (see Integumentary assessment) No injuries due to Restraints noted. Range of Motion: Performed. Hydration/Food: PO fluids provided:tolerated. Elimination/Hygiene: diapers changed. Restraint status: Side rails up x 4 Continued. Soft wrist restraint (Right) Continued. Soft wrist restraint (Left) Continued. Soft ankle restraint (Right) Continued. Soft ankle restraint (Left) Continued. Readiness for Discontinue: Criteria not met. Patient still violent/self destructive and Alternative interventions still ineffective. Restraint continued. 17:00 Violent/Self Destructive Restraint: Order: Observed actions/behavior: kg confusion/disorientation, difficulty remembering or follow instructions, impaired decision making, Less restrictive alternatives attempted: decreased environmental stimuli, 1:1 patient care, placed near Nurse station, Alternative interventions: Ineffective. Clinical justification for use: Violent/self destructing behavior impacts therapeutic environment. Poses a serious danger to physical safety of self \\T\\ others. Monitoring: Mental status: agitated/restless, Cognition: poor judgement, poor safety awareness, unable to follow commands, Circulation: Within defined parameters (based on Cardiovascular assessment). Skin integrity: Impaired (see Integumentary assessment) No injuries due to Restraints noted. Restraint status: Side rails up x 4 Continued. Soft wrist restraint (Right) Continued. Soft wrist restraint (Left) Continued. Soft ankle restraint (Right) Continued. Soft ankle restraint (Left) Continued. Readiness for Discontinue: Criteria not met. Patient still violent/self destructive and Alternative interventions still ineffective. Restraint continued. 17:15 Violent/Self Destructive Restraint: Order: Observed actions/behavior: patient sleeping. kg Less restrictive alternatives attempted: 1:1 patient care, placed near Nurse station, Alternative interventions: Ineffective. Clinical justification for use: Violent/self destructing behavior impacts therapeutic environment. Poses a serious danger to physical safety of self \\T\\ others. Monitoring: Mental status: patient asleep, Cognition: Unable to assess. Circulation: Within defined parameters (based on Cardiovascular assessment). Skin integrity: Impaired (see Integumentary assessment) No injuries due to Restraints noted. Restraint status: Side rails up x 4 Continued. Soft wrist restraint (Right) Continued. Soft wrist restraint (Left) Continued. Soft ankle restraint (Right) Continued. Soft ankle restraint (Left) Continued. Readiness for Discontinue: Criteria not met. Patient still violent/self destructive and Alternative interventions still ineffective. Restraint continued. 17:30 Violent/Self Destructive Restraint: Order: Observed actions/behavior: patient sleeping. kg Less restrictive alternatives attempted: 1:1 patient care, placed near Nurse station, Alternative interventions: Ineffective. Clinical justification for use: Violent/self destructing behavior impacts therapeutic environment. Poses a serious danger to physical safety of self \\T\\ others. Monitoring: Mental status: patient asleep, Cognition: Unable to assess. Circulation: Within defined parameters (based on Cardiovascular assessment). Skin integrity: Impaired (see Integumentary assessment) No injuries due to Restraints noted. Restraint status: Side rails up x 4 Continued. Soft wrist restraint (Right) Continued. Soft wrist restraint (Left) Continued. Soft ankle restraint (Right) Continued. Soft ankle restraint (Left) Continued. Readiness for Discontinue: Criteria not met. Patient still violent/self destructive and Alternative interventions still ineffective. Restraint continued. 17:45 Violent/Self Destructive Restraint: Order: Observed actions/behavior: patient sleeping. kg Less restrictive alternatives attempted: 1:1 patient care, placed near Nurse station, Alternative interventions: Ineffective. Clinical justification for use: Violent/self destructing behavior impacts therapeutic environment. Poses a serious danger to physical safety of self \\T\\ others. Monitoring: Mental status: patient asleep, Cognition: Unable to assess. Circulation: Within defined parameters (based on Cardiovascular assessment). Skin integrity: Impaired (see Integumentary assessment) No injuries due to Restraints noted. Restraint status: Side rails up x 4 Continued. Soft wrist restraint (Right) Continued. Soft wrist restraint (Left) Continued. Soft ankle restraint (Right) Continued. Soft ankle restraint (Left) Continued. Readiness for Discontinue: Criteria not met. Patient still violent/self destructive and Alternative interventions still ineffective. Restraint continued. 18:00 Violent/Self Destructive Restraint: Order: Observed actions/behavior: patient sleeping. kg Less restrictive alternatives attempted: 1:1 patient care, placed near Nurse station, Alternative interventions: Ineffective. Clinical justification for use: Violent/self destructing behavior impacts therapeutic environment. Poses a serious danger to physical safety of self \\T\\ others. Monitoring: Mental status: patient asleep, Cognition: Unable to assess. Circulation: Within defined parameters (based on Cardiovascular assessment). Skin integrity: Impaired (see Integumentary assessment) No injuries due to Restraints noted. Range of Motion: patient asleep. Restraint status: Side rails up x 4 Continued. Soft wrist restraint (Right) Continued. Soft wrist restraint (Left) Continued. Soft ankle restraint (Right) Continued. Soft ankle restraint (Left) Continued. Readiness for Discontinue: Criteria not met. Patient still violent/self destructive and Alternative interventions still ineffective. Restraint continued. 18:15 Violent/Self Destructive Restraint: Order: Observed actions/behavior: patient asleep. kg Less restrictive alternatives attempted: 1:1 patient care, placed near Nurse station, Alternative interventions: Ineffective. Clinical justification for use: Violent/self destructing behavior impacts therapeutic environment. Poses a serious danger to physical safety of self \\T\\ others. Monitoring: Mental status: patient asleep, Cognition: Unable to assess. Circulation: Within defined parameters (based on Cardiovascular assessment). Skin integrity: Impaired (see Integumentary assessment) No injuries due to Restraints noted. Restraint status: Side rails up x 4 Continued. Soft wrist restraint (Right) Continued. Soft wrist restraint (Left) Continued. Soft ankle restraint (Right) Continued. Soft ankle restraint (Left) Continued. Readiness for Discontinue: Criteria not met. Patient still violent/self destructive and Alternative interventions still ineffective. Restraint continued. 18:30 Violent/Self Destructive Restraint: Order: Observed actions/behavior: patient asleep. kg Less restrictive alternatives attempted: 1:1 patient care, placed near Nurse station, Alternative interventions: Ineffective. Clinical justification for use: Violent/self destructing behavior impacts therapeutic environment. Poses a serious danger to physical safety of self \\T\\ others. Monitoring: Mental status: patient asleep, Cognition: Unable to assess. Circulation: Within defined parameters (based on Cardiovascular assessment). Skin integrity: Impaired (see Integumentary assessment) No injuries due to Restraints noted. Restraint status: Side rails up x 4 Continued. Soft wrist restraint (Right) Continued. Soft wrist restraint (Left) Continued. Soft ankle restraint (Right) Continued. Soft ankle restraint (Left) Continued. Readiness for Discontinue: Criteria not met. Patient still violent/self destructive and Alternative interventions still ineffective. Restraint continued. 19:30 Violent/Self Destructive Restraint: Observed actions/behavior: sf confusion/disorientation, difficulty remembering or follow instructions, impaired decision making, repeated attempts to get up from bed/chair without assistance. decreased Level of Consciousness (LOC), unable to follow instructions, Less restrictive alternatives attempted: decreased environmental stimuli, 1:1 patient care, placed near Nurse station, reoriented to location, repositioned, performed diversional activities, Alternative interventions: Ineffective. Clinical justification for use: Violent/self destructing behavior impacts therapeutic environment. Poses a serious danger to physical safety of self \\T\\ others. Monitoring: Mental status: agitated/restless, Cognition: poor judgement, poor safety awareness, Impulsive, poor attention/concentration, unable to follow commands, Circulation: Within defined parameters (based on Cardiovascular assessment). Skin integrity: Impaired (see Integumentary assessment) No injuries due to Restraints noted. Restraint status: Side rails up x 4 Soft wrist restraint (Right) Soft wrist restraint (Left) Soft ankle restraint (Right) Soft ankle restraint (Left) Continued. Readiness for Discontinue: Criteria not met. Patient still violent/self destructive and Alternative interventions still ineffective. Restraint continued. 19:45 Violent/Self Destructive Restraint: Observed actions/behavior: sf confusion/disorientation, difficulty remembering or follow instructions, impaired decision making, repeated attempts to get up from bed/chair without assistance. decreased Level of Consciousness (LOC), unable to follow instructions, rptd attempts to remove/tamper lines/tubes/IV/med devices \\T\\ wnd dressing, Less restrictive alternatives attempted: decreased environmental stimuli, 1:1 patient care, placed near Nurse station, reoriented to location, repositioned, performed diversional activities, trained sitter in room, Alternative interventions: Ineffective. Clinical justification for use: Violent/self destructing behavior impacts therapeutic environment. Poses a serious danger to physical safety of self \\T\\ others. Monitoring: Mental status: agitated/restless, Cognition: poor judgement, poor safety awareness, Impulsive, poor attention/concentration, unable to follow commands, Circulation: Within defined parameters (based on Cardiovascular assessment). Skin integrity: Impaired (see Integumentary assessment) No injuries due to Restraints noted. Restraint status: Side rails up x 4 Soft wrist restraint (Right) Soft wrist restraint (Left) Soft ankle restraint (Right) Soft ankle restraint (Left) Continued. Readiness for Discontinue: Criteria not met. Patient still violent/self destructive and Alternative interventions still ineffective. Restraint continued. 20:00 Non-Violent Restraint: Order obtained. Initiated on November 09, 2020 at 20:00 Unable to sf provide Restraint education. 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 Actions/Behavior observed: Confused/disoriented, has difficulty remembering/follow instructions, has impaired decision making, repeated attempts to get up from bed/chair w/o assistance, unable to follow instructions, repeated attempts to remove/tamper lines/tubes/IV med devices \\T\\ wound dressing, Less restrictive alternatives attempted: decrease environmental stimuli, 1:1 patient care, placed near Nurse station, medicated for pain/anxiety, repositioned, performed diversional activities, trained sitter in room, Alternative interventions: Ineffective. Clinical justification for use: line protection, patient safety, Mental status: agitated/restless, Cognition: poor judgement, poor safety awareness, impulsive, poor attention/concentration, unable to follow commands, Circulation: Within defined parameters (based on Cardiovascular assessment) Skin integrity: Impaired (see Integumentary assessment) Signs of injury related to restraint: No injuries noted. Range of Motion (ROM): performed. Hydration/Food: Meal/Snack provided:tolerated. PO fluids provided:tolerated, Elimination/Hygiene: perineal care performed, diapers changed. Restraint status: Side rails up x 4 Soft wrist restraint (Right) Soft wrist restraint (Left) Soft ankle restraint (Right) Soft ankle restraint (Left) Continued. Criteria to discontinue Restraint not met. Restraint continued. 22:00 Non-Violent Restraint: Actions/Behavior observed: Confused/disoriented, has difficulty sf remembering/follow instructions, has impaired decision making, repeated attempts to get up from bed/chair w/o assistance, unable to follow instructions, repeated attempts to remove/tamper lines/tubes/IV med devices \\T\\ wound dressing, Less restrictive alternatives attempted: decrease environmental stimuli, 1:1 patient care, placed near Nurse station, medicated for pain/anxiety, repositioned, performed diversional activities, trained sitter in room, Alternative interventions: Ineffective. Clinical justification for use: line protection, patient safety, Mental status: subdued, Cognition: poor judgement, poor safety awareness, impulsive, poor attention/concentration, unable to follow commands, Circulation: Within defined parameters (based on Cardiovascular assessment) Skin integrity: Impaired (see Integumentary assessment) Signs of injury related to restraint: No injuries noted. Range of Motion (ROM): performed. Hydration/Food: PO fluids provided:tolerated, Elimination/Hygiene: perineal care performed, diapers changed. Restraint status: Side rails up x 4 Soft wrist restraint (Right) Soft wrist restraint (Left) Soft ankle restraint (Right) Soft ankle restraint (Left) Continued. Criteria to discontinue Restraint not met. Restraint continued. 11/10 00:00 Non-Violent Restraint: Actions/Behavior observed: Confused/disoriented, has difficulty sf remembering/follow instructions, has impaired decision making, repeated attempts to get up from bed/chair w/o assistance, unable to follow instructions, repeated attempts to remove/tamper lines/tubes/IV med devices \\T\\ wound dressing, Less restrictive alternatives attempted: decrease environmental stimuli, 1:1 patient care, placed near Nurse station, medicated for pain/anxiety, repositioned, performed diversional activities, trained sitter in room, Alternative interventions: Ineffective. Clinical justification for use: line protection, patient safety, Mental status: subdued, Cognition: poor judgement, poor safety awareness, impulsive, poor attention/concentration, unable to follow commands, Circulation: Within defined parameters (based on Cardiovascular assessment) Skin integrity: Impaired (see Integumentary assessment) Signs of injury related to restraint: No injuries noted. Range of Motion (ROM): performed. Hydration/Food: patient declined. Elimination/Hygiene: diapers changed. Restraint status: Side rails up x 4 Soft wrist restraint (Right) Soft wrist restraint (Left) Soft ankle restraint (Right) Soft ankle restraint (Left) Continued. Criteria to discontinue Restraint not met. Restraint continued. 02:00 Non-Violent Restraint: Actions/Behavior observed: Confused/disoriented, has difficulty sf remembering/follow instructions, has impaired decision making, repeated attempts to get up from bed/chair w/o assistance, unable to follow instructions, repeated attempts to remove/tamper lines/tubes/IV med devices \\T\\ wound dressing, attempting to eat non-edibles. Less restrictive alternatives attempted: decrease environmental stimuli, 1:1 patient care, placed near Nurse station, medicated for pain/anxiety, repositioned, performed diversional activities, trained sitter in room, Alternative interventions: Ineffective. Clinical justification for use: line protection, patient safety, Mental status: agitated/restless, Cognition: poor judgement, poor safety awareness, impulsive, poor attention/concentration, unable to follow commands, Circulation: Within defined parameters (based on Cardiovascular assessment) Skin integrity: Impaired (see Integumentary assessment) Signs of injury related to restraint: No injuries noted. Range of Motion (ROM): performed. Hydration/Food: Meal/Snack provided:tolerated. PO fluids provided:tolerated, Elimination/Hygiene: perineal care performed, diapers changed. Restraint status: Side rails up x 4 Soft wrist restraint (Right) Soft wrist restraint (Left) Soft ankle restraint (Right) Soft ankle restraint (Left) Continued. Criteria to discontinue Restraint not met. Restraint continued. 04:00 Non-Violent Restraint: Actions/Behavior observed: Confused/disoriented, has difficulty sf remembering/follow instructions, has impaired decision making, repeated attempts to get up from bed/chair w/o assistance, unable to follow instructions, repeated attempts to remove/tamper lines/tubes/IV med devices \\T\\ wound dressing, Less restrictive alternatives attempted: decrease environmental stimuli, 1:1 patient care, placed near Nurse station, medicated for pain/anxiety, repositioned, performed diversional activities, trained sitter in room, Alternative interventions: Ineffective. Clinical justification for use: line protection, patient safety, Mental status: confused, subdued, Cognition: poor judgement, poor safety awareness, impulsive, poor attention/concentration, unable to follow commands, Circulation: Within defined parameters (based on Cardiovascular assessment) Skin integrity: Impaired (see Integumentary assessment) Signs of injury related to restraint: No injuries noted. Range of Motion (ROM): performed. Hydration/Food: Meal/Snack provided:tolerated. PO fluids provided:tolerated, Elimination/Hygiene: perineal care performed, diapers changed. Restraint status: Side rails up x 4 Soft wrist restraint (Right) Soft wrist restraint (Left) Soft ankle restraint (Right) Soft ankle restraint (Left) Continued. Criteria to discontinue Restraint not met. Restraint continued. 06:00 Non-Violent Restraint: Actions/Behavior observed: Confused/disoriented, has difficulty sf remembering/follow instructions, has impaired decision making, repeated attempts to get up from bed/chair w/o assistance, unable to follow instructions, repeated attempts to remove/tamper lines/tubes/IV med devices \\T\\ wound dressing, Less restrictive alternatives attempted: decrease environmental stimuli, 1:1 patient care, placed near Nurse station, medicated for pain/anxiety, repositioned, performed diversional activities, trained sitter in room, Alternative interventions: Ineffective. Clinical justification for use: line protection, patient safety, Mental status: patient asleep, Cognition: Unable to assess. Circulation: Within defined parameters (based on Cardiovascular assessment) Skin integrity: Impaired (see Integumentary assessment) Signs of injury related to restraint: No injuries noted. Range of Motion (ROM): patient asleep. Hydration/Food: patient asleep. Elimination/Hygiene: Patient asleep. Restraint status: Side rails up x 4 Soft wrist restraint (Right) Soft wrist restraint (Left) Soft ankle restraint (Right) Soft ankle restraint (Left) Continued. Criteria to discontinue Restraint not met. Restraint continued. 08:00 Non-Violent Restraint: Actions/Behavior observed: Confused/disoriented, has difficulty bp remembering/follow instructions, has impaired decision making, repeated attempts to get up from bed/chair w/o assistance, unable to follow instructions, repeated attempts to remove/tamper lines/tubes/IV med devices \\T\\ wound dressing, Less restrictive alternatives attempted: decrease environmental stimuli, 1:1 patient care, placed near Nurse station, medicated for pain/anxiety, repositioned, performed diversional activities, lines/tubes covered, eliminated unnecessary lines/tubes, verbal de-escalation performed, Alternative interventions: Ineffective. Clinical justification for use: line protection, patient safety, Mental status: agitated/restless, confused, Cognition: poor judgement, poor safety awareness, impulsive, poor attention/concentration, unable to follow commands, Circulation: Within defined parameters (based on Cardiovascular assessment) Skin integrity: Within defined parameters (based on Integumentary assessment) Signs of injury related to restraint: No injuries noted. Range of Motion (ROM): performed. Hydration/Food: Meal/Snack provided:tolerated. Elimination/Hygiene: Patient declined. diapers changed. Restraint status: Soft wrist restraint (Right) Continued. Soft wrist restraint (Left) Continued. Soft ankle restraint (Right) Continued. Soft ankle restraint (Left) Continued. Criteria to discontinue Restraint not met. Restraint continued. 10:00 Non-Violent Restraint: Actions/Behavior observed: Confused/disoriented, has difficulty bp remembering/follow instructions, has impaired decision making, repeated attempts to get up from bed/chair w/o assistance, unable to follow instructions, repeated attempts to remove/tamper lines/tubes/IV med devices \\T\\ wound dressing, Less restrictive alternatives attempted: decrease environmental stimuli, 1:1 patient care, placed near Nurse station, medicated for pain/anxiety, repositioned, performed diversional activities, lines/tubes covered, eliminated unnecessary lines/tubes, verbal de-escalation performed, Alternative interventions: Ineffective. Clinical justification for use: line protection, patient safety, Mental status: agitated/restless, confused, Cognition: poor judgement, poor safety awareness, impulsive, poor attention/concentration, unable to follow commands, Circulation: Within defined parameters (based on Cardiovascular assessment) Skin integrity: Within defined parameters (based on Integumentary assessment) Signs of injury related to restraint: No injuries noted. Range of Motion (ROM): performed. Hydration/Food: Meal/Snack provided:tolerated. Elimination/Hygiene: Patient declined. Restraint status: Soft wrist restraint (Right) Continued. Soft wrist restraint (Left) Continued. Soft ankle restraint (Right) Continued. Soft ankle restraint (Left) Continued. Criteria to discontinue Restraint not met. Restraint continued. 12:00 Non-Violent Restraint: Actions/Behavior observed: Confused/disoriented, has difficulty bp remembering/follow instructions, has impaired decision making, repeated attempts to get up from bed/chair w/o assistance, unable to follow instructions, repeated attempts to remove/tamper lines/tubes/IV med devices \\T\\ wound dressing, Less restrictive alternatives attempted: decrease environmental stimuli, 1:1 patient care, placed near Nurse station, medicated for pain/anxiety, repositioned, performed diversional activities, Alternative interventions: Ineffective. Clinical justification for use: line protection, patient safety, Mental status: agitated/restless, confused, Cognition: poor judgement, poor safety awareness, poor attention/concentration, unable to follow commands, Circulation: Within defined parameters (based on Cardiovascular assessment) Skin integrity: Within defined parameters (based on Integumentary assessment) Signs of injury related to restraint: No injuries noted. Range of Motion (ROM): performed. Hydration/Food: Meal/Snack provided:tolerated. Elimination/Hygiene: diapers changed. Restraint status: Soft wrist restraint (Right) Continued. Soft wrist restraint (Left) Continued. Soft ankle restraint (Right) Continued. Soft ankle restraint (Left) Continued. Criteria to discontinue Restraint not met. Restraint continued. 16:00 Non-Violent Restraint: Actions/Behavior observed: Confused/disoriented, has difficulty bp remembering/follow instructions, has impaired decision making, repeated attempts to get up from bed/chair w/o assistance, unable to follow instructions, repeated attempts to remove/tamper lines/tubes/IV med devices \\T\\ wound dressing, Less restrictive alternatives attempted: decrease environmental stimuli, 1:1 patient care, placed near Nurse station, medicated for pain/anxiety, repositioned, performed diversional activities, lines/tubes covered, eliminated unnecessary lines/tubes, verbal de-escalation performed, Alternative interventions: Ineffective. Clinical justification for use: line protection, patient safety, Mental status: agitated/restless, confused, Cognition: Unable to assess. poor judgement, poor safety awareness, impulsive, poor attention/concentration, unable to follow commands, Circulation: Within defined parameters (based on Cardiovascular assessment) Skin integrity: Within defined parameters (based on Integumentary assessment) Signs of injury related to restraint: No injuries noted. Range of Motion (ROM): declined. Hydration/Food: Meal/Snack provided:tolerated. Elimination/Hygiene: diapers changed. Restraint status: Soft wrist restraint (Right) Continued. Soft wrist restraint (Left) Continued. Soft ankle restraint (Right) Continued. Soft ankle restraint (Left) Continued. Criteria to discontinue Restraint not met. Restraint continued. 18:00 Non-Violent Restraint: Actions/Behavior observed: Confused/disoriented, has difficulty bp remembering/follow instructions, has impaired decision making, repeated attempts to get up from bed/chair w/o assistance, unable to follow instructions, repeated attempts to remove/tamper lines/tubes/IV med devices \\T\\ wound dressing, Less restrictive alternatives attempted: decrease environmental stimuli, placed near Nurse station, reoriented to location, medicated for pain/anxiety, repositioned, performed diversional activities, lines/tubes covered, eliminated unnecessary lines/tubes, verbal de-escalation performed, Alternative interventions: Ineffective. Clinical justification for use: line protection, patient safety, Mental status: agitated/restless, confused, Cognition: poor judgement, poor safety awareness, impulsive, poor attention/concentration, unable to follow commands, Circulation: Within defined parameters (based on Cardiovascular assessment) Skin integrity: Within defined parameters (based on Integumentary assessment) Signs of injury related to restraint: No injuries noted. Range of Motion (ROM): performed. Hydration/Food: Meal/Snack provided:tolerated. Elimination/Hygiene: Patient declined. Restraint status: Soft wrist restraint (Right) Continued. Soft wrist restraint (Left) Continued. Soft ankle restraint (Right) Continued. Soft ankle restraint (Left) Continued. Criteria to discontinue Restraint not met. Restraint continued. 20:00 Non-Violent Restraint: Actions/Behavior observed: Confused/disoriented, has difficulty rr5 remembering/follow instructions, has impaired decision making, repeated attempts to get up from bed/chair w/o assistance, unable to follow instructions, repeated attempts to remove/tamper lines/tubes/IV med devices \\T\\ wound dressing, Less restrictive alternatives attempted: decrease environmental stimuli, 1:1 patient care, placed near Nurse station, reoriented to location, medicated for pain/anxiety, repositioned, performed diversional activities, trained sitter in room, Alternative interventions: Ineffective. Clinical justification for use: line protection, patient safety, Mental status: agitated/restless, confused, Cognition: Unable to assess. poor judgement, poor safety awareness, impulsive, poor attention/concentration, unable to follow commands, Circulation: Within defined parameters (based on Cardiovascular assessment) Skin integrity: Impaired (see Integumentary assessment) Signs of injury related to restraint: No injuries noted. Range of Motion (ROM): performed. Hydration/Food: Meal/Snack provided:tolerated. PO fluids provided:tolerated, Elimination/Hygiene: diapers changed. Restraint status: Side rails up x 4 Continued. Soft wrist restraint (Right) Continued. Soft wrist restraint (Left) Continued. Soft ankle restraint (Right) Continued. Soft ankle restraint (Left) Continued. Criteria to discontinue Restraint not met. Restraint continued. 22:00 Non-Violent Restraint: Actions/Behavior observed: Confused/disoriented, has difficulty rr5 remembering/follow instructions, has impaired decision making, repeated attempts to get up from bed/chair w/o assistance, Less restrictive alternatives attempted: decrease environmental stimuli, 1:1 patient care, placed near Nurse station, reoriented to location, performed diversional activities, Alternative interventions: Ineffective. Clinical justification for use: line protection, patient safety, Mental status: confused, Cognition: Unable to assess. poor judgement, poor safety awareness, impulsive, poor attention/concentration, unable to follow commands, Circulation: Within defined parameters (based on Cardiovascular assessment) Skin integrity: Within defined parameters (based on Integumentary assessment) Signs of injury related to restraint: No injuries noted. Range of Motion (ROM): declined. Hydration/Food: patient declined. Elimination/Hygiene: Patient declined. 11/11 00:00 Non-Violent Restraint: Actions/Behavior observed: Confused/disoriented, has difficulty rr5 remembering/follow instructions, has impaired decision making, repeated attempts to get up from bed/chair w/o assistance, unable to follow instructions, repeated attempts to remove/tamper lines/tubes/IV med devices \\T\\ wound dressing, Less restrictive alternatives attempted: decrease environmental stimuli, 1:1 patient care, placed near Nurse station, reoriented to location, medicated for pain/anxiety, Alternative interventions: Ineffective. Clinical justification for use: line protection, patient safety, Mental status: agitated/restless, confused, Cognition: poor judgement, poor safety awareness, impulsive, poor attention/concentration, Circulation: Within defined parameters (based on Cardiovascular assessment) Skin integrity: Within defined parameters (based on Integumentary assessment) Signs of injury related to restraint: No injuries noted. Range of Motion (ROM): declined. Hydration/Food: PO fluids provided:tolerated, Elimination/Hygiene: Patient declined. diapers changed. Restraint status: Side rails up x 4 Continued. Soft wrist restraint (Right) Continued. Soft wrist restraint (Left) Continued. Soft ankle restraint (Right) Continued. Soft ankle restraint (Left) Continued. Criteria to discontinue Restraint not met. Restraint continued. 02:00 Non-Violent Restraint: Actions/Behavior observed: Confused/disoriented, has difficulty rr5 remembering/follow instructions, has impaired decision making, repeated attempts to get up from bed/chair w/o assistance, unable to follow instructions, repeated attempts to remove/tamper lines/tubes/IV med devices \\T\\ wound dressing, Less restrictive alternatives attempted: decrease environmental stimuli, 1:1 patient care, placed near Nurse station, reoriented to location, medicated for pain/anxiety, Alternative interventions: Ineffective. Clinical justification for use: line protection, patient safety, Mental status: agitated/restless, confused, Cognition: poor judgement, poor safety awareness, impulsive, poor attention/concentration, unable to follow commands, Circulation: Within defined parameters (based on Cardiovascular assessment) Skin integrity: Within defined parameters (based on Integumentary assessment) Signs of injury related to restraint: No injuries noted. Range of Motion (ROM): performed. Hydration/Food: Elimination/Hygiene: perineal care performed, Restraint status: Side rails up x 4 Continued. Soft wrist restraint (Right) Continued. Soft wrist restraint (Left) Continued. Soft ankle restraint (Right) Continued. Soft ankle restraint (Left) Continued. Criteria to discontinue Restraint not met. Restraint continued. 04:00 Non-Violent Restraint: Actions/Behavior observed: Confused/disoriented, unable to rr5 follow instructions, repeated attempts to remove/tamper lines/tubes/IV med devices \\T\\ wound dressing, Less restrictive alternatives attempted: 1:1 patient care, placed near Nurse station, repositioned, performed diversional activities, Alternative interventions: Ineffective. Clinical justification for use: line protection, patient safety, Mental status: confused, Cognition: poor judgement, poor safety awareness, impulsive, poor attention/concentration, unable to follow commands, Circulation: Within defined parameters (based on Cardiovascular assessment) Skin integrity: Within defined parameters (based on Integumentary assessment) Signs of injury related to restraint: No injuries noted. Range of Motion (ROM): performed. Hydration/Food: patient declined. Elimination/Hygiene: Patient declined. Restraint status: Side rails up x 4 Continued. Soft wrist restraint (Right) Continued. Soft wrist restraint (Left) Continued. Soft ankle restraint (Right) Continued. Soft ankle restraint (Left) Continued. Criteria to discontinue Restraint not met. Restraint continued. 06:00 Non-Violent Restraint: Actions/Behavior observed: Confused/disoriented, has difficulty rr5 remembering/follow instructions, has impaired decision making, repeated attempts to get up from bed/chair w/o assistance, unable to follow instructions, repeated attempts to remove/tamper lines/tubes/IV med devices \\T\\ wound dressing, Less restrictive alternatives attempted: decrease environmental stimuli, 1:1 patient care, placed near Nurse station, reoriented to location, medicated for pain/anxiety, Alternative interventions: Ineffective. Clinical justification for use: line protection, patient safety, Mental status: patient asleep, Cognition: poor judgement, poor safety awareness, impulsive, poor attention/concentration, unable to follow commands, Circulation: Within defined parameters (based on Cardiovascular assessment) Skin integrity: Within defined parameters (based on Integumentary assessment) Signs of injury related to restraint: No injuries noted. Range of Motion (ROM): patient asleep. Hydration/Food: patient asleep. Elimination/Hygiene: Patient asleep. Restraint status: Side rails up x 4 Soft wrist restraint (Right) Continued. Soft wrist restraint (Left) Continued. Soft ankle restraint (Right) Continued. Soft ankle restraint (Left) Continued. Criteria to discontinue Restraint not met. Restraint continued. 08:00 Non-Violent Restraint: Unable to provide Restraint education. Pt does not understand. jl7 Actions/Behavior observed: has difficulty remembering/follow instructions, has impaired decision making, repeated attempts to get up from bed/chair w/o assistance, unable to follow instructions, Clinical justification for use: line protection, patient safety, Mental status: patient asleep, Cognition: poor safety awareness, impulsive, unable to follow commands, Circulation: Within defined parameters (based on Cardiovascular assessment) Skin integrity: Within defined parameters (based on Integumentary assessment) Signs of injury related to restraint: No injuries noted. Range of Motion (ROM): patient asleep. Hydration/Food: patient asleep. Elimination/Hygiene: Patient asleep. Restraint status: Side rails up x 4 Continued. Soft wrist restraint (Right) Discontinued. Soft wrist restraint (Left) Continued. Soft ankle restraint (Right) Continued. Soft ankle restraint (Left) Continued. Criteria to discontinue Restraint not met. Restraint continued. 10:00 Non-Violent Restraint: Actions/Behavior observed: has difficulty remembering/follow jl7 instructions, has impaired decision making, repeated attempts to get up from bed/chair w/o assistance, unable to follow instructions, right wrist restraint not applied at this time, pt able to feed himself finger foods.. Less restrictive alternatives attempted: decrease environmental stimuli, performed diversional activities, eliminated unnecessary lines/tubes, Alternative interventions: Ineffective. Clinical justification for use: line protection, patient safety, Mental status: confused, Cognition: poor judgement, poor safety awareness, impulsive, unable to follow commands, Circulation: Within defined parameters (based on Cardiovascular assessment) Skin integrity: Within defined parameters (based on Integumentary assessment) Signs of injury related to restraint: No injuries noted. Range of Motion (ROM): performed. Hydration/Food: Meal/Snack provided:tolerated. Elimination/Hygiene: diapers changed. Restraint status: Side rails up x 4 Continued. Soft wrist restraint (Right) Discontinued. Soft wrist restraint (Left) Continued. Soft ankle restraint (Right) Continued. Soft ankle restraint (Left) Continued. Criteria to discontinue Restraint not met. Restraint continued. 12:00 Non-Violent Restraint: Actions/Behavior observed: has difficulty remembering/follow jl7 instructions, has impaired decision making, repeated attempts to get up from bed/chair w/o assistance, unable to follow instructions, repeated attempts to remove/tamper lines/tubes/IV med devices \\T\\ wound dressing, Less restrictive alternatives attempted: decrease environmental stimuli, medicated for pain/anxiety, repositioned, performed diversional activities, lines/tubes covered, Alternative interventions: Ineffective. Clinical justification for use: line protection, patient safety, Mental status: agitated/restless, Cognition: poor judgement, poor safety awareness, impulsive, unable to follow commands, Circulation: Within defined parameters (based on Cardiovascular assessment) Skin integrity: Within defined parameters (based on Integumentary assessment) Signs of injury related to restraint: No injuries noted. Range of Motion (ROM): performed. Hydration/Food: Meal/Snack provided:tolerated. Elimination/Hygiene: diapers changed. Restraint status: Side rails up x 4 Soft wrist restraint (Right) Continued. Soft wrist restraint (Left) Continued. Soft ankle restraint (Right) Continued. Soft ankle restraint (Left) Continued. Criteria to discontinue Restraint not met. Restraint continued. 14:00 Non-Violent Restraint: Actions/Behavior observed: has difficulty remembering/follow jl7 instructions, has impaired decision making, repeated attempts to get up from bed/chair w/o assistance, unable to follow instructions, repeated attempts to remove/tamper lines/tubes/IV med devices \\T\\ wound dressing, Less restrictive alternatives attempted: 1:1 patient care, reoriented to location, medicated for pain/anxiety, repositioned, performed diversional activities, Alternative interventions: Ineffective. Clinical justification for use: line protection, patient safety, Mental status: agitated/restless, Cognition: poor judgement, poor safety awareness, impulsive, unable to follow commands, Circulation: Within defined parameters (based on Cardiovascular assessment) Skin integrity: Within defined parameters (based on Integumentary assessment) Signs of injury related to restraint: No injuries noted. Range of Motion (ROM): performed. Hydration/Food: Meal/Snack provided:tolerated. Elimination/Hygiene: diapers changed. Restraint status: Side rails up x 4 Continued. Soft wrist restraint (Right) Continued. Soft wrist restraint (Left) Continued. Soft ankle restraint (Right) Continued. Soft ankle restraint (Left) Continued. Criteria to discontinue Restraint not met. Restraint continued. 16:00 Non-Violent Restraint: Actions/Behavior observed: has difficulty remembering/follow jl7 instructions, has impaired decision making, repeated attempts to get up from bed/chair w/o assistance, unable to follow instructions, repeated attempts to remove/tamper lines/tubes/IV med devices \\T\\ wound dressing, Less restrictive alternatives attempted: reoriented to location, Alternative interventions: Ineffective. Clinical justification for use: line protection, patient safety, Mental status: agitated/restless, Cognition: poor judgement, poor safety awareness, impulsive, Circulation: Within defined parameters (based on Cardiovascular assessment) Skin integrity: Within defined parameters (based on Integumentary assessment) Signs of injury related to restraint: No injuries noted. Range of Motion (ROM): performed. Hydration/Food: PO fluids provided:tolerated, Elimination/Hygiene: diapers changed. Restraint status: Side rails up x 4 Continued. Soft wrist restraint (Right) Continued. Soft wrist restraint (Left) Continued. Soft ankle restraint (Right) Continued. Soft ankle restraint (Left) Continued. Criteria to discontinue Restraint not met. Restraint continued. 18:00 Non-Violent Restraint: Restraint Discontinued on November 11, 2020 at 18:00 Effective jl7 alternative interventions implemented: decreased environmental stimuli, 1:1 patient care, performed diversional activities, lines/tubes covered, placed items close to patient. 11/13 17:00 Violent/Self Destructive Restraint: Order: obtained. Initiated November 13, 2020 at 17:00 em Staff present during the Initiation of Restraint: Sandra RN, ONELIA Butts, Melanie, loader technician, Angella, on site property manager, EMS personnel . Observed actions/behavior: destructive, harming self/others, confusion/disorientation, Less restrictive alternatives attempted: decreased environmental stimuli, 1:1 patient care, placed near Nurse station, medicated for pain/anxiety, performed diversional activities, covered lines/tubes, placed items close to patient, verbal de-escalation performed, Alternative interventions: Ineffective. Clinical justification for use: Violent/self destructing behavior impacts therapeutic environment. Poses a serious danger to physical safety of self \\T\\ others. Monitoring: Mental status: agitated/restless, Cognition: poor judgement, poor safety awareness, Impulsive, poor attention/concentration, unable to follow commands, Circulation: Within defined parameters (based on Cardiovascular assessment). Skin integrity: Impaired (see Integumentary assessment) No injuries due to Restraints noted. Range of Motion: patient asleep. Elimination/Hygiene: patient asleep. Restraint status: Side rails up x 4 Continued. Soft wrist restraint (Right) Continued. Soft wrist restraint (Left) Continued. Soft ankle restraint (Right) Continued. Soft ankle restraint (Left) Continued. Readiness for Discontinue: Release criteria met. No longer exhibiting violent or self destructive behavior. Alt interventions effective. Face to Face Evaluatn: Notified of Evaluation result: Gildardo Park DO. 17:15 Non-Violent Restraint: Order obtained. Initiated on November 13, 2020 at 17:15 Unable to em provide Restraint education. pt is nonverbal and does not understand. 17:25 Non-Violent Restraint: Criteria to discontinue restraint met:Patient no longer exhibits em self injurious behaviors. Restraint Discontinued on November 13, 2020 at 17:25 Effective alternative interventions implemented: decreased environmental stimuli, 1:1 patient care, placed near Nurse station, trained sitter in room, placed items close to patient. 11/23 21:30 Non-Violent Restraint: Order obtained. Initiated on November 23, 2020 at 21:30 Restraint ad5 Education provided to family/significant other/legally authorized used equipment sales representative. Actions/Behavior observed: Confused/disoriented, has difficulty remembering/follow instructions, has impaired decision making, repeated attempts to get up from bed/chair w/o assistance, unable to follow instructions, repeated attempts to remove/tamper lines/tubes/IV med devices \\T\\ wound dressing, Pt spitting at staff, multiple attempts to leave room; pt unreceptive to multiple staff attempts at redirection to plan of care. . Less restrictive alternatives attempted: decrease environmental stimuli, 1:1 patient care, placed near Nurse station, reoriented to location, medicated for pain/anxiety, repositioned, performed diversional activities, trained sitter in room, eliminated unnecessary lines/tubes, verbal de-escalation performed, Alternative interventions: Ineffective. Clinical justification for use: patient safety, Mental status: agitated/restless, confused, Cognition: Unable to assess. poor judgement, poor safety awareness, impulsive, poor attention/concentration, unable to follow commands, Circulation: Within defined parameters (based on Cardiovascular assessment) Skin integrity: Within defined parameters (based on Integumentary assessment) Signs of injury related to restraint: No injuries noted. Range of Motion (ROM): performed. Hydration/Food: patient declined. Elimination/Hygiene: Patient declined. Restraint status: Side rails up x 4 Started. Soft wrist restraint (Right) Started. Soft wrist restraint (Left) Started. Soft ankle restraint (Right) Started. Soft ankle restraint (Left) Started. Criteria to discontinue Restraint not met. Restraint continued. 23:30 Non-Violent Restraint: Initiated on November 23, 2020 at 21:30 Restraint Education provided ad5 to family/significant other/legally authorized used equipment sales representative. Actions/Behavior observed: Confused/disoriented, has difficulty remembering/follow instructions, has impaired decision making, unable to follow instructions, Less restrictive alternatives attempted: decrease environmental stimuli, 1:1 patient care, placed near Nurse station, reoriented to location, medicated for pain/anxiety, repositioned, performed diversional activities, trained sitter in room, eliminated unnecessary lines/tubes, verbal de-escalation performed, Alternative interventions: Ineffective. Clinical justification for use: patient safety, Mental status: agitated/restless, confused, Cognition: Unable to assess. poor judgement, poor safety awareness, impulsive, poor attention/concentration, unable to follow commands, Circulation: Within defined parameters (based on Cardiovascular assessment) Skin integrity: Within defined parameters (based on Integumentary assessment) Signs of injury related to restraint: No injuries noted. Range of Motion (ROM): performed. Hydration/Food: patient declined. Elimination/Hygiene: diapers changed. Restraint status: Side rails up x 4 Continued. Soft wrist restraint (Right) Discontinued. Soft wrist restraint (Left) Continued. Soft ankle restraint (Right) Continued. Soft ankle restraint (Left) Continued. Criteria to discontinue Restraint not met. Restraint continued. 11/24 00:30 Non-Violent Restraint: Initiated on November 23, 2020 at 21:30 Restraint Education provided ad5 to family/significant other/legally authorized used equipment sales representative. Actions/Behavior observed: Confused/disoriented, has difficulty remembering/follow instructions, has impaired decision making, unable to follow instructions, Less restrictive alternatives attempted: decrease environmental stimuli, 1:1 patient care, placed near Nurse station, reoriented to location, medicated for pain/anxiety, repositioned, performed diversional activities, trained sitter in room, eliminated unnecessary lines/tubes, verbal de-escalation performed, Alternative interventions: Effective Clinical justification for use: patient safety, Mental status: agitated/restless, confused, Cognition: Unable to assess. poor judgement, poor safety awareness, impulsive, poor attention/concentration, unable to follow commands, Circulation: Within defined parameters (based on Cardiovascular assessment) Skin integrity: Within defined parameters (based on Integumentary assessment) Signs of injury related to restraint: No injuries noted. Range of Motion (ROM): performed. Hydration/Food: Meal/Snack provided:tolerated. PO fluids provided:tolerated, Elimination/Hygiene: Patient declined. Restraint status: Side rails up x 4 Continued. Soft wrist restraint (Right) Discontinued. Soft wrist restraint (Left) Discontinued. Soft ankle restraint (Right) Discontinued. Soft ankle restraint (Left) Discontinued. Criteria to discontinue restraint met:Patient no longer exhibits self injurious behaviors. Restraint Discontinued on November 24, 2020 at 00:30 Effective alternative interventions implemented: decreased environmental stimuli, 1:1 patient care, placed near Nurse station, medicated for pain/anxiety, performed diversional activities, trained sitter in room, eliminated unnecessary lines/tubes, placed items close to patient. 11/25 16:39 Violent/Self Destructive Restraint: Order: obtained. Initiated November 25, 2020 at 16:40 tr6 Staff present during the Initiation of Restraint: jose mayes rn, nhi diaz, savita ROUSSEAU, Cristina RN, security x2, yane RN, laurie RN MD Sujata Houston. Observed actions/behavior: destructive, violent, severely aggressive, harming self/others, spitting on staff. Less restrictive alternatives attempted: decreased environmental stimuli, 1:1 patient care, reoriented to location, medications evaluated, medicated for pain/anxiety, repositioned, performed diversional activities, trained sitter in room, covered lines/tubes, eliminated unnecessary lines/tubes, placed items close to patient, verbal de-escalation performed, Alternative interventions: Ineffective. Clinical justification for use: Violent/self destructing behavior impacts therapeutic environment. Poses a serious danger to physical safety of self \\T\\ others. Monitoring: Cognition: poor judgement, poor safety awareness, Impulsive, poor attention/concentration, unable to follow commands, Circulation: Within defined parameters (based on Cardiovascular assessment). Skin integrity: Impaired (see Integumentary assessment) No injuries due to Restraints noted. Face to Face Evaluatn: MD Notified of Evaluation result: William Ernst MD. 11/26 00:45 Violent/Self Destructive Restraint: Order: obtained. Initiated November 26, 2020 at 00:45 jm8 Staff present during the Initiation of Restraint: parvez rn, kaushal emt, lisa rn, john rn, jose rn, sanya manpower development specialist manager. Observed actions/behavior: Less restrictive alternatives attempted: Alternative interventions: Clinical justification for use: Monitoring: Mental status: agitated/restless, confused. Cognition: poor judgement, poor safety awareness, Impulsive, poor attention/concentration, unable to follow commands, Circulation: Within defined parameters (based on Cardiovascular assessment). Skin integrity: Within defined parameters (based on Integumentary assessment) No injuries due to Restraints noted. Restraint status: Side rails up x 4 Soft wrist restraint (Right) Started. Soft wrist restraint (Left) Started. Soft ankle restraint (Right) Started. Soft ankle restraint (Left) Started. Readiness for Discontinue: Criteria not met. Patient still violent/self destructive and Alternative interventions still ineffective. Restraint continued. 01:00 Violent/Self Destructive Restraint: Order: obtained. Observed actions/behavior: jm8 destructive, violent, severely aggressive, confusion/disorientation, unable to follow instructions, Less restrictive alternatives attempted: decreased environmental stimuli, medicated for pain/anxiety, Alternative interventions: Ineffective. Monitoring: Mental status: agitated/restless, confused. Cognition: Unable to assess. Circulation: Within defined parameters (based on Cardiovascular assessment). Skin integrity: Within defined parameters (based on Integumentary assessment) No injuries due to Restraints noted. Restraint status: Side rails up x 4 Soft wrist restraint (Right) Soft wrist restraint (Left) Soft ankle restraint (Right) Soft ankle restraint (Left) Readiness for Discontinue: Criteria not met. Patient still violent/self destructive and Alternative interventions still ineffective. Restraint continued. 01:30 Violent/Self Destructive Restraint: Order: obtained. Observed actions/behavior: Less jm8 restrictive alternatives attempted: Alternative interventions: Ineffective. Clinical justification for use: Monitoring: Mental status: agitated/restless, confused. Cognition: Impulsive, unable to follow commands, Restraint status: Side rails up x 4 Soft wrist restraint (Right) Soft wrist restraint (Left) Soft ankle restraint (Right) Soft ankle restraint (Left) Readiness for Discontinue: Criteria not met. Patient still violent/self destructive and Alternative interventions still ineffective. Restraint continued. 01:45 Violent/Self Destructive Restraint: Order: obtained. Observed actions/behavior: jm8 destructive, violent, confusion/disorientation, Monitoring: Mental status: agitated/restless, Cognition: Unable to assess. Circulation: Within defined parameters (based on Cardiovascular assessment). Skin integrity: Within defined parameters (based on Integumentary assessment) No injuries due to Restraints noted. Range of Motion: Performed. Restraint status: Side rails up x 4 Soft wrist restraint (Right) Soft wrist restraint (Left) Soft ankle restraint (Right) Soft ankle restraint (Left) Readiness for Discontinue: Criteria not met. Patient still violent/self destructive and Alternative interventions still ineffective. Restraint continued. Face to Face Evaluatn: Immediate Situation: Patient still moving about in bed and fighting restraints. Will continue to monitor Continue Restraint. Notified of Evaluation result: Sanya HERNANDEZP-C. 02:00 Violent/Self Destructive Restraint: Order: obtained. Initiated November 26, 2020 at 00:45 jm8 Observed actions/behavior: destructive, violent, impaired decision making, Monitoring: Mental status: patient asleep, subdued, Cognition: Circulation: Within defined parameters (based on Cardiovascular assessment). Restraint status: Side rails up x 4 Soft wrist restraint (Right) Soft wrist restraint (Left) Soft ankle restraint (Right) Soft ankle restraint (Left) Readiness for Discontinue: Criteria not met. Patient still violent/self destructive and Alternative interventions still ineffective. Restraint continued. 02:15 Violent/Self Destructive Restraint: Order: obtained. Observed actions/behavior: jm8 destructive, violent, Less restrictive alternatives attempted: decreased environmental stimuli, medicated for pain/anxiety, trained sitter in room, Alternative interventions: Ineffective. Clinical justification for use: Violent/self destructing behavior impacts therapeutic environment. Poses a serious danger to physical safety of self \\T\\ others. Monitoring: Mental status: patient asleep, Cognition: Unable to assess. Circulation: Within defined parameters (based on Cardiovascular assessment). Skin integrity: Within defined parameters (based on Integumentary assessment) No injuries due to Restraints noted. Restraint status: Side rails up x 4 Soft wrist restraint (Right) Soft wrist restraint (Left) Soft ankle restraint (Right) Soft ankle restraint (Left) Readiness for Discontinue: Release criteria met. No longer exhibiting violent or self destructive behavior. Alt interventions effective. 02:19 Violent/Self Destructive Restraint: Restraint discontinuation: Discontinued at November [id number] at 02:19 Effective alternative interventions: decrease environmental stimuli, medicated for pain/anxiety, trained sitter in room. 11/27 03:05 Violent/Self Destructive Restraint: Order: obtained. Initiated November 27, 2020 at 03:05 [facility] Staff present during the Initiation of Restraint: placido rn, sena rn, parvez rn, mal emt, orlin rn. Observed actions/behavior: destructive, violent, severely aggressive, impaired decision making, Less restrictive alternatives attempted: decreased environmental stimuli, 1:1 patient care, medicated for pain/anxiety, Alternative interventions: Ineffective. Clinical justification for use: Violent/self destructing behavior impacts therapeutic environment. Poses a serious danger to physical safety of self \\T\\ others. Monitoring: Mental status: agitated/restless, Cognition: Unable to assess. Circulation: Within defined parameters (based on Cardiovascular assessment). Skin integrity: Within defined parameters (based on Integumentary assessment) No injuries due to Restraints noted. Restraint status: Soft wrist restraint (Right) Soft wrist restraint (Left) Soft ankle restraint (Right) Soft ankle restraint (Left) Started. Readiness for Discontinue: Criteria not met. Patient still violent/self destructive and Alternative interventions still ineffective. Restraint continued. 03:20 Violent/Self Destructive Restraint: Observed actions/behavior: destructive, violent, jm8 Less restrictive alternatives attempted: decreased environmental stimuli, 1:1 patient care, Alternative interventions: Ineffective. Clinical justification for use: Violent/self destructing behavior impacts therapeutic environment. Poses a serious danger to physical safety of self \\T\\ others. Monitoring: Mental status: confused. Cognition: Unable to assess. Circulation: Within defined parameters (based on Cardiovascular assessment). Skin integrity: Within defined parameters (based on Integumentary assessment) No injuries due to Restraints noted. Restraint status: Soft wrist restraint (Right) Soft wrist restraint (Left) Soft ankle restraint (Right) Soft ankle restraint (Left) Readiness for Discontinue: Criteria not met. Patient still violent/self destructive and Alternative interventions still ineffective. Restraint continued. 03:35 Violent/Self Destructive Restraint: Order: obtained. Observed actions/behavior: jm8 destructive, violent, Less restrictive alternatives attempted: decreased environmental stimuli, medicated for pain/anxiety, Alternative interventions: Ineffective. Clinical justification for use: Violent/self destructing behavior impacts therapeutic environment. Poses a serious danger to physical safety of self \\T\\ others. Monitoring: Mental status: confused. Cognition: Unable to assess. Circulation: Within defined parameters (based on Cardiovascular assessment). Skin integrity: Within defined parameters (based on Integumentary assessment) Restraint status: Soft wrist restraint (Right) Soft wrist restraint (Left) Soft ankle restraint (Right) Soft ankle restraint (Left) Readiness for Discontinue: Criteria not met. Patient still violent/self destructive and Alternative interventions still ineffective. Restraint continued. 03:50 Violent/Self Destructive Restraint: Order: obtained. Observed actions/behavior: jm8 destructive, violent, Less restrictive alternatives attempted: decreased environmental stimuli, 1:1 patient care, medicated for pain/anxiety, Alternative interventions: Ineffective. Clinical justification for use: Violent/self destructing behavior impacts therapeutic environment. Poses a serious danger to physical safety of self \\T\\ others. Monitoring: Mental status: patient asleep, subdued, Cognition: Unable to assess. Circulation: Within defined parameters (based on Cardiovascular assessment). Skin integrity: Within defined parameters (based on Integumentary assessment) No injuries due to Restraints noted. Restraint status: Soft wrist restraint (Right) Soft wrist restraint (Left) Soft ankle restraint (Right) Soft ankle restraint (Left) Readiness for Discontinue: Release criteria met. No longer exhibiting violent or self destructive behavior. Alt interventions effective. 03:53 Violent/Self Destructive Restraint: Restraint discontinuation: Discontinued at November [id number] at 03:53 Effective alternative interventions: decrease environmental stimuli, medicated for pain/anxiety, trained sitter in room. Administered Medications: 11/04 10:32 Not Given (Duplicate Order): Ativan (LORazepam) 2 mg IM once rn 10:38 Drug: Ativan (LORazepam) 1 mg Route: IVP; Site: right antecubital; vg1 11:00 Follow up: Response: No adverse reaction vg1 12:02 Drug: Ativan (LORazepam) 2 mg Route: IM; Site: right vastus lateralis; vg1 13:00 Follow up: Response: No adverse reaction vg1 15:04 Drug: Geodon 10 mg Route: IM; Site: right deltoid; hb 16:00 Follow up: Response: No adverse reaction vg1 19:55 CANCELLED (MD discretion): Geodon 20 mg IM once vg1 20:02 Drug: Ativan (LORazepam) 2 mg Route: IM; Site: left vastus lateralis; vg1 21:21 Follow up: Response: No adverse reaction vg1 22:50 Drug: Geodon 20 mg Route: IM; Site: Ventrogluteal LEFT; sf 23:20 Follow up: Response: No adverse reaction; RASS: Drowsy (-1) sf 04 03:05 Drug: Ativan (LORazepam) 1 mg Route: IVP; Site: left upper arm; sf 04:00 Follow up: Response: No adverse reaction sf 05:35 Drug: Ativan (LORazepam) 1 mg Route: IVP; Site: left antecubital; sf 06:09 Follow up: Response: No adverse reaction sf 05:52 Drug: Keppra (levETIRAcetam) 1000 mg Route: IV; Rate: calculated rate; Site: left sf antecubital; 06:09 Follow up: Response: No adverse reaction; IV Status: Completed infusion; IV Intake: sf 100ml 06:03 Drug: NS 0.9% 500 ml Route: IV; Rate: bolus; Site: left antecubital; sf 07:00 Follow up: Response: No adverse reaction; IV Status: Completed infusion; IV Intake: jd3 500ml 06:15 Drug: D5-1/2 NS 1000 ml Route: IV; Rate: 125 ml/hr; Site: left antecubital; 15:00 Follow up: Response: No adverse reaction; IV Status: Completed infusion; IV Intake: jd3 1000ml 06:16 Drug: Depacon 500 mg Volume: 5 ml; Route: IV; Rate: calculated rate; Site: left sf antecubital; 11/09 08:19 Follow up: Response: No adverse reaction; IV Status: Completed infusion; IV Intake: ll1 250ml 11/05 08:47 Drug: Ativan (LORazepam) 1 mg Route: IVP; Site: left antecubital; jd3 09:40 Follow up: Response: No adverse reaction jd3 16:09 Drug: Ativan (LORazepam) 2 mg Route: IVP; Site: left antecubital; jd3 17:00 Follow up: Response: No adverse reaction jd3 16:57 Drug: Keppra (levETIRAcetam) 500 mg Route: IV; Rate: calculated rate; Site: left [facility] antecubital; 17:31 Follow up: Response: No adverse reaction; IV Status: Completed infusion jd3 16:57 Drug: Ativan (LORazepam) 2 mg Route: IVP; Site: left antecubital; jd3 17:31 Follow up: Response: No adverse reaction jd3 20:36 Drug: Geodon 20 mg Route: IM; Site: left deltoid; ea 21:35 Follow up: Response: No adverse reaction ea 11/06 03:28 Drug: Ativan (LORazepam) 1 mg Route: IVP; Site: left antecubital; ea 06:54 Follow up: Response: No adverse reaction ea 08:30 Drug: Keppra (levETIRAcetam) 500 mg Route: IV; Rate: calculated rate; Site: left tr6 antecubital; 09:39 Follow up: IV Intake: 100ml tr6 09:39 Follow up: Response: No adverse reaction tr6 08:49 Drug: Depacon 500 mg Volume: 5 ml; Route: IV; Rate: calculated rate; Site: left tr6 antecubital; 09:39 Follow up: IV Intake: 100ml tr6 09:39 Follow up: Response: No adverse reaction tr6 14:30 Drug: Ativan (LORazepam) 1 mg Route: IVP; Site: left antecubital; aa5 19:00 Follow up: Response: No adverse reaction ea 14:37 Drug: Geodon 10 mg Route: IM; Site: left deltoid; tr6 19:00 Follow up: Response: No adverse reaction ea 19:34 Drug: Keppra (levETIRAcetam) 500 mg Route: IV; Rate: calculated rate; Site: left ea antecubital; 19:51 Follow up: Response: No adverse reaction; IV Status: Completed infusion; IV Intake: ea 100ml 19:52 Drug: Depacon 500 mg Volume: 5 ml; Route: IV; Rate: calculated rate; Site: left ea antecubital; 21:00 Follow up: IV Status: Completed infusion ea 11/07 07:33 Drug: Ativan (LORazepam) 2 mg Route: IVP; Site: left antecubital; hb 09:35 Follow up: Response: No adverse reaction hb 09:00 Drug: Keppra (levETIRAcetam) 500 mg Route: IV; Rate: calculated rate; Site: right hb forearm; 10:36 Follow up: IV Status: Completed infusion; IV Intake: 100ml vg1 19:05 Drug: Ativan (LORazepam) 1 mg Route: IVP; Site: right forearm; sf 21:01 Follow up: Response: No adverse reaction vg1 21:09 Drug: Ativan (LORazepam) 1 mg Route: IVP; Site: right wrist; vg1 22:00 Follow up: Response: No adverse reaction sf 11/08 11:20 Drug: Ativan (LORazepam) 1 mg Route: IVP; Site: left forearm; kg 11:45 Follow up: Response: No adverse reaction; Marked relief of symptoms; Anxiety decreased kg 13:11 Drug: Keppra (levETIRAcetam) 500 mg Route: IV; Rate: calculated rate; Site: right kg forearm; 13:25 Follow up: Response: No adverse reaction; IV Status: Completed infusion kg 13:25 Drug: Depacon 500 mg Volume: 5 ml; Route: IV; Rate: calculated rate; Site: right kg forearm; 11/09 08:20 Follow up: Response: No adverse reaction; IV Status: Completed infusion; IV Intake: ll1 250ml 00:14 Drug: Ativan (LORazepam) 1 mg Route: IVP; Site: right forearm; sf 01:00 Follow up: Response: No adverse reaction; Anxiety decreased sf 10:00 Drug: Depakote (divalproex) 500 mg Route: PO; ll1 10:19 Follow up: Response: No adverse reaction ll1 12:52 Follow up: Response: No adverse reaction kg 10:00 Drug: Keppra (levETIRAcetam) 1000 mg Route: PO; ll1 10:20 Follow up: Response: No adverse reaction ll1 12:52 Follow up: Response: No adverse reaction kg 14:34 Drug: Ativan (LORazepam) 1 mg Route: IVP; Site: right forearm; kg 19:36 Follow up: Response: No adverse reaction sf 22:15 Drug: Depakene 500 mg Route: PO; sf 11/10 01:00 Follow up: Response: No adverse reaction sf 11/09 22:15 Drug: Keppra (levETIRAcetam) 1000 mg Route: PO; sf 11/10 01:00 Follow up: Response: No adverse reaction sf 01:48 CANCELLED (Duplicate Order): Ativan (LORazepam) 1 mg IVP once sf 02:40 Drug: Ativan (LORazepam) 1 mg Route: IVP; Site: right forearm; sf 04:00 Follow up: Response: No adverse reaction; Anxiety decreased; RASS: Alert and Calm (0) sf 07:58 CANCELLED (Other Intervention Used): Depakene (valproic acid) 500 mg PO once bp 07:59 CANCELLED (Other Intervention Used): Keppra (levETIRAcetam) 1000 mg PO once bp 08:45 Drug: Ativan (LORazepam) 1 mg Route: IVP; Site: right forearm; bp 09:31 Follow up: Response: No adverse reaction; No change in condition bp 09:00 Drug: Keppra (levETIRAcetam) 1000 mg Route: IV; Rate: calculated rate; Site: right bp forearm; 09:31 Follow up: IV Status: Completed infusion; IV Intake: 100ml bp 09:30 Drug: Valproic Acid 500 mg Route: IV; Rate: calculated rate; Infused Over: 60 mins; bp Site: right forearm; 14:17 Follow up: IV Status: Completed infusion; IV Intake: 100ml bp 13:00 Drug: Ativan (LORazepam) 1 mg Route: IVP; Site: right antecubital; bp 11/14 15:28 Follow up: Response: No adverse reaction; RASS: Alert and Calm (0) ll1 11/10 17:45 Drug: Ativan (LORazepam) 1 mg Route: IVP; Site: right antecubital; bp 20:56 Drug: Keppra (levETIRAcetam) 1000 mg Route: IV; Rate: calculated rate; Site: right rr5 forearm; 21:16 Follow up: Response: No adverse reaction; IV Status: Completed infusion; IV Intake: rr5 100ml 21:16 Drug: Valproic Acid 500 mg Route: IV; Rate: calculated rate; Infused Over: 60 mins; rr5 Site: right forearm; 11/11 01:36 Follow up: IV Status: Completed infusion rr5 11/10 23:15 Drug: Ativan (LORazepam) 1 mg Route: IVP; Site: right forearm; rr5 11/11 01:00 Follow up: Response: No adverse reaction; No change in condition rr5 01:00 Drug: Geodon (ziprasidone) 10 mg Route: IM; Site: right deltoid; rr5 02:20 Follow up: Response: No adverse reaction rr5 10:53 Drug: Ativan (LORazepam) 1 mg Route: IVP; Site: right antecubital; jl7 11:15 Follow up: Response: No adverse reaction; Marked relief of symptoms jl7 13:50 Drug: Ativan (LORazepam) 1 mg Route: IVP; Site: right antecubital; jl7 14:00 Follow up: Response: No adverse reaction; Anxiety decreased jl7 17:00 Drug: Ativan (LORazepam) 2 mg Route: IVP; Site: right antecubital; jl7 21:45 Drug: Valproic Acid 500 mg Route: IV; Rate: calculated rate; Infused Over: 60 mins; rr5 Site: right forearm; 23:15 Follow up: Response: No adverse reaction; IV Status: Completed infusion; IV Intake: rr5 100ml 22:09 Drug: Geodon (ziprasidone) 10 mg Route: IM; Site: left deltoid; rr5 23:00 Follow up: Response: No adverse reaction; Marked relief of symptoms rr5 23:25 Drug: Keppra (levETIRAcetam) 1000 mg Route: IV; Rate: calculated rate; Site: left rr5 forearm; 11/12 00:00 Follow up: Response: No adverse reaction; IV Status: Completed infusion; IV Intake: rr5 100ml 08:15 Drug: Keppra (levETIRAcetam) 1000 mg Route: PO; tr6 20:42 Follow up: Response: No adverse reaction sf 08:15 Drug: Depakote (divalproex) 500 mg Route: PO; tr6 20:42 Follow up: Response: No adverse reaction sf 13:06 Drug: Ativan (LORazepam) 1 mg Route: IVP; Site: left forearm; ss 15:51 Follow up: Response: Other; given during seizure by Sandra ROUSSEAU. f/u pt is resting tr6 comfortably and seizure completed 16:11 CANCELLED (pt no longer needs at this time.): Colace (docusate) 100 mg PO once tr6 17:53 Drug: Ativan (LORazepam) 1 mg Route: IVP; Site: left wrist; tw2 20:48 Follow up: Response: No adverse reaction sf 20:32 Drug: Ativan (LORazepam) 1 mg Route: IVP; Site: left antecubital; sf 21:52 Follow up: Response: No adverse reaction sf 21:50 Drug: levETIRAcetam 1000 mg Route: IV; Rate: calculated rate; Site: left forearm; sf 22:05 Follow up: Response: No adverse reaction; IV Status: Completed infusion; IV Intake: sf 100ml 23:03 Drug: Valproic Acid 500 mg Route: IV; Rate: calculated rate; Infused Over: 60 mins; sf Site: left forearm; 11/13 00:04 Follow up: Response: No adverse reaction; IV Status: Completed infusion; IV Intake: sf 100ml 04:51 Drug: traZODONE 50 mg Route: PO; sf 07:04 Follow up: Response: No adverse reaction sf 15:34 Drug: Valproic Acid 500 mg Route: PO; em 21:20 Follow up: Response: No adverse reaction sf 15:35 Drug: Keppra (levETIRAcetam) 1000 mg Route: PO; em 21:19 Follow up: Response: No adverse reaction sf 16:50 Drug: Ativan (LORazepam) 2 mg Route: IVP; Site: left antecubital; em 21:18 Follow up: Response: No adverse reaction sf 17:03 Drug: Geodon (ziprasidone) 10 mg Route: IM; Site: right vastus lateralis; em 17:25 Follow up: Response: Marked relief of symptoms; Patient is sedated ss 20:55 Drug: Geodon (ziprasidone) 10 mg Route: IM; Site: Ventrogluteal RIGHT; sf 23:08 Follow up: Response: No adverse reaction sf 11/14 02:31 Drug: traZODONE 50 mg Route: PO; sf 15:29 Follow up: Response: No adverse reaction; RASS: Alert and Calm (0) ll1 02:32 Drug: Keppra (levETIRAcetam) 1000 mg Route: PO; sf 15:12 Follow up: Response: No adverse reaction; RASS: Alert and Calm (0) ll1 02:50 Drug: Depakene (valproic acid) 500 mg Route: PO; sf 15:30 Follow up: Response: No adverse reaction; RASS: Alert and Calm (0) ll1 09:01 Drug: Depakene (valproic acid) 500 mg Route: PO; ll1 15:30 Follow up: Response: No adverse reaction; RASS: Alert and Calm (0) ll1 09:02 Drug: Ativan (LORazepam) 1 mg Route: PO; ll1 15:58 Follow up: Response: No adverse reaction; RASS: Alert and Calm (0) ll1 09:02 Drug: Keppra (levETIRAcetam) 1000 mg Route: PO; ll1 15:58 Follow up: Response: No adverse reaction; RASS: Alert and Calm (0) ll1 15:15 Drug: Ativan (LORazepam) 2 mg Route: IM; Site: left vastus lateralis; ll1 15:59 Follow up: Response: No adverse reaction; RASS: Alert and Calm (0) 1 05 01:22 Drug: Depakene (valproic acid) 500 mg Route: PO; jm8 01:23 Drug: Keppra (levETIRAcetam) 1000 mg Route: PO; jm8 12:19 Drug: Ativan (LORazepam) 2 mg Route: IM; Site: right vastus lateralis; rb3 12:34 Follow up: Response: No adverse reaction rb3 19:10 Drug: Ativan (LORazepam) 2 mg Route: IM; Site: left gluteus; rv 19:30 Drug: Geodon (ziprasidone) 10 mg Route: IM; Site: right gluteus; rv 0502 06:53 Drug: Ativan (LORazepam) 2 mg Route: IM; Site: right deltoid; rv 07:10 Follow up: Response: No adverse reaction; Anxiety decreased rb3 06:54 Drug: Geodon (ziprasidone) 10 mg Route: IM; Site: left deltoid; rv 07:10 Follow up: Response: No adverse reaction; Anxiety decreased rb3 13:00 Drug: Keppra (levETIRAcetam) 1000 mg Route: PO; rb3 13:30 Follow up: Response: No adverse reaction rb3 13:00 Drug: Depakote (divalproex) 500 mg Route: PO; rb3 13:31 Follow up: Response: No adverse reaction rb3 15:38 CANCELLED (Physician Discretion): Ativan (LORazepam) 2 mg IM once aa5 15:43 Drug: Ativan (LORazepam) 2 mg Route: IM; Site: right vastus lateralis; aa5 16:30 Follow up: Response: No adverse reaction; Anxiety decreased rb3 23:55 Drug: Geodon (ziprasidone) 10 mg Route: IM; Site: right deltoid; iw 11/17 07:25 Drug: Ativan (LORazepam) 2 mg Route: IM; Site: right deltoid; tw2 08:25 Follow up: Response: No adverse reaction; Marked relief of symptoms; Anxiety decreased em 07:26 Drug: Geodon (ziprasidone) 10 mg Route: IM; Site: left deltoid; em 0504 03:13 Drug: KLONopin (clonazePAM) 1 mg Route: PO; ea 03:13 Drug: traZODONE 50 mg Route: PO; ea 03:14 Drug: Depakote (divalproex) 500 mg Route: PO; ea 03:14 Drug: Keppra (levETIRAcetam) 1000 mg Route: PO; ea 14:00 Drug: Geodon (ziprasidone) 10 mg Route: IM; Site: left deltoid; jl7 15:00 Drug: Keppra (levETIRAcetam) 500 mg Route: IV; Rate: calculated rate; Site: left jl7 forearm; 15:21 Follow up: Response: No adverse reaction; IV Status: Completed infusion jl7 23:04 Drug: keppra 500 mg Route: IV; Rate: 1 calculated rate; Site: left forearm; 23:04 Drug: Depakote (divalproex) 500 mg Route: PO; 11/19 10:56 Not Given (Patient Refused): Keppra (levETIRAcetam) 500 mg PO once tr6 10:56 Not Given (Patient Refused): Depakote (divalproex) 500 mg PO once tr6 11:08 Drug: Depacon (valproic acid) 500 mg Volume: 5 ml; Route: IV; Rate: calculated rate; tr6 Site: left forearm; 11:09 Drug: Keppra (levETIRAcetam) 500 mg Route: IV; Rate: calculated rate; Site: left tr6 forearm; 22:00 Drug: Depacon (valproic acid) 500 mg Volume: 5 ml; Route: IV; Rate: calculated rate; jm8 Site: left forearm; 11/20 00:28 Follow up: Response: No adverse reaction [facility] 11/19 22:01 Drug: Keppra (levETIRAcetam) 500 mg Route: IV; Rate: calculated rate; Site: left jm8 forearm; 11/20 00:27 Follow up: Response: No adverse reaction [facility] 11/19 22:17 Drug: Geodon (ziprasidone) 10 mg Route: IM; Site: right deltoid; 8 11/20 00:26 Follow up: Response: No adverse reaction; Patient is sedated 8 11:07 Drug: Keppra (levETIRAcetam) 500 mg Route: IV; Rate: calculated rate; Site: right tr6 forearm; 11:08 Drug: Depacon (valproic acid) 500 mg Volume: 5 ml; Route: IV; Rate: calculated rate; tr6 Site: right forearm; 18:03 Drug: Geodon (ziprasidone) 20 mg Route: IM; Site: right deltoid; tr6 19:17 Follow up: Response: No adverse reaction; Anxiety decreased tr6 22:09 Drug: Ativan (LORazepam) 1 mg Route: IVP; Site: right forearm; ea 05 12:38 Follow up: Response: No adverse reaction 1 11/20 23:13 Drug: Keppra (levETIRAcetam) 1000 mg Route: PO; ea 11/21 06:24 Follow up: Response: No adverse reaction ea 11/20 23:13 Drug: traZODONE 50 mg Route: PO; ea 11/21 06:23 Follow up: Response: No adverse reaction ea 11/20 23:14 Drug: Depakote (divalproex) 500 mg Route: PO; ea 11/21 06:23 Follow up: Response: No adverse reaction 12:00 Drug: Depakote (divalproex) 500 mg Route: PO; ll1 14:51 Follow up: Response: No adverse reaction; RASS: Alert and Calm (0) ll1 12:38 Drug: Keppra (levETIRAcetam) 1000 mg Route: PO; ll1 14:50 Follow up: Response: No adverse reaction; RASS: Alert and Calm (0) ll1 14:45 Drug: Ativan (LORazepam) 1 mg Route: PO; ll1 18:40 Follow up: Response: No adverse reaction; RASS: Alert and Calm (0) ll1 17:20 Drug: Geodon (ziprasidone) 20 mg Route: IM; Site: left vastus lateralis; ll1 18:42 Follow up: Response: No adverse reaction; RASS: Alert and Calm (0) ll1 23:43 Drug: Keppra (levETIRAcetam) 1000 mg Route: PO; 11/22 03:07 Follow up: Response: No adverse reaction 11/21 23:44 Drug: Depakote (divalproex) 500 mg Route: PO; 11/22 03:07 Follow up: Response: No adverse reaction 03:06 Drug: Geodon (ziprasidone) 10 mg Route: IM; Site: right gluteus; 03:39 Drug: Ativan (LORazepam) 1 mg Route: PO; 05:23 Drug: Benadryl (diphenhydrAMINE) 25 mg Route: IM; Site: left vastus lateralis; 19:25 Drug: Ativan (LORazepam) 2 mg Route: IM; Site: left vastus lateralis; jb4 20:00 Follow up: Response: No adverse reaction; Marked relief of symptoms jb4 19:25 Drug: Geodon (ziprasidone) 20 mg Route: IM; Site: left vastus lateralis; jb4 20:00 Follow up: Response: No adverse reaction; Marked relief of symptoms jb4 11/23 01:31 Drug: Keppra (levETIRAcetam) 500 mg Route: PO; jb4 02:00 Follow up: Response: No adverse reaction jb4 01:32 Drug: Depakote (divalproex) 500 mg Route: PO; jb4 02:00 Follow up: Response: No adverse reaction jb4 08:03 Drug: Ativan (LORazepam) 1 mg Route: PO; em 12:31 Follow up: Response: No adverse reaction em 08:03 Drug: Depakene (valproic acid) 500 mg Route: PO; em 12:31 Follow up: Response: No adverse reaction em 08:04 Drug: Keppra (levETIRAcetam) 500 mg Route: PO; em 12:31 Follow up: Response: No adverse reaction em 11:49 Drug: Benadryl (diphenhydrAMINE) 25 mg Route: PO; em 12:32 Follow up: Response: No adverse reaction em 12:12 Drug: Geodon (ziprasidone) 10 mg Route: IM; Site: left deltoid; em 12:33 Follow up: Response: No adverse reaction em 18:41 Drug: Geodon (ziprasidone) 10 mg Route: IM; Site: right deltoid; em 21:22 Follow up: Response: No adverse reaction; No change in condition ad5 21:30 Drug: Ativan (LORazepam) 1 mg {Note: per [facility] standing orders,unable to chart in ad5 [employer].} Route: IM; Site: left vastus lateralis; 11/24 03:27 Follow up: Response: No adverse reaction; Anxiety decreased ad5 03:00 Drug: Depakene (valproic acid) 500 mg Route: PO; ad5 08:40 Drug: Depakene (valproic acid) 500 mg Route: PO; tr6 08:40 Drug: Keppra (levETIRAcetam) 500 mg Route: PO; tr6 19:19 Drug: Geodon (ziprasidone) 10 mg Route: IM; Site: right deltoid; jm8 20:00 Follow up: Response: No adverse reaction jm8 11/25 02:51 Drug: Ativan (LORazepam) 1 mg Route: IM; Site: left deltoid; jm8 16:15 Drug: Ativan (LORazepam) 2 mg Route: IM; Site: right vastus lateralis; kg 16:15 Drug: Geodon (ziprasidone) 10 mg Route: IM; Site: right vastus lateralis; kg 22:45 Drug: Keppra (levETIRAcetam) 500 mg Route: PO; jm8 23:12 Follow up: Response: No adverse reaction jm8 22:49 Drug: Depakote (divalproex) 500 mg Route: PO; jm8 11/26 01:24 Follow up: Response: No adverse reaction jm8 00:26 Drug: Geodon (ziprasidone) 10 mg Route: IM; Site: left deltoid; jm8 01:23 Follow up: Response: No adverse reaction jm8 01:47 Drug: Ativan (LORazepam) 1 mg Route: IM; Site: left vastus lateralis; jm8 03:00 Follow up: Response: No adverse reaction; Patient is sedated jm8 19:13 Drug: Geodon (ziprasidone) 20 mg Route: IM; Site: left deltoid; jm8 19:19 Follow up: Response: No adverse reaction jm8 23:12 Drug: Keppra (levETIRAcetam) 500 mg Route: PO; jm8 23:13 Follow up: Response: No adverse reaction jm8 23:12 Drug: Depakote (divalproex) 500 mg Route: PO; jm8 23:13 Follow up: Response: No adverse reaction jm8 11/27 03:08 Drug: Ativan (LORazepam) 0.5 mg Route: IM; Site: left deltoid; jm8 04:00 Follow up: Response: No adverse reaction; Patient is sedated jm8 03:22 Drug: Valium (diazepam) 5 mg Route: IM; Site: right deltoid; jm8 03:59 Follow up: Response: No adverse reaction; Patient is sedated jm8 09:25 Drug: Keppra (levETIRAcetam) 1000 mg Route: PO; jl7 10:00 Follow up: Response: No adverse reaction jl7 09:26 Drug: Depakote (divalproex) 500 mg Route: PO; jl7 10:00 Follow up: Response: No adverse reaction jl7 Intake: 11/05 06:09 IV: 100ml; Total: 100ml. sf 07:00 IV: 500ml; Total: 600ml. jd3 15:00 IV: 1000ml; Total: 1600ml. jd3 11/06 09:39 IV: 100ml; Total: 1700ml. tr6 09:39 IV: 100ml; Total: 1800ml. tr6 19:51 IV: 100ml; Total: 1900ml. ea 11/07 10:36 IV: 100ml; Total: 2000ml. vg1 11/09 08:19 IV: 250ml; Total: 2250ml. ll1 08:20 IV: 250ml; Total: 2500ml. ll1 11/10 09:31 IV: 100ml; Total: 2600ml. bp 14:17 IV: 100ml; Total: 2700ml. bp 21:16 IV: 100ml; Total: 2800ml. rr5 11/11 23:15 IV: 100ml; Total: 2900ml. rr5 11/12 00:00 IV: 100ml; Total: 3000ml. rr5 22:05 IV: 100ml; Total: 3100ml. sf 11/13 00:04 IV: 100ml; Total: 3200ml. sf 11/08 14:36 Pt had one wet diaper. Pt is incontent kg 11/11 07:00 positive urine diaper wet rr5 Output: 11/08 07:45 Stool: 1; Total: 0ml. kg 11:40 Stool: 1 (Formed Stool) ; Total: 0ml. kg 14:36 Urine: 1ml (Voided); Total: 1ml. kg 19:23 Urine: 1ml (Voided); Total: 2ml. kg 11/10 21:30 Stool: 1; Total: 2ml. rr5 11/11 07:00 Other: 3 (Diapers) ; Total: 2ml. rr5 11/15 08:44 Stool: 1 (Formed Stool) ; Total: 2ml. rb3 09:19 Urine: 1ml (Voided); Total: 3ml. rb3 13:11 Urine: 1ml (Voided); Total: 4ml. rb3 16:02 Urine: 1ml (Voided); Total: 5ml. rb3 18:33 Urine: 1ml (Voided); Total: 6ml. rb3 11/16 07:28 Urine: 1ml (Voided); Total: 7ml. rb3 12:43 Urine: 1ml (Voided); Total: 8ml. rb3 13:22 Urine: 1ml (Voided); Stool: 1 (Formed Stool) ; Total: 9ml. rb3 11/23 21:00 Urine: 1ml (Voided); Stool: 1 (Formed Stool) ; Total: 10ml. ad5 11/08 14:36 Pt had one wet diaper. Pt is incontent kg 11/11 07:00 positive urine diaper wet rr5 Outcome: 11/04 20:56 ER care complete, transfer ordered by MD. santa 11/05 06:20 ER care complete, transfer ordered by MD. santa 17:51 Decision to Hospitalize by Provider. rn 11/27 09:58 Discharge ordered by MD. jrSony 10:33 Discharged to [facility] Bryant Lucas jl7 10:33 Condition: stable 10:33 Discharge instructions given to [facility] Instructed on discharge instructions, Demonstrated understanding of instructions. 10:36 Patient left the ED. jl7 Signatures: Dispatcher [employer] EDMS Azeb Messina Stephanie, RN Garret Yeboah MD MD cha Lam, Pin, MD MD pkl Rittger, Kevin, MD MD kdr Munoz, Edgar RN Lisa Ferguson RN William Real MD MD rn Martinez, Eric em1 Yane Herr RN ONELIA aa5 Sandra Carlson RN Soha Maldonado lc1 Alka Bolden RN RN lp1 Kike Engel PA PA jr8 Chance Ramires ds4 Stephy Live RN Cristina Baker, RN RN tw2 Ryan Tellez, RN RN jb4 Kaushal Hong Maria Dolly Poole jb5 Abimael Velazquez RN RN jl7 Nhi Santana mt, Elena, RN RN ea Habalo, Winsy, RN Shaji Vines RN ONELIA jd3 Savita Asher RN Mal Patton 2 Bina Barlow Ronaldo, RN RN rv Darius Lopez jp3 Esteban Shepard RN RN rr5 Angella Pace RN RN vg1 Enmanuel Hernández RN RN ll1 Placido Richardson tt3 Arabella Rodriguez, ONELIA RN rb3 Troy Felton RN RN sf Chuy Car RN RN jm8 Jose Mayes, RN RN tr6 Kyra Oconnor kg, Andrea ad5 Corrections: (The following items were deleted from the chart) 11/04 11:58 10:46 Cardiovascular: Patient's skin is warm and dry. vg1 vg1 11:58 10:46 Musculoskeletal: Capillary refill < 3 seconds, in bilateral fingers. toes. vg1 vg1 18:06 10:46 Derm: Skin is intact, is healthy with good turgor, vg1 vg1 22:20 20:15 Violent/Self Destructive Restraint: Observed actions/behavior: Pt sitting quietly vg1 in bed, loader technician at bedside. Less restrictive alternatives attempted: decreased environmental stimuli, 1:1 patient care, placed near Nurse station, reoriented to location, trained sitter in room, Alternative interventions: Ineffective. Clinical justification for use: Violent/self destructing behavior impacts therapeutic environment. Poses a serious danger to physical safety of self \\T\\ others. Monitoring: Mental status: subdued, Cognition: poor attention/concentration, unable to follow commands, Circulation: Within defined parameters (based on Cardiovascular assessment). Skin integrity: Within defined parameters (based on Integumentary assessment) Restraint status: Side rails up x 4 Soft wrist restraint (Right) Soft wrist restraint (Left) Soft ankle restraint (Right) Soft ankle restraint (Left) Mitt secured (Right) Mitt secured (Left) Readiness for Discontinue: Criteria not met. Patient still violent/self destructive and Alternative interventions still ineffective. Restraint continued. vg1 11/05 03:06 00:05 Inserted saline lock: 20 gauge in left forearm, using aseptic technique. sf sf 10:43 09:25 Reassessment: Patient appears in no apparent distress at this time. No changes jd3 from previously documented assessment. Patient and/or family updated on plan of care and expected duration. Pain level reassessed. pt biting at IV lines. sitter at bedside assisting pt and protecting lines jd3 04/22 10:10 10:08 Non-Violent Restraint: Mental status: agitated/restless, Cognition: poor tr6 judgement, poor safety awareness, impulsive, poor attention/concentration, unable to follow commands, Circulation: Within defined parameters (based on Cardiovascular assessment) Skin integrity: Within defined parameters (based on Integumentary assessment) Signs of injury related to restraint: No injuries noted. Range of Motion (ROM): performed. Hydration/Food: Meal/Snack provided:tolerated. PO fluids provided:tolerated, Elimination/Hygiene: perineal care performed, diapers changed. Restraint status: Soft wrist restraint (Right) Soft wrist restraint (Left) Soft ankle restraint (Right) Soft ankle restraint (Left) Continued. Criteria to discontinue Restraint not met. Restraint continued tr6 : 13:00 Non-Violent Restraint: Restraint status: Soft wrist restraint (Right) Soft wrist tr6 restraint (Left) Soft ankle restraint (Right) tr6 15: 14:00 Non-Violent Restraint: Mental status: confused, Cognition: poor judgement, poor tr6 safety awareness, impulsive, poor attention/concentration, Circulation: Within defined parameters (based on Cardiovascular assessment) Skin integrity: Within defined parameters (based on Integumentary assessment) Signs of injury related to restraint: No injuries noted. Range of Motion (ROM): performed. Hydration/Food: Meal/Snack provided:tolerated. PO fluids provided:tolerated, Elimination/Hygiene: Patient declined. Restraint status: Soft wrist restraint (Right) Soft wrist restraint (Left) Soft ankle restraint (Right) Soft ankle restraint (Left) Continued. Criteria to discontinue Restraint not met. Restraint continued tr6 16:22 15:24 BP 139 / 80; Pulse 118bpm; Resp 20bpm; Pulse Ox 95%; [facility]6 18:40 15:24 BP 139 / 80; Pulse 118bpm; Resp 20bpm; Pulse Ox 92%; [facility]5 18:40 17:33 BP 149 / 82; Pulse 111bpm; Resp 18bpm; Pulse Ox 100% 2 lpm; 6 [facility] 11/07 00:47 00:45 Reassessment: Patient and/or family updated on plan of care and expected ea duration. Pain level reassessed. Patient is alert, oriented x 3, equal unlabored respirations, skin warm/dry/pink. ea 05:51 01:00 BP 123 / 80; Pulse 99bpm; Resp 16bpm; Pulse Ox 99% RA; Temp 98.4F; ea ea 12:02 10:19 Reassessment: Patient appears in no apparent distress at this time. Patient vg1 and/or family updated on plan of care and expected duration. Pain level reassessed. Patient is alert, oriented x 3, equal unlabored respirations, skin warm/dry/pink. [employer] fed patient a donut, patient tolerated well. Currently watching tv, laying in bed quietly. vg1 15:33 15:30 Reassessment: Spoke with Keren with case management who states [facility] should ss be on there way to evaluate the patient to have waiver signed. 11/08 01:58 04 04:45 Violent/Self Destructive Restraint: sf 11/08 04:04 11/07 23:55 Reassessment: Patient appears in no apparent distress at this time. Patient sf and/or family updated on plan of care and expected duration. Pain level reassessed. Patient is alert, oriented x 3, equal unlabored respirations, skin warm/dry/pink. 11/08 05:39 05:00 Non-Violent Restraint: Actions/Behavior observed: Confused/disoriented, has sf difficulty remembering/follow instructions, has impaired decision making, repeated attempts to get up from bed/chair w/o assistance, unable to follow instructions, repeated attempts to remove/tamper lines/tubes/IV med devices \\T\\ wound dressing, Less restrictive alternatives attempted: decrease environmental stimuli, 1:1 patient care, placed near Nurse station, medicated for pain/anxiety, repositioned, performed diversional activities, trained sitter in room, Alternative interventions: Ineffective. Clinical justification for use: line protection, patient safety, Mental status: patient asleep, Cognition: Unable to assess. Circulation: Within defined parameters (based on Cardiovascular assessment) Skin integrity: Within defined parameters (based on Integumentary assessment) Signs of injury related to restraint: No injuries noted. Range of Motion (ROM): patient asleep. Hydration/Food: patient asleep. Elimination/Hygiene: Patient asleep. 11/09 17:24 12:00 Violent/Self Destructive Restraint: Observed actions/behavior: destructive, kg severely aggressive, harming self/others, confusion/disorientation, difficulty remembering or follow instructions, impaired decision making, repeated attempts to get up from bed/chair without assistance. decreased Level of Consciousness (LOC), unable to follow instructions, Less restrictive alternatives attempted: Alternative interventions: Clinical justification for use: Monitoring: Mental status: Cognition: Circulation: Within defined parameters (based on Cardiovascular assessment). Skin integrity: Impaired (see Integumentary assessment) No injuries due to Restraints noted. kg 17:36 12:34 Non-Violent Restraint: Restraint Education provided to family/significant kg other/legally authorized used equipment sales representative. Actions/Behavior observed: Confused/disoriented, has difficulty remembering/follow instructions, has impaired decision making, repeated attempts to get up from bed/chair w/o assistance, unable to follow instructions, repeated attempts to remove/tamper lines/tubes/IV med devices \\T\\ wound dressing, Less restrictive alternatives attempted: decrease environmental stimuli, 1:1 patient care, placed near Nurse station, medicated for pain/anxiety, repositioned, performed diversional activities, trained sitter in room, lines/tubes covered, eliminated unnecessary lines/tubes, verbal de-escalation performed, Alternative interventions: Ineffective. Clinical justification for use: line protection, patient safety, Mental status: agitated/restless, Cognition: Unable to assess. poor judgement, poor safety awareness, impulsive, poor attention/concentration, unable to follow commands, Circulation: Within defined parameters (based on Cardiovascular assessment) Skin integrity: Impaired (see Integumentary assessment) Signs of injury related to restraint: No injuries noted. Range of Motion (ROM): performed. Hydration/Food: Meal/Snack provided:tolerated. PO fluids provided:tolerated, Elimination/Hygiene: Patient declined. Restraint status: Side rails up x 4 Continued. Soft wrist restraint (Right) Continued. Soft wrist restraint (Left) Continued. Soft ankle restraint (Right) Continued. Soft ankle restraint (Left) Continued. kg 17:36 12:00 Non-Violent Restraint: Order obtained. sv kg 17:43 17:39 Violent/Self Destructive Restraint: Order: Observed actions/behavior: harming kg self/others, confusion/disorientation, difficulty remembering or follow instructions, impaired decision making, unable to follow instructions, Less restrictive alternatives attempted: decreased environmental stimuli, 1:1 patient care, placed near Nurse station, reoriented to location, Alternative interventions: Ineffective. Clinical justification for use: Violent/self destructing behavior impacts therapeutic environment. Poses a serious danger to physical safety of self \\T\\ others. Monitoring: Mental status: confused. Cognition: Unable to assess. poor judgement, poor safety awareness, Impulsive, poor attention/concentration, unable to follow commands, Circulation: Within defined parameters (based on Cardiovascular assessment). Skin integrity: Impaired (see Integumentary assessment) No injuries due to Restraints noted. Range of Motion: Performed. Elimination/Hygiene: diapers changed. Restraint status: Side rails up x 4 Continued. Soft wrist restraint (Right) Continued. Soft wrist restraint (Left) Continued. Soft ankle restraint (Right) Continued. Soft ankle restraint (Left) Continued. Readiness for Discontinue: Release criteria met. No longer exhibiting violent or self destructive behavior. Alt interventions effective. kg 17:46 12:45 Violent/Self Destructive Restraint: Order: Observed actions/behavior: harming kg self/others, confusion/disorientation, difficulty remembering or follow instructions, impaired decision making, unable to follow instructions, Less restrictive alternatives attempted: decreased environmental stimuli, 1:1 patient care, placed near Nurse station, reoriented to location, Alternative interventions: Ineffective. Clinical justification for use: Violent/self destructing behavior impacts therapeutic environment. Poses a serious danger to physical safety of self \\T\\ others. Monitoring: Mental status: confused. Cognition: Unable to assess. poor judgement, poor safety awareness, Impulsive, poor attention/concentration, unable to follow commands, Circulation: Within defined parameters (based on Cardiovascular assessment). Skin integrity: Impaired (see Integumentary assessment) No injuries due to Restraints noted. Range of Motion: Performed. Elimination/Hygiene: diapers changed. Restraint status: Side rails up x 4 Continued. Soft wrist restraint (Right) Continued. Soft wrist restraint (Left) Continued. Soft ankle restraint (Right) Continued. Soft ankle restraint (Left) Continued. Readiness for Discontinue: Release criteria met. No longer exhibiting violent or self destructive behavior. Alt interventions effective. kg 17:47 12:30 Violent/Self Destructive Restraint: Order: Observed actions/behavior: kg confusion/disorientation, difficulty remembering or follow instructions, impaired decision making, unable to follow instructions, Less restrictive alternatives attempted: decreased environmental stimuli, 1:1 patient care, placed near Nurse station, Alternative interventions: Effective. Clinical justification for use: Violent/self destructing behavior impacts therapeutic environment. Poses a serious danger to physical safety of self \\T\\ others. Monitoring: Mental status: confused. Cognition: Unable to assess. poor judgement, poor safety awareness, Impulsive, poor attention/concentration, unable to follow commands, Circulation: Within defined parameters (based on Cardiovascular assessment). Skin integrity: Impaired (see Integumentary assessment) No injuries due to Restraints noted. Restraint status: Side rails up x 4 Continued. Soft wrist restraint (Right) Continued. Soft wrist restraint (Left) Continued. Soft ankle restraint (Right) Continued. Soft ankle restraint (Left) Continued. Readiness for Discontinue: Criteria not met. Patient still violent/self destructive and Alternative interventions still ineffective. Restraint continued. kg 18:12 18:10 Violent/Self Destructive Restraint: Order: Observed actions/behavior: kg confusion/disorientation, difficulty remembering or follow instructions, unable to follow instructions, Less restrictive alternatives attempted: 1:1 patient care, placed near Nurse station, Alternative interventions: Ineffective. Clinical justification for use: Violent/self destructing behavior impacts therapeutic environment. Poses a serious danger to physical safety of self \\T\\ others. Monitoring: Mental status: confused. Cognition: poor judgement, poor safety awareness, Impulsive, poor attention/concentration, unable to follow commands, Circulation: Within defined parameters (based on Cardiovascular assessment). Skin integrity: Impaired (see Integumentary assessment) No injuries due to Restraints noted. Restraint status: Side rails up x 4 Continued. Soft wrist restraint (Right) Continued. Soft wrist restraint (Left) Continued. Soft ankle restraint (Right) Continued. Soft ankle restraint (Left) Continued. Readiness for Discontinue: Criteria not met. Patient still violent/self destructive and Alternative interventions still ineffective. Restraint continued. kg 20:18 20:17 Primary Nurse role handed off by Kyra Oconnor sf 20:18 20:17 Troy Felton, ONELIA is Primary Nurse. sf sf 23:06 22:15 Reassessment: Patient appears in no apparent distress at this time. No changes sf from previously documented assessment. sf 11/10 01:23 01:00 Reassessment: Patient appears in no apparent distress at this time. No changes sf from previously documented assessment. sf 01:46 01:45 Ativan (LORazepam) 1 mg IVP in right forearm sf sf 04:06 01:45 Ativan (LORazepam) 1 mg IVP in right forearm sf sf 04:07 03:00 Ativan (LORazepam) 1 mg IVP in right forearm [facility] 09:46 09:15 Reassessment: PT INCONTINENT TO URINE AFTER REMOVING DIAPER. PT CLEANED, BATHED bp AND CHANGED. NEW PIV PLACED. PT REMAINS NOT-REDIRECTABLE AND NON-VERBAL. PT AGITATED AND UNCOOPERATIVE bp 11/12 21:14 21:08 VALPROIC ACID (DEPAKOTE)+C.LAB.BRZ drawn and sent. jp3 jp3 21:09 KEPPRA (LEVETIRACETAM) drawn and sent. jp3 jp3 11/13 00:27 11/12 22:30 Reassessment: Patient appears in no apparent distress at this time. Patient sf and/or family updated on plan of care and expected duration. Pain level reassessed. Patient states symptoms have improved. sf 11/13 00:11/12 23:30 Reassessment: Patient appears in no apparent distress at this time. Patient sf and/or family updated on plan of care and expected duration. Pain level reassessed. Resting quietly sf 11/13 12:11 07:14 Reassessment: Patient appears in no apparent distress at this time. received em report from ONELIA Simmons, pt currently resting comfortable with eyes closed em 11/14 16:17 15:16 BP 114 / 78; Pulse 105bpm; Resp 15bpm; Pulse Ox 100% RA; ll1 ll1 11/16 09:11 07:08 Respiratory: Airway is patent Respiratory effort is even, unlabored, Respiratory rb3 pattern is regular, symmetrical, rb3 11/17 16:18 16:17 Reassessment: Pt seems to be agitated; monitoring pt closely; loader technician at bedside ss 19:14 18:28 Reassessment: AT approximately 1745, Pt urinated and defecated in bed, when ED vg1 Tech tried to help pt, pt became agitated and aggressive. Myself, forensic audit expert Beckie Gill RN Shelby, RN, ONELIA Evans, and two security guards were present to calm pt down. Pt was medicated per [facility] standing medication orders; Ativan 2 mg IM and Geodon 10 mg IM were administered. vg1 11/18 15:18 15:00 Keppra (levETIRAcetam) 500 mg IV at calculated rate in right forearm jl7 jl7 11/19 10:54 10:39 Depakote (divalproex) 500 mg PO tr6 tr6 10:56 10:40 Keppra (levETIRAcetam) 500 mg PO tr6 tr6 11/22 23:34 23:32 Response: No adverse reaction; Marked relief of symptoms jb4 jb4 11/24 00:13 11/23 21:30 Violent/Self Destructive Restraint: Order: obtained. Initiated November 23, 2020 ad5 at 21:30 Staff present during the Initiation of Restraint: ONELIA Yee; Chance, forensic audit expert; Placido, RN; ONELIA Hernandez. Observed actions/behavior: destructive, violent, harming self/others, confusion/disorientation, difficulty remembering or follow instructions, impaired decision making, unable to follow instructions, Less restrictive alternatives attempted: decreased environmental stimuli, 1:1 patient care, placed near Nurse station, reoriented to location, medicated for pain/anxiety, repositioned, performed diversional activities, trained sitter in room, eliminated unnecessary lines/tubes, placed items close to patient, verbal de-escalation performed, Alternative interventions: Ineffective. Clinical justification for use: Violent/self destructing behavior impacts therapeutic environment. Poses a serious danger to physical safety of self \\T\\ others. Monitoring: Mental status: agitated/restless, confused. Cognition: Unable to assess. poor judgement, poor safety awareness, Impulsive, poor attention/concentration, unable to follow commands, Circulation: Within defined parameters (based on Cardiovascular assessment). Skin integrity: Within defined parameters (based on Integumentary assessment) No injuries due to Restraints noted. Range of Motion: Performed. Hydration/Food: patient declined. Elimination/Hygiene: Patient declined. Restraint status: Side rails up x 4 Soft wrist restraint (Right) Soft wrist restraint (Left) Soft ankle restraint (Right) Soft ankle restraint (Left) Readiness for Discontinue: Criteria not met. Patient still violent/self destructive and Alternative interventions still ineffective. Restraint continued. Face to Face Evaluatn: Immediate Situation: Pt with multiple attempts to leave room in ED, appears agitated, aggressive toward staff. Pt spitting at sitter, unreceptive to assistance by staff to reorient pt to plan of care. Response of Patient to Restraint: Pt with multiple attempts to leave room in ED, appears agitated, aggressive toward staff. Pt spitting at sitter, unreceptive to assistance by staff to reorient pt to plan of care. Medical \\T\\ Behavioral condition: Pt with multiple attempts to leave room in ED, appears agitated, aggressive toward staff. Pt spitting at sitter, unreceptive to assistance by staff to reorient pt to plan of care. Continue Restraint. Notified of Evaluation result: Ervin Moran MD ad5 11/24 02:10 11/23 21:30 Violent/Self Destructive Restraint: Order: obtained. Initiated November 23, 2020 ad5 at 21:30 Staff present during the Initiation of Restraint: ONELIA Yee; Chance, forensic audit expert; Placido, RN; ONELIA Hernandez. Observed actions/behavior: destructive, violent, harming self/others, confusion/disorientation, difficulty remembering or follow instructions, impaired decision making, unable to follow instructions, Less restrictive alternatives attempted: decreased environmental stimuli, 1:1 patient care, placed near Nurse station, reoriented to location, medicated for pain/anxiety, repositioned, performed diversional activities, trained sitter in room, eliminated unnecessary lines/tubes, placed items close to patient, verbal de-escalation performed, Alternative interventions: Ineffective. Clinical justification for use: Violent/self destructing behavior impacts therapeutic environment. Poses a serious danger to physical safety of self \\T\\ others. Monitoring: Mental status: agitated/restless, confused. Cognition: Unable to assess. poor judgement, poor safety awareness, Impulsive, poor attention/concentration, unable to follow commands, Circulation: Within defined parameters (based on Cardiovascular assessment). Skin integrity: Within defined parameters (based on Integumentary assessment) No injuries due to Restraints noted. Range of Motion: Performed. Hydration/Food: patient declined. Elimination/Hygiene: Patient declined. Restraint status: Side rails up x 4 Soft wrist restraint (Right) Soft wrist restraint (Left) Soft ankle restraint (Right) Soft ankle restraint (Left) Readiness for Discontinue: Criteria not met. Patient still violent/self destructive and Alternative interventions still ineffective. Restraint continued. Face to Face Evaluatn: Immediate Situation: Pt with multiple attempts to leave room in ED, appears agitated, aggressive toward staff. Pt spitting at sitter, unreceptive to assistance by staff to reorient pt to plan of care. Response of Patient to Restraint: Pt continues to become aggressive toward staff, hitting at RN at bedside and continues to spit at staff. Medical \\T\\ Behavioral condition: Pt with hx of Autism, non-verbal. Unable to redirect pt d/t pmh and inability to understand plan of care in place for pt at this time. Continue Restraint. MD Notified of Evaluation result: Ervin Moran MD ad5 11/24 02:10 11/23 21:45 Violent/Self Destructive Restraint: Initiated November 23, 2020 at 21:30 ad5 Observed actions/behavior: destructive, severely aggressive, confusion/disorientation, difficulty remembering or follow instructions, impaired decision making, unable to follow instructions, Less restrictive alternatives attempted: decreased environmental stimuli, 1:1 patient care, placed near Nurse station, reoriented to location, medicated for pain/anxiety, repositioned, performed diversional activities, trained sitter in room, eliminated unnecessary lines/tubes, verbal de-escalation performed, Alternative interventions: Ineffective. Clinical justification for use: Violent/self destructing behavior impacts therapeutic environment. Poses a serious danger to physical safety of self \\T\\ others. Monitoring: Mental status: agitated/restless, confused. Cognition: Unable to assess. poor judgement, poor safety awareness, Impulsive, poor attention/concentration, unable to follow commands, Circulation: Within defined parameters (based on Cardiovascular assessment). Skin integrity: Within defined parameters (based on Integumentary assessment) No injuries due to Restraints noted. Restraint status: Side rails up x 4 Soft wrist restraint (Right) Soft wrist restraint (Left) Soft ankle restraint (Right) Soft ankle restraint (Left) Continued. Readiness for Discontinue: Criteria not met. Patient still violent/self destructive and Alternative interventions still ineffective. Restraint continued. ad5 11/24 02:30 11/23 21:30 Violent/Self Destructive Restraint: Order: obtained. Initiated November 23, 2020 ad5 at 21:30 Staff present during the Initiation of Restraint: ONELIA Yee; LINDA Fletcher Tech; ONELIA Phillip; ONELIA Hernandez. Observed actions/behavior: destructive, violent, harming self/others, confusion/disorientation, difficulty remembering or follow instructions, impaired decision making, unable to follow instructions, Less restrictive alternatives attempted: decreased environmental stimuli, 1:1 patient care, placed near Nurse station, reoriented to location, medicated for pain/anxiety, repositioned, performed diversional activities, trained sitter in room, eliminated unnecessary lines/tubes, placed items close to patient, verbal de-escalation performed, Alternative interventions: Ineffective. Clinical justification for use: Violent/self destructing behavior impacts therapeutic environment. Poses a serious danger to physical safety of self \\T\\ others. Monitoring: Mental status: agitated/restless, confused. Cognition: Unable to assess. poor judgement, poor safety awareness, Impulsive, poor attention/concentration, unable to follow commands, Circulation: Within defined parameters (based on Cardiovascular assessment). Skin integrity: Within defined parameters (based on Integumentary assessment) No injuries due to Restraints noted. Range of Motion: Performed. Hydration/Food: patient declined. Elimination/Hygiene: Patient declined. Restraint status: Side rails up x 4 Started. Soft wrist restraint (Right) Started. Soft wrist restraint (Left) Started. Soft ankle restraint (Right) Started. Soft ankle restraint (Left) Started. Readiness for Discontinue: Criteria not met. Patient still violent/self destructive and Alternative interventions still ineffective. Restraint continued. Face to Face Evaluatn: Immediate Situation: Pt with multiple attempts to leave room in ED, appears agitated, aggressive toward staff. Pt spitting at sitter, unreceptive to assistance by staff to reorient pt to plan of care. Response of Patient to Restraint: Pt continues to become aggressive toward staff, hitting at RN at bedside and continues to spit at staff. Medical \\T\\ Behavioral condition: Pt with hx of Autism, non-verbal. Unable to redirect pt d/t pmh and inability to understand plan of care in place for pt at this time. Continue Restraint. Notified of Evaluation result: Ervin Moran MD ad5 11/24 02:30 11/23 21:45 Violent/Self Destructive Restraint: Initiated November 23, 2020 at 21:30 ad5 Observed actions/behavior: destructive, severely aggressive, confusion/disorientation, difficulty remembering or follow instructions, impaired decision making, unable to follow instructions, Less restrictive alternatives attempted: decreased environmental stimuli, 1:1 patient care, placed near Nurse station, reoriented to location, medicated for pain/anxiety, repositioned, performed diversional activities, trained sitter in room, eliminated unnecessary lines/tubes, verbal de-escalation performed, Alternative interventions: Ineffective. Clinical justification for use: Violent/self destructing behavior impacts therapeutic environment. Poses a serious danger to physical safety of self \\T\\ others. Monitoring: Mental status: agitated/restless, confused. Cognition: Unable to assess. poor judgement, poor safety awareness, Impulsive, poor attention/concentration, unable to follow commands, Circulation: Within defined parameters (based on Cardiovascular assessment). Skin integrity: Within defined parameters (based on Integumentary assessment) No injuries due to Restraints noted. Restraint status: Side rails up x 4 Soft wrist restraint (Right) Soft wrist restraint (Left) Soft ankle restraint (Right) Soft ankle restraint (Left) Readiness for Discontinue: Criteria not met. Patient still violent/self destructive and Alternative interventions still ineffective. Restraint continued. ad5 11/24 02:30 11/23 22:00 Violent/Self Destructive Restraint: Initiated November 23, 2020 at 21:30 ad5 Observed actions/behavior: destructive, severely aggressive, confusion/disorientation, difficulty remembering or follow instructions, impaired decision making, unable to follow instructions, rptd attempts to remove/tamper lines/tubes/IV/med devices \\T\\ wnd dressing, Less restrictive alternatives attempted: decreased environmental stimuli, 1:1 patient care, placed near Nurse station, reoriented to location, medicated for pain/anxiety, repositioned, performed diversional activities, trained sitter in room, eliminated unnecessary lines/tubes, verbal de-escalation performed, Alternative interventions: Ineffective. Clinical justification for use: Violent/self destructing behavior impacts therapeutic environment. Poses a serious danger to physical safety of self \\T\\ others. Monitoring: Mental status: agitated/restless, confused. Cognition: Unable to assess. poor judgement, poor safety awareness, Impulsive, poor attention/concentration, unable to follow commands, Circulation: Within defined parameters (based on Cardiovascular assessment). Skin integrity: Within defined parameters (based on Integumentary assessment) No injuries due to Restraints noted. Restraint status: Side rails up x 4 Continued. Soft wrist restraint (Right) Continued. Soft wrist restraint (Left) Continued. Soft ankle restraint (Right) Continued. Soft ankle restraint (Left) Continued. Readiness for Discontinue: Criteria not met. Patient still violent/self destructive and Alternative interventions still ineffective. Restraint continued. ad5 11/24 02:30 11/23 22:15 Violent/Self Destructive Restraint: Initiated November 23, 2020 at 22:15 ad5 Observed actions/behavior: destructive, severely aggressive, confusion/disorientation, difficulty remembering or follow instructions, impaired decision making, unable to follow instructions, Less restrictive alternatives attempted: decreased environmental stimuli, 1:1 patient care, placed near Nurse station, reoriented to location, medicated for pain/anxiety, repositioned, performed diversional activities, trained sitter in room, eliminated unnecessary lines/tubes, verbal de-escalation performed, Alternative interventions: Ineffective. Clinical justification for use: Violent/self destructing behavior impacts therapeutic environment. Poses a serious danger to physical safety of self \\T\\ others. Monitoring: Mental status: agitated/restless, confused. Cognition: Unable to assess. poor judgement, poor safety awareness, Impulsive, poor attention/concentration, unable to follow commands, Circulation: Within defined parameters (based on Cardiovascular assessment). Skin integrity: Within defined parameters (based on Integumentary assessment) No injuries due to Restraints noted. Restraint status: Side rails up x 4 Continued. Soft wrist restraint (Right) Continued. Soft wrist restraint (Left) Continued. Soft ankle restraint (Right) Continued. Soft ankle restraint (Left) Continued. Readiness for Discontinue: Criteria not met. Patient still violent/self destructive and Alternative interventions still ineffective. Restraint continued. ad5 11/25 17:43 16:36 Reassessment: pt awake and walking around room kg tr6 11/27 00:42 11/26 19:15 Reassessment: jm8 jm8
--- NOTE | 2020-11-04 20:58 | EDPHYS ---
Physician Documentation [facility] Name: Wayne Camacho Age: 20 yrs Sex: Male : 2000 Arrival Date: 11/04/2020 Time: 10:02 Bed 19 Private MD: ED Physician William Ernst HPI: 11/04 10:04 This 20 yrs old Male presents to ER via Unassigned with complaints of rn agitation. 10:04 Per EMS report, patient brought from [facility] for agitation and rn combativeness, was just checked in last night to facility, was fighting with staff and unable to control him, takes multiple sedatives, is autistic, non-communicative. Police got involved, restrained him in body wrap and brought him here.. Onset: The symptoms/episode began/occurred at an unknown time. Severity of symptoms: At their worst the symptoms were moderate in the emergency department the symptoms are unchanged. It is unknown whether or not the patient has had similar symptoms in the past. It is unknown whether or not the patient has recently seen a physician. Historical: - Allergies: 10:55 No Known Allergies; vg1 - Home Meds: 10:55 acetaminophen 325 mg Oral tab [Active]; clindamycin HCl 300 mg Oral cap [Active]; vg1 Colace oral oral [Active]; divalproex oral oral [Active]; Keppra 1,000 mg Oral tab [Active]; Klonopin Oral [Active]; lorazepam 1 mg Oral tab [Active]; Ondansetron Oral [Active]; Silvadene Topical [Active]; Trazodone Oral [Active]; ziprasidone oral oral [Active]; - PMHx: 23:00 Seizures; Autism; sf - PSHx: 23:00 Unable to obtain; sf - Immunization history:: Adult Immunizations up to date. - Social history:: Smoking status: Patient denies any tobacco usage or history of. - History obtained from: EMS. ROS: 10:04 Unable to obtain ROS due to autistic, non-verbal. rn 11/12 07:32 Constitutional: Negative for fever, chills, and weight loss. kdr Exam: 11/04 10:04 Constitutional: This is a well developed, well nourished patient who is awake, and in rn no acute distress. Head/Face: Normocephalic, atraumatic. Eyes: Pupils equal round and reactive to light, extra-ocular motions intact. Lids and lashes normal. Conjunctiva and sclera are non-icteric and not injected. Cornea within normal limits. Periorbital areas with no swelling, redness, or edema. ENT: dry MM Neck: Trachea midline, no thyromegaly or masses palpated, and no cervical lymphadenopathy. Supple, full range of motion without nuchal rigidity, or vertebral point tenderness. No Meningismus. Cardiovascular: Regular rate and rhythm. No pulse deficits. Respiratory: No increased work of breathing, no retractions or nasal flaring. Abdomen/GI: soft, non-tender Skin: Warm, dry MS/ Extremity: Pulses equal, no cyanosis. Neuro: Awake, alert, non-verbal. Vital Signs: 10:06 BP 140 / 99; Pulse 110; Resp 16; Pulse Ox 100% on R/A; vg1 11:00 BP 109 / 76; Pulse 110; Resp 18; Pulse Ox 98% on R/A; vg1 18:22 BP 118 / 82; Pulse 80; Resp 16; Temp 98.7; Pulse Ox 100% on R/A; vg1 11/05 05:34 BP 142 / 93; Pulse 100; Resp 16; Pulse Ox 100% ; sf 05:45 BP 126 / 95; Pulse 109; Resp 16; Pulse Ox 100% ; sf 06:00 BP 128 / 93; Pulse 100; Pulse Ox 100% ; sf 06:30 BP 125 / 80; Pulse 84; Resp 16; Pulse Ox 100% ; sf 07:48 BP 126 / 89; Pulse 82; Resp 16; Temp 97.6(A); Pulse Ox 100% on R/A; mh5 12:24 BP 123 / 85; Pulse 99; Resp 18; Temp 98.0(A); Pulse Ox 100% on R/A; mh5 16:10 BP 128 / 84; Pulse 118; Resp 18 S; Pulse Ox 100% on R/A; jd3 17:35 BP 138 / 97; Pulse 119; Resp 16 S; Pulse Ox 99% on R/A; jd3 20:15 BP 124 / 83; Pulse 105; Resp 18; Pulse Ox 99% ; ea 23:00 BP 128 / 78; Pulse 104; Resp 16; Pulse Ox 98% ; ea 11/06 02:04 BP 125 / 82; Pulse 100; Resp 18; Pulse Ox 99% ; ea 03:30 BP 117 / 71; Pulse 105; Resp 19; Pulse Ox 99% on R/A; ea 05:16 BP 132 / 80; Pulse 103; Resp 16; Pulse Ox 98% on R/A; ea 05:16 Temp 98.1; ea 06:32 BP 119 / 74; Pulse 72; Resp 18; Pulse Ox 97% on R/A; ea 08:34 BP 110 / 70; Pulse 68; Resp 16; Temp 97.5(A); Pulse Ox 98% on R/A; mh5 12:06 BP 125 / 75; Pulse 110; Resp 16; Temp 97.8(A); Pulse Ox 96% on R/A; mh5 15:24 BP 133 / 81; Pulse 111; Resp 16; Pulse Ox 98% 2 lpm ; tr6 17:33 BP 149 / 82; Pulse 111; Resp 18; Temp 98.4(A); Pulse Ox 100% 2 lpm ; mh5 19:44 BP 149 / 82; Pulse 108; Resp 18; Pulse Ox 100% ; ea 22:13 BP 126 / 93; Pulse 103; Resp 16; Pulse Ox 99% on R/A; ea 11/07 01:00 BP 136 / 94; Pulse 100; Resp 16; Pulse Ox 99% ; ea 05:51 BP 123 / 80; Pulse 99; Resp 16; Temp 98.4; Pulse Ox 99% on R/A; ea 07:41 BP 130 / 80; Pulse 99; Resp 16; Temp 97.4(A); Pulse Ox 98% on R/A; mh5 11:52 BP 135 / 86; Pulse 110; Resp 16; Temp 97.7(A); Pulse Ox 95% on R/A; mh5 16:49 BP 124 / 82; Pulse 89; Resp 16; Temp 98.0(A); Pulse Ox 100% on R/A; mh5 18:05 BP 127 / 81; Pulse 97; Resp 16; Temp 97.4(A); Pulse Ox 98% on R/A; mh5 21:00 BP 124 / 84; Pulse 105; Resp 18; Pulse Ox 96% on R/A; 1 11/08 01:00 BP 123 / 87; Pulse 90; Resp 16; Pulse Ox 97% ; sf 04:00 BP 117 / 80; Pulse 52; Resp 14; Pulse Ox 97% ; sf 06:00 BP 110 / 66; Pulse 60; Resp 16; Pulse Ox 98% ; sf 08:07 BP 125 / 93; Pulse 63; Resp 15; Pulse Ox 97% ; kg 10:00 BP 118 / 91; Pulse 101; Resp 16; Temp 96.7(O); Pulse Ox 100% ; kg 12:00 BP 129 / 94; Pulse 98; Resp 18; Pulse Ox 99% on R/A; kg 14:00 BP 127 / 99; Pulse 92; Resp 15; Pulse Ox 98% on R/A; kg 16:00 BP 135 / 90; Pulse 91; Resp 17; Pulse Ox 98% on R/A; kg 18:00 BP 116 / 87; Pulse 96; Resp 16; Pulse Ox 96% on R/A; kg 20:00 BP 115 / 81; Pulse 62; Resp 16; Pulse Ox 98% ; 11/09 00:16 BP 122 / 83; Pulse 88; Resp 16; Pulse Ox 95% ; sf 02:00 BP 123 / 84; Pulse 86; Resp 16; Pulse Ox 93% ; sf 04:00 BP 107 / 69; Pulse 76; Resp 16; Pulse Ox 96% ; sf 06:00 BP 104 / 76; Pulse 58; Resp 14; Pulse Ox 97% ; sf 08:00 BP 109 / 70; Pulse 80; Resp 15; Temp 97.3; Pulse Ox 95% on R/A; Pain 0/10; ll1 10:00 BP 115 / 83; Pulse 88; Resp 15; Temp 97.4(TE); Pulse Ox 95% on R/A; Pain 0/10; ll1 12:00 BP 116 / 76; Pulse 81; Resp 17; Pulse Ox 97% ; kg 14:35 BP 122 / 72; Pulse 102; Resp 17; Pulse Ox 95% on R/A; kg 16:15 BP 129 / 77; Pulse 79; Resp 14; Pulse Ox 99% on R/A; kg 18:43 BP 111 / 69; Pulse 64; Resp 15; Temp 97.6(TE); Pulse Ox 100% on R/A; kg 20:00 BP 123 / 79; Pulse 105; Resp 16; Pulse Ox 97% ; sf 22:00 BP 123 / 64; Pulse 80; Resp 16; Pulse Ox 97% ; sf 11/10 00:00 BP 128 / 77; Pulse 97; Resp 16; Pulse Ox 97% ; sf 04:00 BP 121 / 70; Pulse 84; Resp 16; Pulse Ox 96% ; sf 06:00 BP 103 / 71; Pulse 76; Resp 16; Pulse Ox 97% ; sf 08:00 BP 91 / 66; Pulse 59; Resp 17; Pulse Ox 95% ; bp 10:00 BP 116 / 72; Pulse 101; Resp 17; Pulse Ox 100% ; bp 12:00 BP 120 / 70; Pulse 93; Resp 16; Pulse Ox 99% ; bp 14:00 BP 126 / 74; Pulse 88; Resp 16; Pulse Ox 99% ; bp 16:00 BP 115 / 72; Pulse 97; Resp 17; Pulse Ox 100% ; bp 18:00 BP 120 / 93; Pulse 110; Resp 16; Pulse Ox 97% ; bp 19:30 BP 125 / 78; Pulse 105; Resp 17; Temp 98; Pulse Ox 100% ; rr5 22:00 BP 116 / 89; Pulse 85; Resp 17; Pulse Ox 98% ; rr5 11/11 00:00 BP 133 / 70; Pulse 95; Resp 19; Temp 97.8; Pulse Ox 99% ; rr5 01:00 BP 116 / 84; Pulse 75; Resp 15; Pulse Ox 96% ; rr5 03:00 BP 126 / 89; Pulse 89; Resp 19; Pulse Ox 98% ; rr5 05:00 BP 113 / 78; Pulse 80; Resp 17; Temp 97.7; Pulse Ox 100% ; rr5 09:26 BP 110 / 84; Pulse 66; Resp 14; Pulse Ox 97% on R/A; mt 23:28 BP 123 / 85; Pulse 95; Resp 17; Temp 98.5; Pulse Ox 99% ; rr5 11/12 02:30 BP 106 / 70; Pulse 87; Resp 16; Pulse Ox 98% ; rr5 11/13 12:14 BP 122 / 77; Pulse 91; Resp 16; Pulse Ox 100% on R/A; em 11/14 03:03 BP 128 / 86; Pulse 84; Resp 14; Temp 98.2; Pulse Ox 100% ; ds4 10:48 BP 142 / 79; Pulse 98; Resp 15; Temp 97.8; Pulse Ox 100% on R/A; Pain 0/10; ll1 15:16 BP 120 / 91; Pulse 111; Resp 16; Pulse Ox 98% on R/A; ll1 16:17 BP 114 / 78; Pulse 105; Resp 15; Pulse Ox 100% on R/A; ll1 21:12 BP 122 / 82; Pulse 78; Resp 16; Pulse Ox 99% on R/A; jm8 05 01:23 BP 118 / 74; Pulse 84; Resp 16; Pulse Ox 99% on R/A; jm8 08:33 BP 108 / 74; Pulse 78; Resp 16; Temp 97.8(TE); Pulse Ox 100% ; mh5 19:55 BP 117 / 73; Pulse 106; Resp 15; Pulse Ox 96% on R/A; rv 11/16 13:43 BP 110 / 73; Pulse 88; Resp 16; Temp 99.1(TE); Pulse Ox 100% ; rb3 11/17 06:41 BP 105 / 63; Pulse 97; Resp 20; Temp 99.4(TE); Pulse Ox 100% on R/A; oe 10:21 BP 109 / 74; Pulse 70; Resp 16; Pulse Ox 100% on R/A; vg1 14:52 BP 99 / 70; Pulse 105; Resp 14; Pulse Ox 98% on R/A; vg1 11/18 00:35 BP 126 / 72; Pulse 88; Resp 18; Temp 98.3; Pulse Ox 100% ; ds4 10:37 BP 106 / 65; Pulse 107; Resp 19 S; Temp 99.1(A); Pulse Ox 97% on R/A; Weight 56.7 kg jl7 (M); 11/19 02:37 BP 103 / 71; Pulse 91; Resp 18; Temp 98.7; Pulse Ox 100% ; ds4 11:01 BP 111 / 74; Pulse 89; Resp 18; Temp 98.9(A); Pulse Ox 98% on R/A; mh5 14:22 Temp 98.7(R); tr6 11/20 02:23 BP 112 / 78; Pulse 84; Resp 16; Pulse Ox 99% on R/A; jm8 11:45 BP 121 / 72; Pulse 80; Resp 16; Temp 97.9(A); Pulse Ox 98% on R/A; mh5 11/21 11:37 BP 100 / 55; Pulse 80; Resp 15; Temp 97.6(TE); Pulse Ox 95% on R/A; ll1 15:47 BP 141 / 86; Pulse 103; Resp 16; Pulse Ox 95% on R/A; ll1 11/22 06:19 BP 117 / 74; Pulse 88; Resp 18; Temp 98.5; Pulse Ox 100% ; ds4 11/23 02:00 Pulse 86; Resp 16; Pulse Ox 100% on R/A; jb4 04:28 BP 109 / 64; Pulse 83; Resp 16; Temp 98.1; Pulse Ox 100% ; ds4 15:21 BP 98 / 53; Pulse 70; Resp 16; Temp 98.5(TE); Pulse Ox 95% on R/A; mh5 11/24 06:30 Pulse 63; Resp 18 S; Pulse Ox 100% ; ad5 11/25 05:13 BP 102 / 64; Pulse 60; Resp 16; Pulse Ox 100% on R/A; jm8 13:53 BP 119 / 82; Pulse 66; Resp 14; Pulse Ox 100% on R/A; mt 11/26 01:12 BP 114 / 78; Pulse 72; Resp 16; Pulse Ox 100% on R/A; jm8 11/27 01:41 BP 112 / 78; Pulse 80; Resp 16; Pulse Ox 99% on R/A; 8 11/05 17:35 provider notified of the heart rate. jd3 MDM: 11/04 10:02 Patient medically screened. rn 10:10 ED course: Mental health deputy states he was in contact with [facility], rn and gave us name ANDREW, that is supposed to get APS involved and plan was to take custody away from family, but when ANDREW contacted, we got a different story, he states pt needs stabilization and outpt f/u. EMS states that pt bounced around from facility to facility, seems likely related to uncontrolled behavior, and now [facility] doesn't want him back. . 11:55 ED course: Pt became more agitated, got out of bed, restrained physically for safety of corner cutter, then chemically with ativan, then mechanically with 4 point restraints. . 12:04 ED course: Pt attempting to bite staff, will cont to keep in restraints until safe to rn remove.. 14:49 ED course: Pt medically cleared, calm but still requiring restraints at this point. rn There is a facility that we have been in contact with that will accept behavioral/autistic patients, waiting natural resource economist back. . 18:49 Differential Diagnosis agitation, medication underdosing. Data reviewed: vital signs, rn nurses notes, lab test result(s), EKG. ED course: Pt without finding of acute delirium, unable to transfer for psychiatric reasons as more behavioral/autistic, family refuses to take ownership of patient and his care, APS involved, case was opened several days ago. No indication for admission but also not likely accepted for return to intermediate because of agitation and not able to control him, which is reason for sending him in today. Will likely require administration and/or caseworkers in AM for multi-disciplinary approach. . 11/05 05:48 ED course: pt had a seizure at 545am, given ativan 1 mg sivp x 1 and 1 gm of Keppra iv, santa seizur percautions. 15:17 ED course: Hand swelling noted to right hand and lef tmiddle finger that was not noted rn yesterday, xrays obtained, likely left 3rd middle phalanx nondisplaced fracture. Right hand neg films. . 19:08 ED course: After trying all day for placement, unable to figure out who is guardian and rn unable to transfer. Dr. Prak wants patient held in ER until tomorrow for APS involvement. States will eventually admit to hospitalist service, Dr. Putnam notified. . 11/06 13:52 ED course: Much more calm today, being fed, doing well. APS called and state hopefully rn able to come out today. Per hospital administration and hospitalist service, awaiting APS eval then can put in admission orders. Accepted for admission last night, awaiting admission orders. . 11/10 04:39 ED course: NAD, VSS, not combative, some restlessness. Still awaiting disposition for [facility] either admission or transfer to appropriate facility.. 11/11 03:07 ED course: Pt calm, continues to have intermittent agitation and gets period mago and rn his seizure medication.. 21:19 ED course: Pt seems much more calm today, is interacting better and laughing, is out of rn restraints, being wheeled around ER, eating. This is best he has been since arrival about a week ago. . 11/12 07:30 ED course: The patient is resting comfortably in the ED. kdr 11/15 10:43 ED course: Pt calm, eating, still not restrained anymore, normal vitals, has been rn getting his scheduled medication. Still no solid plan from inpatient/hospital, I am told this AM that plan is to still keep him down here as opposed to admission to complete his social work problems and find a place for him. His warrant has since length his arrival last week, not sure how much longer can keep him here, but is being well-cared for. . 11/24 15:07 Counseling: I had a detailed discussion with the patient and/or guardian regarding: the rn historical points, exam findings, and any diagnostic results supporting the discharge/admit diagnosis. ED course: Pt calm, continues to use bathroom in room and in chair. No seizure activity. Still unclear terminal operations supervisor plan, according to nursing, APS states case has not been officially started by our hospital. Not sure if hospitalist or social work has been rounding on this patient as originally planned. . 11/25 14:08 ED course: Pt with seizure on abstract clerk, medicated 2/2 agitation last night, now rn resting, stable vitals, no further seizure activity. . 18:17 ED course: Pt required sedation with geodon and ativan after running around ER, messing rn with equipment, spitting on staff, and unable to redirect him. . 11/26 19:04 ED course: Pt being wheeled around ER, seems calm, stable vitals. . rn 11/04 10:04 Order name: CBC with Diff rn 11/04 10:04 Order name: Basic Metabolic Panel rn 11/04 10:04 Order name: Urine Microscopic Only rn 11/04 10:04 Order name: Procalcitonin; Complete Time: 14:31 rn 11/04 10:04 Order name: Urine Drug Screen; Complete Time: 11:18 rn 11/04 10:04 Order name: Acetaminophen; Complete Time: 11:18 rn 11/04 10:04 Order name: ETOH Level; Complete Time: 11:18 rn 11/04 10:04 Order name: Hepatic Function; Complete Time: 11:18 rn 11/04 10:04 Order name: PT-INR; Complete Time: 11:18 rn 11/04 10:04 Order name: Ptt, Activated; Complete Time: 11:18 rn 11/04 10:04 Order name: Salicylate; Complete Time: 14:31 rn 11/04 10:05 Order name: CBC with Automated Diff; Complete Time: 14:31 EDMS 11/04 10:05 Order name: Basic Metabolic Panel; Complete Time: 11:18 EDMS 11/04 10:05 Order name: Urine Microscopic Only; Complete Time: 11:18 EDMS 11/04 10:35 Order name: Urine Dipstick-Ancillary; Complete Time: 11:18 EDMS 11/04 10:56 Order name: CBC Smear Scan; Complete Time: 14:31 EDMS 11/04 11:11 Order name: Urine Culture; Complete Time: 21:50 EDMS 11/05 05:45 Order name: Depakote santa 11/05 05:45 Order name: Valproic Acid (Depakene) Level; Complete Time: 13:18 EDMS 11/05 05:46 Order name: CBC with Diff; Complete Time: 13:18 santa 11/05 05:46 Order name: Comprehensive Metabolic Panel; Complete Time: 13:18 santa 11/08 12:52 Order name: CBC with Diff; Complete Time: 21:50 kg 11/08 12:52 Order name: Valproic Acid (depakote); Complete Time: 21:50 kg 11/12 20:39 Order name: Valproic Acid (depakote); Complete Time: 10:03 bb 11/12 20:48 Order name: KEPPRA (LEVETIRACETAM); Complete Time: 10:03 EDMS 11/18 13:33 Order name: CBC with Automated Diff; Complete Time: 10:03 EDMS 11/18 13:33 Order name: Comprehensive Metabolic Panel; Complete Time: 10:03 EDMS 11/18 13:33 Order name: KEPPRA (LEVETIRACETAM); Complete Time: 10:03 EDMS 11/18 13:33 Order name: Urinalysis W/Microscopic; Complete Time: 10:03 EDMS 11/18 13:33 Order name: Valproic Acid (Depakene) Level; Complete Time: 10:03 EDMS 11/05 13:08 Order name: XRAY Hand RIGHT 3 View; Complete Time: 16:06 rn 11/05 13:25 Order name: XRAY Hand LEFT 2 View; Complete Time: 16:06 11/18 16:02 Order name: CBC Smear Scan; Complete Time: 10:03 [facility] 11/19 15:27 Order name: Urine Culture; Complete Time: 10:03 EDNM 11/19 16:38 Order name: Stool Culture [facility] 11/19 16:38 Order name: Stool Culture; Complete Time: 10:03 EDNM 11/24 06:00 Order name: Valproic Acid (Depakene) Level; Complete Time: 10:03 [facility] 11/24 06:01 Order name: KEPPRA (LEVETIRACETAM) [facility] 11/04 10:04 Order name: IV Start; Complete Time: 10:34 11/04 10:04 Order name: Urine Dipstick-Ancillary (obtain specimen); Complete Time: 10:34 11/04 10:04 Order name: EKG; Complete Time: 10:05 11/04 10:04 Order name: EKG - Nurse/Tech; Complete Time: 10:51 11/04 10:04 Order name: Labs collected and sent; Complete Time: 10:34 11/04 11:54 Order name: Restraint:Violent/Self Destructive (Adult:18yo or >); Complete Time: 12:02 11/04 19:54 Order name: Restraint:Violent/Self Destructive (Adult:18yo or >); Complete Time: 19:55 [facility] 11/05 05:47 Order name: Seizure Precautions; Complete Time: 05:48 [facility] 11/05 07:34 Order name: Diet Regular; Complete Time: 07:35 [facility] 11/05 07:54 Order name: Labs - recollect needed; Complete Time: 08:27 [facility] 11/05 19:24 Order name: Restraint:Non-Violent: start at 0700 of 11/05/20; Complete Time: 19:24 [facility] 11/05 22:13 Order name: Misc. Order: CONTINUE ALL HOME MEDS, IVF; Complete Time: 01:19 [facility] 11/06 08:25 Order name: Restraint:Non-Violent; Complete Time: 08:26 [facility] 11/06 10:00 Order name: Diet Regular; Complete Time: 10:01 [facility] 11/06 11:42 Order name: Diet Regular; Complete Time: 11:42 [facility] 11/06 16:12 Order name: Diet Regular; Complete Time: 16:13 5 11/07 08:05 Order name: Diet Regular; Complete Time: 08:06 5 11/07 11:18 Order name: Diet Regular; Complete Time: 11:19 ss 11/07 12:22 Order name: Diet Regular; Complete Time: 12:22 5 11/08 07:17 Order name: Diet Regular; Complete Time: 07:18 ss 11/08 11:22 Order name: Diet Regular; Complete Time: 11:22 ss 11/09 07:11 Order name: Diet Regular; Complete Time: 07:11 eb 11/09 11:29 Order name: Diet Regular; Complete Time: 11:30 ss 11/09 12:51 Order name: Restraint:Violent/Self Destructive (Adult:18yo or >); Complete Time: 12:52 pkl 11/09 15:14 Order name: Diet Regular: dinner tray order; Complete Time: 15:14 eb 11/09 20:04 Order name: Restraint:Non-Violent; Complete Time: 20:11 [facility] 11/10 07:00 Order name: Diet Regular: Breakfast; Complete Time: 07:01 11/10 14:26 Order name: Diet Regular; Complete Time: 14:26 11/10 15:40 Order name: CONS Physician Consult [facility] 11/10 20:59 Order name: Restraint:Non-Violent; Complete Time: 21:00 5 11/11 07:19 Order name: Diet Regular; Complete Time: 07:19 7 11/11 12:32 Order name: Diet Regular; Complete Time: 12:33 1 11/11 16:33 Order name: Diet Regular: FINGER FOODS ONLY; Complete Time: 16:34 ld1 11/12 07:10 Order name: Diet Finger Food; Complete Time: 07:11 tr6 11/12 07:13 Order name: Diet Regular Pedi; Complete Time: 07:13 tr6 11/13 19:24 Order name: Restraint:Violent/Self Destructive (Adult:18yo or >): Verbal order for ss restraints for violent/ self destructive behavior recieved from Dr. Park at 1700. ; Complete Time: 19:24 11/14 08:08 Order name: Diet Regular; Complete Time: 08:09 eb 11/14 12:32 Order name: Diet Finger Food; Complete Time: 12:32 ca1 11/15 08:06 Order name: Diet Regular; Complete Time: 08:06 mh5 11/15 11:48 Order name: Diet Regular; Complete Time: 11:50 rb3 11/15 14:57 Order name: Diet Regular; Complete Time: 14:58 rb3 11/18 10:21 Order name: Diet Regular; Complete Time: 10:21 jl7 11/19 07:43 Order name: Diet Regular; Complete Time: 07:44 mh5 11/22 12:53 Order name: Diet Regular; Complete Time: 12:54 bp 11/22 15:39 Order name: Diet Regular; Complete Time: 15:40 bp 11/23 21:52 Order name: Restraint:Non-Violent; Complete Time: 22:41 tw4 11/27 03:10 Order name: Restraint:Non-Violent; Complete Time: 03:13 rn Administered Medications: 11/04 10:32 Not Given (Duplicate Order): Ativan (LORazepam) 2 mg IM once rn 10:38 Drug: Ativan (LORazepam) 1 mg Route: IVP; Site: right antecubital; vg1 11:00 Follow up: Response: No adverse reaction vg1 12:02 Drug: Ativan (LORazepam) 2 mg Route: IM; Site: right vastus lateralis; vg1 13:00 Follow up: Response: No adverse reaction vg1 15:04 Drug: Geodon 10 mg Route: IM; Site: right deltoid; hb 16:00 Follow up: Response: No adverse reaction vg1 19:55 CANCELLED (MD discretion): Geodon 20 mg IM once vg1 20:02 Drug: Ativan (LORazepam) 2 mg Route: IM; Site: left vastus lateralis; vg1 21:21 Follow up: Response: No adverse reaction vg1 22:50 Drug: Geodon 20 mg Route: IM; Site: Ventrogluteal LEFT; sf 23:20 Follow up: Response: No adverse reaction; RASS: Drowsy (-1) sf 11/05 03:05 Drug: Ativan (LORazepam) 1 mg Route: IVP; Site: left upper arm; sf 04:00 Follow up: Response: No adverse reaction sf 05:35 Drug: Ativan (LORazepam) 1 mg Route: IVP; Site: left antecubital; sf 06:09 Follow up: Response: No adverse reaction 05:52 Drug: Keppra (levETIRAcetam) 1000 mg Route: IV; Rate: calculated rate; Site: left antecubital; 06:09 Follow up: Response: No adverse reaction; IV Status: Completed infusion; IV Intake: sf 100ml 06:03 Drug: NS 0.9% 500 ml Route: IV; Rate: bolus; Site: left antecubital; sf 07:00 Follow up: Response: No adverse reaction; IV Status: Completed infusion; IV Intake: jd3 500ml 06:15 Drug: D5-1/2 NS 1000 ml Route: IV; Rate: 125 ml/hr; Site: left antecubital; 15:00 Follow up: Response: No adverse reaction; IV Status: Completed infusion; IV Intake: jd3 1000ml 06:16 Drug: Depacon 500 mg Volume: 5 ml; Route: IV; Rate: calculated rate; Site: left antecubital; 11/09 08:19 Follow up: Response: No adverse reaction; IV Status: Completed infusion; IV Intake: ll1 250ml 11/05 08:47 Drug: Ativan (LORazepam) 1 mg Route: IVP; Site: left antecubital; jd3 09:40 Follow up: Response: No adverse reaction jd3 16:09 Drug: Ativan (LORazepam) 2 mg Route: IVP; Site: left antecubital; jd3 17:00 Follow up: Response: No adverse reaction jd3 16:57 Drug: Keppra (levETIRAcetam) 500 mg Route: IV; Rate: calculated rate; Site: left [facility] antecubital; 17:31 Follow up: Response: No adverse reaction; IV Status: Completed infusion jd3 16:57 Drug: Ativan (LORazepam) 2 mg Route: IVP; Site: left antecubital; jd3 17:31 Follow up: Response: No adverse reaction jd3 20:36 Drug: Geodon 20 mg Route: IM; Site: left deltoid; ea 21:35 Follow up: Response: No adverse reaction ea 11/06 03:28 Drug: Ativan (LORazepam) 1 mg Route: IVP; Site: left antecubital; ea 06:54 Follow up: Response: No adverse reaction ea 08:30 Drug: Keppra (levETIRAcetam) 500 mg Route: IV; Rate: calculated rate; Site: left tr6 antecubital; 09:39 Follow up: IV Intake: 100ml tr6 09:39 Follow up: Response: No adverse reaction tr6 08:49 Drug: Depacon 500 mg Volume: 5 ml; Route: IV; Rate: calculated rate; Site: left tr6 antecubital; 09:39 Follow up: IV Intake: 100ml tr6 09:39 Follow up: Response: No adverse reaction tr6 14:30 Drug: Ativan (LORazepam) 1 mg Route: IVP; Site: left antecubital; aa5 19:00 Follow up: Response: No adverse reaction ea 14:37 Drug: Geodon 10 mg Route: IM; Site: left deltoid; tr6 19:00 Follow up: Response: No adverse reaction ea 19:34 Drug: Keppra (levETIRAcetam) 500 mg Route: IV; Rate: calculated rate; Site: left ea antecubital; 19:51 Follow up: Response: No adverse reaction; IV Status: Completed infusion; IV Intake: ea 100ml 19:52 Drug: Depacon 500 mg Volume: 5 ml; Route: IV; Rate: calculated rate; Site: left ea antecubital; 21:00 Follow up: IV Status: Completed infusion ea 11/07 07:33 Drug: Ativan (LORazepam) 2 mg Route: IVP; Site: left antecubital; hb 09:35 Follow up: Response: No adverse reaction hb 09:00 Drug: Keppra (levETIRAcetam) 500 mg Route: IV; Rate: calculated rate; Site: right hb forearm; 10:36 Follow up: IV Status: Completed infusion; IV Intake: 100ml vg1 19:05 Drug: Ativan (LORazepam) 1 mg Route: IVP; Site: right forearm; sf 21:01 Follow up: Response: No adverse reaction vg1 21:09 Drug: Ativan (LORazepam) 1 mg Route: IVP; Site: right wrist; vg1 22:00 Follow up: Response: No adverse reaction sf 04 11:20 Drug: Ativan (LORazepam) 1 mg Route: IVP; Site: left forearm; kg 11:45 Follow up: Response: No adverse reaction; Marked relief of symptoms; Anxiety decreased kg 13:11 Drug: Keppra (levETIRAcetam) 500 mg Route: IV; Rate: calculated rate; Site: right kg forearm; 13:25 Follow up: Response: No adverse reaction; IV Status: Completed infusion kg 13:25 Drug: Depacon 500 mg Volume: 5 ml; Route: IV; Rate: calculated rate; Site: right kg forearm; 11/09 08:20 Follow up: Response: No adverse reaction; IV Status: Completed infusion; IV Intake: ll1 250ml 00:14 Drug: Ativan (LORazepam) 1 mg Route: IVP; Site: right forearm; sf 01:00 Follow up: Response: No adverse reaction; Anxiety decreased sf 10:00 Drug: Depakote (divalproex) 500 mg Route: PO; ll1 10:19 Follow up: Response: No adverse reaction ll1 12:52 Follow up: Response: No adverse reaction kg 10:00 Drug: Keppra (levETIRAcetam) 1000 mg Route: PO; ll1 10:20 Follow up: Response: No adverse reaction ll1 12:52 Follow up: Response: No adverse reaction kg 14:34 Drug: Ativan (LORazepam) 1 mg Route: IVP; Site: right forearm; kg 19:36 Follow up: Response: No adverse reaction sf 22:15 Drug: Depakene 500 mg Route: PO; sf 11/10 01:00 Follow up: Response: No adverse reaction sf 11/09 22:15 Drug: Keppra (levETIRAcetam) 1000 mg Route: PO; sf 11/10 01:00 Follow up: Response: No adverse reaction sf 01:48 CANCELLED (Duplicate Order): Ativan (LORazepam) 1 mg IVP once sf 02:40 Drug: Ativan (LORazepam) 1 mg Route: IVP; Site: right forearm; sf 04:00 Follow up: Response: No adverse reaction; Anxiety decreased; RASS: Alert and Calm (0) sf 07:58 CANCELLED (Other Intervention Used): Depakene (valproic acid) 500 mg PO once bp 07:59 CANCELLED (Other Intervention Used): Keppra (levETIRAcetam) 1000 mg PO once bp 08:45 Drug: Ativan (LORazepam) 1 mg Route: IVP; Site: right forearm; bp 09:31 Follow up: Response: No adverse reaction; No change in condition bp 09:00 Drug: Keppra (levETIRAcetam) 1000 mg Route: IV; Rate: calculated rate; Site: right bp forearm; 09:31 Follow up: IV Status: Completed infusion; IV Intake: 100ml bp 09:30 Drug: Valproic Acid 500 mg Route: IV; Rate: calculated rate; Infused Over: 60 mins; bp Site: right forearm; 14:17 Follow up: IV Status: Completed infusion; IV Intake: 100ml bp 13:00 Drug: Ativan (LORazepam) 1 mg Route: IVP; Site: right antecubital; bp 11/14 15:28 Follow up: Response: No adverse reaction; RASS: Alert and Calm (0) ll1 11/10 17:45 Drug: Ativan (LORazepam) 1 mg Route: IVP; Site: right antecubital; bp 20:56 Drug: Keppra (levETIRAcetam) 1000 mg Route: IV; Rate: calculated rate; Site: right rr5 forearm; 21:16 Follow up: Response: No adverse reaction; IV Status: Completed infusion; IV Intake: rr5 100ml 21:16 Drug: Valproic Acid 500 mg Route: IV; Rate: calculated rate; Infused Over: 60 mins; rr5 Site: right forearm; 11/11 01:36 Follow up: IV Status: Completed infusion rr5 11/10 23:15 Drug: Ativan (LORazepam) 1 mg Route: IVP; Site: right forearm; rr5 11/11 01:00 Follow up: Response: No adverse reaction; No change in condition rr5 01:00 Drug: Geodon (ziprasidone) 10 mg Route: IM; Site: right deltoid; rr5 02:20 Follow up: Response: No adverse reaction rr5 10:53 Drug: Ativan (LORazepam) 1 mg Route: IVP; Site: right antecubital; jl7 11:15 Follow up: Response: No adverse reaction; Marked relief of symptoms jl7 13:50 Drug: Ativan (LORazepam) 1 mg Route: IVP; Site: right antecubital; jl7 14:00 Follow up: Response: No adverse reaction; Anxiety decreased jl7 17:00 Drug: Ativan (LORazepam) 2 mg Route: IVP; Site: right antecubital; jl7 21:45 Drug: Valproic Acid 500 mg Route: IV; Rate: calculated rate; Infused Over: 60 mins; rr5 Site: right forearm; 23:15 Follow up: Response: No adverse reaction; IV Status: Completed infusion; IV Intake: rr5 100ml 22:09 Drug: Geodon (ziprasidone) 10 mg Route: IM; Site: left deltoid; rr5 23:00 Follow up: Response: No adverse reaction; Marked relief of symptoms rr5 23:25 Drug: Keppra (levETIRAcetam) 1000 mg Route: IV; Rate: calculated rate; Site: left rr5 forearm; 11/12 00:00 Follow up: Response: No adverse reaction; IV Status: Completed infusion; IV Intake: rr5 100ml 08:15 Drug: Keppra (levETIRAcetam) 1000 mg Route: PO; tr6 20:42 Follow up: Response: No adverse reaction sf 08:15 Drug: Depakote (divalproex) 500 mg Route: PO; tr6 20:42 Follow up: Response: No adverse reaction sf 13:06 Drug: Ativan (LORazepam) 1 mg Route: IVP; Site: left forearm; ss 15:51 Follow up: Response: Other; given during seizure by Sandra ROUSSEAU. f/u pt is resting tr6 comfortably and seizure completed 16:11 CANCELLED (pt no longer needs at this time.): Colace (docusate) 100 mg PO once tr6 17:53 Drug: Ativan (LORazepam) 1 mg Route: IVP; Site: left wrist; tw2 20:48 Follow up: Response: No adverse reaction sf 20:32 Drug: Ativan (LORazepam) 1 mg Route: IVP; Site: left antecubital; sf 21:52 Follow up: Response: No adverse reaction sf 21:50 Drug: levETIRAcetam 1000 mg Route: IV; Rate: calculated rate; Site: left forearm; sf 22:05 Follow up: Response: No adverse reaction; IV Status: Completed infusion; IV Intake: sf 100ml 23:03 Drug: Valproic Acid 500 mg Route: IV; Rate: calculated rate; Infused Over: 60 mins; sf Site: left forearm; 11/13 00:04 Follow up: Response: No adverse reaction; IV Status: Completed infusion; IV Intake: sf 100ml 04:51 Drug: traZODONE 50 mg Route: PO; sf 07:04 Follow up: Response: No adverse reaction sf 15:34 Drug: Valproic Acid 500 mg Route: PO; em 21:20 Follow up: Response: No adverse reaction sf 15:35 Drug: Keppra (levETIRAcetam) 1000 mg Route: PO; em 21:19 Follow up: Response: No adverse reaction sf 16:50 Drug: Ativan (LORazepam) 2 mg Route: IVP; Site: left antecubital; em 21:18 Follow up: Response: No adverse reaction sf 17:03 Drug: Geodon (ziprasidone) 10 mg Route: IM; Site: right vastus lateralis; em 17:25 Follow up: Response: Marked relief of symptoms; Patient is sedated ss 20:55 Drug: Geodon (ziprasidone) 10 mg Route: IM; Site: Ventrogluteal RIGHT; sf 23:08 Follow up: Response: No adverse reaction sf 11/14 02:31 Drug: traZODONE 50 mg Route: PO; sf 15:29 Follow up: Response: No adverse reaction; RASS: Alert and Calm (0) ll1 02:32 Drug: Keppra (levETIRAcetam) 1000 mg Route: PO; sf 15:12 Follow up: Response: No adverse reaction; RASS: Alert and Calm (0) ll1 02:50 Drug: Depakene (valproic acid) 500 mg Route: PO; sf 15:30 Follow up: Response: No adverse reaction; RASS: Alert and Calm (0) ll1 09:01 Drug: Depakene (valproic acid) 500 mg Route: PO; ll1 15:30 Follow up: Response: No adverse reaction; RASS: Alert and Calm (0) ll1 09:02 Drug: Ativan (LORazepam) 1 mg Route: PO; ll1 15:58 Follow up: Response: No adverse reaction; RASS: Alert and Calm (0) ll1 09:02 Drug: Keppra (levETIRAcetam) 1000 mg Route: PO; ll1 15:58 Follow up: Response: No adverse reaction; RASS: Alert and Calm (0) ll1 15:15 Drug: Ativan (LORazepam) 2 mg Route: IM; Site: left vastus lateralis; ll1 15:59 Follow up: Response: No adverse reaction; RASS: Alert and Calm (0) ll1 05 01:22 Drug: Depakene (valproic acid) 500 mg Route: PO; jm8 01:23 Drug: Keppra (levETIRAcetam) 1000 mg Route: PO; jm8 12:19 Drug: Ativan (LORazepam) 2 mg Route: IM; Site: right vastus lateralis; rb3 12:34 Follow up: Response: No adverse reaction rb3 19:10 Drug: Ativan (LORazepam) 2 mg Route: IM; Site: left gluteus; rv 19:30 Drug: Geodon (ziprasidone) 10 mg Route: IM; Site: right gluteus; rv 05 06:53 Drug: Ativan (LORazepam) 2 mg Route: IM; Site: right deltoid; rv 07:10 Follow up: Response: No adverse reaction; Anxiety decreased rb3 06:54 Drug: Geodon (ziprasidone) 10 mg Route: IM; Site: left deltoid; rv 07:10 Follow up: Response: No adverse reaction; Anxiety decreased rb3 13:00 Drug: Keppra (levETIRAcetam) 1000 mg Route: PO; rb3 13:30 Follow up: Response: No adverse reaction rb3 13:00 Drug: Depakote (divalproex) 500 mg Route: PO; rb3 13:31 Follow up: Response: No adverse reaction rb3 15:38 CANCELLED (Physician Discretion): Ativan (LORazepam) 2 mg IM once aa5 15:43 Drug: Ativan (LORazepam) 2 mg Route: IM; Site: right vastus lateralis; aa5 16:30 Follow up: Response: No adverse reaction; Anxiety decreased rb3 23:55 Drug: Geodon (ziprasidone) 10 mg Route: IM; Site: right deltoid; iw 11/17 07:25 Drug: Ativan (LORazepam) 2 mg Route: IM; Site: right deltoid; tw2 08:25 Follow up: Response: No adverse reaction; Marked relief of symptoms; Anxiety decreased em 07:26 Drug: Geodon (ziprasidone) 10 mg Route: IM; Site: left deltoid; em 05 03:13 Drug: KLONopin (clonazePAM) 1 mg Route: PO; ea 03:13 Drug: traZODONE 50 mg Route: PO; ea 03:14 Drug: Depakote (divalproex) 500 mg Route: PO; ea 03:14 Drug: Keppra (levETIRAcetam) 1000 mg Route: PO; ea 14:00 Drug: Geodon (ziprasidone) 10 mg Route: IM; Site: left deltoid; jl7 15:00 Drug: Keppra (levETIRAcetam) 500 mg Route: IV; Rate: calculated rate; Site: left jl7 forearm; 15:21 Follow up: Response: No adverse reaction; IV Status: Completed infusion [facility] 23:04 Drug: keppra 500 mg Route: IV; Rate: 1 calculated rate; Site: left forearm; 23:04 Drug: Depakote (divalproex) 500 mg Route: PO; 11/19 10:56 Not Given (Patient Refused): Keppra (levETIRAcetam) 500 mg PO once tr6 10:56 Not Given (Patient Refused): Depakote (divalproex) 500 mg PO once tr6 11:08 Drug: Depacon (valproic acid) 500 mg Volume: 5 ml; Route: IV; Rate: calculated rate; tr6 Site: left forearm; 11:09 Drug: Keppra (levETIRAcetam) 500 mg Route: IV; Rate: calculated rate; Site: left tr6 forearm; 22:00 Drug: Depacon (valproic acid) 500 mg Volume: 5 ml; Route: IV; Rate: calculated rate; jm8 Site: left forearm; 11/20 00:28 Follow up: Response: No adverse reaction 8 11/19 22:01 Drug: Keppra (levETIRAcetam) 500 mg Route: IV; Rate: calculated rate; Site: left jm8 forearm; 11/20 00:27 Follow up: Response: No adverse reaction 8 11/19 22:17 Drug: Geodon (ziprasidone) 10 mg Route: IM; Site: right deltoid; 8 11/20 00:26 Follow up: Response: No adverse reaction; Patient is sedated 8 11:07 Drug: Keppra (levETIRAcetam) 500 mg Route: IV; Rate: calculated rate; Site: right tr6 forearm; 11:08 Drug: Depacon (valproic acid) 500 mg Volume: 5 ml; Route: IV; Rate: calculated rate; tr6 Site: right forearm; 18:03 Drug: Geodon (ziprasidone) 20 mg Route: IM; Site: right deltoid; tr6 19:17 Follow up: Response: No adverse reaction; Anxiety decreased tr6 22:09 Drug: Ativan (LORazepam) 1 mg Route: IVP; Site: right forearm; ea 11/21 12:38 Follow up: Response: No adverse reaction 1 11/20 23:13 Drug: Keppra (levETIRAcetam) 1000 mg Route: PO; ea 11/21 06:24 Follow up: Response: No adverse reaction 11/20 23:13 Drug: traZODONE 50 mg Route: PO; ea 11/21 06:23 Follow up: Response: No adverse reaction 11/20 23:14 Drug: Depakote (divalproex) 500 mg Route: PO; ea 11/21 06:23 Follow up: Response: No adverse reaction 12:00 Drug: Depakote (divalproex) 500 mg Route: PO; ll1 14:51 Follow up: Response: No adverse reaction; RASS: Alert and Calm (0) ll1 12:38 Drug: Keppra (levETIRAcetam) 1000 mg Route: PO; ll1 14:50 Follow up: Response: No adverse reaction; RASS: Alert and Calm (0) ll1 14:45 Drug: Ativan (LORazepam) 1 mg Route: PO; ll1 18:40 Follow up: Response: No adverse reaction; RASS: Alert and Calm (0) ll1 17:20 Drug: Geodon (ziprasidone) 20 mg Route: IM; Site: left vastus lateralis; ll1 18:42 Follow up: Response: No adverse reaction; RASS: Alert and Calm (0) ll1 23:43 Drug: Keppra (levETIRAcetam) 1000 mg Route: PO; 11/22 03:07 Follow up: Response: No adverse reaction 11/21 23:44 Drug: Depakote (divalproex) 500 mg Route: PO; 11/22 03:07 Follow up: Response: No adverse reaction 03:06 Drug: Geodon (ziprasidone) 10 mg Route: IM; Site: right gluteus; wh 03:39 Drug: Ativan (LORazepam) 1 mg Route: PO; wh 05:23 Drug: Benadryl (diphenhydrAMINE) 25 mg Route: IM; Site: left vastus lateralis; wh 19:25 Drug: Ativan (LORazepam) 2 mg Route: IM; Site: left vastus lateralis; jb4 20:00 Follow up: Response: No adverse reaction; Marked relief of symptoms jb4 19:25 Drug: Geodon (ziprasidone) 20 mg Route: IM; Site: left vastus lateralis; jb4 20:00 Follow up: Response: No adverse reaction; Marked relief of symptoms jb4 11/23 01:31 Drug: Keppra (levETIRAcetam) 500 mg Route: PO; jb4 02:00 Follow up: Response: No adverse reaction jb4 01:32 Drug: Depakote (divalproex) 500 mg Route: PO; jb4 02:00 Follow up: Response: No adverse reaction jb4 08:03 Drug: Ativan (LORazepam) 1 mg Route: PO; em 12:31 Follow up: Response: No adverse reaction em 08:03 Drug: Depakene (valproic acid) 500 mg Route: PO; em 12:31 Follow up: Response: No adverse reaction em 08:04 Drug: Keppra (levETIRAcetam) 500 mg Route: PO; em 12:31 Follow up: Response: No adverse reaction em 11:49 Drug: Benadryl (diphenhydrAMINE) 25 mg Route: PO; em 12:32 Follow up: Response: No adverse reaction em 12:12 Drug: Geodon (ziprasidone) 10 mg Route: IM; Site: left deltoid; em 12:33 Follow up: Response: No adverse reaction em 18:41 Drug: Geodon (ziprasidone) 10 mg Route: IM; Site: right deltoid; em 21:22 Follow up: Response: No adverse reaction; No change in condition ad5 21:30 Drug: Ativan (LORazepam) 1 mg {Note: per [employer] standing orders,unable to chart in ad5 [employer].} Route: IM; Site: left vastus lateralis; 11/24 03:27 Follow up: Response: No adverse reaction; Anxiety decreased ad5 03:00 Drug: Depakene (valproic acid) 500 mg Route: PO; ad5 08:40 Drug: Depakene (valproic acid) 500 mg Route: PO; tr6 08:40 Drug: Keppra (levETIRAcetam) 500 mg Route: PO; tr6 19:19 Drug: Geodon (ziprasidone) 10 mg Route: IM; Site: right deltoid; jm8 20:00 Follow up: Response: No adverse reaction jm8 11/25 02:51 Drug: Ativan (LORazepam) 1 mg Route: IM; Site: left deltoid; jm8 16:15 Drug: Ativan (LORazepam) 2 mg Route: IM; Site: right vastus lateralis; kg 16:15 Drug: Geodon (ziprasidone) 10 mg Route: IM; Site: right vastus lateralis; kg 22:45 Drug: Keppra (levETIRAcetam) 500 mg Route: PO; jm8 23:12 Follow up: Response: No adverse reaction jm8 22:49 Drug: Depakote (divalproex) 500 mg Route: PO; jm8 11/26 01:24 Follow up: Response: No adverse reaction jm8 00:26 Drug: Geodon (ziprasidone) 10 mg Route: IM; Site: left deltoid; jm8 01:23 Follow up: Response: No adverse reaction jm8 01:47 Drug: Ativan (LORazepam) 1 mg Route: IM; Site: left vastus lateralis; jm8 03:00 Follow up: Response: No adverse reaction; Patient is sedated jm8 19:13 Drug: Geodon (ziprasidone) 20 mg Route: IM; Site: left deltoid; jm8 19:19 Follow up: Response: No adverse reaction jm8 23:12 Drug: Keppra (levETIRAcetam) 500 mg Route: PO; jm8 23:13 Follow up: Response: No adverse reaction jm8 23:12 Drug: Depakote (divalproex) 500 mg Route: PO; jm8 23:13 Follow up: Response: No adverse reaction jm8 11/27 03:08 Drug: Ativan (LORazepam) 0.5 mg Route: IM; Site: left deltoid; jm8 04:00 Follow up: Response: No adverse reaction; Patient is sedated jm8 03:22 Drug: Valium (diazepam) 5 mg Route: IM; Site: right deltoid; 8 03:59 Follow up: Response: No adverse reaction; Patient is sedated jm8 09:25 Drug: Keppra (levETIRAcetam) 1000 mg Route: PO; 7 10:00 Follow up: Response: No adverse reaction 7 09:26 Drug: Depakote (divalproex) 500 mg Route: PO; 7 10:00 Follow up: Response: No adverse reaction 7 Disposition: 11/27/20 09:58 Discharged to Other. 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 - Condition is Stable. - Discharge Instructions: Seizure, Adult. - Thank You Letter, Antibiotic Education, Prescription Opioid Use, Medication Reconciliation Form, SBAR form form. - Follow up: Private Physician; When: As needed; Reason: Recheck today's complaints, Continuance of care, Re-evaluation by your physician. - Problem is new. - Symptoms have improved. Signatures: Dispatcher [employer] EDMS Garret Acharya MD MD cha Lam, Pin, MD MD pkl Rittger, Kevin, MD MD kdr Munoz, Edgar, RN RN Tiffany Richter RN RN Lisa Alvarez, RN William Real MD MD rn Calderon, Audri, RN ONELIA aa5 Sandra Carlson, RN ONELIA ss Kike Engel, MARKO PA jr8 Stephy Live, RN Cristina Baker RN RN tw2 Anthony Tellez, RN RN jb4 Abimael Velazquez RN RN jl7 Key Miller, RN Michael Marrero ea, RN Shaji Vines, RN RN jd3 Warren Asher, RN RN Ervin Yu MD MD tw4 Bandar Ríos, RN Esteban Ramires, RN RN rr5 Angella Pace, RN RN vg1 Enmanuel Hernández, RN RN ll1 Barry Mcadams MD MD 7 Arabella Rodriguez, RN RN rb3 Troy Felton, RN RN sf Chuy Car RN RN jm8 Elda Potts RN RN tr6 Kyra Oconnor kg, Andrea ad5 Corrections: (The following items were deleted from the chart) 11/04 19:55 19:53 Geodon 20 mg IM once ordered. vg1 vg1 11/05 06:17 04 20:56 11/04/2020 20:56 Transfer ordered to Psych Facility. Diagnosis is Autistic santa disorder - behavioral disturbance; Altered mental status, unspecified. Reason for transfer: Higher level of care. Accepting physician is to psych. Condition is Fair. Problem is new. Symptoms have improved. santa 11/05 17:51 06:20 11/05/2020 06:20 Transfer ordered to Psych Facility. Diagnosis is rn Attention-deficit hyperactivity disorder, combined type; Altered mental status, unspecified - behavioral disorder; Epilepsy and recurrent seizures. Reason for transfer: Higher level of care. Accepting physician is to psych. Condition is Stable. Problem is new. Symptoms have improved. [facility] 22:12 17:51 Hospitalization Ordered by Indu Putnam MD for Inpatient Admission. Preliminary santa diagnosis is Epilepsy and recurrent seizures; Nondisplaced fracture of medial phalanx of left middle finger; Restlessness and agitation. Bed requested for Telemetry/MedSurg (Inpatient). Status is Inpatient Admission. Condition is Stable. Problem is new. Symptoms have improved. rn 11/10 01:48 01:46 Ativan (LORazepam) 1 mg IVP once ordered. sf sf 01:48 01:46 Ativan (LORazepam) 1 mg IVP once given. sf sf 01:48 01:46 Ativan (LORazepam) 1 mg IVP once ordered. sf sf 07:58 07:00 Depakene (valproic acid) 500 mg PO once ordered. sf bp 07:59 07:00 Keppra (levETIRAcetam) 1000 mg PO once ordered. sf bp 11/12 16:11 07:56 Colace (docusate) 100 mg PO once ordered. tr6 tr6 16:11 16:08 Colace (docusate) 100 mg PO once ordered. tr6 tr6 11/13 19:22 19:19 Restraint:Violent/Self Destructive (Adult:18yo or >) ordered. ss ss 11/16 15:38 15:37 Ativan (LORazepam) 2 mg IM once ordered. aa5 aa5 11/27 10:36 09:58 11/27/2020 09:58 Discharged to Other. 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 Condition is Stable. Forms are SBAR form, Medication Reconciliation Form, Thank You Letter, Antibiotic Education, Prescription Opioid Use. Follow up: Private Physician; When: As needed; Reason: Recheck today's complaints, Continuance of care, Re-evaluation by your physician. Problem is new. Symptoms have improved. jr8
[2020-11-05] MEDS ORDERED: LORazepam 2 MG/ML VIAL ONE ×5 (03:20→17:00)
[2020-11-05] MEDS ORDERED: LEVETIRACETAM 500 MG/5 ML VIAL IV ONE ×2 (06:00→16:59)
[2020-11-05] MEDS ORDERED: NA CHLORIDE 0.9% 100 ML ONE ×3 (06:00→17:00)
[2020-11-05] MEDS ORDERED: VALPROATE NA 500 MG/5 ML INJ IV ONE (06:14)
[2020-11-05] MEDS ORDERED: NA CHLORIDE 0.9% 500 ML ONE (06:14)
[2020-11-05] MEDS ORDERED: D5 0.45 NS 1,000 ML IV ONE ×2 (06:15→23:29)
[2020-11-05 06:27] LABS: Absolute Lymphocytes (CBC) 1.1 K/uL (0.7-4.9); Basophils % 0.5 % (0-1.3); Hematocrit 45.8 % (39.6-49.0); Lymphocytes % 17.2 % (15.3-44.8); MPV 8.6 fL (7.6-11.3); RBC Red Blood Cell Count 5.01 M/uL (4.33-5.43)
[2020-11-05 08:35] LABS: ALT/SGPT 16 U/L (12-78); AST/SGOT 21 U/L (15-37); Albumin 3.5 g/dL (3.4-5.0); Alkaline Phosphatase 114 U/L (45-117); BUN Blood Urea Nitrogen 5 mg/dL (7-18); Bicarbonate 28 mmol/L (21-32); Bilirubin Total 0.5 mg/dL (0.2-1.0); Glucose Level 113 mg/dL (74-106); Potassium 4.1 mmol/L (3.5-5.1); Protein, Total 6.5 g/dL (6.4-8.2); Sodium Level 139 mmol/L (136-145)
--- NOTE | 2020-11-05 14:04 | RAD REPORT ---
EXAM DESCRIPTION: RAD - Hand Right 3 View - 11/05/2020 1:38 pm CLINICAL HISTORY: Pain;Swelling, no trauma history noted COMPARISON: No comparisonsNone. FINDINGS: No fracture is identified. There is no dislocation or periosteal reaction noted. No acute bone or joint finding identifiable. Soft tissue swelling is present over the dorsum of the hand with no air, foreign body or calcifications seen. IMPRESSION: Right hand soft tissue swelling with no air or foreign body seen. No acute bone or joint finding.
--- NOTE | 2020-11-05 14:18 | RAD REPORT ---
EXAM DESCRIPTION: RAD - Hand Left 2 View - 11/05/2020 1:38 pm CLINICAL HISTORY: SWELLING, no trauma history noted COMPARISON: Hand Right 3 View dated 11/05/2020 FINDINGS: Irregular cortex is seen in the distal aspect of the third middle phalanx. There is also s kin margin artifact overlying this portion of the metatarsal. Nondisplaced, nonangulated fracture is suspected but may need repeat imaging with the other fingers positioned out of the field of view. No other fracture changes are present. Soft tissue swelling of the third digit is present with mild soft tissue swelling extending to the dorsum of the hand. No air or foreign body in the soft tissues. IMPRESSION: Possible nondisplaced fracture of the third middle phalanx. Bone and soft tissue overlapping artifact limits full assessment and may warrant repeat imaging isola ting the third digit.
--- NOTE | 2020-11-05 16:13 | EKG ---
Test Date: 2020-11-04 Test Time: 10:44:16 [employer]: NAVEED MEASUREMENT RESULTS: Intervals: Rate: 102 HI: 160 QRSD: 84 QT: 366 QTc: 477 [place]: P: 60 HI: 160 QRS: 97 T: 43 INTERPRETIVE STATEMENTS: Sinus tachycardia Rightward axis Borderline ECG No previous ECG available for comparison Electronically Signed On 11-05-20 16:07:24 CDT by Terrell Conteh
[2020-11-05] MEDS ORDERED: ZIPRASIDONE MESYLA 20 MG/VIAL IM ONE (20:44)
[2020-11-05] MEDS ORDERED: WATER FOR INJ,STERILE 10 ML ONE (20:45)
[2020-11-05] MEDS ORDERED: levETIRAcetam 500 MG TAB PO SCH (21:00)
[2020-11-05] MEDS ORDERED: levETIRAcetam 500 MG in NA CHLORIDE 0.9% 100 ML IV SCH (21:00)
[2020-11-05] MEDS ORDERED: DIVALPROEX DR 500MG TAB PO SCH (21:00)
[2020-11-06] MEDS ORDERED: LORazepam 2 MG/ML VIAL ONE ×3 (03:43→14:53)
[2020-11-06] MEDS ORDERED: D5 0.45 NS 1,000 ML IV ONE (07:51)
[2020-11-06] MEDS ORDERED: VALPROATE SODIUM INJ 500 MG in NA CHLORIDE 0.9% 100 ML IV ONE (08:15)
[2020-11-06] MEDS ORDERED: levETIRAcetam 500 MG in NA CHLORIDE 0.9% 100 ML IV ONE (08:15)
[2020-11-06] MEDS ORDERED: ZIPRASIDONE MESYLA 20 MG/VIAL IM ONE ×2 (14:42→14:52)
[2020-11-06] MEDS ORDERED: WATER FOR INJ,STERILE 10 ML ONE (14:51)
[2020-11-06] MEDS ORDERED: VALPROATE NA 500 MG/5 ML INJ IV ONE (19:34)
[2020-11-06] MEDS ORDERED: NA CHLORIDE 0.9% 200 ML ONE (19:34)
[2020-11-06] MEDS ORDERED: LEVETIRACETAM 500 MG/5 ML VIAL IV ONE (19:34)
[2020-11-07] MEDS ORDERED: D5 0.45 NS 1,000 ML IV ONE (00:58)
[2020-11-07] MEDS ORDERED: LORazepam 2 MG/ML VIAL ONE ×3 (07:36→21:21)
[2020-11-08] MEDS ORDERED: LORazepam 2 MG/ML VIAL ONE (11:29)
[2020-11-08] MEDS ORDERED: VALPROATE SODIUM INJ 500 MG in NA CHLORIDE 0.9% 100 ML IV ONE (13:00)
[2020-11-08 13:21] LABS: Absolute Lymphocytes (CBC) 1.1 K/uL (0.7-4.9); Basophils % 0.6 % (0-1.3); Hematocrit 45.8 % (39.6-49.0); Lymphocytes % 16.2 % (15.3-44.8); RBC Red Blood Cell Count 5.03 M/uL (4.33-5.43)
[2020-11-09] MEDS ORDERED: LORazepam 2 MG/ML VIAL ONE ×2 (00:18→14:49)
[2020-11-09] MEDS ORDERED: levETIRAcetam 500 MG TAB ONE ×2 (10:14→22:14)
[2020-11-10] MEDS ORDERED: LORazepam 2 MG/ML VIAL ONE ×6 (01:59→23:34)
[2020-11-10] MEDS ORDERED: VALPROATE NA 500 MG/5 ML INJ IV ONE (21:03)
[2020-11-10] MEDS ORDERED: NA CHLORIDE 0.9% 200 ML ONE (21:03)
[2020-11-10] MEDS ORDERED: KETAMINE HCL 500 MG/5 ML VIAL ONE (21:03)
[2020-11-10] MEDS ORDERED: LEVETIRACETAM 500 MG/5 ML VIAL IV ONE (21:04)
[2020-11-11] MEDS ORDERED: ZIPRASIDONE MESYLA 20 MG/VIAL IM ONE ×2 (01:25→22:21)
[2020-11-11] MEDS ORDERED: WATER FOR INJ,STERILE 10 ML ONE ×2 (01:26→22:21)
[2020-11-11] MEDS ORDERED: LORazepam 2 MG/ML VIAL ONE ×2 (11:52→17:08)
[2020-11-11] MEDS ORDERED: LEVETIRACETAM 500 MG/5 ML VIAL IV ONE (21:54)
[2020-11-11] MEDS ORDERED: VALPROATE NA 500 MG/5 ML INJ IV ONE (21:55)
[2020-11-11] MEDS ORDERED: NA CHLORIDE 0.9% 200 ML ONE (21:55)
[2020-11-12] MEDS ORDERED: levETIRAcetam 500 MG TAB ONE (08:27)
[2020-11-12] MEDS ORDERED: DIVALPROEX DR 250 MG TAB PO ONE (08:28)
[2020-11-12] MEDS ORDERED: LORazepam 2 MG/ML VIAL ONE ×5 (10:22→20:50)
[2020-11-12] MEDS ORDERED: VALPROATE NA 500 MG/5 ML INJ IV ONE (21:34)
[2020-11-12] MEDS ORDERED: LEVETIRACETAM 500 MG/5 ML VIAL IV ONE (21:34)
[2020-11-12] MEDS ORDERED: NA CHLORIDE 0.9% 100 ML ONE ×2 (21:34→22:04)
[2020-11-13] MEDS ORDERED: TRAZODONE 50 MG TABLET ONE ×2 (02:02→23:58)
[2020-11-13] MEDS ORDERED: levETIRAcetam 500 MG TAB ONE (15:16)
[2020-11-13] MEDS ORDERED: DIVALPROEX DR 250 MG TAB PO ONE (15:16)
[2020-11-13] MEDS ORDERED: LORazepam 2 MG/ML VIAL ONE (17:00)
[2020-11-13] MEDS ORDERED: ZIPRASIDONE MESYLA 20 MG/VIAL IM ONE ×2 (17:13→21:07)
[2020-11-13] MEDS ORDERED: WATER FOR INJ,STERILE 10 ML ONE ×2 (17:14→21:07)
[2020-11-13] MEDS ORDERED: ZIPRASIDONE MESYLA 20 MG/VIAL IM PRN (17:25)
[2020-11-13] MEDS ORDERED: WATER FOR INJ,STERILE 10 ML IM PRN (17:25)
[2020-11-13] MEDS ORDERED: LORazepam 2 MG/ML VIAL IV PRN (17:25)
--- NOTE | 2020-11-13 17:31 | P.CNS ---
Date of Consult: 11/13/20 Reason for Consult: Agitation, uncontrolled behavior Requesting Physician: Iggy Campos Primary Care Provider: none Chief Complaint: Agitation, uncontrolled behavior History of Present Illness: 20-year-old male with history of autism, seizure disorder, mental retardation and behavioral disturbance. I was asked to evaluate patient as consultation in the ER. Patient was brought in on November 04 by EMS from [facility] due to agitation and behavioral disturbance. Patient was recently evaluated and treated at [facility] in [place]. Patient was apparently at a half-way in that local area. He was sent to get evaluated. Patient was seen by neurology and psychiatry there. They determined patient primarily has behavioral disorders related to his autism, seizure disorder and mental retardation. They tried to send the patient back to the half-way. The half-way would not accept him due to his behavior. Hospital then transferred him to [facility] for long-term care. As mentioned above when the patient arrived the patient became very combative. They were not able to take care of him. He was then sent to the ER for further evaluation. Since that time patient has remained in the ER. Patient has been getting his medicationKeppra 1000 mg 1 pill twice daily, Depakote 500 mg twice daily, and Ativan as needed. Geodon also has been given due to agitation. Social work, administration and the ER have been trying to place the patient to the appropriate facility for his needs. APS has been involved. risk management manager and manager social media assigned to the patient is trying to obtain permission from family to have their psychiatrist/psychologist evaluate the patient to appropriately place the patient. This is underway and should occur over the next couple of days. I was asked to help in the assistance of his care while in the ER. Allergies No Known Allergies Allergy (Verified 11/12/20 20:43) Home medications list reviewed: Yes - Past Medical/Surgical History Diabetic: No -: Autism -: Mental retardation -: Seizure disorder -: Behavioral disturbance/dysfunction Past Surgical History: Unable to obtain Psychosocial/ Personal History: Apparently father . Patient was in a half-way prior to hospitalization at [facility]. - Social History Smoking Status: Unknown if ever smoked Place of Residence: Long Term (Unclear.) Review of Systems is unable to be obtained Conclusions/Impression: Physical exam: Patient was alert, cooperative. Patient appears to have education level of a child. He responds with some grunts. Patient eating at this time. No restraints noted. Sitter at bedside. Heart: No significant distress noted Lungs: Patient without respiratory distress or tachypnea. Abdomen: Appears normal. Extremities: Patient without restraint. Patient able to move all fours. Mentation: Patient with MR, frank. Not able to communicate verbally appropriately. Impression: Agitation and uncontrolled behavior secondary to underlying illness of autism, seizure disorder, and mental retardation Plan: Patient remains in the ER in anticipation for transfer to appropriate facility for long-term care. ER has been in contact with APS and porter sample case assigned to the patient. To date, family has a signed permission for porter sample case to assign psychiatrist/psychologist to evaluate to determine where the patient can be best placed. This will likely occur as early as Tuesday or Tuesday. We will continue to monitor the patient closely. Patient remains on Depakote 500 mg 1 pill twice daily, Keppra 1000 mg 1 pill twice daily, and Ativan 1 mg 3 times a day as needed for agitation. We will also provide Geodon 10 mg IM twice daily for agitation. ER reports patient was seen by psychiatry. Psychiatry agrees with plan of care. Psychiatry would help in the determination that the patient is incompetent and not able to take care of himself. Await further evaluation by psychologist from porter sample case to help with the best placement for this patient. Time Spent Managing Pts care (In Minutes): 55
[2020-11-14] MEDS ORDERED: levETIRAcetam 500 MG TAB ONE ×4 (00:15→21:31)
[2020-11-14] MEDS ORDERED: DIVALPROEX DR 250 MG TAB PO ONE ×2 (00:16→21:38)
[2020-11-14] MEDS ORDERED: DIVALPROEX NA 125 MG CAP ONE (00:32)
[2020-11-14] MEDS ORDERED: LORAZEPAM 1 MG TABLET ONE (08:07)
[2020-11-14] MEDS ORDERED: DIVALPROEX NA 125 MG CAP PO SCH ×2 (09:00)
--- NOTE | 2020-11-14 11:31 | P.PN ---
Subjective Date of Service: 11/14/20 Primary Care Provider: none Chief Complaint: Agitation, uncontrolled behavior Subjective: Other (Patient doing better today. Spoke with nurse about his progress. Patient taking his medications. No significant agitation overnight.) Assessment & Plan Discharge Plan: Other (Autistic/MR facility) Plan to discharge in: Greater than 2 days Physician Review Additional Text: Physical exam: Patient alert, nonverbal. Heart: Regular rate Lungs: Clear, without distress Abdomen: No distention noted Extremities: Patient able to move all fours. Mentation: Patient responds well to food or drinks. Patient knows some words but mainly nonverbal. Likely IQ of a child. Patient not being disruptive at this time. Impression: Agitation and uncontrolled behavior secondary to underlying illness of autism, seizure disorder, and mental retardation Plan: Patient remains in the emergency room for transfer to appropriate autistic/MR long-term care facility. Spoke with licensed psychologist Dr. Styles with [facility]. She is to do a formal evaluation through iPad virtually of the patient. Once this is done she will determine what level of care and where the patient can be transferred to to continue chronic care of the patient. Patient overall stable. Currently on Depakote 500 twice daily, Keppra 1000 mg 1 pill twice daily, Ativan 1 mg 3 times a day as needed for agitation. Geodon also ordered for agitation. Nurses report patient has done well with his appetite. He was agitated yesterday and required medication. Overall stable. Patient appears acclimated to his environment. Await recommendations by Dr. Styles. Anticipate transfer to appropriate center likely early next week. Time Spent Managing Pts Care (In Minutes): 55
[2020-11-14] MEDS ORDERED: LORazepam 2 MG/ML VIAL ONE (15:24)
[2020-11-15] MEDS ORDERED: levETIRAcetam 500 MG TAB ONE (09:26)
[2020-11-15] MEDS ORDERED: DIVALPROEX DR 250 MG TAB PO ONE (09:27)
[2020-11-15] MEDS ORDERED: LORazepam 2 MG/ML VIAL ONE ×2 (12:19→19:37)
--- NOTE | 2020-11-15 13:30 | P.PN ---
Subjective Date of Service: 11/15/20 Primary Care Provider: none Chief Complaint: Agitation, uncontrolled behavior Subjective: No new changes, Doing well Assessment & Plan Discharge Plan: Other (Appropriate halfway for his disabilities) Plan to discharge in: Greater than 2 days Physician Review Additional Text: Physical exam: Patient alert, nonverbal. Heart: Regular rate Lungs: Clear, without distress Abdomen: No distention noted Extremities: Patient able to move all fours. Mentation: Patient responds well to food or drinks. Patient knows some words but mainly nonverbal. Likely IQ of a child. Patient not being disruptive at this time. Impression: Agitation and uncontrolled behavior secondary to underlying illness of autism, seizure disorder, and mental retardation Plan: Patient doing well at this time. No complaints noted. No seizures noted. Patient taking his medications. Patient remains in the emergency room for transfer to appropriate autistic/ long-term care facility. Spoke with licensed psychologist Dr. Styles with [facility]. She was able to do a formal evaluation through iPad. Await recommendations from Dr. Styles. As mentioned before, Dr. Styles is planning to send appropriate information forward so that the patient can be placed in an appropriate facility to be able to take care of all of his needs. Currently on Depakote 500 twice daily, Keppra 1000 mg 1 pill twice daily, Ativan 1 mg 3 times a day as needed for agitation. Geodon also ordered for agitation as needed. Anticipate transfer to appropriate center likely early next week. Time Spent Managing Pts Care (In Minutes): 55
[2020-11-15] MEDS ORDERED: ZIPRASIDONE MESYLA 20 MG/VIAL IM ONE ×2 (18:30→19:38)
[2020-11-15] MEDS ORDERED: WATER FOR INJ,STERILE 0 ML ONE (18:31)
[2020-11-15] MEDS ORDERED: WATER FOR INJ,STERILE 10 ML ONE (19:39)
[2020-11-16] MEDS ORDERED: LORazepam 2 MG/ML VIAL ONE ×2 (04:43→15:55)
[2020-11-16] MEDS ORDERED: WATER FOR INJ,STERILE 10 ML ONE (07:02)
[2020-11-16] MEDS ORDERED: ZIPRASIDONE MESYLA 20 MG/VIAL IM ONE (07:02)
[2020-11-16] MEDS ORDERED: levETIRAcetam 500 MG TAB ONE (09:18)
[2020-11-16] MEDS ORDERED: DIVALPROEX DR 250 MG TAB PO ONE (09:19)
--- NOTE | 2020-11-16 12:31 | P.PN ---
Subjective Date of Service: 11/16/20 Primary Care Provider: none Chief Complaint: Agitation, uncontrolled behavior Subjective: Doing well Assessment & Plan Discharge Plan: Other (To Autistic/ facility) Plan to discharge in: Greater than 2 days Physician Review Additional Text: Physical exam: Patient alert, nonverbal. Heart: Regular rate Lungs: Clear, without distress Abdomen: No distention noted Extremities: Patient able to move all fours. Mentation: Patient responds well to food or drinks. Patient knows some words but mainly nonverbal. Likely IQ of a child. Patient not being disruptive at this time. Impression: Agitation and uncontrolled behavior secondary to underlying illness of autism, seizure disorder, and mental retardation Plan: No changes since yesterday. Patient doing well at this time. No complaints noted. No seizures noted. Patient taking his medications. Patient remains in the emergency room for transfer to appropriate autistic/ long-term care facility. Spoke with licensed psychologist Dr. Styles with [facility] on Tuesday. She was able to do a formal evaluation through iPad. Dr. Styles is planning to send appropriate information forward so that the patient can be placed in an appropriate facility to be able to take care of all of his needs. Currently on Depakote 500 twice daily, Keppra 1000 mg 1 pill twice daily, Ativan 1 mg 3 times a day as needed for agitation. Jennifer also ordered for agitation as needed. Anticipate transfer to appropriate center likely early next week. Time Spent Managing Pts Care (In Minutes): 55
[2020-11-17] MEDS ORDERED: ZIPRASIDONE MESYLA 20 MG/VIAL IM ONE ×3 (00:15→18:26)
[2020-11-17] MEDS ORDERED: WATER FOR INJ,STERILE 10 ML ONE ×3 (00:15→18:26)
[2020-11-17] MEDS ORDERED: LORazepam 2 MG/ML VIAL ONE ×2 (07:38→18:13)
[2020-11-18] MEDS ORDERED: levETIRAcetam 500 MG TAB ONE (02:49)
[2020-11-18] MEDS ORDERED: clonazePAM 1 MG TAB ONE (02:49)
[2020-11-18] MEDS ORDERED: DIVALPROEX DR 500MG TAB PO ONE (02:50)
[2020-11-18] MEDS ORDERED: TRAZODONE 50 MG TABLET ONE (03:05)
--- NOTE | 2020-11-18 12:30 | CON ---
y Date of Consultation: 11/11/2020 Place Of Service: ER. History Of Present Illness: This is a 20-year-old male with a history of autism, seizure disorder, intellectual disability disorder severe. Psychiatry is consulted to evaluate the patient with regards to capacity to make decision about his discharge. History was provided by the patient's nurse in the ER as the patient was too sedate to provide history during this assessment. Patient was transported to the ER by the EMS from a local skilled facility on November 04 on account of severe agitation and behavioral disturbance. History showed that patient was living with his father at home and until his recent demise he was patient's caregiver. Per his elder brother patient need assistance for almost all his ADL and IADLs. Patient mother who has not been in patient's life but is the next of kin on record stated that she has made arrangement with a facility to accept patient on discharge and has communicated that information to treatment team. Physical Examination: Vital Signs: Blood pressure is 123/85, pulse is 99, respiratory rate is 18, temperature is 98 degrees. Assessment: A 20-year-old male with history of Autism with behavioral disturbances and severe intellectual disability brought to the ED on account of worsening severe agitation which he displays as both physical and verbal aggression currently controlled with medications. Due to well documented history of severe intellectual disability and collateral history provided by brother and mother it is my opinion that patient do not have capacity to make decision regarding his place, such decision should be deferred to his mother Diagnosis Autism spectrum disorder with behavioral disturbances Intellectual disability severe Thank you for the consultation. Discussed recommendation with management team. NEYMAR/DESEAN Voice ID: [id number] Report ID: [id number] KELSI
[2020-11-18] MEDS ORDERED: DIVALPROEX DR 250 MG TAB PO ONE ×2 (13:57→23:14)
[2020-11-18] MEDS ORDERED: ZIPRASIDONE MESYLA 20 MG/VIAL IM ONE (14:11)
[2020-11-18] MEDS ORDERED: WATER FOR INJ,STERILE 10 ML ONE (14:11)
[2020-11-18 15:01] LABS: Absolute Lymphocytes (CBC) 0.3 K/uL (0.7-4.9); Basophils % 0.3 % (0-1.3); Hematocrit 48.3 % (39.6-49.0); Lymphocytes % 3.7 % (15.3-44.8); MPV 7.8 fL (7.6-11.3); RBC Red Blood Cell Count 5.28 M/uL (4.33-5.43)
[2020-11-18 15:56] LABS: ALT/SGPT 28 U/L (12-78); AST/SGOT 24 U/L (15-37); BUN Blood Urea Nitrogen 20 mg/dL (7-18); Bicarbonate 25 mmol/L (21-32); Glucose Level 116 mg/dL (74-106); Potassium 3.9 mmol/L (3.5-5.1); Sodium Level 139 mmol/L (136-145)
[2020-11-18 15:57] LABS: Alkaline Phosphatase 118 U/L (45-117); Bilirubin Total 0.8 mg/dL (0.2-1.0); Protein, Total 7.5 g/dL (6.4-8.2)
[2020-11-18 16:02] LABS: Blood Morphology Comment NOT SEEN (NOT SEEN); Platelet Estimate ADEQ; White Blood Cell Scan OK (OK)
[2020-11-18] MEDS ORDERED: LEVETIRACETAM 500 MG/5 ML VIAL IV ONE (23:13)
[2020-11-18] MEDS ORDERED: NA CHLORIDE 0.9% 50 ML ONE (23:14)
[2020-11-19] MEDS ORDERED: levETIRAcetam 500 MG TAB ONE (10:54)
[2020-11-19] MEDS ORDERED: DIVALPROEX DR 250 MG TAB PO ONE (10:54)
[2020-11-19] MEDS ORDERED: VALPROATE NA 500 MG/5 ML INJ IV ONE ×2 (11:20→22:10)
[2020-11-19] MEDS ORDERED: LEVETIRACETAM 500 MG/5 ML VIAL IV ONE ×2 (11:20→22:10)
[2020-11-19] MEDS ORDERED: NA CHLORIDE 0.9% 200 ML ONE (11:21)
[2020-11-19 14:59] LABS: Urine Appearance CLEAR (Clear); Urine Blood NEGATIVE (Negative); Urine Color DK YELLOW (Yellow); Urine Glucose NEGATIVE (Negative); Urine Protein TRACE (Negative); Urine Specific Gravity >=1.030 (1.005-1.030)
[2020-11-19 15:25] LABS: Urine Bacteria <20 /HPF (NONE SEEN); Urine RBC <5 /HPF (NONE SEEN)
[2020-11-19 15:26] LABS: Urine Mucus 1+ /HPF (NONE SEEN)
[2020-11-19 15:34] LABS: Urine Bilirubin 1+ (Negative)
[2020-11-19] MEDS ORDERED: NA CHLORIDE 0.9% 100 ML ONE ×2 (22:11→22:23)
[2020-11-19] MEDS ORDERED: ZIPRASIDONE MESYLA 20 MG/VIAL IM ONE (22:30)
[2020-11-20] MEDS ORDERED: NA CHLORIDE 0.9% 100 ML ONE (11:06)
[2020-11-20] MEDS ORDERED: VALPROATE NA 500 MG/5 ML INJ IV ONE (11:06)
[2020-11-20] MEDS ORDERED: LEVETIRACETAM 500 MG/5 ML VIAL IV ONE (11:06)
[2020-11-20] MEDS ORDERED: ZIPRASIDONE MESYLA 20 MG/VIAL IM ONE (17:56)
[2020-11-20] MEDS ORDERED: WATER FOR INJ,STERILE 10 ML ONE (17:57)
[2020-11-20] MEDS ORDERED: LORazepam 2 MG/ML VIAL ONE (22:18)
[2020-11-20] MEDS ORDERED: levETIRAcetam 500 MG TAB ONE (22:59)
[2020-11-20] MEDS ORDERED: TRAZODONE 50 MG TABLET ONE (22:59)
[2020-11-20] MEDS ORDERED: DIVALPROEX DR 500MG TAB PO ONE (22:59)
[2020-11-21] MEDS ORDERED: WATER FOR INJ,STERILE 10 ML ONE ×2 (05:50→17:22)
[2020-11-21] MEDS ORDERED: ZIPRASIDONE MESYLA 20 MG/VIAL IM ONE ×2 (05:50→17:22)
[2020-11-21] MEDS ORDERED: DIVALPROEX DR 250 MG TAB PO ONE ×2 (09:15→21:59)
[2020-11-21] MEDS ORDERED: levETIRAcetam 500 MG TAB ONE ×2 (09:15→21:59)
[2020-11-21] MEDS ORDERED: LORAZEPAM 1 MG TABLET ONE ×2 (13:20→13:33)
[2020-11-22] MEDS ORDERED: WATER FOR INJ,STERILE 10 ML ONE ×2 (03:10→19:43)
[2020-11-22] MEDS ORDERED: ZIPRASIDONE MESYLA 20 MG/VIAL IM ONE ×2 (03:10→19:43)
[2020-11-22] MEDS ORDERED: LORAZEPAM 1 MG TABLET ONE (03:52)
[2020-11-22] MEDS ORDERED: DIPHENHYDRAMINE 50 MG/ML VIAL ONE (05:36)
[2020-11-22] MEDS ORDERED: LORazepam 2 MG/ML VIAL ONE ×2 (08:47→19:46)
[2020-11-22] MEDS ORDERED: levETIRAcetam 500 MG TAB ONE (09:11)
[2020-11-22] MEDS ORDERED: clonazePAM 1 MG TAB ONE (09:11)
[2020-11-23] MEDS ORDERED: levETIRAcetam 500 MG TAB ONE (01:37)
[2020-11-23] MEDS ORDERED: DIVALPROEX DR 250 MG TAB PO ONE ×2 (01:38→08:15)
[2020-11-23] MEDS ORDERED: LORAZEPAM 1 MG TABLET ONE (08:15)
[2020-11-23] MEDS ORDERED: DIPHENHYDRAMINE 25 MG TAB/CAP ONE (10:11)
[2020-11-23] MEDS ORDERED: WATER FOR INJ,STERILE 10 ML ONE ×2 (12:24→18:45)
[2020-11-23] MEDS ORDERED: ZIPRASIDONE MESYLA 20 MG/VIAL IM ONE ×3 (12:24→22:08)
[2020-11-23] MEDS ORDERED: LORazepam 2 MG/ML VIAL ONE (21:49)
[2020-11-23] MEDS ORDERED: NS 0.9% VIAL 10 ML ONE (22:08)
[2020-11-24] MEDS ORDERED: DIVALPROEX DR 500MG TAB PO ONE (02:09)
[2020-11-24] MEDS ORDERED: DIVALPROEX NA 125 MG CAP ONE (02:33)
[2020-11-24] MEDS ORDERED: levETIRAcetam 500 MG TAB ONE (08:43)
[2020-11-24] MEDS ORDERED: DIVALPROEX DR 250 MG TAB PO ONE (08:43)
[2020-11-24] MEDS ORDERED: ZIPRASIDONE MESYLA 20 MG/VIAL IM ONE (19:32)
[2020-11-24] MEDS ORDERED: WATER FOR INJ,STERILE 10 ML ONE (19:32)
[2020-11-25] MEDS ORDERED: LORazepam 2 MG/ML VIAL ONE ×2 (03:06→16:28)
--- NOTE | 2020-11-25 08:08 | P.PN ---
Subjective Date of Service: 11/25/20 Primary Care Provider: none Chief Complaint: Agitation, uncontrolled behavior Subjective: Doing well, Other (Patient doing well. Patient had a seizure last night requiring Ativan. Overall stable. Awaiting placement.) Assessment & Plan Discharge Plan: Other (intermediate) Plan to discharge in: Greater than 2 days Physician Review Additional Text: Physical exam: Patient resting in bed. Heart: Regular rate Lungs: Clear, without distress Abdomen: No distention noted Extremities: Patient able to move all fours. Mentation: Patient resting in bed. No current issues or complaints as reported by nursing. Patient knows some words but mainly nonverbal. Likely IQ of a child. Patient not being disruptive at this time. Impression: Agitation and uncontrolled behavior secondary to underlying illness of autism, seizure disorder, and mental retardation Plan: Patient doing well at this time. Agitation and uncontrolled behavior seems to be controlled with current medication. Recent labs shows therapeutic Depakote and Keppra levels. Currently on Depakote, Keppra. Still requiring some Ativan and Geodon for agitation. Still awaiting placement for the patient to a facility that can continue his care long-term. Will discuss with social media marketing manager on progress. Social work had gotten some information from [facility]. Social work and [facility] will continue to work on placement for the patient. Time Spent Managing Pts Care (In Minutes): 55
[2020-11-25] MEDS ORDERED: levETIRAcetam 500 MG TAB ONE ×2 (11:33→22:56)
[2020-11-25] MEDS ORDERED: DIVALPROEX DR 250 MG TAB PO ONE ×2 (11:33→22:56)
[2020-11-25] MEDS ORDERED: ZIPRASIDONE MESYLA 20 MG/VIAL IM ONE ×2 (16:18→16:25)
[2020-11-25] MEDS ORDERED: WATER FOR INJ,STERILE 10 ML ONE (16:19)
[2020-11-26] MEDS ORDERED: WATER FOR INJ,STERILE 10 ML ONE ×3 (00:40→19:22)
[2020-11-26] MEDS ORDERED: ZIPRASIDONE MESYLA 20 MG/VIAL IM ONE ×3 (00:40→19:22)
[2020-11-26] MEDS ORDERED: ZIPRASIDONE MESYLA 20 MG/VIAL IM PRN (00:52)
[2020-11-26] MEDS ORDERED: LORazepam 2 MG/ML VIAL ONE (02:02)
[2020-11-26] MEDS ORDERED: levETIRAcetam 500 MG TAB ONE ×2 (08:28→23:00)
[2020-11-26] MEDS ORDERED: DIVALPROEX DR 250 MG TAB PO ONE ×2 (08:28→23:01)
--- NOTE | 2020-11-26 08:46 | P.PN ---
Subjective Date of Service: 11/26/20 Primary Care Provider: none Chief Complaint: Agitation, uncontrolled behavior Subjective: Other (Spoke with nurses at length. Over the past 24 hours patient has required chemical sedation and physical restraints due to aggressive beha vior and agitation. His Geodon has been increased to 20 mg twice daily. Patient has required Ativan at times.) Assessment & Plan Discharge Plan: Home Plan to discharge in: Unknown Physician Review Additional Text: Physical exam: Patient resting in bed. Patient given medication earlier. Patient appears to be cooperative. Patient nonverbal. Heart: Regular rate Lungs: Clear, without distress Abdomen: No distention noted Extremities: Patient able to move all fours. Mentation: Patient resting in bed. Patient earlier with aggressive behavior and very disruptive. Patient now improved with medication. Impression: Agitation and uncontrolled behavior secondary to underlying illness of autism, seizure disorder, and mental retardation Plan: Patient over the past 24 hours has required chemical sedation and physical restraints at times. Nurses report patient is a danger to himself with increased risk of fall. Patient has been biting at the nurses and himself at times. There are times where he also appears to be eating his feces. His agitation and aggressive behavior seems to be uncontrollable at times. With medication this is better controlled. Patient currently on Depakote, Keppra, Geodon and Ativan. Geodon has been increased. Depakote and Keppra levels appear therapeutic. Currently trying to get him placed appropriately with the help of [facility]. Case also discussed with supervisor case loading, social and political studies professor, lead placement person at [facility], medical typist at [facility], and administration. Patient will likely require guardianship proceedings in the future. Case also discussed in detail with psychiatry who recently evaluated patient. Psychiatry agrees patient does not have the capacity to take care of himself or make medical decisions. Psychiatry understands his current agitation and uncontrollable aggressive behavior at times makes it difficult to take care of himself. His aggressive behavior and agitation is also a detriment to him and to the nursing staff. Due to his uncontrolled aggressive behavior requiring chemical sedation and physical restraints at times, will proceed with evaluation by mental health officer to consider transfer to inpatient psych to better adjust his medications before considering long-term placement. Time Spent Managing Pts Care (In Minutes): 55
[2020-11-27] MEDS ORDERED: LORazepam 2 MG/ML VIAL ONE (00:39)
[2020-11-27] MEDS ORDERED: DIAZEPAM 10 MG/2 ML INJ SYRINGE ONE (03:39)
[2020-11-27] MEDS ORDERED: HALOPERIDOL LACT 5 MG/ML INJ IM PRN (07:21)
--- NOTE | 2020-11-27 07:28 | P.PN ---
Subjective Date of Service: 11/27/20 Primary Care Provider: none Chief Complaint: Agitation, uncontrolled behavior Subjective: Other (Patient resting in bed. Patient still having some frequent episodes of agitation requiring chemical sedation and physical restraint.) Assessment & Plan Discharge Plan: Other (Intellectual and developmental disability facility) Plan to discharge in: Unknown Physician Review Additional Text: Physical exam: Patient resting in bed. Patient given medication earlier. Heart: Regular rate Lungs: Clear, without distress Abdomen: No distention noted Extremities: Patient able to move all fours. Mentation: Patient resting in bed. Patient earlier with aggressive behavior and very disruptive. Patient now improved with medication. Impression: Agitation and uncontrolled behavior secondary to underlying illness of severe autism with intellectual and developmental disability, seizure disorder, and severe mental retardation Plan: Patient still having episodes of agitation and aggression with nurses. Patient required chemical sedation medication and physical restraint. Patient stable at this time. Spoke with psychiatry at length. Psychiatry recommends to add Haldol 2 mg twice daily and benztropine 1 mg 1 pill twice daily to help with his agitation. Will provide Haldol 5 mg every 6 hours as needed for agitation. Continue with his other medications including Depakote and Keppra. We will try to limit his other sedation medication with the addition of these 2 medications. Spoke at length to mental health officer yesterday. Patient does not meet inpatient psych criteria due to his severe autism and intellectual/developmental disability. Mental health officer was going to reach out with APS to help place him appropriately to a intellectual and developmental disability facility. I will continue to reach out to mental health officer, APS and [facility] to place this individual in the appropriate facility. Time Spent Managing Pts Care (In Minutes): 55
[2020-11-27] MEDS ORDERED: levETIRAcetam 500 MG TAB ONE (08:31)
[2020-11-27] MEDS ORDERED: BENZTROPINE 1 MG TAB PO SCH (09:00)
[2020-11-27 11:10] VITALS: TEMP 98.5
[2020-11-27 11:18] VITALS: BP 112/78; O2SAT 99
== END 2020-11-27 10:36 | disposition home or self-care (01) ==
LOC: ER 10:00
DX: G40.802 Other epilepsy, not intractable, without status epilepticus (principal); F84.0 Autistic disorder; F90.2 Attention-deficit hyperactivity disorder, combined type; F91.9 Conduct disorder, unspecified; Z78.1 Physical restraint status
CPT/HCPCS: 93005; 87088; 85025; 87086; 80048; 36415; 80320; 80329 ×2; 85610; 80076; 80307 ×8; 85730; 84145; 73130; 73120; 51702; 96372; 99285; J3360; J3486 ×2; J1953; 81003; 81015